=== PATIENT | female | born 1950 | race African-American/Black ===

== ENCOUNTER 2020-06-29 13:56 | Outpatient (CLI) | payer MEDICARE, MEDICAID, SELFPAY ==
--- NOTE | ~2020-06-29 | US_ITS ---
EXAMINATION: US venous doppler LE RT DATE: 06/29/2020 14:33 INDICATION: Right lower limb swelling. TECHNIQUE: Grayscale ultrasound images without and with compression and Doppler ultrasound images of the right lower extremity veins were obtained. COMPARISON: None. FINDINGS: The visualized portions of right common femoral vein, profunda (deep) femoral vein, femoral vein, pop liteal vein, posterior tibial veins, and greater saphenous vein outflow are patent. IMPRESSION: 1. No deep venous thrombosis. Reviewed, dictated and finalized at location A.
== END 2020-06-29 13:57 | disposition home or self-care (01) ==
PROVIDERS: PCP Internal Medicine; Visit Provider Internal Medicine
DX: R22.41 Localized swelling, mass and lump, right lower limb (principal)
CPT/HCPCS: 93971

== ENCOUNTER 2020-10-11 12:30 | Outpatient (RCR) | payer MEDICARE, MEDICAID, SELFPAY ==
--- NOTE | 2020-07-14 14:12 | PTOPEVAL ---
Thank you for referring Lindsay Bonilla to [facility].? The patient is scheduled to be seen for therapy? 2x/week for 10 weeks. Please review, sign, date and return this plan of care MATT. I agree with and certify that the following plan of care is medically necessary. Referring Physician Date Attending Provider: Harry Beth, Referring Provider: Harry Beth, MD Physical Therapy Evaluation Evaluation Information Problem Diagnosis chronic pain Onset 05/2019 Cause OA Subjective Information She reports her right leg is Query Text:As Reported By Patient/ painful. She reports decreased Family activities over the past year. Prior to COVID she was going to the gym. She has not returned to the gym for the past year. She had previous therapy with aquatic therapy 4 yrs ago. Reports limitations with walking, getting in/out of bed. 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 She will use a cane at home except in the kitchen. She does some general stretching at home. She has increased pain with lifting objects Pain Assessment Self Report Pain Assessment Right Hip(s) Reported Pain Level 7 Pain Description Aching Pain Frequency Chronic,Intermittent Lowest Pain Intensity 0 Greatest Pain Intensity 9 Pain Aggravating Factors Exercise/Activity,Lifting, Walking Pain Behaviors None Cervical and Lumbar ROM Lumbar ROM Lumbar Flexion Active Ankle Query Text:Hands to: Lumbar ROM 25% of Normal Lumbar Comments unable to achieve upright trunk position in standing with trunk maintained in flex position. Able to achieve trunk in neutral position in supine or prone position Lower Extremity Range of Motion General Lower Extremity Range of Motion Gross Lower Extremity Range of Motion right knee: 0-90 deg, left Comments knee, left knee: 0-90 dg (hard end feel for knee flex) right hip passive flex: 90 dg with pain, left hip 90 dg no p
--- NOTE | 2020-08-06 10:22 | PCPTNOTE ---
Patient called & cancelled scheduled appointment this date due to having to take care of some business.
--- NOTE | 2020-09-02 13:18 | PCPTNOTE ---
Patient called & cancelled scheduled appointment this date due to going to a .
--- NOTE | 2020-09-16 12:59 | PCPTNOTE ---
Patient called & cancelled scheduled appointment this date due to not feeling well.
--- NOTE | 2020-09-24 10:47 | PCPTNOTE ---
Patient called & cancelled scheduled appointment this date due to unknown reason.
--- NOTE | 2020-10-07 07:57 | PTOPEVAL ---
Thank you for referring Lindsay Bonilla to [facility].? The patient is scheduled to be seen for therapy? 1 x/week for 4 weeks. Please review, sign, date and return this plan of care MATT. I agree with and certify that the following plan of care is medically necessary. Referring Physician Date Attending Provider: Harry Beth, Referring Provider: Harry Beth, MD Physical therapy progress note Diagnosis chronic pain Onset 05/2019 Cause OA Subjective Information She is not planning on Query Text:As Reported By Patient/ returning to the [facility] since Family people are not wearing the mask or while COVID is a problem. She is performing her HEP 3-4x /wk. She had a fall 3 weeks ago when she was cleaning her car at the car wash. Reports she is walking a little better with therapy. She c/o stomach/ intestional problems. She uses a cane for her community mobility. She pushes the cart at [employer] for her endurance exercise. Denies any problems getting in/out of bed. 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 I need pool therapy here to help me Pain Assessment Self Report Pain Assessment Right Hip(s) Reported Pain Level 4 Pain Frequency Chronic Cervical and Lumbar ROM Lumbar ROM Lumbar Flexion Active Floor Query Text:Hands to: Lateral Flexion mid-thigh Query Text:Active Hands to: Lumbar Comments unable to extend trunk past midline in standing position without increased pain. 50% of lateral flex with muscle stretching Lower Extremity Range of Motion General Lower Extremity Range of Motion Limitations Soft Tissue Restriction Gross Lower Extremity Range of Motion passive hip ext: neutral Comments hip passive flex: 90 dg limited by soft tissue mass Cervical and Lumbar Muscle Testing Lumbar Strength Upper Abdominal Strength 3-Fair- Upper Back Extension 3 Fair Lower Back Extension 3 Fair Lower Extremity Muscle Strength Testing Hip Strength Right Hip Fl
--- NOTE | 2020-10-13 07:17 | PCPTNOTE ---
This treatment is being continued on visit number 17 to new [id number] Please see documentation on both accounts to view progress. Completed interventions, outcomes, and problems have been marked as Inactive to facilitate the copying of the Care plan routine for recurring accounts.
== END 2020-10-12 11:31 | disposition home or self-care (01) ==
LOC: ANHPT 12:30
PROVIDERS: PCP Internal Medicine; Referring Provider Internal Medicine; Visit Provider Internal Medicine
DX: G89.29 Other chronic pain (principal)
CPT/HCPCS: 97110; 97113; 97162; 97530

== ENCOUNTER 2020-11-15 13:30 | Outpatient (RCR) | payer MEDICARE, MEDICAID, SELFPAY ==
--- NOTE | 2020-10-13 07:18 | PCPTNOTE ---
The treatment documented on this account is a continuation of the treatment documented on visit number 17 from previous [id number]. Please see documentation on both accounts to view progress. The Plan of Care has been transitioned and updated within the new V#. I have addressed and agree with the discipline specific Problems, Interventions, and Goals for the current certification period. Completed interventions, outcomes, and problems have been marked as Inactive to facilitate the copying of the Care plan routine for recurring accounts.
--- NOTE | 2020-11-02 08:49 | PCPTNOTE ---
Patient called & cancelled scheduled appointment this date due to dentist appointment.
--- NOTE | 2020-11-10 07:13 | PTOPEVAL ---
Physical Therapy Progress Note Thank you for referring Lindsay Bonilla to [facility].? Lindsay has attended 20 therapy visits to address her chronic symptoms. See summary below for her limited progress. The patient is scheduled to be seen for therapy? 1 x/week for 4 weeks. Please review, sign, date and return this plan of care MATT. I agree with and certify that the following plan of care is medically necessary. Referring Physician Date Attending Provider: Harry Beth, Referring Provider: Harry Beth, Diagnosis chronic pain Onset 05/2019 Cause OA Subjective Information She c/o intermittent groin Query Text:As Reported By Patient/ pain. She does feel her legs Family and arms are moving better since starting therapy. 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 She thinks she can stand for an hour before needing to rest, but has tried. She walks around the house without her cane. She will go to the store and walk longer distances leaning on the cart. She is performing her HEP 3-4x /wk. Pain Assessment Self Report Pain Assessment Generalized Reported Pain Level 4 Pain Frequency Chronic Cervical and Lumbar ROM Lumbar ROM Lumbar Flexion Active Floor:Hands to: Lateral Flexion distal thighActive Hands to: Lumbar Comments able to extend trunk past midline in standing position without increased pain. 75% of lateral flex with muscle stretching Lower Extremity Muscle Strength Testing General Lower Extremity Strength Gross Lower Extremity Strength right knee ext: 5/5, flex: 4/5 (standing), hip flex: 4/5, ext:3+/5 (standing) adduction: 2+/5,abduction: 2/5 left knee ext: 5/5, flex: 4/5 (standing) hip flex: 4/5, ext: 3+/5 (standing), adduction: 2+/5, abduction 2/5 Balance Assessment Timed Up and Go Test (TUG) (Seconds) 18 Assistive Devices None 5 Time Sit to Stand Time in Seconds 22 5 Time Sit to Stand Comments slow with movement, = LE WB with task Gait Assessment Gait Pattern Trendelenburg Gait,Antalgic Gait,Circumducted Gait Gait Pattern Observed
--- NOTE | 2020-11-23 10:33 | PCPTNOTE ---
Patient called & cancelled scheduled appointment this date due to not being able to make it today.
--- NOTE | 2020-11-30 12:56 | PCPTNOTE ---
Patient did not show up for scheduled appointment this date. Called & had to leave a message.
--- NOTE | 2020-12-23 08:11 | PCPTNOTE ---
Admitting Provider: Attending Provider: Harry BethMD Patient:Lindsay Bonilla Date of :1950 Physical Therapy Discharge Note Patient has not returned for any further treatments since 11/15/2020, therefore she will be discharged at this time. Patient?s initial visit was on 10/21/2020 10:30 and she had a total of 21 visits. The goals have been partially met. Thank you for referring this patient to [facility]. Please review, sign, date and return this discharge summary MATT. I have been updated about the patient's current status and I agree with discharge from the above service at this time. Referring Physician Date
== END 2021-01-05 08:53 | disposition home or self-care (01) ==
LOC: ANHPT 13:30
PROVIDERS: Referring Provider Internal Medicine; Visit Provider Internal Medicine
DX: G89.29 Other chronic pain (principal)
CPT/HCPCS: 97110; 97113; 97530

== ENCOUNTER 2021-03-29 13:35 | Outpatient (CLI) | payer MEDICARE, MEDICAID, SELFPAY ==
--- NOTE | 2021-03-29 | ECHO_ITS ---
Patient Info Name: Lindsay Bonilla Age: 70 years : 1950 Gender: Female Ht: 65 in Wt: 245 lbs BSA: 2.31 m2 HR: 77 bpm BP: 141 / 82 mmHg Heart Rhythm: Sinus Rhythm Technical Quality: Fair Exam Date: 03/29/2021 1:59 PM Exam Location: [facility] Pulmonary Patient Status: Outpatient Admit Date: 03/29/2021 Staff Ordering Physician: KiritHarry MD Brand Specialist: Lou Milton RDCS Attending Provider: FallonHarry MD Exam Type: CA echo doppler color flow Study Info Indications R06.09 - Other forms of dyspnea Complete two-dimensional, color flow and Doppler transthoracic echocardiogram is performed. Summary 1. Complete two-dimensional, color flow and Doppler transthoracic echocardiogram is performed. 2. Normal left ventricular size with mild concentric hypertrophy and asymmetric septal hypertrophy. Good systolic function of all segments with ejection fraction of 65-70% with no wall motion abnormalities. Grade 1 diastolic dysfunction is present. 3. 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 Mildly increased LVOT velocity of 1.8 m/sec which increases to 2.4 m/sec with Valsalva, suggesting a mild intraventricular gradient of 23 mm Hg. 4. Left atrial chamber dimension is mildly enlarged. 5. There is mild mitral valve regurgitation. 6. Mild pulmonary hypertension, estimated pulmonary arterial systolic pressure is 39 mmHg. 7. Normal sinus rhythm. Left Ventricle Left ventricular chamber dimension is normal. Left ventricular systolic function is normal, estimated at 65-70%. There is mildly increased left ventricular wall thickness. Left ventricular septal wall motion is normal. The left ventricular diastolic function is grade I diastolic dysfunction. Right Ventricle Right ventricular chamber dimension is normal. Right ventricular systolic function is normal. Left Atria Left atrial chamber dimension is mildly enlarged. Right Atria Right atrial chamber dimension is normal. Aortic Valve The aortic valve is trileaflet. There is no aortic valve sclerosis. There is no aortic valve stenosis. There is trace aortic valve regurgitation. Pulmonic Valve The pulmonic valve is normal. There is no pulmonic valve stenosis. There is trace pulmonic regurgitation. Mitral Valve The mitral valve has normal leaflets. There is no mitral valve stenosis. There is mild mitral valve regurgitation. Tricuspid Valve The tricuspid valve leaflets are normal. There is no significant tricuspid valve stenosis. There is mild tricuspid valve regurgitation. Mild pulmonary hypertension, estimated pulmonary arterial systolic pressure is 39 mmHg. Pericardium/Pleural The pericardium appears normal. There is no pericardial effusion. Inferior Vena Cava Normal inferior vena cava with >50% collapse upon inspiration consistent with Empty right atrial pressure, 10 mmHg. Aorta The aortic root size at the sinus of Valsalva is normal. The prox ascending aorta size is normal. Left Ventricular Outflow Tract Name Value Normal LVOT 2D LVOT Diameter 2.0 cm LVOT Doppler
== END 2021-03-29 13:36 | disposition home or self-care (01) ==
PROVIDERS: PCP Internal Medicine; Visit Provider Internal Medicine
DX: R06.02 Shortness of breath (principal); R06.09 Other forms of dyspnea; I34.0 Nonrheumatic mitral (valve) insufficiency; I27.20 Pulmonary hypertension, unspecified; I51.7 Cardiomegaly
CPT/HCPCS: 93306

== ENCOUNTER 2021-04-04 13:04 | Outpatient (CLI) | payer MEDICARE, MEDICAID, SELFPAY ==
--- NOTE | 2021-04-04 | ECG_ITS ---
Measurements Intervals [place] Rate: 60 P: 51 CO: 220 QRS: 47 QRSD: 88 T: 90 QT: 423 QTc: 424 Interpretive Statements SINUS RHYTHM WITH FIRST DEGREE AV BLOCK BORDERLINE T WAVE ABNORMALITY- HIGH LATERAL LEADS ABNORMAL ECG Electronically Signed On 04-04-2021 13:44:47 IRRIGATION SPECIALIST by Miguel Thomas D.O.
== END 2021-04-04 13:05 | disposition home or self-care (01) ==
PROVIDERS: PCP Internal Medicine; Visit Provider Orthopaedic Surgery
DX: M16.11 Unilateral primary osteoarthritis, right hip (principal); Z01.818 Encounter for other preprocedural examination; I44.0 Atrioventricular block, first degree
CPT/HCPCS: 93005

== ENCOUNTER 2021-04-21 11:18 | Outpatient (CLI) | payer OTHER, MEDICAID, SELFPAY ==
[2021-04-21 15:08] LABS: Basophils Percent Auto 0.7 % (0.2-1.2); Eosinophils Absolute Auto 0.1 K/mm3 (0-0.3); Eosinophils Percent Auto 1.9 % (0-4.4); Hematocrit 35.7 % (37.0-47.0); Hemoglobin 11.9 g/dL (12.0-15.0); Immature Granulocyte Absolute 0.02 K/mm3 (0.00-0.031); Immature Granulocyte Percent A 0.3 % (0-0.5); Lymphocytes Absolute Auto 1.26 K/mm3 (0.9-3.2); Lymphocytes Percent Auto 21.2 % (18.3-44.2); Mean Corpuscular HGB Conc 33.3 g/dl (32-36); Mean Corpuscular Hemoglobin 26.7 pg (26-34); Mean Platelet Volume 9.6 fl (7.4-10.4); Monocytes Absolute Auto 0.3 K/mm3 (0.1-0.6); Monocytes Percent Auto 5.6 % (2.6-8.5); Neutrophils Absolute Auto 4.2 K/mm3 (1.3-6.7); Neutrophils Percent Auto 70.3 % (45.5-73.1); Platelet Count Result 335 k/mm3 (150-375); Red Blood Count 4.46 M/mm3 (4.2-5.4); Red Cell Distribution Width 14.6 % (11.5-14.5); White Blood Count 5.9 K/mm3 (4.5-10.0)
[2021-04-21 15:19] LABS: Albumin Level 4.5 g/dL (3.5-5.1); Estimated Glomerular Filt Rate > 60
[2021-04-21 15:21] LABS: Urine Cotinine NEGATIVE
[2021-04-21 15:39] LABS: Anion Gap 7 mmol/L (8-16); Blood Urea Nitrogen 11 mg/dL (7-17); Carbon Dioxide 26 mmol/L (22-30); Chloride 106 mmol/L (98-107); Estimated Glomerular Filt Rate > 60; Glucose 193 mg/dL (65-110); Potassium 3.5 mmol/L (3.4-5.0); Sodium 139 mmol/L (137-145)
== END 2021-04-21 11:19 | disposition home or self-care (01) ==
PROVIDERS: Anesthesiology; PCP Internal Medicine; Visit Provider Orthopaedic Surgery
DX: Z01.818 Encounter for other preprocedural examination (principal); M16.11 Unilateral primary osteoarthritis, right hip; I10 Essential (primary) hypertension
CPT/HCPCS: 36415; 80048; 80307; 82040; 82565; 85025; 87081

== ENCOUNTER 2021-05-11 10:52 | Observation (INO) | payer MEDICARE, MEDICAID, SELFPAY ==
[2021-04-21 13:35] VITALS: BMI 39.6
--- NOTE | 2021-04-21 14:06 | PC.NURSE ---
Report to the Outpatient Waiting Room, entrance under the green pavilion located off [facility], at time _0830 on date _05/10/21 . OR Time: __1030 . - You will be asked a series of questions to screen for COVID 19 for your protection. - A mask is required within the hospital. - No visitors are allowed at this time. Preoperative COVID Testing Requirements: No COVID Test needed if: (proof is required; if not received patient will have Rapid Test prior to entry) - Patient has received COVID Vaccine at least 14 days prior to procedure date or - Patient has positive COVID test result within last 90 days of surgery date. COVID Test needed if above criteria is not met If not COVID vaccinated a COVID test must be conducted within 72 hours of surgery and patient is asked to isolate self from time of testing until procedure. You will go to the [facility] for your COVID testing. The [facility] is located at the corner of [address] from [facility]. You will only be called if COVID results are positive and your surgeon may reschedule your elective surgery date. Patients may have clear liquids (water, carbonated beverages, clear teas, apple juice) until 3 hours prior to surgery with a maximum of 20 ounces. - No food from midnight until time of surgery - Infants may have breast milk until 4 hours before surgery, infant formula 6 hours prior to surgery. - Children will be allowed to drink immediately following surgery. If applicable, please bring a bottle or sippy cup to assist with drinking. Juice, water, soda, and popsicles are readily available. For infants on formula, please bring formula the day of surgery. Pacifiers are allowed. Take the following medications with a SIP of water the morning of surgery: ___AMLODIPINE,CLONIDINE, Medications to discontinue per physician ASPIRIN 7 DAYS PRE OP ,ALL VITAMINS AND SUPPLEMENTS 3 DAYS PRE OP Date to take last dose__ASPIRIN 2/14/22 VITAMINS AND SUPPLEMENTS 05/06/21 Please no make-up, nail kazakh, hairspray, perfume, deodorant, or body powder the day of surgery. No jewelry (including any body piercings) or valuables the day of surgery, leave them at home. Please take a shower or bath the night before, or the morning of, surgery with an antibacterial soap. Wear comfortable, loose fitting clothing. Children are encouraged to wear pajamas. - Jewelry must be removed prior to entering the operating room. Rings and piercings that are not removed may be cut off. - The hospital will not accept responsibility for valuables. - Please leave all valuables, including medications, at home the day of surgery. If you are going home after surgery, a licensed emt driver must drive you home. - NO public transportation without another adult. - We recommend that an adult stay with you for 24 hours following discharge. - We also recommend that you do not drive, make important decision, drink alcoholic beverages, or take any drugs that were not prescribed by your health care provider for at least 24 hours after your discharge time. For Pediatric surgeries, we recommend two adults accompany the child home (only one inside the building at this time). Follow any additional instructions given to you from your surgeon. VERBAL instructions given to _PATIENT and asked if any additional questions and then verbalized understanding. Patient advised to call surgeon office or pre surgery nurse liaison [phone] if any additional questions.
[2021-04-21 14:35] VITALS: BP 140/54; PULSE 79; RESP 18; TEMP 36.8; O2SAT 99
[2021-05-10] VITALS (14 sets, daily range): BP systolic 123–152; BP diastolic 53–74; PULSE 56–99; RESP 12–20; TEMP 35.9–36.8; O2SAT 90–100; BMI 37.3; BMI 44.3
--- NOTE | 2021-05-10 07:17 | WPDHPUPDATE1 ---
History and Physical Update Update Date/Time: 05/10/21 07:17 History and Physical has been reviewed, including an updated exam of the patient. There are NO changes in the patient's condition. Risks, benefits, and alternatives have been discussed and questions answered. Patient agrees to proceed with procedure.
[2021-05-10] MEDS: LACTATED RINGERS 1,000 ML 30 ML IV CONT ×2 (09:24→13:08)
[2021-05-10] MEDS: TRANEXAMIC ACID 1,000MG/ISO100 1,000 MG/100 ML BAG 200 MG IVPB (09:25)
[2021-05-10] MEDS: ACETAMINOPHEN 500 MG TABLET 1000 MG PO (09:28)
[2021-05-10 09:34] LABS: Glucose Point of Care 191 mg/dl (65-105)
--- NOTE | 2021-05-10 09:48 | WPDANESEPPF ---
Anes - Initial Pre Proc Eval Procedure: Operation Date: 05/10/21 10:30 Proposed Procedures p Right Total Hip Arthroplasty - Doug Meehan MD Date/Time: 05/10/21 09:48 Surgeon: Doug Meehan MD Pre Op Diagnosis: primary oa right hip Patient Data Age: 70 Gender: F Height: 1.68 m Weight: 105 kg Last Vital Signs Temp 36.4 C L 05/10/21 09:39 Pulse 76 05/10/21 09:39 Resp 20 05/10/21 09:39 BP 123/74 05/10/21 09:39 Pulse Ox 97 05/10/21 09:39 Allergies Allergy/AdvReac Type Severity Reaction Status Date / Time No Known Allergies Allergy Verified 05/10/21 08:42 Home Medications Medication Instructions Recorded Confirmed Type amlodipine 5 mg tablet 5 mg PO DAILY 01/07/21 05/10/21 History glimepiride 4 mg tablet 8 mg PO QAM 01/07/21 05/10/21 History metformin 500 mg tablet 500 mg PO BID 01/07/21 05/10/21 History rosuvastatin 10 mg tablet 10 mg PO DAILY 01/07/21 05/10/21 History acetaminophen [Tylenol Extra 1,000 mg PO Q6H PRN 04/21/21 05/10/21 History Strength] aspirin [Adult Low Dose Aspirin] 81 mg PO DAILY 04/21/21 05/10/21 History clonidine HCl 0.1 mg PO BID 04/21/21 05/10/21 History rmnajnmhpyva-kkx-jyqg-FA-vit K 1 tablet PO DAILY 04/21/21 05/10/21 History [Adults Multivitamin] potassium 99 mg PO DAILY 04/21/21 05/10/21 History triamterene-hydrochlorothiazid 1 cap PO QPM 04/21/21 05/10/21 History Laboratory Tests 05/10/21 09:30 POC Capillary Glucose 191 mg/dl H mg/dl (65-105) Patient hx anesthesia problems: none Family hx anesthesia problems: none Results Review: All pre-operative results and documents have been reviewed as part of the pre-operative evaluation. [facility] Past Medical History Medical History (Updated 05/10/21 @ 09:48 by Geovany Acosta MD) HTN (hypertension) Hyperlipidemia Obesity Surgical History Surgical History History of left knee replacement History of right knee joint replacement Status post total knee replacement, right Family History Family History Mother Patient's mother is , Onset Age: 87 Father Patient's father is , Onset Age: 93 Family history of arthritis Sibling Patient's brother is Social History Social History Additional smoking assessment comments: DENIES ANY FORM OF TOBACCO USE Alcohol intake: never Living arrangements: alone Spiritual care concerns: No Anes - Eval Final PreProcedure Day of Procedure 05/10/21 09:48 Patient weight: obese Heart: regular rate and rhythm Lungs: clear to auscultation Airway: Mallampati scale class II Neurological: alert and oriented Last oral intake: >/= 8 hours ASA classification: III Emergent: no Anesthetic plan: proceed Anesthesia type and monitoring: general ETT and standard monitoring Results Review: All pre-operative results and documents have been reviewed as part of the pre-operative evaluation. Informed Consent: The patient's anesthetic plan and its attendant risks and benefits were discussed with the patient/family/POA. Questions were solicited and answers provided to the satisfaction of the patient/family/POA.
--- NOTE | 2021-05-10 10:11 | SUR.PREOP ---
0961; NOTIFIED DR MCCLELLAN OF BLOOD SUGAR 191
[2021-05-10] MEDS: ceFAZolin 2 GM/D5W 50 ML 2 GM/50 ML BAG IVPB ×2 (11:04→18:28)
[2021-05-10] MEDS: fentaNYL CITRATE INJ (*CRX) 100 MCG/2 ML VIAL 25 MCG IV PUSH ×5 (13:22→13:48)
--- NOTE | 2021-05-10 14:25 | PC.NURSE ---
This patient, Lindsay Bonilla, was admitted to [facility]1. Patient/family oriented to hospital policies and general routines including ID bracelet, bed and alarms, visiting hours, pain management, procedures, bathroom and other care routines, personal items, smoking policy, room service/diet, and visiting hours. Information on how to activate the Rapid Response Team has been discussed. Patient/Family are encouraged to report perceived risks to care and to ask questions if they do not understand what they are told or what they should do.
[2021-05-10 14:53] LABS: Glucose Point of Care 187 mg/dl (65-105)
[2021-05-10] MEDS: SODIUM CHLORIDE 0.9% IV 1,000 ML 125 ML IV CONT (14:54)
[2021-05-10 18:00] LABS: Glucose Point of Care 121 mg/dl (65-105)
[2021-05-10] MEDS: SENNA/DOCUSATE SODIUM TABLET 2 TAB PO (18:11)
[2021-05-10] MEDS: MELOXICAM 7.5 MG TABLET PO (18:11)
[2021-05-10] MEDS: ASPIRIN 81 MG ENTERIC TABLET PO (18:11)
[2021-05-10] MEDS: metFORMIN HCL 500 MG TABLET PO (18:11)
[2021-05-10] MEDS: ONDANSETRON INJ 4 MG/2 ML VIAL IV PUSH (18:12)
[2021-05-10] MEDS: TRIAMTERENE 37.5 MG/HCTZ 25 MG (MAXZIDE) TABLET 1 TAB PO (18:12)
[2021-05-10] MEDS: cloNIDine HCL 0.1 MG TABLET PO (21:04)
[2021-05-10] MEDS: FAMOTIDINE 20 MG TABLET PO (21:04)
--- NOTE | 2021-05-10 22:52 | PM.IMCN ---
Assessment and Plan Assessment and plan (1) Type 2 diabetes mellitus with complication, without long-term current use of insulin: Code(s): E11.8 - Type 2 diabetes mellitus with unspecified complications Status: Acute Assessment and Plan: Patient's blood glucose on laboratories from 04/21/2021 was elevated at 193. Will resume patient's home medications and have blood glucose monitoring before meals and at bedtime with sliding scale insulin available. (2) Essential (primary) hypertension: Code(s): I10 - Essential (primary) hypertension Status: Acute Assessment and Plan: Will resume patient's home medications and monitor blood pressure. Will adjust medications accordingly for optimal blood pressure control. (3) Right hip pain: Code(s): M25.551 - Pain in right hip Status: Acute Assessment and Plan: Patient is status post right hip arthroplasty. Patient doing extremely well postoperatively states she has very little pain. Will continue per Orthopedic surgery. Will defer pain management and DVT prophylaxis to Orthopedic surgery. HPI Data of Consult Consult date: 05/10/21 Requesting Physician: Doug Meehan MD Primary Care Provider: Harry Beth, Consult Narrative Narrative: Lindsay Bonilla is a 70 year old female who presented to the hospital with severe right hip pain. Patient underwent hip replacement today and hospitalist was consulted for medical management. Patient states that her osteoarthritis had gotten so bad that it was inhibiting her ability to get in and out of a car, difficulty with going shopping and taking care of herself at home. She lives alone. Patient states she does have a history of diabetes mellitus and hypertension, but she has been carefully watching what she eats, and is attempting to lose weight to control her diabetes and hypertension. Patient states that she feels that she has had some improvement with her weight and that her blood pressure and diabetes have been well controlled. Patient states she did have a fall last year and has been having left elbow and left shoulder pain since that time. Patient states she has received cortisone injections which have helped. From medical standpoint patient states she has been feeling very well she denies any chest pain, shortness breast, orthopnea, PND, lightheadedness, dizziness, syncopal, or near syncopal episodes. Patient states she has been taking all medications at home without any difficulty and watches her diet very closely. Review of Systems Review of Systems: A 12 point review of systems was completed patient all pertinent positive and negative per HPI the remainder are unremarkable. [facility] Past Medical History Medical History (Updated 05/10/21 @ 22:59 by Juana Garsia APRN) Diabetes HTN (hypertension) Hyperlipidemia Obesity Surgical History Surgical History (Updated 05/10/21 @ 23:03 by Juaan Garsia APRN) History of left knee replacement History of right knee joint replacement Family History Family History Mother Patient's mother is , Onset Age: 87 Father Patient's father is , Onset Age: 93 Family history of arthritis Sibling Patient's brother is Social History Social History Smoking status: Never smoker Alcohol intake: never Substance use: never Living arrangements: alone Spiritual care concerns: No Meds Home Medications and Allergies Home Medications Medication Instructions Recorded Confirmed Type amlodipine 5 mg tablet 5 mg PO DAILY 01/07/21 05/10/21 History glimepiride 4 mg tablet 8 mg PO QAM 01/07/21 05/10/21 History metformin 500 mg tablet 500 mg PO BID 01/07/21 05/10/21 History rosuvastatin 10 mg tablet 10 mg PO DAILY 01/07/21 05/10/21 History acetaminophen [Tylenol Extra
[2021-05-11] VITALS (10 sets, daily range): BP systolic 97–139; BP diastolic 50–78; PULSE 62–98; RESP 16–18; TEMP 36.4–38.5; O2SAT 93–100
--- NOTE | ~2021-05-11 | XR_ITS ---
EXAMINATION: XR chest 2V 05/12/2021 11:15 INDICATION: Fever and cough PROCEDURE: 2 view chest COMPARISON: Comparison to multiple prior studies sequentially, with oldest reviewed study dated 10/28. FINDINGS: The lungs are clear. The cardiomediastinal silhouette is within normal limits. There are no pleural effusions. There is no pneumothorax suspected. There are advanced degenerative changes o f the shoulders. IMPRESSION: 1: NO ACUTE CARDIOPULMONARY DISEASE. Reviewed, dictated and finalized at location B. OY TENDER
--- NOTE | ~2021-05-11 | XR_ITS ---
EXAMINATION: XR hip RT min 2V DATE: 05/10/2021 13:41 INDICATION: Postoperative evaluation following right total hip arthroplasty TECHNIQUE: Anteroposterior and lateral views of the right hip were obtained. COMPARISON: 05/10/2021 at 7:36 AM FINDINGS: Interval placement of a right total hip arthroplasty which appears well seated in near anatomic align ment. Expected small amount of subcutaneous gas in the postoperative bed. No fractures identified. IMPRESSION: 1. Right total hip arthroplasty, negative for postoperative purposes. Reviewed, dictated and finalized at location A. [employer] SUPERVISOR
[2021-05-11] MEDS: ceFAZolin 2 GM/D5W 50 ML 2 GM/50 ML BAG IVPB (03:29)
--- NOTE | 2021-05-11 07:05 | WPDANESPN ---
Anes - Prog Note Post-Op Date/Time: 05/11/21 07:05 Cardiovascular status: normal Respiratory status: normal Airway patency: baseline Mental status: baseline Post-Op hydration status: normal Vital Signs: Last Vital Signs Temp 97.6 F 05/11/21 00:00 Pulse 81 05/11/21 04:00 Resp 18 05/11/21 06:00 BP 130/50 L 05/11/21 04:00 Pulse Ox 94 05/11/21 04:00 Pain Score (VAS): 7 pain med helps I/O: Intake & Output 05/10/21 05/10/21 05/11/21 15:59 23:59 07:59 Intake Total 380 922 9725 Output Total 300 Balance 868 673 7160 05/10/21 05/10/21 05/10/21 09:21 09:30 14:51 POC Capillary Glucose 191 H 187 H Blood Type B Positive Antibody Screen Negative 05/10/21 17:55 POC Capillary Glucose 121 H Blood Type Antibody Screen Post-procedural complaints: none Patient Feedback: Patient satisfied with anesthetic care.
[2021-05-11] MEDS: MELOXICAM 7.5 MG TABLET PO ×2 (09:15→17:10)
[2021-05-11] MEDS: SENNA/DOCUSATE SODIUM TABLET 2 TAB PO ×2 (09:15→17:10)
[2021-05-11] MEDS: GLIMEPIRIDE 2 MG TABLET 8 MG PO (09:15)
[2021-05-11] MEDS: metFORMIN HCL 500 MG TABLET PO ×2 (09:16→17:10)
[2021-05-11] MEDS: ROSUVASTATIN 10 MG TABLET PO (09:16)
[2021-05-11] MEDS: amLODIPine BESYLATE 5 MG TABLET PO (09:16)
[2021-05-11] MEDS: FAMOTIDINE 20 MG TABLET PO ×2 (09:16→21:01)
[2021-05-11] MEDS: ASPIRIN 81 MG ENTERIC TABLET PO ×2 (09:16→17:10)
[2021-05-11] MEDS: cloNIDine HCL 0.1 MG TABLET PO ×2 (09:20→21:01)
[2021-05-11] MEDS: polyethylene glycoL 3350 17 GM POWD.PACK PO (09:21)
[2021-05-11] MEDS: oxyCODONE HCL (*CRX) 5 MG TAB IR PO (09:27)
--- NOTE | 2021-05-11 09:34 | PM.IMPN ---
Progress Note: A&P Assessment and Plan (1) Primary osteoarthritis of right hip: Code(s): M16.11 - Unilateral primary osteoarthritis, right hip Status: Acute Assessment and Plan: Patient with DJD of the right hip who has failed conservative management and is now POD #1 from a right hip GABY. Patient is feeing weak but able to tolerate therapy. Pain management and DVT prophylaxis per primary team. Discharge planning underway. (2) Type 2 diabetes mellitus with complication, without long-term current use of insulin: Code(s): E11.8 - Type 2 diabetes mellitus with unspecified complications Status: Acute Assessment and Plan: The patient's blood glucose was reviewed on 05/11. No A1c listed in the chart. Minimal values in the chart. Glucose 193 prior to admission but random. Glucose 191, 187 and 121yesterday. Unfortunately, no fasting glucose listed before her breakfast this morning. Continue AccuCheks covering with sliding scale. Hypoglycemia protocol available as needed. Continue current medications. Check A1c in AM if she is held overnight (3) Essential (primary) hypertension: Code(s): I10 - Essential (primary) hypertension Status: Acute Assessment and Plan: Patient's blood pressure was reviewed on 05/11 Blood pressure remains well controlled. Norvasc, Clonidine and Maxide already resumed. She is not on CECILE or ARB but probably related to the HOCM. Will continue current medications and monitor BP closely. (4) Hypertrophic obstructive cardiomyopathy (HOCM): Code(s): I42.1 - Obstructive hypertrophic cardiomyopathy Status: Acute Assessment and Plan: Patient with murmur. Echo 03/29/21 showing EF 65-70% and grade I diastolic dysfunction. She had mild concentric hypertrophy and asymmetric septal hypertrophy consistent with hypertrophic obstructive cardiomyopathy including systolic anterior motion of the mitral valve. Returned and spoke with patient. Recommend she speak with her doctor about the Echo findings. She voices understandng. Subjective Date/time seen: 05/11/21 09:34 Interval history: 70yo female with DM and HTN here for elective right GABY. Patient feels sleepy/tired and weak. She was able to get up to the bedside commode. Eating okay. No CP or SOB. No n/v but does feel nauseous if she moves too fast. Pain well controlled. Exam Narrative: AF 97.6 130/50 81 18 94% ra Constitutional: NARD sitting at the side of the bed Lungs: CTA bilaterally, nml RR CV: RRR S1/S2; murmur appreciated sternal boarder loudest in the RUSB but without obvious radiation Abdomen: Soft, obese, NT Extremities: Right hip dressing is clean/dry/intact. Rod hose in place Skin: Warm and dry. Neurological: Non focal Psychiatric: Normal mood and affect Objective Data Vital Signs Vital Signs: Vital Signs - 24 hr 05/10/21 09:39 05/10/21 13:08 05/10/21 13:15 Temperature 97.5 F L 98.2 F Pulse Rate 76 80 70 Respiratory Rate 20 12 12 Blood Pressure 123/74 152/62 H 143/74 H Pulse Oximetry 97 99 100 05/10/21 13:30 05/10/21 13:45 05/10/21 14:00 Temperature Pulse Rate 61 63 56 L Respiratory Rate 16 16 14 Blood Pressure 140/68 133/68 142/61 H Pulse Oximetry 100 100 99 05/10/21 14:11 05/10/21 14:25 05/10/21 14:40 Temperature 96.8 F L 96.7 F L Pulse Rate 58 L 59 L 60 Respiratory Rate 14 16 15 Blood Pressure 125/58 L 125/56 L 124/53 L Pulse Oximetry 99 90 93 05/10/21 16:40 05/10/21 17:00 05/10/21 17:40 Temperature 97.1 F L 97.6 F Pulse Rate 98 90 99 Respiratory Rate 20 18 18 Blood Pressure 136/58 L 134/53 L Pulse Oximetry 96 95 100 05/10/21 20:00 05/10/21 22:00 05/11/21 00:00 Temperature 97.9 F 97.6 F Pulse Rate 73 98 Respiratory Rate 18 18 18 Blood Pressure 136/60 122/70 Pulse Oximetry 91 93 05/11/21 04:00 05/11/21 06:00 Temperature Pulse Rate 81 Respiratory Rate 18 18 Blood Pressure 130/50 L Pulse Oximetry 94
[2021-05-11] MEDS: CEPHALEXIN 500 MG CAPSULE PO (10:23)
--- NOTE | 2021-05-11 12:06 | PM.PNORT ---
Progress Note: A&P Assessment and Plan (1) Status post total hip replacement, right: Code(s): Z96.641 - Presence of right artificial hip joint <AMARI Marina - Last Filed: 05/12/21 13:12> Status: Acute <AMARI Marina - Last Filed: 05/12/21 13:12> Assessment and Plan: Postop day 1: Right Total hip arthroplasty. Patient tolerated procedure well. No numbness or tingling. Difficulty ambulating. Concerns from occupational therapy. Considering rehab. Will stay over night and re-evaluate tomorrow. <AMARI Marina - Last Filed: 05/12/21 13:12> Additional Plan Patient also see and examined on POD 1. Mobilizing poorly. Discussed with therapy and nursing. Rehab suggested. However, likely patient will be safe for home discharge within a few days. <Doug Meehan MD - Last Filed: 05/12/21 15:22> Subjective Subjective Date/Time Seen: 05/11/21 08:06 Patient on the commode at the time of my visit. Patient complains of trouble ambulating and pain. Notes some nausea. No other complaints. <AMARI Marina - Last Filed: 05/12/21 13:12> Exam Narrative: Obese 70 y/o female. Resting comfortably in bed. Wearing compression socks bilaterally. Dressing dry and intact with no drainage. Moderate swelling. No ecchymosis. No erythema. No hematoma. Range of motion limited due to pain. Calf nontender. Thigh nontender. Neurologic status intact. No varicosities. Distal pulses palpable. <AMARI Marina - Last Filed: 05/12/21 13:12> Objective Data Vital Signs Vital Signs: Vital Signs - 24 hr 05/11/21 13:57 05/11/21 14:00 05/11/21 15:31 Temperature 101 F H 101.3 F H 98.3 F Pulse Rate 62 Respiratory Rate 16 Blood Pressure 97/60 L Pulse Oximetry 98 05/11/21 20:00 05/11/21 22:00 05/12/21 00:00 Temperature 98.3 F 98.9 F Pulse Rate 79 81 Respiratory Rate 18 18 18 Blood Pressure 135/53 L 125/56 L Pulse Oximetry 96 90 05/12/21 03:54 05/12/21 04:00 05/12/21 06:00 Temperature 100.4 F H 100.4 F H 97.4 F L Pulse Rate 85 Respiratory Rate 18 18 Blood Pressure 119/42 L Pulse Oximetry 91 05/12/21 08:06 Temperature 97.7 F Pulse Rate 77 Respiratory Rate 16 Blood Pressure 132/54 L Pulse Oximetry 96 <AMARI Marina - Last Filed: 05/12/21 13:12> Intake/Output Intake/Output: Intake & Output 05/09/21 05/10/21 05/11/21 05/12/21 23:59 23:59 23:59 23:59 Intake Total 1010 1340 840 Output Total 300 300 Balance 710 1340 540 <AMARI Marina - Last Filed: 05/12/21 13:12> Meds/Results Medications: Active Medications Generic Name Dose Route Start Last Admin Trade Name Freq PRN Reason Stop Dose Admin Acetaminophen 1,000 mg 05/11/21 07:00 05/12/21 03:54 Acetaminophen 500 Mg Tablet PO 1,000 mg Q6H PRN Administration Pain 1-3 Amlodipine Besylate 5 mg 05/11/21 09:00 05/12/21 08:17 Amlodipine Besylate 5 Mg Tablet PO 5 mg DAILY SUMANTH Administration Aspirin 81 mg 05/10/21 17:00 05/12/21 08:18 Aspirin 81 Mg Enteric Tablet PO 81 mg BID SUMANTH Administration Clonidine HCl 0.1 mg 05/10/21 21:00 05/12/21 08:18 Clonidine Hcl 0.1 Mg Tablet PO 0.1 mg Q12HR SUMANTH Administration Cyclobenzaprine HCl 10 mg 05/10/21 14:13 Cyclobenzaprine Hcl 10 Mg Tablet PO Q8H PRN Muscle Spasm Dextrose 12.5 gm 05/10/21 23:08 Dextrose 50% 25 Gm/50 Ml Syringe IV PUSH PRN PRN Hypoglycemia Protocol Famotidine 20 mg 05/10/21 21:00 05/12/21 08:18 Famotidine 20 Mg Tablet PO 20 mg Q12HR SUMANTH Administration Glimepiride 8 mg 05/11/21 08:00 05/12/21 08:02 Glimepiride 2 Mg Tablet PO 8 mg DAILY@0800 SUMANTH Administration Glucagon 1 mg 05/10/21 23:08 Glucagon For Inj 1 Mg Vial IM PRN PRN Hypoglycemia Protocol Glucose 15 gm 05/10/21 23:08 Glucose Oral Gel 15 Gm Of Glucse In 37.5 Gm Tube
[2021-05-11 12:37] LABS: Glucose Point of Care 154 mg/dl (65-105)
[2021-05-11] MEDS: ACETAMINOPHEN 500 MG TABLET 1000 MG PO (13:57)
[2021-05-11] MEDS: TRIAMTERENE 37.5 MG/HCTZ 25 MG (MAXZIDE) TABLET 1 TAB PO (17:10)
[2021-05-11 17:26] LABS: Glucose Point of Care 143 mg/dl (65-105)
[2021-05-12] VITALS (8 sets, daily range): BP systolic 119–154; BP diastolic 42–65; PULSE 75–85; RESP 16–18; TEMP 36.3–38; O2SAT 90–96
[2021-05-12] MEDS: ACETAMINOPHEN 500 MG TABLET 1000 MG PO (03:54)
[2021-05-12 05:46] LABS: Hemoglobin A1C 6.6 % (<5.7)
[2021-05-12 07:55] LABS: Glucose Point of Care 124 mg/dl (65-105)
[2021-05-12] MEDS: metFORMIN HCL 500 MG TABLET PO ×2 (08:01→18:00)
[2021-05-12] MEDS: GLIMEPIRIDE 2 MG TABLET 8 MG PO (08:02)
[2021-05-12] MEDS: amLODIPine BESYLATE 5 MG TABLET PO (08:17)
[2021-05-12] MEDS: SENNA/DOCUSATE SODIUM TABLET 2 TAB PO ×2 (08:18→18:01)
[2021-05-12] MEDS: ASPIRIN 81 MG ENTERIC TABLET PO ×2 (08:18→18:00)
[2021-05-12] MEDS: FAMOTIDINE 20 MG TABLET PO ×2 (08:18→21:00)
[2021-05-12] MEDS: MELOXICAM 7.5 MG TABLET PO ×2 (08:18→18:00)
[2021-05-12] MEDS: polyethylene glycoL 3350 17 GM POWD.PACK PO (08:18)
[2021-05-12] MEDS: ROSUVASTATIN 10 MG TABLET PO (08:18)
[2021-05-12] MEDS: cloNIDine HCL 0.1 MG TABLET PO ×2 (08:18→21:00)
--- NOTE | 2021-05-12 10:30 | PM.IMPN ---
Progress Note: A&P Assessment and Plan (1) Fever: Code(s): R50.9 - Fever, unspecified Status: Acute Assessment and Plan: Patiet with fever yesterday. No urinary symptoms. SLight cough. She is compliant with incentie spirometry. No evidence of DVT. Atelectasis? Will check CXR. Consider influenza or COVD if persistent symptoms or CXR abnml. (she states she had COVID test negative pre-operatively) (2) Primary osteoarthritis of right hip: Code(s): M16.11 - Unilateral primary osteoarthritis, right hip Status: Acute Assessment and Plan: Patient with DJD of the right hip who has failed conservative management and is now POD #2 from a right hip GABY. Patient is feeing weak but able to tolerate therapy. Pain management and DVT prophylaxis per primary team. Discharge planning underway. (3) Type 2 diabetes mellitus with complication, without long-term current use of insulin: Code(s): E11.8 - Type 2 diabetes mellitus with unspecified complications Status: Acute Assessment and Plan: A1c 6.6. The patient's blood glucose was reviewed on 05/12 Glucose better controlled. Continue AccuCheks covering with sliding scale. Hypoglycemia protocol available as needed. Continue current medications. Diab diet (4) Essential (primary) hypertension: Code(s): I10 - Essential (primary) hypertension Status: Acute Assessment and Plan: Patient's blood pressure was reviewed on 05/12 Blood pressure remains well controlled. Continue Norvasc, Clonidine and Maxide. She is not on CECILE or ARB but probably related to the HOCM. Monitor BP closely. (5) Hypertrophic obstructive cardiomyopathy (HOCM): Code(s): I42.1 - Obstructive hypertrophic cardiomyopathy Status: Acute Assessment and Plan: Patient with murmur. Echo 03/29/21 showing EF 65-70% and grade I diastolic dysfunction. She had mild concentric hypertrophy and asymmetric septal hypertrophy consistent with hypertrophic obstructive cardiomyopathy including systolic anterior motion of the mitral valve. Spoke with patient and recommended that she speak with her PCP about these findings. Subjective Date/time seen: 05/12/21 10:30 Interval history: 70yo female with DM and HTN here for elective right GABY. Lightheadedness with standing. No CP or SOB. No n/v. Took long walk with PT. Pain 8/10 curently. No dysuria or hematuria. No diarrhea. COVID vaccine with booster was September (?). Up to date n influenza accCough productive of whitish phlegm. Exam Narrative: Tm 101.3 97.7 132/54 77 16 96% ra Constitutional: NARD sitting at the side of the bed Lungs: decrased BS in the right base o/w clear CV: RRR S1/S2; murmur appreciated t/o the precordium Abdomen: Soft, obese, NT Extremities: Right hip dressing is clean/dry/intact. negaive Homans Skin: Warm and dry. Large lipoma midback Psychiatric: Normal mood and affect Objective Data Vital Signs Vital Signs: Vital Signs - 24 hr 05/11/21 11:58 05/11/21 13:57 05/11/21 14:00 Temperature 101 F H 101.3 F H Pulse Rate 84 62 Respiratory Rate 16 16 Blood Pressure 97/78 L 97/60 L Pulse Oximetry 94 98 05/11/21 15:31 05/11/21 20:00 05/11/21 22:00 Temperature 98.3 F 98.3 F Pulse Rate 79 Respiratory Rate 18 18 Blood Pressure 135/53 L Pulse Oximetry 96 05/12/21 00:00 05/12/21 03:54 05/12/21 04:00 Temperature 98.9 F 100.4 F H 100.4 F H Pulse Rate 81 85 Respiratory Rate 18 18 Blood Pressure 125/56 L 119/42 L Pulse Oximetry 90 91 05/12/21 06:00 05/12/21 08:06 Temperature 97.4 F L 97.7 F Pulse Rate 77 Respiratory Rate 18 16 Blood Pressure 132/54 L Pulse Oximetry 96 Intake/Output Intake/Output: Intake & Output 05/09/21 05/10/21 05/11/21 05/12/21 23:59 23:59 23:59 23:59 Intake Total 1010 1340 840 Output Total 300 Balance 710 1340 840 Meds/Results Medications: Active Medications Generic Name Dose Route Start Las
[2021-05-12] MEDS: oxyCODONE HCL (*CRX) 5 MG TAB IR 10 MG PO (10:47)
--- NOTE | 2021-05-12 11:12 | PC.NURSE ---
Pt off floor to XRAY
--- NOTE | 2021-05-12 11:31 | W.PM.PROC2 ---
Procedure Note - Detailed Date of Procedure 05/10/21 Pre-op Diagnosis Primary djd right hip Post-op Diagnosis same Procedure Performed Right Total Hip Arthroplasty Surgeon Doug Meehan MD Room Attendant Hafsa Rojas PA-C Anesthesia general Findings Advanced arthritis right hip. Excellent bone quality. Description of Procedure The patient was given preoperative antibiotics. A general anesthetic was administered. The patient was carefully placed in the lateral decubitus position on the PEG board. The shoulders and hips were carefully positioned for component and leg length positioning reference. The hip was prepped and draped in the usual sterile fashion. A longitudinal incision was created over the posterior aspect of the greater trochanter. Careful dissection was brought down through the deep fascia with electrocautery. A minimally invasive optimized posterior approach to the hip was performed. The short external rotators and capsule were taken down in an L-shaped capsulotomy. The tissue was tagged for later repair using number 2 high strength suture. The femoral neck was measured and taken in situ. The femoral head was removed. The acetabulum was carefully exposed. The inferior capsule was released. The labrum was resected. The acetabulum was sequentially reamed to one over the intended cup size. The cup was impacted into position with excellent press-fit. Typical anatomic landmarks, including the bony contact points as well as the inferior transverse acetabular ligament were used to confirm cup positioning with preoperative templating. Attention was turned to the femur, which was carefully exposed. The hip was reamed and then broached sequentially. Excellent press-fit was obtained with the broach. The hip was trialed. Measurements were utilized, including the lesser trochanter as well as the center of the femoral head and the tip of the trochanter, and excellent assessment of the offset and leg lengths were confirmed. The real component was impacted into position. Trialing confirmed appropriate leg length and offset with soft tissue balancing as well apparent feel of the leg, both at the knee and the heel. Soft tissues were assessed using the the iliotibial band. Reduction of the posterior capsule and external rotators were also used as a secondary assessment. The hip was copiously irrigated with pulsatile lavage antibiotic solution periodically throughout the procedure. The real components were then assembled and reduced. The hip was stable throughout typical maneuvers, including extension, external rotation to 70 degrees, the position of sleep as well as flexion to 90 degrees with internal rotation past 45 degrees. The shake test confirmed stability without impingement. Osteophytes were removed as necessary. The short external rotators and capsule were repaired back to the posterior trochanter through drill holes. The deep fascia was repaired with running number 2 Quill suture, followed by 0 Stratafix suture and 2-0 Stratafix suture in the dermis. Steri-Strips were placed on the skin, followed by a sterile silver occlusive dressing. There were no complications. Meticulous hemostasis was maintained with the AquaMantys device. The patient was brought to the recovery room in stable condition. There were no complications. Physician assistant center director, Hafsa Rojas PA-C, required for surgery; including patient positioning, draping, tissue retraction, maintaining instrument position, hip dislocation/ relocation, wound closure, and dressing placement. Implants The Accolade II hip stem, 127 degree size 3 , was utilized with excellent press-fit. The Trident II acetabular component was impacted with excellent press-fit stability. The +0 , 36 mm Biolox ceramic femoral head was utilized. Estimated Blood Loss -300.0 Urine Output 300 Drains No Packing No Pathology none sent Complications No immediate complications Condition stable
[2021-05-12 11:44] LABS: Glucose Point of Care 166 mg/dl (65-105)
--- NOTE | 2021-05-12 13:12 | PM.PNORT ---
Progress Note: A&P Assessment and Plan (1) Status post total hip replacement, right: Code(s): Z96.641 - Presence of right artificial hip joint Status: Acute Assessment and Plan: Postop day 2: Right Total hip arthroplasty. Patient tolerated procedure well. No numbness or tingling. Tolerating therapy better today. Increased pain today. Plan is for patient to be discharged home tomorrow. Plan discussed with Care coordination, nurse, and Dr. Meehan. Subjective Subjective Date/Time Seen: 05/12/21 08:00 Patient resting comfortably in chair. She has been ambulating better but is not yet comfortable going home. No other complaints. Review of Systems Review of Systems: All systems reviewed & are unremarkable except as noted in HPI and below Exam Narrative: Obese 70 y/o female. Resting comfortably in bed. Wearing compression socks bilaterally. Dressing dry and intact with no drainage. Moderate swelling. No ecchymosis. No erythema. No hematoma. Range of motion limited due to pain. Calf nontender. Thigh nontender. Neurologic status intact. No varicosities. Distal pulses palpable. Objective Data Vital Signs Vital Signs: Vital Signs - 24 hr 05/11/21 13:57 05/11/21 14:00 05/11/21 15:31 Temperature 101 F H 101.3 F H 98.3 F Pulse Rate 62 Respiratory Rate 16 Blood Pressure 97/60 L Pulse Oximetry 98 05/11/21 20:00 05/11/21 22:00 05/12/21 00:00 Temperature 98.3 F 98.9 F Pulse Rate 79 81 Respiratory Rate 18 18 18 Blood Pressure 135/53 L 125/56 L Pulse Oximetry 96 90 05/12/21 03:54 05/12/21 04:00 05/12/21 06:00 Temperature 100.4 F H 100.4 F H 97.4 F L Pulse Rate 85 Respiratory Rate 18 18 Blood Pressure 119/42 L Pulse Oximetry 91 05/12/21 08:06 Temperature 97.7 F Pulse Rate 77 Respiratory Rate 16 Blood Pressure 132/54 L Pulse Oximetry 96 Intake/Output Intake/Output: Intake & Output 05/09/21 05/10/21 05/11/21 05/12/21 23:59 23:59 23:59 23:59 Intake Total 1010 1340 840 Output Total 300 300 Balance 710 1340 540 Meds/Results Medications: Active Medications Generic Name Dose Route Start Last Admin Trade Name Emelyn PRN Reason Stop Dose Admin Acetaminophen 1,000 mg 05/11/21 07:00 05/12/21 03:54 Acetaminophen 500 Mg Tablet PO 1,000 mg Q6H PRN Administration Pain 1-3 Amlodipine Besylate 5 mg 05/11/21 09:00 05/12/21 08:17 Amlodipine Besylate 5 Mg Tablet PO 5 mg DAILY SUMANTH Administration Aspirin 81 mg 05/10/21 17:00 05/12/21 08:18 Aspirin 81 Mg Enteric Tablet PO 81 mg BID SUMANTH Administration Clonidine HCl 0.1 mg 05/10/21 21:00 05/12/21 08:18 Clonidine Hcl 0.1 Mg Tablet PO 0.1 mg Q12HR SUMANTH Administration Cyclobenzaprine HCl 10 mg 05/10/21 14:13 Cyclobenzaprine Hcl 10 Mg Tablet PO Q8H PRN Muscle Spasm Dextrose 12.5 gm 05/10/21 23:08 Dextrose 50% 25 Gm/50 Ml Syringe IV PUSH PRN PRN Hypoglycemia Protocol Famotidine 20 mg 05/10/21 21:00 05/12/21 08:18 Famotidine 20 Mg Tablet PO 20 mg Q12HR SUMANTH Administration Glimepiride 8 mg 05/11/21 08:00 05/12/21 08:02 Glimepiride 2 Mg Tablet PO 8 mg DAILY@0800 SUMANTH Administration Glucagon 1 mg 05/10/21 23:08 Glucagon For Inj 1 Mg Vial IM PRN PRN Hypoglycemia Protocol Glucose 15 gm 05/10/21 23:08 Glucose Oral Gel 15 Gm Of Glucse In 37.5 Gm Tube PO PRN PRN Hypoglycemia Protocol Dextrose 1,000 mls @ 100 mls/hr 05/10/21 23:08 Dextrose 5% 1,000 Ml IVPB PRN PRN Hypoglycemia Protocol Insulin Aspart 2 - 5 units 05/11/21 08:00 05/12/21 11:46 Insulin Aspart (*Bkc) 100 Units/Ml SUB-Q Not Given TIDWM [facility] Protocol Meloxicam 7.5 mg 05/10/21 17:00 05/12/21 08:18 Meloxicam 7.5 Mg Tablet PO 7.5 mg BID SUMANTH Administration Metformin HCl 500 mg 05/10/21 17:00 05/12/21 08:01 Metformin Hcl 500 Mg Tablet PO 500 mg BIDWM SUMANTH
--- NOTE | 2021-05-12 13:23 | PC.NURSE ---
1200 pt had emesis x1 after lunch
--- NOTE | 2021-05-12 14:39 | PM.PNORT ---
Progress Note: A&P Assessment and Plan (1) Status post total hip replacement, right: Code(s): Z96.641 - Presence of right artificial hip joint Status: Acute Additional Plan Postoperative day 2. Mobilizing slowly. Primarily related to pre-existing knee arthroplasties. Discussed care with nurse and therapist. Also instability of both replacements and severe degenerative scoliosis compromising gait pattern. She is unsteady on stairs and requires assistance. Her son will be home tomorrow and can help her get into the house. Plan on discharge tomorrow morning. Subjective Subjective Date/Time Seen: 05/12/21 14:39 Post Op day: 2 Interval history: Patient seen and examined. Finished working with therapy this afternoon. Difficulty with stairs. Assistance of 1 required. Nausea earlier today likely related to pain medication. Exam Narrative: Pain well controlled. Wound healing nicely. No hematoma. Wiggles toes. Calf nontender. Neurologic status intact. Objective Data Vital Signs Vital Signs: Vital Signs - 24 hr 05/11/21 15:31 05/11/21 20:00 05/11/21 22:00 Temperature 36.8 C 36.8 C Pulse Rate 79 Respiratory Rate 18 18 Blood Pressure 135/53 L Pulse Oximetry 96 05/12/21 00:00 05/12/21 03:54 05/12/21 04:00 Temperature 37.2 C 38.0 C H 38.0 C H Pulse Rate 81 85 Respiratory Rate 18 18 Blood Pressure 125/56 L 119/42 L Pulse Oximetry 90 91 05/12/21 06:00 05/12/21 08:06 Temperature 36.3 C L 36.5 C Pulse Rate 77 Respiratory Rate 18 16 Blood Pressure 132/54 L Pulse Oximetry 96 Intake/Output Intake/Output: Intake & Output 05/09/21 05/10/21 05/11/21 05/12/21 23:59 23:59 23:59 23:59 Intake Total 1010 1340 960 Output Total 300 300 Balance 710 1340 660 Meds/Results Medications: Active Medications Generic Name Dose Route Start Last Admin Trade Name Freq PRN Reason Stop Dose Admin Acetaminophen 1,000 mg 05/11/21 07:00 05/12/21 03:54 Acetaminophen 500 Mg Tablet PO 1,000 mg Q6H PRN Administration Pain 1-3 Amlodipine Besylate 5 mg 05/11/21 09:00 05/12/21 08:17 Amlodipine Besylate 5 Mg Tablet PO 5 mg DAILY SUMANTH Administration Aspirin 81 mg 05/10/21 17:00 05/12/21 08:18 Aspirin 81 Mg Enteric Tablet PO 81 mg BID SUMANTH Administration Clonidine HCl 0.1 mg 05/10/21 21:00 05/12/21 08:18 Clonidine Hcl 0.1 Mg Tablet PO 0.1 mg Q12HR SUMANTH Administration Cyclobenzaprine HCl 10 mg 05/10/21 14:13 Cyclobenzaprine Hcl 10 Mg Tablet PO Q8H PRN Muscle Spasm Dextrose 12.5 gm 05/10/21 23:08 Dextrose 50% 25 Gm/50 Ml Syringe IV PUSH PRN PRN Hypoglycemia Protocol Famotidine 20 mg 05/10/21 21:00 05/12/21 08:18 Famotidine 20 Mg Tablet PO 20 mg Q12HR SUMANTH Administration Glimepiride 8 mg 05/11/21 08:00 05/12/21 08:02 Glimepiride 2 Mg Tablet PO 8 mg DAILY@0800 [facility] Administration Glucagon 1 mg 05/10/21 23:08 Glucagon For Inj 1 Mg Vial IM PRN PRN Hypoglycemia Protocol Glucose 15 gm 05/10/21 23:08 Glucose Oral Gel 15 Gm Of Glucse In 37.5 Gm Tube PO PRN PRN Hypoglycemia Protocol Dextrose 1,000 mls @ 100 mls/hr 05/10/21 23:08 Dextrose 5% 1,000 Ml IVPB PRN PRN Hypoglycemia Protocol Insulin Aspart 2 - 5 units 05/11/21 08:00 05/12/21 11:46 Insulin Aspart (*Bkc) 100 Units/Ml SUB-Q Not Given TIDWM [facility] Protocol Meloxicam 7.5 mg 05/10/21 17:00 05/12/21 08:18 Meloxicam 7.5 Mg Tablet PO 7.5 mg BID SUMANTH Administration Metformin HCl 500 mg 05/10/21 17:00 05/12/21 08:01 Metformin Hcl 500 Mg Tablet PO 500 mg BIDWM [facility] Administration Naloxone HCl 0.1 mg 05/10/21 14:13 Naloxone Hcl 0.4 Mg/Ml Vial IV PUSH Q2M PRN Opiate Reversal Non-Formulary Medication 99 mg 05/11/21 09:00 Potassium PO 06/10/21 08:59 DAILY [facility] Ondansetron HCl 4 mg 05/10/21 14:13 05/10/21 18:12 Ondans
--- NOTE | 2021-05-12 16:14 | PC.NURSE ---
RN took over care 1515.
[2021-05-12 17:17] LABS: Glucose Point of Care 118 mg/dl (65-105)
[2021-05-12] MEDS: TRIAMTERENE 37.5 MG/HCTZ 25 MG (MAXZIDE) TABLET 1 TAB PO (18:01)
[2021-05-12 22:09] LABS: Glucose Point of Care 128 mg/dl (65-105)
[2021-05-13] VITALS: BP 114/45; PULSE 75; RESP 18; TEMP 36.4; O2SAT 96
[2021-05-13 04:00] VITALS: BP 141/60; PULSE 85; RESP 18; TEMP 37.7; O2SAT 97
[2021-05-13 06:00] VITALS: RESP 18
[2021-05-13 07:41] LABS: Glucose Point of Care 98 mg/dl (65-105)
[2021-05-13 08:00] VITALS: PULSE 84; RESP 18; O2SAT 96
[2021-05-13] MEDS: GLIMEPIRIDE 2 MG TABLET 8 MG PO (08:08)
[2021-05-13] MEDS: metFORMIN HCL 500 MG TABLET PO (08:08)
[2021-05-13] MEDS: polyethylene glycoL 3350 17 GM POWD.PACK PO (08:13)
[2021-05-13] MEDS: SENNA/DOCUSATE SODIUM TABLET 2 TAB PO (08:14)
[2021-05-13] MEDS: FAMOTIDINE 20 MG TABLET PO (08:14)
[2021-05-13] MEDS: MELOXICAM 7.5 MG TABLET PO (08:15)
[2021-05-13] MEDS: ROSUVASTATIN 10 MG TABLET PO (08:15)
[2021-05-13] MEDS: amLODIPine BESYLATE 5 MG TABLET PO (08:15)
[2021-05-13] MEDS: cloNIDine HCL 0.1 MG TABLET PO (08:15)
[2021-05-13] MEDS: ASPIRIN 81 MG ENTERIC TABLET PO (08:16)
[2021-05-13] MEDS: oxyCODONE HCL (*CRX) 5 MG TAB IR PO (08:17)
--- NOTE | 2021-05-13 08:18 | PM.DS ---
DS: Admitting Diagnosis Discharge Date 05/13/21 Admitting Diagnosis OA Right hip DS: Discharge Diagnosis Discharge Diagnosis (1) Status post total hip replacement, right: Code(s): Z96.641 - Presence of right artificial hip joint Status: Acute Assessment and Plan: Postop day 3: Total hip arthroplasty, Right Did have trouble ambulating postop which required a longer stay. Rehab was being discussed, but ultimately she is able to return home today. Pain manageable. No numbness or tingling. We had a lengthy discussion regarding postoperative wound care, limitations, expectations, and exercises. Patient shows good understanding. Patient has had initial physical therapy and is tolerating it well. DVT prophylaxis: 81 mg baby aspirin b.i.d. for 14 days. Short frequent walks. Pain medication: Percocet. Meloxicam. Patient has followup appointment with Dr. Meehan in 3 weeks DS: Summary Hospital Course Reason for hospitalization: Total hip arthroplasty Hospital Course: Patient tolerated procedure well. Has had initial PT/OT and made good progress. Status at Discharge Functional status at discharge: uses cane/walker Overall status at discharge: patient is progressing back to baseline Time Spent with Patient Time attestation: Total time spent providing and/or coordinating discharge services: Exam Narrative: Obese 70 y/o female. Resting comfortably in bed. Wearing compression socks bilaterally. Dressing dry and intact with no drainage. Moderate swelling. No ecchymosis. No erythema. No hematoma. Range of motion limited due to pain. Calf nontender. Thigh nontender. Neurologic status intact. No varicosities. Distal pulses palpable. DS: Data Data Completed and Pending Labs on day of discharge: Labs from last 24 hours 05/13/21 05/12/21 05/12/21 07:33 22:07 17:13 POC Capillary Glucose 98 128 H 118 H 05/12/21 11:40 POC Capillary Glucose 166 H Discharge Plan Discharge Attending physician on discharge: Doug Meehan Consulting providers: Mars Giles Discharging Clinician: Hafsa Rojas Anticipated Discharge Date/Time: 05/13/21 08:15 Patient Disposition: Home, Self-Care Activity: may shower Diet: regular Wound Care Instructions: follow printed instructions Discharge Instructions: See instruction sheet Patient Instructions: Antibiotic Form Stand Alone Forms: General Discharge Information Follow-up/Referrals: Hafsa Rojas PA [[employer]] - Discharge Medications: New oxycodone-acetaminophen 5-325 mg tablet 1 - 2 tablet PO Q4-6H MDD 6 PRN (Reason: pain) Qty: 30 RF: 0 aspirin 81 mg tablet,delayed release (DR/EC) 81 mg PO BID 14 Days Qty: 28 RF: 0 meloxicam 15 mg tablet 15 mg PO DAILY Qty: 30 RF: 0 Continued metformin 500 mg tablet 500 mg PO BID RF: 0 rosuvastatin 10 mg tablet 10 mg PO DAILY RF: 0 glimepiride 4 mg tablet 8 mg PO QAM RF: 0 amlodipine 5 mg tablet 5 mg PO DAILY RF: 0 triamterene-hydrochlorothiazid 37.5-25 mg capsule 1 cap PO QPM RF: 0 clonidine HCl 0.1 mg tablet 0.1 mg PO BID RF: 0 Adults Multivitamin 18 mg iron-400 mcg-25 mcg Tablet 1 tablet PO DAILY RF: 0 potassium 99 mg Tablet 99 mg PO DAILY RF: 0 rosuvastatin 10 mg tablet 10 mg PO DAILY RF: 0 Held Adult Low Dose Aspirin 81 mg Tablet 81 mg PO DAILY RF: 0 Hold Instructions: Resume on 05/26/21. Take twice a day for 2 weeks then return to normal one a day dose acetaminophen [Tylenol Extra Strength] 500 mg Capsule 1,000 mg PO Q6H PRN (Reason: Pain) RF: 0 Hold Instructions: Resume on 05/26/21. Hold while taking Percocet. No more than 3,000mg Tylenol in a 24 hour period. Date of admission: 05/11/21 10:52 Primary Care Provider: FallonHarry Admitting Provider: Doug Meehan At
--- NOTE | 2021-05-13 08:39 | PM.IMPN ---
Progress Note: A&P Assessment and Plan (1) Primary osteoarthritis of right hip: Code(s): M16.11 - Unilateral primary osteoarthritis, right hip Status: Acute Assessment and Plan: Patient with DJD of the right hip who has failed conservative management and is now POD #3 from a right hip GABY. Patient with 8/10 hip pain but appears to be well therapy feels comfortable with discharge plan. Pain management and DVT prophylaxis per primary team. Discharge planning underway with plan for patient to return. Okay to discharge from medical standpoint. (2) Type 2 diabetes mellitus with complication, without long-term current use of insulin: Code(s): E11.8 - Type 2 diabetes mellitus with unspecified complications Status: Acute Assessment and Plan: A1c 6.6. The patient's blood glucose was reviewed on 05/13 Glucose remains well controlled Continue AccuCheks covering with sliding scale. Hypoglycemia protocol available as needed. Continue current medications. Continue diabetic diet. (3) Essential (primary) hypertension: Code(s): I10 - Essential (primary) hypertension Status: Acute Assessment and Plan: Patient's blood pressure was reviewed on 05/13 Blood pressure remains well controlled. Continue Norvasc, Clonidine and Maxide. She is not on CECILE or ARB but probably related to the HOCM. Continue to monitor closely (4) Hypertrophic obstructive cardiomyopathy (HOCM): Code(s): I42.1 - Obstructive hypertrophic cardiomyopathy Status: Acute Assessment and Plan: Patient with murmur. Echo 03/29/21 showing EF 65-70% and grade I diastolic dysfunction. She had mild concentric hypertrophy and asymmetric septal hypertrophy consistent with hypertrophic obstructive cardiomyopathy including systolic anterior motion of the mitral valve. Spoke with patient and recommended that she speak with her PCP about these findings. She voices understanding Subjective Date/time seen: 05/13/21 08:39 Interval history: 70yo female with DM and HTN here for elective right GABY. Pain 8/10 with pain radiating in to the thigh. Eating well. Feels well today. Feels comfortable with discharge home. No chest pain or shortness of breath. No further fevers. Exam Narrative: AF 99.9 141/60 85 18 97% ra Constitutional: NARD sitting at the side of the bed eating breakfast Lungs: Clear to auscultation bilaterally. Normal respiratory CV: RRR S1/S2. Abdomen: Soft, obese, NT Extremities: Right hip dressing is clean/dry/intact Skin: Warm and dry Psychiatric: Normal mood and affect Objective Data Vital Signs Vital Signs: Vital Signs - 24 hr 05/12/21 15:06 05/12/21 20:00 05/12/21 22:00 Temperature 98.1 F 99.2 F Pulse Rate 75 85 Respiratory Rate 16 18 18 Blood Pressure 154/65 H 137/50 L Pulse Oximetry 94 05/13/21 00:00 05/13/21 04:00 05/13/21 06:00 Temperature 97.6 F 99.9 F H Pulse Rate 75 85 Respiratory Rate 18 18 18 Blood Pressure 114/45 L 141/60 H Pulse Oximetry 96 97 Intake/Output Intake/Output: Intake & Output 05/10/21 05/11/21 05/12/21 05/13/21 23:59 23:59 23:59 23:59 Intake Total 1010 1340 1580 300 Output Total 300 300 Balance 710 1340 1280 300 Meds/Results Medications: Active Medications Generic Name Dose Route Start Last Admin Trade Name Emelyn PRN Reason Stop Dose Admin Acetaminophen 1,000 mg 05/11/21 07:00 05/12/21 03:54 Acetaminophen 500 Mg Tablet PO 1,000 mg Q6H PRN Administration Pain 1-3 Amlodipine Besylate 5 mg 05/11/21 09:00 05/13/21 08:15 Amlodipine Besylate 5 Mg Tablet PO 5 mg DAILY [facility]ANTH Administration Aspirin 81 mg 05/10/21 17:00 05/13/21 08:16 Aspirin 81 Mg Enteric Tablet PO 81 mg BID SUMANTH Administration Clonidine HCl 0.1 mg 05/10/21 21:00 05/13/21 08:15 Clonidine Hcl 0.1 Mg Tablet PO 0.1 mg Q12HR SUMANTH Administration Cyclobenzaprine HCl 10 mg 05/10/21 14:13 Cyclobenzaprine
[2021-05-13 09:24] VITALS: BP 144/56; PULSE 84; RESP 18; TEMP 36.4; O2SAT 96
== END 2021-05-13 10:28 | disposition home or self-care (01) ==
LOC: ANHSURGERY 11:02 → ANHSUROVER 11:02
PROVIDERS: Internal Medicine; Admitting Provider Orthopaedic Surgery; PCP Internal Medicine; Visit Provider Orthopaedic Surgery
PROC: (CPT 27130; principal; 2021-05-10 10:30)
DX: M16.11 Unilateral primary osteoarthritis, right hip (principal); E11.8 Type 2 diabetes mellitus with unspecified complications; I10 Essential (primary) hypertension; I42.1 Obstructive hypertrophic cardiomyopathy; E78.5 Hyperlipidemia, unspecified; Z79.82 Long term (current) use of aspirin; Z79.84 Long term (current) use of oral hypoglycemic drugs; E66.01 Morbid (severe) obesity due to excess calories; Z68.41 Body mass index [BMI] 40.0-44.9, adult
CPT/HCPCS: 27130; 36415; 71046; 73502; 82948; 83036; 86850; 86900; 86901; 97110; 97116; 97161; 97165; 97530; 97535; A9270; C1776; G0378; G0379; J0131; J0171; J0690; J1170; J1885; J2250; J2270; J2370; J2405; J2704; J2710; J2795; J3010; J7030; J7120

== ENCOUNTER 2022-02-01 13:30 | Outpatient (RCR) | payer MEDICARE, MEDICAID, SELFPAY ==
--- NOTE | 2021-11-17 14:33 | PTOPEVAL1 ---
Evaluation Information Assessment Status Evaluation Diagnosis R total hip Onset May 10, 2021 Subjective Information Reports decreased swelling in legs since has been sitting and resting. States doing HEP from the hospital was daily and went to 2x weekly last week . Reported Pain Level Pain Score 0: Self Report Additional Pain Score Comments Reports standing to long or doing to much Assessment PT Clinical Summary Pt presents 7 months s/p R THR. Quinten has no pain, and reports has not had pain more than discomfort recently accept when she does to much . Notes she has been resting as needed, her pain has reduced and swelling reduced. Demo's decreased AROM, PROM R hip capsular end-feels as appropriate s/p THR. Decreased glute max, and glute med strength noted, abnormal posture and gait as well. Severely reduced speed with standard walker. Tested and educated pt on Rolling Walker which doubled her speed and improved her alignment . Pt will greatly benefit from physical therapy to increase strength, reeducate gait and alignment, and return to PLOF without pain. Plan of Care Interventions Aquatic Therapy,Gait Training,Hot Pack/Cold Pack, Manual Therapy,Neuro Re-education,Patient/ Caregiver Educati,Therapeutic Activities, Therapeutic Exercise,Self-Care/Home Management, Other Other Interventions Home Exercises PT Services Indicated Yes Treatment Frequency and 2x weekly aquatic for 4 weeks transitioning to Duration land based These treatments will address the objective and functional deficits as defined above. The patient will be advanced safely and appropriately in order for the patient to progress towards his/her prior level of function. Additional exercises will be introduced and as well as a comprehensive home exercise program upon discharge, if needed, ?to ensure carryover of functional gains achieved in the clinic. This treatment plan has been reviewed and agreement upon by the patient.
--- NOTE | 2021-12-15 14:14 | PTOPPROG ---
Assessment and note entered by Liberty Peterson, PT Evaluation Information Assessment Status Re-evaluation Diagnosis R total hip, left hip weakness Onset May 10, 2021 Subjective Information Reports decreased swelling in legs recently. Is being more active and walking more Cont to have minimal to no discomfort Assessment PT Clinical Summary Pt presents after 6 session of therapy, 5 aquatic treatments and one eval. Pt kelvin's improved posture and ambulation speed compared to evaluation, reports no pain currently. Unfortunately her manual muscle testing scores remain unchanged compared to evaluation, she shows severe Trendelenburg effecting her LEFT hip greater than her right hip, and has continued difficulty with stairs. Discussed with patient advancing to one session on land and one in water each weak to increase strength against gravity for increasing strength and thus improving functional mobility. Pt would also benefit from addition of LEFT hip strengthening to her plan in order to increase stability and improve mobility overall. Plan of Care Interventions Aquatic Therapy,Electrical Stimulation,Gait Training,Hot Pack/Cold Pack,Manual Therapy,Neuro Re-education,Patient/Caregiver Educati,Therapeutic Activities,Therapeutic Exercise,Self-Care/Home Management PT Services Indicated Yes Treatment Frequency and 2x weekly x 4 weeks Duration These treatments will address the objective and functional deficits as defined above. The patient will be advanced safely and appropriately in order for the patient to progress towards his/her prior level of function. Additional exercises will be introduced and as well as a comprehensive home exercise program upon discharge, if needed, ?to ensure carryover of functional gains achieved in the clinic. This treatment plan has been reviewed and agreement upon by the patient.
--- NOTE | 2022-01-11 17:07 | PTOPPROG ---
Assessment and note entered by Liberty Peterson, PT Progress Information Assessment Status Progress Reports Diagnosis R total hip Onset May 10, 2021 Subjective Information Reports decreased swelling in legs since has been sitting and resting. States doing HEP from the hospital was daily and went to 2x weekly last week . Reports has been practicing stairs in aquatic sessions and high stepping. Assessment PT Clinical Summary Pt has been attending therapy consistently with decreasing aquatic frequency for strengthening, balance, gait, and pain in hip. Pt reports pain is completely resolved, reports she feels better overall, is improved with her ambulation w/ AD in speed and pattern, strength is slowly improving as demo's also by decreased Trendelenburg. However pt cont to demo significant weakness overall, leading to abnormal postures with RW ambulation and difficulty with mobility. Thus pt would benefit from continued therapy with transition to land physical therapy to continue improving strength, posture, alignment with gait, and functional mobility Plan of Care Interventions Gait Training,Hot Pack/Cold Pack,Manual Therapy, Neuro Re-education,Patient/Caregiver Ed., Therapeutic Activities,Therapeutic Exercise,Self- Care/Home Management PT Services Indicated Yes Treatment Frequency and 2x weekly x 4 weeks Duration These treatments will address the objective and functional deficits as defined above. The patient will be advanced safely and appropriately in order for the patient to progress towards his/her prior level of function. Additional exercises will be introduced and as well as a comprehensive home exercise program upon discharge, if needed, ?to ensure carryover of functional gains achieved in the clinic. This treatment plan has been reviewed and agreement upon by the patient.
--- NOTE | 2022-02-06 07:49 | PCPTNOTE ---
Patient called & cancelled scheduled appointment this date due to going out of town for the holiday.
== END 2022-02-13 11:59 | disposition home or self-care (01) ==
LOC: ANHPT 13:30
PROVIDERS: PCP Internal Medicine; Visit Provider Orthopaedic Surgery
DX: Z47.1 Aftercare following joint replacement surgery (principal); Z96.641 Presence of right artificial hip joint
CPT/HCPCS: 97110; 97113; 97116; 97161; 97162; 97530

== ENCOUNTER 2022-03-16 12:30 | Outpatient (RCR) | payer MEDICARE, MEDICAID, SELFPAY ==
--- NOTE | 2022-02-22 08:37 | PTOPREEVAL ---
Assessment and note entered by Rojas Peterson, PT Evaluation Information Assessment Status Re-evaluation Diagnosis Aftercare R total hip Onset 05/10/21 Subjective Information Patient reports she is stronger since she started to do physical and aquatic therapy and now just needs to work on her balance and getting rid of using the wheeled walker. She reports sometimes at home and here she will walk short distances without any assistive device. Lindsay is a 71 year old female coming into the clinic for aftercare follwoing a R hip replacement. Her initial evaluation was 11/17/21 and she has attended 13 visits since then. She has progressed from aquatic therapy to land based physical therapy and reports improved functional mobility since starting therapy, but is still demonstrating fair weakness in her GRIFFIN LE and then need of a RW for safety. Will continue to work with the patient as she shows deficits in endurance, Balance, and strength, but if patient is serious about getting off the walker to a less restrictive assistive device may need a short stay at an intensive inpatient rehab setting to get more therapy in a condensed time. These treatments will address the objective and functional deficits as defined above. The patient will be advanced safely and appropriately in order for the patient to progress towards his/her prior level of function. Additional exercises will be introduced and as well as a comprehensive home exercise program upon discharge, if needed, ?to ensure carryover of functional gains achieved in the clinic. This treatment plan has been reviewed and agreement upon by the patient.
--- NOTE | 2022-02-24 12:02 | PCPTNOTE ---
Patient called & cancelled scheduled appointment this date due to being sick.
--- NOTE | 2022-03-16 16:32 | PTOPDC ---
Assessment and note entered by Rojas Peterson, PT Evaluation Information Assessment Status Discharge Diagnosis Aftercare of R total hip Onset 05/10/21 Subjective Information Patient reports she has been doing her exercises at home and feeling stronger she just does not have balance and is still using her walker. Reported Pain Level Pain Score 0: Self Report Assessment PT Clinical Summary Lindsay is a 71 year old female coming into the clinic for aftercare of a total R hip. She was evaluated on Nov 17 and has attended 14 visits, but none since her last re-eval on Feb 21. Patient reports she is doing her HEP and has met 2 /5 goals written for her at her last re-eval. At this time physical therapy recommends and patient would prefer to be released to do her exercises at the [facility]. Plan of Care PT Services Indicated No Treatment Frequency and discharged from skilled physical therapy. Duration
== END 2022-03-17 08:09 | disposition home or self-care (01) ==
LOC: ANHPT 12:30
PROVIDERS: PCP Internal Medicine; Visit Provider Orthopaedic Surgery
DX: Z47.1 Aftercare following joint replacement surgery (principal); Z96.641 Presence of right artificial hip joint
CPT/HCPCS: 97110; 97162; 97530

== ENCOUNTER 2022-06-18 13:53 | Emergency (ER) | payer MEDICARE, MEDICAID, SELFPAY ==
--- NOTE | ~2022-06-18 | XR_ITS ---
EXAM: XR knee RT 3V DATE: 06/18/2022 17:59 HISTORY: knee pain after fall . COMPARISON: 06/02/2020. FINDINGS: Decreased mineralization. No fracture or dislocation. No lytic or blastic lesion. Right kn ee arthroplasty, in good position. No erosion or periosteal change. Quadriceps and patellar enthesopa thy. Anterior soft tissue swelling. Small knee joint effusion. Vascular calcifications. IMPRESSION: No acute osseous finding in the right knee. No radiographic evidence of hardware-related complication. Reviewed, dictated and finalized at location K. IMPRESSION: No acute osseous finding in the right knee. No radiographic evidenc e of hardware-related complication.
--- NOTE | ~2022-06-18 | XR_ITS ---
EXAM: XR hand LT min 3V DATE: 06/18/2022 17:58 HISTORY: pain after fall . COMPARISON: None available. FINDINGS: Decreased mineralization. No fracture or dislocation. No lytic or blastic lesion. Scattere d osteoarthritic changes, severe at the trapeziometacarpal joint. No erosion or periosteal change. So ft tissues within normal limits. IMPRESSION: No acute osseous finding in the left hand. Reviewed, dictated and finalized at location K.
--- NOTE | ~2022-06-18 | XR_ITS ---
EXAM: XR lumbar spine 2-3V DATE: 06/18/2022 17:58 HISTORY: back pain s/p fall . COMPARISON: 04/19/2018. FINDINGS: Lumbar scoliosis. 5 nonrib-bearing lumbar-type vertebral bodies. Pedicles intact. Stable gr amy 1 anterolisthesis at L5-S1. Vertebral body heights preserved. Multilevel severe degenerative disc disease with large bridging osteophytes and vacuum phenomenon. Multilevel lower lumbar severe facet arthropathy. No fracture or dislocation. Aortic calcification without evident aneurysm IMPRESSION: No acute fracture or traumatic malalignment detected in the lumbar spine. Reviewed, dictated and finalized at location K.
--- NOTE | ~2022-06-18 | XR_ITS ---
EXAM: XR elbow LT min 3V DATE: 06/18/2022 17:58 HISTORY: pain after fall . COMPARISON: 05/31/2018, images only. FINDINGS: Normal mineralization. No fracture or dislocation. No lytic or blastic lesion. Severe arth ritic changes in the elbow joint. No erosion or periosteal change. Small joint effusion. Posterior so ft tissue swelling. IMPRESSION: No acute osseous finding in the left elbow. Reviewed, dictated and finalized at location K.
[2022-06-18 13:58] VITALS: BP 148/53; PULSE 77; RESP 18; TEMP 36.5; O2SAT 98
--- NOTE | 2022-06-18 17:31 | ED.FALL ---
HPI - Fall General Chief Complaint: Fall Stated Complaint: fall yesterday - knee, back, elbow pain Time Seen by Provider: 06/18/22 17:10 History of Present Illness HPI Narrative: 71 year old female here after a fall yesterday. She was walking out of the grocery store when the wind blew her over and she landed on her right side. No head injury or LOC. Had lots of difficulty getting back up and required assistance from staff and bystanders. States her groceries were lying on top of her. Since the fall she has had numerous arthralgias including right knee, left shoulder, elbow and hand pain. Complaining of a band of tightness in her low back as well. Attempted Tylenol with moderate relief. Has been able to walk. Related Data Home Medications Medication Instructions Recorded Confirmed amlodipine 5 mg tablet 5 mg PO DAILY 01/07/21 05/10/22 glimepiride 4 mg tablet 8 mg PO QAM 01/07/21 05/10/22 metformin 500 mg tablet 500 mg PO BID 01/07/21 05/10/22 aspirin 81 mg tablet 81 mg PO DAILY 04/21/21 05/10/22 clonidine HCl 0.1 mg tablet 0.1 mg PO BID 04/21/21 05/10/22 multivit with minerals-iron 18 1 tablet PO DAILY 04/21/21 05/10/22 mg-folic ac 400 mcg-vit K 25 mcg tablet (Adults Multivitamin) potassium 99 mg tablet 99 mg PO DAILY 04/21/21 05/10/22 triamterene 37.5 1 cap PO QPM 04/21/21 05/10/22 mg-hydrochlorothiazide 25 mg capsule rosuvastatin 10 mg tablet 10 mg PO DAILY 05/10/21 05/10/22 Allergies Allergy/AdvReac Type Severity Reaction Status Date / Time No Known Allergies Allergy Verified 05/10/22 13:33 Review of Systems Review of Systems: Gen.: Denies fevers or chills Eyes: Denies eye pain or visual change ENT: Denies congestion Respiratory: Denies shortness of breath or cough CV: Denies chest pain or palpitations GI: Denies abdominal pain nausea, emesis or diarrhea denies burning, urgency, frequency or hematuria Musculoskeletal: Arthralgias as per HPI Neuro: Denies numbness, tingling, weakness or focal weakness Skin: Denies rash Except as documented, all other systems reviewed and negative [facility] Past Medical History Medical History Diabetes HTN (hypertension) Hyperlipidemia Hypertrophic obstructive cardiomyopathy (HOCM) Obesity Surgical History Surgical History History of left knee replacement History of right knee joint replacement History of total right hip arthroplasty (~05/10/21) Family History Family History Mother Patient's mother is , Onset Age: 87 Father Patient's father is , Onset Age: 93 Family history of arthritis Sibling Patient's brother is Social History Social History (Updated 05/10/22 @ 13:44 by Nancy Valdez MA) Smoking status: Never smoker Alcohol intake: never Substance use: never Lack of Transportation: No Current Housing: I Have Housing Concerned About Future Housing: No Difficulty Paying Gas/Electric Bills: No Difficulty Paying for Meds: No Currently Unemployed: No Education: Associate Degree Difficulty w/ Childcare or Family Care: No Living arrangements: alone Spiritual care concerns: No Exam Narrative: APPEARANCE: Pleasant, alert, oriented, in no acute distress Head: Normocephalic and atraumatic. EYES: PERRLA/EOMI, conjunctivae clear NOSE: No nasal drainage EARS: External ear normal in appearance THROAT: Oropharynx is clear. Mucous membranes are moist. NECK: Supple. No adenopathy, no masses. RESPIRATORY: Airway patent, respirations nonlabored. Clear to auscultation bilaterally, no rales, rhonchi, wheezing. CARDIOVASCULAR: Regular rate and rhythm without murmurs, rubs, or gallops. ABDOMINAL: Normoactive bowel sounds. Soft, nontender, nondistended. No rebound tenderness or guarding. MUSCULOSKELETAL: Tenderne
[2022-06-18] MEDS: KETOROLAC 30 MG/ML VIAL (*BKC) IM (18:10)
[2022-06-18 18:54] LABS: Glucose Point of Care 102 mg/dl (65-105)
== END 2022-06-18 19:37 | disposition home or self-care (01) ==
PROVIDERS: Emergency Provider Physician Assistant; PCP Internal Medicine
DX: M25.561 Pain in right knee (principal); M25.512 Pain in left shoulder; M79.642 Pain in left hand; M25.522 Pain in left elbow; E11.9 Type 2 diabetes mellitus without complications; I10 Essential (primary) hypertension; E78.5 Hyperlipidemia, unspecified; W18.30XA Fall on same level, unspecified, initial encounter; Y92.512 Supermarket, store or market as the place of occurrence of the external cause
CPT/HCPCS: 72100; 73080; 73130; 73562; 82948; 96372; 99284; J1885

== ENCOUNTER → 2022-07-31 11:18 | Outpatient (CLI) | payer MEDICARE, MEDICAID, SELFPAY ==
--- NOTE | ~2022-07-31 | CT_ITS ---
EXAMINATION: CT sinus wo con DATE: 07/31/2022 11:35 INDICATION: Chronic sinusitis TECHNIQUE: Computed tomography (CT) of the paranasal sinuses was performed without intravenous contra st. The dose-length product was 249.04 mGy-cm. Automated exposure control and iterative reconstructio n technique were employed. COMPARISON: CT dated 06/18/2015 FINDINGS: There is mild mucosal thickening of the left anterior ethmoid air cells and left maxillary sinus. No significant nasal septal deviation. Left ostiomeatal unit is occluded by soft tissue. Right ostiomeatal unit is patent. Mastoids are pneumatized. IMPRESSION: 1. Mild sinus disease. Reviewed, dictated and finalized at location B. IMPRESSION: 1. Mild sinus disease.
== END ==
PROVIDERS: PCP Internal Medicine; Visit Provider Otolaryngology
DX: J32.9 Chronic sinusitis, unspecified (principal)
CPT/HCPCS: 70486

== ENCOUNTER 2022-11-24 01:41 | Day surgery (SDC) | payer MEDICARE, MEDICAID, SELFPAY ==
[2022-11-17 11:59] VITALS: BMI 38.7
[2022-11-24 11:19] VITALS: BP 133/75; PULSE 79; RESP 22; TEMP 36.4; O2SAT 100; BMI 36.5
[2022-11-24] MEDS: LACTATED RINGERS 1,000 ML 150 ML IV CONT (11:23)
--- NOTE | 2022-11-24 11:23 | WPDANESEPPF ---
Anes - Initial Pre Proc Eval Procedure: Operation Date: 11/24/22 12:30 Proposed Procedures p Colonoscopy - Neeraj Schuster MD Date/Time: 11/24/22 11:23 Surgeon: Neeraj Schuster MD Pre Op Diagnosis: Melena Patient Data Age: 72 Gender: F Height: 1.68 m Weight: 102.6 kg Last Vital Signs Temp 97.6 F 11/24/22 11:19 Pulse 79 11/24/22 11:19 Resp 22 H 11/24/22 11:19 BP 133/75 11/24/22 11:19 Pulse Ox 100 11/24/22 11:19 O2 Del Method Room Air 11/24/22 11:19 Allergies Allergy/AdvReac Type Severity Reaction Status Date / Time No Known Allergies Allergy Verified 11/24/22 11:16 Home Medications Medication Instructions Recorded Confirmed Type amlodipine 5 mg tablet 5 mg PO DAILY 01/07/21 11/17/22 History glimepiride 4 mg tablet 8 mg PO QAM 01/07/21 11/24/22 History metformin 500 mg tablet 500 mg PO BID 01/07/21 11/24/22 History clonidine HCl 0.1 mg tablet 0.1 mg PO BID 04/21/21 11/17/22 History multivit with minerals-iron 18 1 tablet PO DAILY 04/21/21 11/24/22 History mg-folic ac 400 mcg-vit K 25 mcg tablet (Adults Multivitamin) potassium 99 mg tablet 99 mg PO DAILY 04/21/21 11/24/22 History triamterene 37.5 1 cap PO QPM 04/21/21 11/24/22 History mg-hydrochlorothiazide 25 mg capsule rosuvastatin 10 mg tablet 10 mg PO DAILY 05/10/21 11/24/22 History Fish Oil 1 cap PO DAILY 11/17/22 11/24/22 History Vitamin D3 1 tab-cap PO DAILY 11/17/22 11/24/22 History acetaminophen 650 mg 650 mg PO Q8H PRN Pain 11/17/22 11/24/22 History tablet,extended release aspirin 81 mg tablet 81 mg PO DAILY 11/17/22 11/24/22 History cetirizine 10 mg capsule (Zyrtec) 10 mg PO DAILY 11/17/22 11/24/22 History Patient hx anesthesia problems: none Family hx anesthesia problems: none Results Review: All pre-operative results and documents have been reviewed as part of the pre-operative evaluation. [facility] Past Medical History Medical History Diabetes HTN (hypertension) Hyperlipidemia Hypertrophic obstructive cardiomyopathy (HOCM) Obesity Surgical History Surgical History History of left knee replacement History of right knee joint replacement History of total right hip arthroplasty (~05/10/21) Family History Family History Mother Patient's mother is , Onset Age: 87 Father Patient's father is , Onset Age: 93 Family history of arthritis Sibling Patient's brother is Social History Social History Smoking status: Never smoker Alcohol intake: never Substance use: current Substance use type: does not use Lack of Transportation: No Current Housing: I Have Housing Concerned About Future Housing: No Difficulty Paying Gas/Electric Bills: No Difficulty Paying for Meds: No Currently Unemployed: No Education: Associate Degree Difficulty w/ Childcare or Family Care: No Living arrangements: alone Spiritual care concerns: No Anes - Eval Final PreProcedure Day of Procedure 11/24/22 11:23 Patient weight: obese Heart: regular rate and rhythm Lungs: clear to auscultation Airway: Mallampati scale class II Neurological: alert and oriented Last oral intake: >/= 8 hours ASA classification: III Emergent: no Anesthetic plan: proceed Anesthesia type and monitoring: general GIVS and standard monitoring Results Review: All pre-operative results and documents have been reviewed as part of the pre-operative evaluation. Informed Consent: The patient's anesthetic plan and its attendant risks and benefits were discussed with the patient/family/POA. Questions were solicited and answers provided to the satisfaction of the patient/family/POA.
[2022-11-24 11:38] LABS: Glucose Point of Care 137 mg/dl (65-105)
--- NOTE | 2022-11-24 11:47 | PM.HPGS ---
History of Present Illness History of Present Illness Consent: Risks, benefits, and alternatives have been discussed and questions answered. Patient agrees to proceed with procedure. Chief complaint: blood in stool Narrative: Lindsay Bonilla is a 72 year old female Presents for colonoscopy. Patient reports 2 episode of small amount of bright red blood spots with a bowel movement over the last several weeks. She denies any specific abdominal pain. She reports her bowel habits are normal. She reports having had a colonoscopy 10 years ago that was unremarkable. Family history is noncontributory. Patient presents today for colonoscopy. Review of Systems Review of Systems: Review of systems noncontributory. [facility] Past Medical History Medical History Diabetes HTN (hypertension) Hyperlipidemia Hypertrophic obstructive cardiomyopathy (HOCM) Obesity Surgical History Surgical History History of left knee replacement History of right knee joint replacement History of total right hip arthroplasty (~05/10/21) Family History Family History Mother Patient's mother is , Onset Age: 87 Father Patient's father is , Onset Age: 93 Family history of arthritis Sibling Patient's brother is Social History Social History Smoking status: Never smoker Alcohol intake: never Substance use: current Substance use type: does not use Lack of Transportation: No Current Housing: I Have Housing Concerned About Future Housing: No Difficulty Paying Gas/Electric Bills: No Difficulty Paying for Meds: No Currently Unemployed: No Education: Associate Degree Difficulty w/ Childcare or Family Care: No Living arrangements: alone Spiritual care concerns: No Meds Home Medications and Allergies Home Medications Medication Instructions Recorded Confirmed Type amlodipine 5 mg tablet 5 mg PO DAILY 01/07/21 11/17/22 History glimepiride 4 mg tablet 8 mg PO QAM 01/07/21 11/24/22 History metformin 500 mg tablet 500 mg PO BID 01/07/21 11/24/22 History clonidine HCl 0.1 mg tablet 0.1 mg PO BID 04/21/21 11/17/22 History multivit with minerals-iron 18 1 tablet PO DAILY 04/21/21 11/24/22 History mg-folic ac 400 mcg-vit K 25 mcg tablet (Adults Multivitamin) potassium 99 mg tablet 99 mg PO DAILY 04/21/21 11/24/22 History triamterene 37.5 1 cap PO QPM 04/21/21 11/24/22 History mg-hydrochlorothiazide 25 mg capsule rosuvastatin 10 mg tablet 10 mg PO DAILY 05/10/21 11/24/22 History Fish Oil 1 cap PO DAILY 11/17/22 11/24/22 History Vitamin D3 1 tab-cap PO DAILY 11/17/22 11/24/22 History acetaminophen 650 mg 650 mg PO Q8H PRN Pain 11/17/22 11/24/22 History tablet,extended release aspirin 81 mg tablet 81 mg PO DAILY 11/17/22 11/24/22 History cetirizine 10 mg capsule (Zyrtec) 10 mg PO DAILY 11/17/22 11/24/22 History Allergies Allergy/AdvReac Type Severity Reaction Status Date / Time No Known Allergies Allergy Verified 11/24/22 11:16 Vital Signs Vital Signs - 24 hr 11/24/22 11:19 Temperature 97.6 F Pulse Rate 79 Respiratory Rate 22 H Blood Pressure 133/75 Pulse Oximetry 100 Oxygen Delivery Room Air Exam Narrative: Physical exam reveals patient to be alert. Vital signs stable. HEENT exam is unremarkable. Patient is anicteric. Lungs are clear to auscultation and percussion. Heart is without murmur or extra sounds. Abdomen bowel sounds are present soft nontender with no organomegaly. Digital external rectal exam normal. Assessment and Plan Assessment and plan (1) Blood in stool: Code(s): K92.1 - Melena Status: Acute Assessment and Plan: Patient presents for colonoscopy because of 2 episo
[2022-11-24 12:49] VITALS: BP 99/46; PULSE 68; RESP 18; O2SAT 100
[2022-11-24 12:59] VITALS: BP 118/56; PULSE 68; RESP 18; O2SAT 100
[2022-11-24 13:09] VITALS: BP 120/55; PULSE 69; RESP 18; O2SAT 100
== END 2022-11-24 13:30 | disposition home or self-care (01) ==
PROVIDERS: PCP Internal Medicine; Visit Provider Internal Medicine Gastroenterology
PROC: 0DJD8ZZ Inspection of Lower Intestinal Tract, Via Natural or Artificial Opening Endoscopic (ICD-10-PCS; CPT 45378; principal; 2022-11-24 12:30)
DX: Z12.11 Encounter for screening for malignant neoplasm of colon (principal); K64.8 Other hemorrhoids; K57.30 Diverticulosis of large intestine without perforation or abscess without bleeding; I10 Essential (primary) hypertension; E11.9 Type 2 diabetes mellitus without complications; E78.5 Hyperlipidemia, unspecified; I42.1 Obstructive hypertrophic cardiomyopathy; E66.9 Obesity, unspecified; Z68.36 Body mass index [BMI] 36.0-36.9, adult; Z79.84 Long term (current) use of oral hypoglycemic drugs; Z79.82 Long term (current) use of aspirin
CPT/HCPCS: G0121; 82948; J2704; J7120

== ENCOUNTER 2023-07-06 13:18 | Outpatient (CLI) | payer MEDICARE, MEDICAID, SELFPAY ==
--- NOTE | 2023-07-06 | ECHO_ITS ---
Patient Info Name: Lindsay Bonilla Age: 72 years : 1950 Gender: Female Ht: 75 in Wt: 251 lbs BSA: 2.48 m2 BP: 163 / 83 mmHg Heart Rhythm: Sinus Rhythm Technical Quality: Fair Exam Date: 07/06/2023 1:40 PM Exam Location: Echo Lab Patient Status: Outpatient Admit Date: 07/06/2023 Staff Ordering Physician: KiritHarry MD Case Manager: Price Cloud RDCS Attending Provider: FallonHarry MD Exam Type: CA echo doppler color flow Study Info Indications I10 - Essential (primary) hypertension Complete two-dimensional, color flow and Doppler transthoracic echocardiogram is performed. Summary 1. Complete two-dimensional, color flow and Doppler transthoracic echocardiogram is performed. 2. Left ventricular chamber dimension is normal. 3. Left ventricular systolic function is normal, estimated at >70%. 4. There is mildly increased left ventricular wall thickness. 5. The left ventricular diastolic function is grade I diastolic dysfunction. 6. Left atrial chamber dimension is mildly enlarged. 7. There is mild to moderate aortic valve regurgitation. 8. There is mild mitral valve regurgitation. 9. There is mild tricuspid valve regurgitation. 10. Mild pulmonary hypertension, estimated pulmonary arterial systolic pressure is 39 mmHg. 11. There is mild pulmonic regurgitation. Left Ventricle Left ventricular chamber dimension is normal. Left ventricular systolic function is normal, estimated at >70%. There is mildly increased left ventricular wall thickness. The left ventricular diastolic function is grade I diastolic dysfunction. Right Ventricle Right ventricular chamber dimension is normal. Right ventricular systolic function is normal. Left Atria Left atrial chamber dimension is mildly enlarged. Right Atria Right atrial chamber dimension is normal. Atrial Septum Intact interatrial septum visualized by color flow imaging. Aortic Valve The aortic valve is trileaflet. There is mild aortic valve sclerosis. There is no aortic valve stenosis. There is mild to moderate aortic valve regurgitation. Pulmonic Valve The pulmonic valve is normal. There is no pulmonic valve stenosis. There is mild pulmonic regurgitation. Mitral Valve The mitral valve has normal leaflets. There is no mitral valve stenosis. There is mild mitral valve regurgitation. Tricuspid Valve The tricuspid valve leaflets are normal. There is no significant tricuspid valve stenosis. There is mild tricuspid valve regurgitation. Mild pulmonary hypertension, estimated pulmonary arterial systolic pressure is 39 mmHg. Pericardium/Pleural The pericardium appears normal. There is no pericardial effusion. Inferior Vena Cava Normal inferior vena cava with >50% collapse upon inspiration consistent with normal right atrial pressure, 10 mmHg. Aorta The aortic root size at the sinus of Valsalva is normal. The prox ascending aorta size is normal. There is mild aortic atherosclerosis. Left Ventricular Outflow Tract Name Value Normal LVOT 2D LVOT Diameter 2.1 cm LVOT Doppler LVOT Peak Gradient 9 mmHg LVOT Mean Gradient 4 mmHg LVOT VTI 31 cm LVOT VTI/AV VTI Ratio 0.9 LVOT Stroke Volume 110 ml LVOT CO 6.4 l/min LVOT CI 2.6 l/min/m2 Pulmonic Valve Name Value Normal RVOT Doppler RVOT Peak Gradient 3 mmHg PV Doppler PV Peak Gradient 4 mmHg PV Regurgitation Doppler RI Peak End Diastolic Velocity 91 cm/s Mitral Valve Name Value Normal MV Doppler MV Decel [place] 167 cm/s2 MV PHT 100 ms MV Area (PHT) 2.2 cm2 4.0-5.0 MV Diastolic Function MV E Peak Velocity 58 cm/s MV A Peak Velocity 86 cm/s MV E/A 0.7 MV Decel Time 346 ms Tricuspid Valve Name Value Normal TV Regurgitation Doppler TR Peak Velocity 271 cm/s TR Peak Gradient 29 mmHg Estimated PAP/RSVP RA Pressure 10 mmHg <=5 PA Systolic Pressure 39 mmHg <36 RV Systolic Pressure 39 mmHg <36 Aorta Name Value Normal Ascending Aorta Ao Root Diameter (MM) 2.7 cm Ao Root Diam Index (MM) 1.1 cm/m2 Aortic Valve Name Value Normal AV Doppler AV Peak Velocity 162 cm/s AV Peak Gradient 10 mmHg AV Mean Gradient 6 mmHg AV VTI 35 cm AV Area (Cont Eq VTI) 3.2 cm2 >=3.0 AV Area (Cont Eq Efrain) 3.2 cm2 AV Regurgitation 2D LVOT Area 3.5 cm2 AV Regurgitation Doppler AR Decel Time 3,001 ms AR Decel [place] 119 cm/s2 AR PHT 870 ms Ventricles Name Value Normal LV Dimensions 2D/MM IVS Diastolic Thickness (2D) 1.0 cm 0.6-1.0 IVS Diastole Thickness (MM) 0.8 cm 0.6-0.9 LVID Diastole (2D) 3.9 cm 3.8-5.2 LVID Diastole (MM) 6.1 cm 3.8-5.2 LVIW Diastolic Thickness (2D) 1.0 cm 0.6-0.9 LVIW Diastolic Thickness (MM) 0.9 cm 0.6-0.9 LVID Systole (2D) 2.1 cm 2.2-3.5 LVID Systole (MM) 3.8 cm 2.2-3.5 LVOT Diameter 2.1 cm LV Mass (2D Cubed) 122.71 g 67.00-162.00 LV Mass Index (2D Cubed) 49 g/m2 43-95 Relative Wall Thickness (2D) 0.53 LV Mass (MM Cubed) 213.23 g 67.00-162.00 LV Mass Index (MM Cubed) 86 g/m2 43-95 Relative Wall Thickness (MM) 0.29 LV Fractional Shortening/Ejection Fraction 2D/MM LV Fractional Shortening (2D) 46 % 27-45 LV Fractional Shortening (MM) 37 % 27-45 LV EF (MM Teicholz) 67 % 54-74 LV EF (2D Teicholz) 77 % 54-74 LV Diastolic Volume (4C MOD) 61 ml LV EF (4C MOD) 67 % LV Diastolic Volume (2C MOD) 66 ml LV EF (2C MOD) 69 % LV Diastolic Volume (BP MOD) 67 ml 46-106 LV Diastolic Volume Index (BP MOD) 27 ml/m2 29-61 LV Systolic Volume (BP MOD) 20 ml 14-42 LV Systolic Volume Index (BP MOD) 8 ml/m2 8-24 LV EF (BP MOD) 70 % 54-74 LV Diastolic Length (4C) 7.6 cm LV Systolic Length (4C) 6.9 cm LV Stroke Volume (4C MOD) 41 ml Atria Name Value Normal LA Dimensions LA Dimension (MM) 3.5 cm 2.7-3.8 LA Volume (4C A-L) 81 ml LA Volume (BP A-L) 81 ml RA Dimensions RA Area (4C) 15.5 cm2 <=18.0 Report Signatures
[2023-07-06 13:51] LABS: Basophils Percent Auto 0.5 % (0.2-1.2); Eosinophils Absolute Auto 0.2 K/mm3 (0-0.3); Hematocrit 37.3 % (37.0-47.0); Hemoglobin 12.1 g/dL (12.0-15.0); Immature Granulocyte Absolute 0.03 K/mm3 (0.00-0.031); Immature Granulocyte Percent A 0.5 % (0-0.5); Lymphocytes Absolute Auto 1.37 K/mm3 (0.9-3.2); Lymphocytes Percent Auto 22.5 % (18.3-44.2); Mean Corpuscular HGB Conc 32.4 g/dl (32-36); Mean Corpuscular Hemoglobin 26.7 pg (26-34); Mean Corpuscular Volume 82.3 fl (80-100); Mean Platelet Volume 9.6 fl (7.4-10.4); Monocytes Absolute Auto 0.4 K/mm3 (0.1-0.6); Monocytes Percent Auto 6.4 % (2.6-8.5); Neutrophils Absolute Auto 4.1 K/mm3 (1.3-6.7); Neutrophils Percent Auto 67.1 % (45.5-73.1); Platelet Count Result 337 k/mm3 (150-375); Red Blood Count 4.53 M/mm3 (4.2-5.4); Red Cell Distribution Width 14.5 % (11.5-14.5); White Blood Count 6.1 K/mm3 (4.5-10.0)
[2023-07-06 14:01] LABS: Alanine Aminotransferase 22 U/L (6-35); Albumin Level 4.7 g/dL (3.5-5.1); Alkaline Phosphatase 104 U/L (38-126); Anion Gap 8 mmol/L (4-12); Aspartate Amino Transferase 28 U/L (14-36); Bilirubin,Total 0.4 mg/dL (0.2-1.3); Blood Urea Nitrogen 11 mg/dL (7-17); Calcium 9.9 mg/dL (8.4-10.2); Carbon Dioxide 27 mmol/L (22-30); Chloride 105 mmol/L (98-107); Cholesterol 149 mg/dL (0-200); Estimated Glomerular Filt Rate > 60; Glucose 148 mg/dL (65-110); HDL Direct 75 mg/dL; Potassium 3.6 mmol/L (3.4-5.0); Sodium 140 mmol/L (137-145); Triglycerides 114 mg/dL (<150)
[2023-07-06 14:02] LABS: Hemoglobin A1C 6.5 % (<5.7)
[2023-07-06 14:12] LABS: LDL Cholesterol Direct 62 mg/dL
== END 2023-07-06 13:19 | disposition home or self-care (01) ==
LOC: ANHCARD 13:20
PROVIDERS: PCP Internal Medicine; Visit Provider Internal Medicine
DX: R93.1 Abnormal findings on diagnostic imaging of heart and coronary circulation (principal); I35.1 Nonrheumatic aortic (valve) insufficiency; I34.0 Nonrheumatic mitral (valve) insufficiency; I07.1 Rheumatic tricuspid insufficiency; I27.20 Pulmonary hypertension, unspecified; I37.1 Nonrheumatic pulmonary valve insufficiency; I10 Essential (primary) hypertension; E11.9 Type 2 diabetes mellitus without complications
CPT/HCPCS: 36415; 80053; 80061; 83036; 85025; 93306

== ENCOUNTER 2023-07-16 13:18 | Outpatient (CLI) | payer MEDICARE, MEDICAID, SELFPAY ==
--- NOTE | ~2023-07-16 | XR_ITS ---
AP view of the pelvis and AP and lateral views of the left hip Clinical history: Pain Findings: No acute fracture or dislocation is seen. Osseous alignment is anatomic. There is mild dege nerative change of the left hip joint. Right hip arthroplasty in place. Soft tissues are unremarkable . Impression: Mild degenerative change of the left hip joint. Right hip arthroplasty in place. There is advanced degenerative spondylosis of the visualized lower lumbar spine. Reviewed, dictated and finalized at location M. Impression: Mild degenerative change of the left hip joint. Right hip arthroplasty in place . There is advanced degenerative spondylosis of the visualized lower lumbar spine .
--- NOTE | ~2023-07-16 | XR_ITS ---
Right Knee Technique: AP, lateral, and sunrise views were obtained. Clinical History: Arthroplasty COMPARISON: 06/18/2022 Findings: No fracture or dislocation is seen. Right knee arthroplasty is unchanged. Soft tissues are unremarkable. No joint effusion is seen. Impression: No acute abnormality. Stable right knee arthroplasty. Reviewed, dictated and finalized at location . Impression: No acute abnormality. Stable right knee arthroplasty.
--- NOTE | ~2023-07-16 | XR_ITS ---
Left Knee Technique: AP, lateral, and sunrise views were obtained. Clinical History: Arthroplasty COMPARISON: 01/25/2015 Findings: No fracture or dislocation is seen. Left knee arthroplasty is unchanged. Soft tissues are u nremarkable. No joint effusion is seen. Impression: No acute abnormality. Stable left knee arthroplasty. Reviewed, dictated and finalized at location . Impression: No acute abnormality. Stable left knee arthroplasty.
== END 2023-07-16 13:19 | disposition home or self-care (01) ==
PROVIDERS: PCP Internal Medicine; Visit Provider Orthopaedic Surgery
DX: M16.0 Bilateral primary osteoarthritis of hip (principal); Z96.651 Presence of right artificial knee joint; Z96.652 Presence of left artificial knee joint; M47.896 Other spondylosis, lumbar region
CPT/HCPCS: 73502; 73562

== ENCOUNTER 2023-08-17 11:04 | Outpatient (CLI) | payer MEDICARE, MEDICAID, SELFPAY ==
--- NOTE | ~2023-08-17 | MR_ITS ---
MRI of the lumbar spine Clinical History: Radiculopathy Technique: Axial T2-weighted images, and sagittal T1-weighted, T2-weighted, and T2 fat-sat images wer e acquired. COMPARISON: 06/22/2015 Findings: There is no fracture or subluxation of the lumbar spine. There are type III Modic changes a bout the L2-L3 at L3-L4 disc spaces. At L1-L2, there is no significant disc bulge or herniation. There is moderate facet arthropathy. No c entral canal stenosis or definite neural foraminal narrowing. At L2-L3, there is severe degenerative disc narrowing. There is mild diffuse disc bulge and moderate facet arthropathy. There is minimal central canal stenosis. There is severe left neural foraminal kiran rowing, and moderate right neural foraminal narrowing. At L3-L4, there is severe degenerative disc narrowing. Diffuse disc bulge and advanced facet arthropa thy result in severe spinal canal stenosis/thecal sac compression. There is severe left neural forami nal narrowing, and moderate right neural foraminal narrowing. At L4-L5, there is advanced degenerative disc narrowing. Disc bulge and severe facet arthropathy resu lt in severe spinal canal stenosis/thecal sac compression. There is severe right neural foraminal kiran rowing and moderate to severe left neural foraminal narrowing. At L5-S1, there is moderate degenerative disc narrowing. There is diffuse disc bulge and severe facet arthropathy. No aggie central canal stenosis. There is severe right neural foraminal narrowing, and moderate to severe left neural foraminal narrowing. Paravertebral soft tissues are unremarkable. Impression: Severe degenerative spondylosis, as detailed above, with multilevel severe spinal canal stenosis and multilevel severe neural foraminal narrowing. Reviewed, dictated and finalized at [facility] M. Impression: Severe degenerative spondylosis, as detailed above, with multilevel severe spin al canal stenosis and multilevel severe neural foraminal narrowing.
== END 2023-08-17 11:05 ==
LOC: MICIMG 11:04
PROVIDERS: PCP Internal Medicine; Visit Provider Orthopaedic Surgery
DX: M47.896 Other spondylosis, lumbar region (principal); M48.061 Spinal stenosis, lumbar region without neurogenic claudication; M51.37 Other intervertebral disc degeneration, lumbosacral region
CPT/HCPCS: 72148

== ENCOUNTER 2024-07-09 12:00 | Outpatient (CLI) | payer MEDICARE, MEDICAID, SELFPAY ==
--- NOTE | ~2024-07-09 | XR_ITS ---
XR knee RT 3V Ordering provider: Doug Meehan MD History: . S76.311A - Strain of muscle, fascia and tendon of the pos... . Comparison: None. FINDINGS: BONES: No acute fracture or dislocation. JOINT SPACES: Total knee arthroplasty. SOFT TISSUES: Normal. IMPRESSION: No acute osseous abnormality right knee. Total knee arthroplasty. Reviewed, dictated and finalized at location A.
--- NOTE | ~2024-07-09 | XR_ITS ---
AP view of the pelvis and AP and lateral views of the right hip Clinical history: Pain Findings: No acute fracture or dislocation is seen. Osseous alignment is anatomic.] Hip arthroplasty in place. There is minimal degenerative change of the left hip joint. There is degenerative spondylos is of the lumbar spine. Soft tissues are unremarkable. Impression: Right hip arthroplasty. Mild degenerative change left hip joint. 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 Reviewed, dictated and finalized at location M. Impression: Right hip arthroplasty. Mild degenerative change left hip joint. 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
--- OUTSIDE RECORDS SUMMARY | 2024-07-09 13:47 | XMS_ITS | Data Portability ---
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 Name Role Phone CARLA BETH Primary Care Provider [employer] [facility] Referring Provider DONNA MANLEY Director Of Accreditation Assessment Encounter Date Assessment Date Assessment LastModified by Organization Details LastModified Time 06/26/2024 06/26/2024 Continue current therapy blood work has been ordered we will see me back in 3-4 months continue current therapy she had her foot exam 2 months ago we are trying to get the records [email or web address] Not available 06/28/2024 15:51:03 Plan of Treatment Reminders Order Date Submit Date Provider Last Modified By Organization Details Last Modified Time Details Appointments ANY 15 2024 02:30P Bob Beth MD Not available Not available Not available Lab HbA1c (hemoglob in A1c), blood 2024 025 [employer] [facility], [address], [place], [address], 07/02/2024 11:13:15 lipid panel, serum 2024 025 [employer] [facility], [address], [place], [address], 07/02/2024 11:13:15 CMP, serum or plasma 2024 025 [employer] [facility], [address], [place], [address], 07/02/2024 11:13:15 CBC w/ auto diff 2024 025 [facility], [address], [place], [address], 07/02/2024 11:13:15 Referral None recorded. Procedures None recorded. Surgeries None recorded. Imaging None recorded. Medication Orders Mounjaro 10 mg/0.5 mL subcutane ous pen injector 2024 025 [address] [id number], [address] [facility], [place], [id number], 07/03/2024 17:42:03 Mounjaro 7.5 mg/0.5 mL subcutane ous pen injector 2024 025 [facility] #[id number], [address] [place] [address], [id number], 07/03/2024 16:26:09 Mounjaro 10 mg/0.5 mL subcutane ous pen injector 2024 025 [address], [facility], [address] [place] [address], [id number], 06/26/2024 18:05:49 Mounjaro 7.5 mg/0.5 mL subcutane ous pen injector 2024 025 [facility], [address] [place] [address], [id number], 07/03/2024 16:26:09 Mounjaro 7.5 mg/0.5 mL subcutane ous pen injector [address] [facility] [employer] [facility], [address] [place] [address], [id number], 07/03/2024 16:26:09 Mounjaro 7.5 mg/0.5 mL subcutane ous pen injector 2024 [facility]48523, [address], [place], [place], [id number], 07/03/2024 16:26:09 Patient TargetsNo targets recorded. Patient Instructions Encounter Date Encounter Id Patient Instructions Last Modified By Organization Details Last Modified Time 06/26/2024 [id number] A healthy lifestyle: care instructions [email or web address] Not available 06/26/2024 18:05:49 Reason for Referral None Reported. Results Created Date Observation Date Name Description Value Unit Range Abnormal Flag Note LastModifiedBy Organization Detail LastModifiedTime 07/10/1907/09/2024 damarisi ng/ajit snell tic resul t No observ ation record ed. [facility] [address], [place], [address], 07/09/2024 14:12:38 Result Notes None recorded. Problems Name Problem SNOMED Code Status Onset Date Resolution Date Notes Provider Name and Address Organization Details Recorded Time Essential hypertension 05871124 Active 2023 Arben Forde [place] null, [place] [facility] 4 14:36:12 Type 2 diabetes mellitus 89746015 Active 2023 Arben Forde [place], [place] [facility] 14:36:13 Hyperlipidemia 72551846 Active 2023 Carla Beth MD Attn: Terri shields,[address] [facility], [place], [address], [place] [facility] 4 16:56:14 Chronic rhinitis 65205148 Active 2023 Carla Beth MD Attn: Terri shields,[address] [facility], [place], [address], [place] [facility] 4 16:56:15 Vertigo 868554641 Active 2023 Carla Beth MD Attn: Terri shields,[address] [facility], [place], [address], [place] [facility] 4 16:56:16 Osteoarthritis 195254048 Active 2023 Carla Beth MD Attn: Terri shields,[address] [facility], [place], [address], [facility] - SI 16:56:19 Aortic valve regurgitation 09492681 Active 2023 Carla Beth MD Attn: Terri shields,[address] [facility], [place], [address], [facility] - [facility] 23:00:29 Problem Notes None recorded. Procedures Surgical History Date Name Laterality Status Provider Name and Address Organization Details Recorded Time Cholecystectomy completed Yamilet Fine MA [facility] 06/25/2023 14:04:09 Hernia Repair completed Yamilet Fine MA [facility] 06/25/2023 14:05:50 Knee Surgery completed Yamilet Fine MA [facility] 06/25/2023 14:06:23 Total hysterectomy completed Daryl Fine MA [facility] 06/25/2023 14:06:07 Imaging Results Imaging Date Name Status [facility]Modified by [facility] Details LastModified Time 07/09/2024 imaging/diagn ostic result active [facility] [address], [place], [address], 07/09/2024 14:12:38 Procedure Notes None recorded. Medical Equipment None Reported. Allergies No known drug allergies Medications Name Sig Start Date Stop Date Status Note LastModified by Organization Details LastModified Time amoxicill in 500 mg capsule TAKE 1 CAPSULE BY MOUTH THREE TIMES DAILY 06/24 completed Not Available Not Available Not Available nystatin 100,000 unit/mL oral suspensio n SHAKE LIQUID AND TAKE 5 ML BY MOUTH FOUR TIMES DAILY FOR 7 DAYS active Not Available Not Available No t Available clonidine HCl 0.1 mg tablet TAKE 1 TABLET BY MOUTH TWICE DAILY active Not Available Not Available No t Available ammonium lactate 12 % lotion APPLY TOPICALL Y TO FEET DAILY NEEDED 06/24 completed Not Available Not Available Not Available azithromy allen 250 mg tablet TAKE 2 TABLETS (500 MG) BY ORAL ROUTE ONCE DAILY FOR 1 DAY THEN 1 TABLET (250 MG) BY ORAL ROUTE ONCE DAILY FOR 4 DAYS active Not Available Not Available No t Available meloxicam 15 mg tablet TAKE 1 TABLET BY MOUTH DAILY active Not Available Not Available No t Available clobetaso l 0.05 % topical cream active Not Available Not Available Not Available amlodipin e 5 mg tablet TAKE 1 TABLET BY MOUTH EVERY DAY active Not Available Not Available No t Available sulfameth oxazole 800 mg-trimet hoprim 160 mg tablet TAKE 1 TABLET BY MOUTH EVERY 12 HOURS 06/24 completed Not Available Not Available Not Available peg-elect rolyte solution 420 gram oral solution MIX AND DRINK DIRECTED PER INSTRUCT ION PROVIDED BY DOCTOR. 06/24 completed Not Available Not Available Not Available tramadol 50 mg tablet TAKE 1 TO 2 TABLETS BY MOUTH TWICE DAILY NEEDED FOR PAIN active Not Available Not Available No t Available triamtere ne 37.5 mg-hydroc hlorothia zide 25 mg capsule TAKE 1 CAPSULE BY MOUTH EVERY DAY active Not Available Not Available No t Available meloxicam 7.5 mg tablet TAKE 1 TABLET BY MOUTH DAILY 06/24 completed Not Available Not Available Not Available meclizine 25 mg tablet TAKE 1 TABLET BY MOUTH THREE TIMES DAILY NEEDED active Not Available Not Available No t Available glimepiri de 4 mg tablet TAKE 2 TABLETS BY MOUTH EVERY DAY 04/14 completed Not Available Not Available Not Available methylpre dnisolone 4 mg tablets in a dose pack FOLLOW PACKAGE DIRECTIO NS 04/13 completed Not Available Not Available Not Available cefdinir 300 mg capsule TAKE 1 CAPSULE BY MOUTH EVERY 12 HOURS FOR 10 DAYS 04/13 completed Not Available Not Available Not Available metformin ER 500 mg tablet,ex tended release 24 hr TAKE 1 TABLET BY MOUTH TWICE DAILY 2024 active Not Available Not Available Not Avai lable doxycycli ne hyclate 100 mg tablet TAKE 1 TABLET BY MOUTH TWICE DAILY FOR 10 DAYS 04/13 completed Not Available Not Available Not Available neomycin 3.5 mg/g-poly myxin B 10,000 unit/g-de xameth 0.1 % eye oint APPLY A SMALL AMOUNT TO EYE LID AREA TWICE DAILY X 7 DAYS 04/13 completed Not Available Not Available Not Available rosuvasta tin 10 mg tablet TAKE 1 TABLET BY MOUTH EVERY DAY active Not Available Not Available No t Available TRUEplus Lancets 33 gauge active Not Available Not Available Not Available True Metrix Glucose Test Strip active Not Available Not Available Not Available True Metrix Level 1 solution active Not Available Not Available Not Available True Metrix Air Glucose Meter active Not Available Not Available Not Available DropSafe Alcohol Prep Pads active Not Available Not Available No t Available Mounjaro 7.5 mg/0.5 mL subcutane ous pen injector Inject 7.5 mg every week by subcutan eous route. 07/03 completed Pt tolerate d well Not Available Not Available Not Available Mounjaro 5 mg/0.5 mL subcutane ous pen injector inject 5mg weekly for 4wks 07/03 completed Not Available Not Available Not Available Mounjaro 10 mg/0.5 mL subcutane ous pen injector Inject 10 mg every week by subcutan eous route. 2024 active Not Available Not Available Not Avai lable Mounjaro 2.5 mg/0.5 mL subcutane ous pen injector Inject 2.5 mg every week by subcutan eous route. 07/03 completed Not Available Not Available Not Available Vitals Date Recorded Body height Body mass index (BMI) Body weight Heart rate Oxygen saturation Oxygen saturation in Arterial blood by Pulse oximetry Systolic blood pressure Diastolic blood pressure Provider Name and Address Organization Details Last Updated DateTime 165.1 cm 40.1 kg/m2 901573. 68 g 70 /min 98 % 98 % 138 mm[Hg] 70 mm[Hg] Zuleyma Maradiaga MA [facility] 16:06:28 Social History Question Answer Notes LastModified by Organizat ion Details LastModified Time Tobacco Smoking Status Never Smoker Yamilet Fine MA null, [place] - [facility] 06/25/2023 13:57:36 Do You Have An Advance Directive? No Information n ot available 06/26/2024 What Is Your Level Of Alcohol Consumption? None Information not available 06/25/2023 Are You Blind Or Do You Have Difficulty Seeing? No Information n ot available 06/25/2023 What Is Your Level Of Caffeine Consumption? None Information not available 06/26/2024 In The 14 Days Before Symptom Onset, Have You Had Close Contact With A Laboratory-confirm ed COVID-19 While That Case Was Ill? No Information n ot available 10/25/2023 In The 14 Days Before Symptom Onset, Have You Had Close Contact With A Person Who Is Under Investigation For COVID-19 While That Person Was Ill? No Information not available 10/25/2023 Have You Been To An Area Known To Be High Risk For COVID-19? No Information not available 10/25/2023 Are You Currently Employed? No Information not available 10/25/2023 Are You Deaf Or Do You Have Serious Difficulty Hearing? No Information not available 06/25/2023 What Type Of Diet Are You Following? REGULAR Information n ot available 10/25/2023 Are There Any Guns Present In Your Home? No Information not available 10/25/2023 What Was The Date Of Your Most Recent Tobacco Screening? 06/26/2024 Information not available 06/26/2024 What Is Your Relationship Status? Information not available 06/25/2023 Do You Use Your Seat Belt Or Car Seat Routinely? Yes Information not available 06/25/2023 Do You Have Smoke And Carbon Monoxide Detectors In Your Home? Yes Information not available 10/25/2023 Do You Feel Stressed (tense, Restless, Nervous, Or Anxious, Or Unable To Sleep At Night)? [id number] Information not available 06/25/2023 Do You Use Any Illicit Or Recreational Drugs? No Information not available 10/25/2023 Do You Use Sunscreen Routinely? No Information not available 10/25/2023 Has Tobacco Cessation Counseling Been Provided? No Information not available 10/25/2023 Do You Or Have You Ever Used Any Other Forms Of Tobacco Or Nicotine? No Information not available 10/25/2023 Sex: Female Functional Status Question Answer Note LastModified by Organization D etails LastModified Time Are you able to care for yourself? Yes Information n ot available 06/25/2023 What is your exercise level? None Information not available 10/25/2023 Mental Status None recorded. Family History Relationship Description Onset Age of this Age Resolved Age Notes LastModified by Organization Details LastModified Time Father Malignant tumor of prostate [email or web address] Not available 2023 14:09:55 Medical History Condition Response Skin Problems Y Muscle, Joint, or Bone Problems Y Other Gynecological HistoryNo gynecological history recorded. Obstetrics History GPAL:G 0 P 0 0 0 0 Immunizations Vaccine Type Date Status Note Provider Nam e and Address Organization Details Recorded Time SARS-COV-2 (COVID-19) vaccine, UNSPECIFIED 4 completed Ronda Mario LPN [place], [place] [facility] 02/25/2024 14:18:53 influenza, unspecified formulation 4 completed Ronda Mario LPN [place] [facility] 02/25/2024 14:19:18 Influenza, high-dose, quadrivalent, PF 3 completed Zuleyma Maradi[place] [facility] 06/26/2024 16:09:21 Influenza, high-dose, quadrivalent, PF 1 completed Zuleyma Maradi[place] [facility] 06/26/2024 16:09:21 Influenza, high-dose, quadrivalent, PF 2 completed Zuleyma Maradi[place] [facility] 06/26/2024 16:09:21 Influenza, high-dose, quadrivalent, PF 3 completed Zuleyma Maradi[place] [facility] 06/26/2024 16:09:21 COVID-19, mRNA, LNP-S, PF, 30 mcg/0.3 mL dose 1 completed Zuleyma Mar[place] [facility] 06/26/2024 16:09:21 COVID-19, mRNA, LNP-S, PF, 30 mcg/0.3 mL dose 1 completed Zuleyma Maradi[place] [facility] 06/26/2024 16:09:21 COVID-19, mRNA, LNP-S, PF, 30 mcg/0.3 mL dose 1 completed Zuleyma Maradi[place] [facility] 06/26/2024 16:09:21 COVID-19, mRNA, LNP-S, PF, 30 mcg/0.3 mL dose, anisa-sucrose 2 completed Zuleyma Maradi[place] [facility] 06/26/2024 16:09:21 COVID-19, mRNA, LNP-S, bivalent, PF, 30 mcg/0.3 mL dose 3 completed Zuleyma Maradi[place] [facility] 06/26/2024 16:09:21 COVID-19, mRNA, LNP-S, bivalent, PF, 30 mcg/0.3 mL dose 2 completed Zuleyma Mar[place] [facility] 06/26/2024 16:09:21 COVID-19, mRNA, LNP-S, PF, anisa-sucrose, 30 mcg/0.3 mL 3 completed Zuleyma Maradi[place] [facility] 06/26/2024 16:09:21 Influenza, high-dose, trivalent, PF 8 completed Zuleyma Maradi[place] [facility] 06/26/2024 16:09:21 Influenza, high-dose, trivalent, PF 7 completed Zuleyma Maradi[place] [facility] 06/26/2024 16:09:21 Influenza, high-dose, trivalent, PF 9 completed Zuleyma Mar[place] [facility] 06/26/2024 16:09:21 Influenza, high-dose, trivalent, PF 6 completed Zuleyma Mar[place] [facility] 06/26/2024 16:09:21 Influenza, split virus, trivalent, preservative 4 completed Zuleyma Mar[place] [facility] 06/26/2024 16:09:21 Influenza, split virus, trivalent, PF 0 completed Zuleyma Mar[place] [facility] 06/26/2024 16:09:21 Influenza, split virus, trivalent, PF 3 completed Zuleyma Maradi[place] [facility] 06/26/2024 16:09:21 Influenza, split virus, quadrivalent, PF 5 completed Zuleyma Maradi[place] [facility] 06/26/2024 16:09:21 Past Encounters Encounter ID Performer Location Encounter Start Date Encounter Closed Date Diagnosis/Indication Diagnosis SNOMED-CT Code Diagnosis ICD10 Code Diagnosis Note [id number] Carla Beth MD [facility] [employer] [facility] - [place] [address] [place] [address] 06/25/2023 13:45:05 06/25/2023 14:40:44 Essential hypertension 89586496 I10 Type 2 shola betes mellitus 09947364 E11.9 Hyperlipidemia 52343481 E78.5 Chronic rhinitis 6853306 6 J31.0 Vertigo 973860058 R42 Osteoarthritis 992193319 M19.90 [id number] Carla Beth MD [facility] [employer] [facility] - [place] [address] [place] [address] 10/25/2023 15:07:13 10/25/2023 16:28:52 Type 2 diabetes mellitus 74583532 E11.9 Morbid obesity 171843173 E66.01 Aortic [place] ve regurgitation 45956230 I35.1 Hyperlipidemia 16952829 E78.5 Osteoarthritis 211490965 M19.90 Essential hypertension 47090261 I10 Chronic rhinitis 4899371 6 J31.0 [id number] Carla Beth MD [facility] [employer] [facility] - [place] [address] [place] [address] 02/21/2024 15:12:53 02/21/2024 16:34:17 Essential hypertension 59236206 I10 Hyperlipidemia 65577288 E78.5 Osteoarthritis 743656230 M19.90 Type 2 shola betes mellitus 20256149 E11.9 Chronic rhinitis 8448921 6 J31.0 Obesity 715814612 E66.9 [id number] Arben Forde MA [facility] [employer] [facility] - [place] [address] [place] [address] 03/10/2024 15:16:28 03/10/2024 16:24:55 Type 2 diabetes mellitus 95254056 E11.9 [id number] Arben Forde MA [facility] [facility] [place] [address] [place] [address] 03/20/2024 15:32:03 03/26/2024 08:40:05 Type 2 diabetes mellitus 98359169 E11.9 [id number] Liv Michael MA [facility] [place] [address] [place] [address] 03/27/2024 15:02:37 03/27/2024 15:35:11 [id number] Lizette Deleon MA [facility] [place] [address] [place] [address] 04/03/2024 15:02:57 04/03/2024 15:50:59 Type 2 diabetes mellitus 37215060 E11.9 [id number] Liv Michael MA [facility] [place] [address] [place] [address] 04/10/2024 15:13:20 04/10/2024 15:25:52 Type 2 diabetes mellitus 41756161 E11.9 [id number] Lizette Deleon MA [facility] [place] [address] [place] [address] 04/17/2024 15:46:06 04/17/2024 16:28:54 Type 2 diabetes mellitus 55297377 E11.9 [id number] Mckayla Judge [facility] [place] [address] [place] [address] 04/24/2024 16:53:38 04/24/2024 17:39:38 Type 2 diabetes mellitus 31379494 E11.9 [id number] Ronda Mario LPN [facility] [place] [address] [place] [address] 05/05/2024 15:40:31 05/05/2024 16:17:25 Type 2 diabetes mellitus 82435951 E11.9 [id number] Arben Forde MA [facility] [place] [address] [place] [address] 05/15/2024 16:43:01 05/15/2024 17:22:07 Injection given 928905036 Z98.495 [id number] Arben Forde MA [facility] [place] [address] [place] [address] 05/22/2024 16:50:28 05/22/2024 17:37:03 Type 2 diabetes mellitus 51992307 E11.9 [id number] Lizette Deleon MA [facility] [place] [address] [place] [address] 05/29/2024 16:55:58 05/30/2024 15:42:47 Type 2 diabetes mellitus 50046751 E11.9 [id number] Carla Beth MD [facility] [place] [address] [place] [address] 06/05/2024 17:17:40 06/17/2024 10:12:24 Type 2 diabetes mellitus 95479080 E11.9 [id number] Lizette Deleon MA [facility] [place] [address] [place] [address] 06/12/2024 16:55:57 06/13/2024 14:47:07 Type 2 diabetes mellitus 31345118 E11.9 [id number] Lizette Deleon MA [facility] [place] [address] [place] [address] 06/20/2024 15:57:01 06/23/2024 15:34:33 Type 2 diabetes mellitus 94447811 E11.9 [id number] Carla Beth MD [facility] [place] [address] [place] [address] 06/26/2024 15:38:35 06/26/2024 17:05:06 Body mass index 40+ - severely obese 528163775 Z68.41 Morbid obesity 480099832 E66.01 Type 2 shola betes mellitus 27473069 E11.9 Essential hypertension 03509771 I10 Hyperlipidemia 98716570 E78.5 Osteoarthritis 273048112 M19.90 [id number] Lizette Deleon [facility] [place] [address] [place] [address] 07/03/2024 16:05:41 07/09/2024 12:56:42 Type 2 diabetes mellitus 75351005 E11.9 Health Concerns Section Related Observation LastModified by Organization Detai ls LastModified Time None Recorded Concern Status LastModified by Organization Details LastModified Time None Recorded Advance Directives Directive N: Payers Encounter Date Sequence Insurance Name Policy Number Policy Yee Covered Member ID Yee Member ID Guarantor Name 06/05/2024 1 [employer] (MEDICARE REPLACEMENT/AD VANTAGE - PPO) Lindsay Bonilla [id number] Lindsay Bonilla 06/05/2024 2 [place]ARE OR MEDICARE REPLACEMENT PRIMARY) Linsday Bonilla [id number] Lindsay Bonilla 06/12/2024 1 [employer] (MEDICARE REPLACEMENT/AD VANTAGE - PPO) Lindsay Bonilla [id number] Lindsay Bonilla 06/12/2024 2 [place] MEDICARE REPLACEMENT PRIMARY) Lindsay Bonilla [id number] Lindsay Bonilla 06/20/2024 1 [employer] (MEDICARE REPLACEMENT/AD VANTAGE - PPO) Lindsay Bonilla [id number] Lindsay Bonilla 06/20/2024 2 [place] OR MEDICARE REPLACEMENT PRIMARY) Lindsay Bonilla [id number] Lindsay Bonilla 06/26/2024 1 [employer] (MEDICARE REPLACEMENT/AD VANTAGE - PPO) Lindsay Bonilla [id number] Lindsay Bonilla 06/26/2024 2 [place] OR MEDICARE REPLACEMENT PRIMARY) Lindsay Bonilla [id number] Lindsay Bonilla 07/03/2024 1 [employer] (MEDICARE REPLACEMENT/AD VANTAGE - PPO) Lindsay Bonilla [id number] Lindsay Bonilla 07/03/2024 2 [place] OR MEDICARE REPLACEMENT PRIMARY) Lindsay Bonilla [id number] Lindsay Bonilla Notes Date Note Type Note Provider Name and Address Organization Details Recorded Time 06/26/2024 text/html 72-year-old type 2 diabetes hypertension hyperlipidemia vertigo chronic rhinitis and osteoarthritis overall seems to be doing all right no decompensated cardiopulmonary GI or problems that she admits to today most of her problems are orthopedic tight hamstrings she is following up with ortho I believe they have her set up for some physical therapy sugars she is tolerating them on 0 Carla Beth MD Attn: [address]ing[address] [facility], [place], [address], [facility] 06/28/2024 15:51:26 OBGyn Episode No OBEpisode recorded.
--- OUTSIDE RECORDS SUMMARY | 2024-07-09 13:47 | XMS_ITS | Data Portability ---
Author Organization [place] - 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 Role Phone CARLA BETH Primary Care Provider CARLA BETH Referring Provider Assessment Encounter Date Assessment Date Assessment LastModified by Organization Details LastModified Time 08/29/2022 08/29/2022 Will continue current therapy follow-up blood work diagnosis discussed in follow-up in 4 months [email or web address] Not available 08/29/2022 22:52:46 01/02/2023 01/02/2023 Blood work targets for blood pressure weight hemoglobin A1c and LDL discussed all questions have been answered continue current therapy follow-up in 4 months [email or web address] Not available 01/02/2023 22:36:14 04/10/2024 04/10/2024 This note is dictated and transcribed by [employer]. Messenger Copy variances may occur. Despite proofreading, typographical errors may occur. Occasional wrong-word or '[id number]' substitutions may have occurred due to the inherent limitations of voice recording. Read the chart carefully and recognize, using context, where substitutions have occurred. [email or web address] Not available 05/15/2024 09:09:09 Plan of Treatment Reminders Order Date Submit Date Provider Last Modified By Organization Details Last Modified Time Details Appointments Establish ed Patient 15 2024 02:30P Bob Rodriguez DPM Not available Not available Not available Lab HbA1c (hemoglob in A1c), blood 2022 023 [email or web address] Not available 01/12/2023 14:50:35 CMP, serum or plasma 2022 023 GLEN Not available 01/02/2023 18:30:53 lipid panel, serum 2022 023 GLEN Not available 01/02/2023 18:30:55 CBC w/ auto diff 2022 023 GLEN Not available 01/02/2023 18:18:16 Referral None recorded. 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 Imaging None recorded. Medication Orders doxycycli ne hyclate 100 mg tablet 2023 [place] [facility] #[id number], [address], [place], [place], [id number], 11/22/2023 13:07:42 cefdinir 300 mg capsule 2022 023 [facility] #[id number], [address], [place], [place], [id number], 11/22/2023 12:34:45 Patient TargetsNo targets recorded. Patient InstructionsNo instructions recorded. Reason for Referral None Reported. Results Created Date Observation Date Name Description Value Unit Range Abnormal Flag Note LastModifiedBy Organization Detail LastModifiedTime 09/01/1908/31/2022 HEMOG LOBIN A1C HA1C 7.3 % 4.0-6. 0 high Diabe esperanza Scree kamala Crite yasmin: <5.7% Consi stent with absen ce of diabe esperanza 5.7-6 .4% Consi stent with incre ased risk for diabe esperanza (pred iabet es) >OR=6 .5% Consi stent with diabe esperanza REFER ENCE: Diabe esperanza Care 2016, 39(Ryan ppl.1 ):s13 -s22 Not Available [facility] ([facility]) [address] [place], [address], 08/31/2022 19:52:08 09/01/19 23 08/31/2022 COMPR EHENS VANESSA METAB OLIC PANEL sodium 138 mmol/ L 137-14 5 Not Available [facility] (Lab) [address] [place], [address], 08/31/2022 21:03:29 09/01/19 23 08/31/2022 COMPR EHENS VANESSA METAB OLIC PANEL potassium 3.5 mmol/ L 3.5-5. 1 Not Available [facility] (Lab) [address] [place], [address], 08/31/2022 21:03:29 09/01/19 23 08/31/2022 COMPR EHENS VANESSA METAB OLIC PANEL chloride 102 mmol/ L 98-107 Not Available [facility] (Lab) [address] [place], [address], 08/31/2022 21:03:29 09/01/19 23 08/31/2022 COMPR EHENS VANESSA METAB OLIC PANEL carbon dioxide 26 mmol/ L 22-30 Not Available [facility] (Lab) [address] [place], [address], 08/31/2022 21:03:29 09/01/19 23 08/31/2022 COMPR EHENS VANESSA METAB OLIC PANEL anion gap 13.5 mmol/ L 14-22 low Not Available [facility] (Lab) [address] [place], [address], 08/31/2022 21:03:29 09/01/19 23 08/31/2022 COMPR EHENS VANESSA METAB OLIC PANEL glucose 145 mg/dL 70-99 high Not Available [facility] (Lab) [address] [place], [address], 08/31/2022 21:03:29 09/01/19 23 08/31/2022 COMPR EHENS VANESSA METAB OLIC PANEL BUN 11 mg/dL 8-19 Not Available [facility] (Lab) [address] [place], [address], 08/31/2022 21:03:29 09/01/19 23 08/31/2022 COMPR EHENS VANESSA METAB OLIC PANEL creatinine 0.44 mg/dL 0.66-1 .25 low Not Available [facility] (Lab) [address] [place], [address], 08/31/2022 21:03:29 09/01/19 23 08/31/2022 COMPR EHENS VANESSA METAB OLIC PANEL GFR >60 Refer ence Range : [place] GFR Healt hy Adult : >60 mL/mi n/1.7 3 m2 Chron ic Kidne y Disea se: 15-60 mL/mi n/1.7 3 m2 Kidne y Failu re: <15/m L/min /1.73 m2 www.n iddk. nih.g ov The MDRD study equat ion has not been valid ated in child marya <18 years of age; pregn ant women ; the elder ly >85 years of age; or in some racia l or ethni c subgr oups, such as Hisoh nics. Outsi de the valid ated jay eters , estim ated GFR is less accur ate, requi ring clini sheeba judgm ent on a case- by-ca se basis . Clini sheeba inter preta tion for other races and ages must be made by the clini kp. The MDRD study equat ion has not been valid ated for the evalu ation of serum creat inine relat ed to nutri nikhil l statu s or medic ation usage . For perso ns <18 years of age, a pedia tric GFR calcu lator is avail able on the [facility] websi te: https ://lupillo w.kid margarita.o rg/pr ofess ional s/kdo qi/gf r_cal culat or Not Available [facility] (Lab) [address] [place], [address], 08/31/2022 21:03:29 09/01/19 23 08/31/2022 COMPR EHENS VANESSA METAB OLIC PANEL alkaline phosphatase 97 U/L 38-126 Not Available [facility] (Lab) [address] [place], [address], 08/31/2022 21:03:29 09/01/19 23 08/31/2022 COMPR EHENS VANESSA METAB OLIC PANEL alanine aminotransfe rase 23 U/L 0-35 Not Available [facility] (Lab) [address] [place], [address], 08/31/2022 21:03:29 09/01/19 23 08/31/2022 COMPR EHENS VANESSA METAB OLIC PANEL aspartate aminotransfe rase 64 U/L 15-37 high Not Available [facility] (Lab) [address] [place], [address], 08/31/2022 21:03:29 09/01/19 23 08/31/2022 COMPR EHENS VANESSA METAB OLIC PANEL bilirubin, total 0.30 mg/dL 0.20-1 .30 Not Available [facility] (Lab) [address] [place], [address], 08/31/2022 21:03:29 09/01/19 23 08/31/2022 COMPR EHENS VANESSA METAB OLIC PANEL calcium 9.4 mg/dL 8.4-10 .2 Not Available [facility] (Lab) [address] [place], [address], 08/31/2022 21:03:29 09/01/19 23 08/31/2022 COMPR EHENS VANESSA METAB OLIC PANEL total protein 7.9 g/dL 6.3-8. 2 Not Available [facility] (Lab) [address] [place], [address], 08/31/2022 21:03:29 09/01/19 23 08/31/2022 COMPR EHENS VANESSA METAB OLIC PANEL albumin 4.4 g/dL 3.0-4. 4 Not Available [facility] (Lab) [address] [place], [address], 08/31/2022 21:03:29 09/01/19 23 08/31/2022 COMPR EHENS VANESSA METAB OLIC PANEL globulin 3.5 g/dL 2.6-4. 2 Not Available [facility] (Lab) [address] [place], [address], 08/31/2022 21:03:29 09/01/19 23 08/31/2022 COMPR EHENS VANESSA METAB OLIC PANEL A/G ratio 1.3 ratio 1.0-2. 0 Not Available [facility] (Lab) [address] [place], [address], 08/31/2022 21:03:29 09/01/19 23 08/31/2022 LIPID PANEL cholesterol 142 mg/dL 140-19 9 [facility] SI[facility] NSUS RECOM MENDA TION FOR KRISTOPHER STERO L: ADULT CHILD LOW RISK: <200 <170 BORDE RLINE : <200- 239 ----- HIGH RISK: >240 >200 Not Available [facility] (Lab) [address] [place], [address], 08/31/2022 21:03:34 09/01/19 23 08/31/2022 LIPID PANEL triglyceride s 84 mg/dL 0-150 [facility] NSUS REPOR T RECOM MENDA TION FOR TRIGL YCERI TASHI: ADULT CHILD LOW RISK: <150 ----- BODER LINE: 150-1 99 ----- HIGH RISK: >200 ----- Not Available [facility] (Lab) [address] [place], [address], 08/31/2022 21:03:34 09/01/19 23 08/31/2022 LIPID PANEL HDL cholesterol 67 mg/dL 40- Not Available [facility] (Lab) [address] [place], [address], 08/31/2022 21:03:34 09/01/19 23 08/31/2022 LIPID PANEL LDL cholesterol, calculated 58 mg/dL 0-130 [facility] SI[facility] NSUS REPOR T RECOM MENDA TIONS FOR LDL: ADULT CHILD LOW RISK <130 <110 (OPTI MAL LDL) <100 ----- LANCEDE RLINE : 130-1 59 ----- HIGH RISK: >160 >130 A TRIGL YCERI DE RESUL T >400 INVAL IDATE S THE CALCU LATIO N FOR LDL FRACT IONAT ION - THE LDL RESUL T WILL NOT BE REPOR JESSE. Not Available [facility] (Lab) [address] [place], [address], 08/31/2022 21:03:34 11/16/19 23 11/15/2022 CBC/C OMPLE TE BLD COUNT W/DIF F white blood cells 6.0 x10'3 /uL 4.2-10 .8 Not Available [facility] (Lab) [address] [place], [address], 11/15/2022 18:22:45 11/16/19 23 11/15/2022 CBC/C OMPLE TE BLD COUNT W/DIF F red blood cells 4.38 x10'6 /uL 3.80-5 .20 Not Available [facility] (Lab) [address] [place], [address], 11/15/2022 18:22:45 11/16/19 23 11/15/2022 CBC/C OMPLE TE BLD COUNT W/DIF F hemoglobin 11.3 g/dL 12.0-1 5.6 low Not Available [facility] (Lab) [address] [place], [address], 11/15/2022 18:22:45 11/16/19 23 11/15/2022 CBC/C OMPLE TE BLD COUNT W/DIF F hematocrit 36.0 % 35.7-4 5.7 Not Available [facility] (Lab) [address] [place], [address], 11/15/2022 18:22:45 11/16/19 23 11/15/2022 CBC/C OMPLE TE BLD COUNT W/DIF F mean red cell volume 82.2 fL 82.0-9 9.0 Not Available [facility] (Lab) [address] [place], [address], 11/15/2022 18:22:45 11/16/19 23 11/15/2022 CBC/C OMPLE TE BLD COUNT W/DIF F mean red cell hemoglobin 25.8 pg 27.0-3 3.0 low Not Available [facility] (Lab) [address] [place], [address], 11/15/2022 18:22:45 11/16/19 23 11/15/2022 CBC/C OMPLE TE BLD COUNT W/DIF F mean RBC HGB concentratio n 31.4 g/dL 31.0-3 6.0 Not Available [facility] (Lab) [address] [place], [address], 11/15/2022 18:22:45 11/16/19 23 11/15/2022 CBC/C OMPLE TE BLD COUNT W/DIF F red cell distribution width 14.4 % 11.8-1 5.5 Not Available [facility] (Lab) [address] [place], [address], 11/15/2022 18:22:45 11/16/19 23 11/15/2022 CBC/C OMPLE TE BLD COUNT W/DIF F platelets 334 x10'3 /uL 150-40 0 Not Available [facility] (Lab) [address] [place], [address], 11/15/2022 18:22:45 11/16/19 23 11/15/2022 CBC/C OMPLE TE BLD COUNT W/DIF F mean platelet volume 10.0 fL 9.0-12 .4 Not Available [facility] (Lab) [address] [place], [address], 11/15/2022 18:22:45 11/16/19 23 11/15/2022 CBC/C OMPLE TE BLD COUNT W/DIF F neutrophils 62.8 % 39.0-7 2.0 Not Available [facility] (Lab) [address] [place], [address], 11/15/2022 18:22:45 11/16/19 23 11/15/2022 CBC/C OMPLE TE BLD COUNT W/DIF F lymphocytes 26.7 % 16.0-4 7.0 Not Available [facility] (Lab) [address] [place], [address], 11/15/2022 18:22:45 11/16/19 23 11/15/2022 CBC/C OMPLE TE BLD COUNT W/DIF F monocytes 7.8 % 5.0-12 .0 Not Available [facility] (Lab) [address] [place], [address], 11/15/2022 18:22:45 11/16/19 23 11/15/2022 CBC/C OMPLE TE BLD COUNT W/DIF F eosinophils 1.8 % 1.0-7. 0 Not Available [facility] (Lab) [address] [place], [address], 11/15/2022 18:22:45 11/16/19 23 11/15/2022 CBC/C OMPLE TE BLD COUNT W/DIF F basophils 0.7 % 0.0-2. 0 Not Available [facility] (Lab) [address] [place], [address], 11/15/2022 18:22:45 11/16/19 23 11/15/2022 CBC/C OMPLE TE BLD COUNT W/DIF F immature granulocytes 0.2 % 0.00-0 .50 Not Available [facility] (Lab) [address] [place], [address], 11/15/2022 18:22:45 11/16/19 23 11/15/2022 CBC/C OMPLE TE BLD COUNT W/DIF F neutrophils, absolute count 3.77 x10'3 /uL 1.5-8. 0 Not Available [facility] (Lab) [address] [place], [address], 11/15/2022 18:22:45 11/16/19 23 11/15/2022 CBC/C OMPLE TE BLD COUNT W/DIF F lymphocytes, absolute count 1.60 x10'3 /uL 1.07-3 .43 Not Available [facility] (Lab) [address] [place], [address], 11/15/2022 18:22:45 11/16/19 23 11/15/2022 CBC/C OMPLE TE BLD COUNT W/DIF F monocytes, absolute count 0.47 x10'3 /uL 0.29-0 .99 Not Available [facility] (Lab) [address] [place], [address], 11/15/2022 18:22:45 11/16/19 23 11/15/2022 CBC/C OMPLE TE BLD COUNT W/DIF F eosinophils, absolute count 0.11 x10'3 /uL 0.02-0 .53 Not Available [facility] (Lab) [address] [place], [address], 11/15/2022 18:22:45 11/16/19 23 11/15/2022 CBC/C OMPLE TE BLD COUNT W/DIF F basophils, absolute count 0.04 x10'3 /uL 0.01-0 .08 Not Available [facility] (Lab) [address] [place], [address], 11/15/2022 18:22:45 11/16/19 23 11/15/2022 CBC/C OMPLE TE BLD COUNT W/DIF F immature granulocytes ,absolute 0.01 x10'3 /uL 0.00-0 .05 Not Available [facility] (Lab) [address] [place], [address], 11/15/2022 18:22:45 11/16/19 23 11/15/2022 CBC/C OMPLE TE BLD COUNT W/DIF F nucleated red blood cells 0.0 % -0 Not Available [facility] (Lab) [address] [place], [address], 11/15/2022 18:22:45 11/16/19 23 11/15/2022 CBC/C OMPLE TE BLD COUNT W/DIF F NRBC# 0.00 x10'3 /uL Not Available [facility] (Lab) [address] [place], [address], 11/15/2022 18:22:45 01/03/20 23 01/02/2023 CBC/C OMPLE TE BLD COUNT W/DIF F white blood cells 4.7 x10'3 /uL 4.2-10 .8 Not Available [facility] (Lab) [address] [place], [address], 01/02/2023 18:18:16 01/03/20 23 01/02/2023 CBC/C OMPLE TE BLD COUNT W/DIF F red blood cells 4.54 x10'6 /uL 3.80-5 .20 Not Available [facility] (Lab) [address] [place], [address], 01/02/2023 18:18:16 01/03/20 23 01/02/2023 CBC/C OMPLE TE BLD COUNT W/DIF F hemoglobin 11.9 g/dL 12.0-1 5.6 low Not Available [facility] (Lab) [address] [place], [address], 01/02/2023 18:18:16 01/03/20 23 01/02/2023 CBC/C OMPLE TE BLD COUNT W/DIF F hematocrit 37.2 % 35.7-4 5.7 Not Available [facility] (Lab) [address] [place], [address], 01/02/2023 18:18:16 01/03/2001/02/2023 CBC/C OMPLE TE BLD COUNT W/DIF F mean red cell volume 81.9 fL 82.0-9 9.0 low Not Available [facility] (Lab) [address] [place], [address], 01/02/2023 18:18:16 01/03/2001/02/2023 CBC/C OMPLE TE BLD COUNT W/DIF F mean red cell hemoglobin 26.2 pg 27.0-3 3.0 low Not Available [facility] (Lab) [address] [place], [address], 01/02/2023 18:18:16 01/03/2001/02/2023 CBC/C OMPLE TE BLD COUNT W/DIF F mean RBC HGB concentratio n 32.0 g/dL 31.0-3 6.0 Not Available [facility] (Lab) [address] [place], [address], 01/02/2023 18:18:16 01/03/2001/02/2023 CBC/C OMPLE TE BLD COUNT W/DIF F red cell distribution width 14.5 % 11.8-1 5.5 Not Available [facility] (Lab) [address] [place], [address], 01/02/2023 18:18:16 01/03/2001/02/2023 CBC/C OMPLE TE BLD COUNT W/DIF F platelets 366 x10'3 /uL 150-40 0 Not Available [facility] (Lab) [address] [place], [address], 01/02/2023 18:18:16 01/03/2001/02/2023 CBC/C OMPLE TE BLD COUNT W/DIF F mean platelet volume 10.1 fL 9.0-12 .4 Not Available [facility] (Lab) [address] [place], [address], 01/02/2023 18:18:16 01/03/2001/02/2023 CBC/C OMPLE TE BLD COUNT W/DIF F neutrophils 57.1 % 39.0-7 2.0 Not Available [facility] (Lab) [address] [place], [address], 01/02/2023 18:18:16 01/03/2001/02/2023 CBC/C OMPLE TE BLD COUNT W/DIF F lymphocytes 30.6 % 16.0-4 7.0 Not Available [facility] (Lab) [address] [place], [address], 01/02/2023 18:18:16 01/03/2001/02/2023 CBC/C OMPLE TE BLD COUNT W/DIF F monocytes 7.4 % 5.0-12 .0 Not Available [facility] (Lab) [address] [place], [address], 01/02/2023 18:18:16 01/03/2001/02/2023 CBC/C OMPLE TE BLD COUNT W/DIF F eosinophils 4.0 % 1.0-7. 0 Not Available [facility] (Lab) [address] [place], [address], 01/02/2023 18:18:16 01/03/2001/02/2023 CBC/C OMPLE TE BLD COUNT W/DIF F basophils 0.9 % 0.0-2. 0 Not Available [facility] (Lab) [address] [place], [address], 01/02/2023 18:18:16 01/03/2001/02/2023 CBC/C OMPLE TE BLD COUNT W/DIF F immature granulocytes 0.0 % 0.00-0 .50 Not Available [facility] (Lab) [address] [place], [address], 01/02/2023 18:18:16 01/03/2001/02/2023 CBC/C OMPLE TE BLD COUNT W/DIF F neutrophils, absolute count 2.68 x10'3 /uL 1.5-8. 0 Not Available [facility] (Lab) [address] [place], [address], 01/02/2023 18:18:16 01/03/2001/02/2023 CBC/C OMPLE TE BLD COUNT W/DIF F lymphocytes, absolute count 1.44 x10'3 /uL 1.07-3 .43 Not Available [facility] (Lab) [address] [place], [address], 01/02/2023 18:18:16 01/03/2001/02/2023 CBC/C OMPLE TE BLD COUNT W/DIF F monocytes, absolute count 0.35 x10'3 /uL 0.29-0 .99 Not Available [facility] (Lab) [address] [place], [address], 01/02/2023 18:18:16 01/03/2001/02/2023 CBC/C OMPLE TE BLD COUNT W/DIF F eosinophils, absolute count 0.19 x10'3 /uL 0.02-0 .53 Not Available [facility] (Lab) [address] [place], [address], 01/02/2023 18:18:16 01/03/2001/02/2023 CBC/C OMPLE TE BLD COUNT W/DIF F basophils, absolute count 0.04 x10'3 /uL 0.01-0 .08 Not Available [facility] (Lab) [address] [place], [address], 01/02/2023 18:18:16 01/03/2001/02/2023 CBC/C OMPLE TE BLD COUNT W/DIF F immature granulocytes ,absolute 0.00 x10'3 /uL 0.00-0 .05 Not Available [facility] (Lab) [address] [place], [address], 01/02/2023 18:18:16 01/03/2001/02/2023 CBC/C OMPLE TE BLD COUNT W/DIF F nucleated red blood cells 0.0 % -0 Not Available [facility] (Lab) [address] [place], [address], 01/02/2023 18:18:16 01/03/2001/02/2023 CBC/C OMPLE TE BLD COUNT W/DIF F NRBC# 0.00 x10'3 /uL Not Available [facility] (Lab) [address] [place], [address], 01/02/2023 18:18:16 01/03/2001/02/2023 COMPR EHENS VANESSA METAB OLIC PANEL sodium 140 mmol/ L 137-14 5 Not Available [facility] (Lab) [address] [place], [address], 01/02/2023 18:30:52 01/03/2001/02/2023 COMPR EHENS VANESSA METAB OLIC PANEL potassium 3.5 mmol/ L 3.5-5. 1 Not Available [facility] (Lab) [address] [place], [address], 01/02/2023 18:30:52 01/03/2001/02/2023 COMPR EHENS VANESSA METAB OLIC PANEL chloride 104 mmol/ L 98-107 Not Available [facility] (Lab) [address] [place], [address], 01/02/2023 18:30:52 01/03/2001/02/2023 COMPR EHENS VANESSA METAB OLIC PANEL carbon dioxide 29 mmol/ L 22-30 Not Available [facility] (Lab) [address] [place], [address], 01/02/2023 18:30:52 01/03/2001/02/2023 COMPR EHENS VANESSA METAB OLIC PANEL anion gap 10.5 mmol/ L 14-22 low Not Available [facility] (Lab) [address] [place], [address], 01/02/2023 18:30:52 01/03/2001/02/2023 COMPR EHENS VANESSA METAB OLIC PANEL glucose 104 mg/dL 70-99 high Not Available [facility] (Lab) [address] [place], [address], 01/02/2023 18:30:52 01/03/2001/02/2023 COMPR EHENS VANESSA METAB OLIC PANEL BUN 8 mg/dL 8-19 Not Available [facility] (Lab) [address] [place], [address], 01/02/2023 18:30:52 01/03/2001/02/2023 COMPR EHENS VANESSA METAB OLIC PANEL creatinine 0.46 mg/dL 0.66-1 .25 low Not Available [facility] (Lab) [address] [place], [address], 01/02/2023 18:30:52 01/03/2001/02/2023 COMPR EHENS VANESSA METAB OLIC PANEL GFR >60 Refer ence Range : [place] GFR Healt hy Adult : >60 mL/mi n/1.7 3 m2 Chron ic Kidne y Disea se: 15-60 mL/mi n/1.7 3 m2 Kidne y Failu re: <15/m L/min /1.73 m2 www.n iddk. nih.g ov The MDRD study equat ion has not been valid ated in child marya <18 years of age; pregn ant women ; the elder ly >85 years of age; or in some racia l or ethni c subgr oups, such as Histerri nics. Outsi de the valid ated jay eters , estim ated GFR is less accur ate, requi ring clini sheeba judgm ent on a case- by-ca se basis . Clini sheeba inter preta tion for other races and ages must be made by the clini kp. The MDRD study equat ion has not been valid ated for the evalu ation of serum creat inine relat ed to nutri nikhil l statu s or medic ation usage . For perso ns <18 years of age, a pedia tric GFR calcu lator is avail able on the [facility] websi te: https ://lupillo wiseman.sb avila.o rg/pr ofess ional s/kdo qi/gf r_cal culat or Not Available [facility] (Lab) [address] [place], [address], 01/02/2023 18:30:52 01/03/2001/02/2023 COMPR EHENS VANESSA METAB OLIC PANEL alkaline phosphatase 117 U/L 38-126 Not Available [facility] (Lab) [address] [place], [address], 01/02/2023 18:30:52 01/03/2001/02/2023 COMPR EHENS VANESSA METAB OLIC PANEL alanine aminotransfe rase 23 U/L 0-35 Not Available [facility] (Lab) [address] [place], [address], 01/02/2023 18:30:52 01/03/2001/02/2023 COMPR EHENS VANESSA METAB OLIC PANEL aspartate aminotransfe rase 74 U/L 15-37 high Not Available [facility] (Lab) [address] [place], [address], 01/02/2023 18:30:52 01/03/2001/02/2023 COMPR EHENS VANESSA METAB OLIC PANEL bilirubin, total 0.40 mg/dL 0.20-1 .30 Not Available [facility] (Lab) [address] [place], [address], 01/02/2023 18:30:52 01/03/2001/02/2023 COMPR EHENS VANESSA METAB OLIC PANEL calcium 9.8 mg/dL 8.4-10 .2 Not Available [facility] (Lab) [address] [place], [address], 01/02/2023 18:30:52 01/03/2001/02/2023 COMPR EHENS VANESSA METAB OLIC PANEL total protein 8.1 g/dL 6.3-8. 2 Not Available [facility] (Lab) [address] [place], [address], 01/02/2023 18:30:52 01/03/2001/02/2023 COMPR EHENS VANESSA METAB OLIC PANEL albumin 4.7 g/dL 3.0-4. 4 high Not Available [facility] (Lab) [address] [place], [address], 01/02/2023 18:30:52 01/03/2001/02/2023 COMPR EHENS VANESSA METAB OLIC PANEL globulin 3.4 g/dL 2.6-4. 2 Not Available [facility] (Lab) [address] [place], [address], 01/02/2023 18:30:52 01/03/2001/02/2023 COMPR EHENS VANESSA METAB OLIC PANEL A/G ratio 1.4 ratio 1.0-2. 0 Not Available [facility] (Lab) [address] [place], [address], 01/02/2023 18:30:52 01/03/2001/02/2023 LIPID PANEL cholesterol 147 mg/dL 140-19 9 [facility] NSUS RECOM MENDA TION FOR KRISTOPHER STERO L: ADULT CHILD LOW RISK: <200 <170 BORDE RLINE : <200- 239 ----- HIGH RISK: >240 >200 Not Available [facility] (Lab) [address] [place], [address], 01/02/2023 18:30:55 01/03/2001/02/2023 LIPID PANEL triglyceride s 64 mg/dL 0-150 [facility] NSUS REPOR T RECOM MENDA TION FOR TRIGL YCERI TASHI: ADULT CHILD LOW RISK: <150 ----- BODER LINE: 150-1 99 ----- HIGH RISK: >200 ----- Not Available [facility] (Lab) [address] [place], [address], 01/02/2023 18:30:55 01/03/2001/02/2023 LIPID PANEL HDL cholesterol 67 mg/dL 40- Not Available [facility] (Lab) [address] [place], [address], 01/02/2023 18:30:55 01/03/2001/02/2023 LIPID PANEL LDL cholesterol, calculated 67 mg/dL 0-130 [facility] NSUS REPOR T RECOM MENDA TIONS FOR LDL: ADULT CHILD LOW RISK <130 <110 (OPTI MAL LDL) <100 ----- BORDE RLINE : 130-1 59 ----- HIGH RISK: >160 >130 A TRIGL YCERI DE RESUL T >400 INVAL IDATE S THE CALCU LATIO N FOR LDL FRACT IONAT ION - THE LDL RESUL T WILL NOT BE REPOR JESSE. Not Available [facility] (Lab) [address] [place], [address], 01/02/2023 18:30:55 01/03/2001/02/2023 HEMOG LOBIN A1C HA1C 6.4 % 4.0-6. 0 high Diabe esperanza Scree kamala Crite yasmin: <5.7% Consi stent with absen ce of diabe esperanza 5.7-6 .4% Consi stent with incre ased risk for diabe esperanza (pred iabet es) >OR=6 .5% Consi stent with diabe esperanza REFER ENCE: Diabe esperanza Care 2016, 39(Ryan ppl.1 ):s13 -s22 Not Available [facility] ([facility]) [address], [place], [address], 01/02/2023 20:55:05 08/01/19 23 07/31/2022 CT, sinus es, w/o contr ast No observ ation record ed. [facility] [address], [place], [address], 08/30/2022 16:10:14 08/01/19 23 07/31/2022 CT, sinus es, w/o contr ast No observ ation record ed. [facility] [address], [place], [address], 08/30/2022 16:01:35 08/01/[address], sinus es, w/o contr ast No observ ation record ed. ol[facility] [address], [place], [address], 07/31/2022 14:12:27 08/08/[address], sinus es, w/o contr ast No observ ation record ed. gilma [facility] [address], [place], [address], 08/07/2022 15:29:25 09/02/19 23 MAMMO , scree kamala, digit al, bilat eral [facility] [address] [facility] [place] [address] Patien t Name: DIRK BRADFORD Access ion #: [id number] Sex: F : 1950 3 Locati on: MO2 Attend ing Physic charlotte: CORNEL BETH Orderi ng Physic charlotte: CORNEL BETH Exam Date: 023 1:17 PM Exam Name: MG DEIRDRE PENA BILAT SCREEN Admitt ing Diagno sis(es ): RADIOL OGY REPORT - FINAL EXAM: MG DIGITA L BECKY BILAT SCREEN HISTOR Y: screen ing mammog beata COMPAR DANIKA: 2021, 2020 TECHNI QUE: Bilate ral CC and MLO views of the breast s were perfor med. Digita l Mammog axel images were obtain ed. CAD (compu ter assist ed detect ion) was utiliz ed. FINDIN GS: The breast s are almost entire ly fatty. No masses , asymme tries, suspic ious calcif icatio ns, or chaitanya ectura l distor tion are seen. Page 1 of 2 [facility] Name: SUZETTEDIRK Bob Access ion #: [id number] Sex: F : 1950 3 Exam Date: 023 1:17 PM Exam Name: MG DEIRDRE PENA BILAT SCREEN Admitt ing Diagno sis(es ): IMPRES IVET: BIRADS 1: Assess ment comple te. Negati ve. Recomm end annual screen ing mammog axel. Accord ing to the [employer], yearly mammog kirstie are recomm ended starti ng at age 40 and contin uing as long as the woman is in good health . Clinic al Breast Exam should be part of the period health exam-a bout every 3 years for women in their 20s and 30s and every year for women 40 and over. Breast self-e xam is an option for women in their 20s. Any breast change noted on the breast self-e xam she would be report ed prompt ly to the [facility] er. A negati ve mammog axel report should not discou rage follow -up or biopsy of a clinic ally signif icant findin g and/or abnorm ality. Dense breast tissue may obscur e small neopla sms. This patien t has been entere d into a mammog axel remind er system with a target date for her next mammog beata. Create d and electr onical ly signed by: Nasir chu MD Signed Date: 11:01 AM (CT) Dictat ed by: Nasir chu MD DD: 11:01 AM (CT) DT: 11:01 AM (CT) Page 2 of 2 [email or web address] [facility] (Imaging) [address] [place], [address], 09/08/2022 16:00:51 11/14/19 23 11/09/2022 XR, hip + pelvi s, bilat eral No observ ation record ed. [address] [place] [address], [id number], 01/04/2023 12:00:37 01/05/20 23 XR, shoul rhys, 2 or more view No observ ation record ed. [address] [facility], [place], [address], 01/04/2023 12:00:38 04/19/19 24 04/18/2023 XR, hip, unila teral No observ ation record ed. [address] [place] [address], [id number], 04/19/2023 23:56:28 09/26/19 24 MAMMO , scree kamala, digit al, bilat eral [facility] [address] [place] [address] Desiree gómez Name: DIRK BRADFORD Access ion #: [id number] Sex: F : 1950 1 Locati on: RA2 Attend ing Physic charlotte: CORNEL BETH Orderi Physic charlotte: CORNEL BETH Exam Date: 09/25/19 12:38 PM Exam Name: MG DEIRDRE Mccauley BECKY BILAT SCREEN Admitt ing Diagno sis(es ): RADIOL OGY REPORT - FINAL EXAM: DIGITA L BECKY BILAT SCREEN HISTOR Y: screen ing mammog beata 72-yea r-old female with no curren t breast compla ints. COMPAR DANIKA: 2022, 2021 TECHNI QUE: Bilate ral CC and MLO views of the breast s were perfor med. Digita l Mammog axel images were obtain ed. CAD (compu ter assist ed detect ion) was utiliz ed. FINDIN GS: The breast s are almost entire ly fatty. No masses , asymme tries, suspic ious calcif icatio ns, or chaitanya ectura l distor tion are seen. Page 1 of 2 [facility] Desiree gómez Name: DIRK BRADFORD Access ion #: [id number] Sex: F : 1950 1 Exam Date: 09/25/19 12:38 PM Exam Name: MG DEIRDRE Mccauley BECKY BILAT SCREEN Admitt ing Diagno sis(es ): IMPRES IVET: BIRADS 1: Assess ment comple te. Negati ve. Recomm end annual screen ing mammog axel. Accord ing to the [employer], yearly mammog kirstie are recomm ended starti ng at age 40 and contin uing as long as the woman is in good health . Clinic al Breast Exam should be part of the period ic health exam-a bout every 3 years for women in their 20s and 30s and every year for women 40 and over. Breast self-e xam is an option for women in their 20s. Any breast change noted on the breast self-e xam she would be report ed prompt ly to the [facility] er. A negati ve mammog axel report should not discou rage follow -up or biopsy of a clinic ally signif icant findin g and/or abnorm ality. Dense breast tissue may obscur e small neopla sms. This desiree gómez has been entere d into a mammog axel remind er system with a target date for her next mammog beata. Create d and electr onical ly signed by: Kurt mojica MD Signed Date: 8:56 AM (CT) Dictat ed by: Kurt mojica MD DD: 8:56 AM (CT) DT: 8:56 AM (CT) Page 2 of 2 [email or web address] [facility] ([facility]) [address] [place], [address], 09/30/2023 10:57:10 Result Notes None recorded. Problems Name Problem SNOMED Code Status Onset Date Resolution Date Notes Provider Name and Address Organization Details Recorded Time Pain in lower limb 69400314 Completed Not Available [facility] 3 00:58:58 Dry skin 91455324 Active 2020 Not Available [facility] 3 00:13:24 Nausea and vomiting 63531199 Active 2016 Not Available [facility] 3 00:13:24 Labyrinth itis 80279347 Active Not Available [facility] 3 00:13:24 Anemia 266995752 Active Not Available [facility] 3 00:13:24 Low back strain 641434494 Completed Not Available [facility] 3 00:58:58 Type 2 diabetes mellitus without complicat ion 290418574 Active Not Available [facility] 3 00:13:24 Bronchiti s 85150254 Completed Not Available [facility] 3 00:58:58 Sinusitis 16696717 Active 2021 Not Available [facility] 3 00:13:24 Dyslipide mj 956604671 Active 2017 Not Available [facility] 3 00:13:24 Vertigo 629258039 Active Not Available [facility] 3 00:13:24 Chronic sinusitis 00094564 Active Not Available [facility] 3 00:13:24 Type 2 diabetes mellitus 74213472 Active 2016 Not Available [facility] 3 00:13:24 Viral syndrome 000296860 Completed Not Available [facility] 3 00:58:58 Gastritis 2311988 Completed 201307/29/2017 Not Available [facility] 3 00:58:59 Dysuria 36323161 Active 2021 Not Available [facility] 3 00:13:24 Upper respirato ry infection 96220477 Active 2021 Not Available [facility] 3 00:13:24 Acute upper respirato ry infection 36141594 Active 2021 Not Available [facility] 3 00:13:24 Essential hypertens ion 17819866 Active Not Available [facility] 3 00:13:24 Lip swelling 280624721 Completed Not Available [facility] 3 00:58:59 Acute sinusitis 43753873 Active 2022 Not Available [facility] 3 00:13:24 Diabetic periphera l neuropath y 310460751 Active 2022 Not Available [facility] 3 00:13:24 Foot callus 008210315 Active 2022 Not Available [facility] 3 00:13:24 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 Active 2022 Not Available [facility] 3 00:13:24 Nasal congestio n 91720370 Active 2022 Not Available [facility] 3 00:13:24 Blood-tin ged feces 09952648347 4102 Active 2022 Not Available [facility] 3 00:13:24 Impacted cerumen in left ear 84334118640 45964 Active 2023 BONIFACIO Marina [address] [facility], [facility] [address], [place], [address] , [facility] [employer] 4 13:05:59 Candidias is of mouth 67889054 Active 2023 Christine Molina RN null, [facility] [employer] 4 09:42:13 Callosity on toe 479737056 Active 2024 Kalen Rodriguez DPM [address], [address], [place], [address] , [employer] 09:09:25 Pain in toe 705230653 Active 2024 Kalen Rodriguez DPM [address], [address], [place], [address] , [employer] 09:09:41 Problem Notes None recorded. Procedures Surgical History Date Name Laterality Status Provider Name and Address Organization Details Recorded Time 04/10/19 25 Nail Debridement completed Kalen Rodriguez DPM [address], [address], [place], [address], [employer] 05/15/2024 09:08:58 04/10/19 25 Callus Debridement 2-4 completed Kalen Rodriguez DPM [address], [address], [place], [address], [employer] 05/15/2024 09:08:46 05/30/19 23 Nail Debridement completed Kalen Rodriguez DPM [address], [address], [place], [address], [employer] 05/29/2022 17:41:13 05/30/19 23 Callus Debridement 2-4 completed Kalen Rodriguez DPM [address], [address], [place], [address], [employer] 05/29/2022 17:42:43 05/10/19 22 total replacement of hip completed Not Available [facility] 05/17/2022 00:53:19 05/13/19 20 Most Recent Bone Density completed Not Available [facility] 05/17/2022 00:53:15 09/17/19 14 Endoscopy completed Not Available [facility] 05/17/2022 00:53:19 Appendectomy completed Not Available [facility] 05/17/2022 00:53:19 Cholecystectomy completed Not Available [facility] 05/17/2022 00:53:19 Hernia repair w/mesh completed Not Available [facility] 05/17/2022 00:53:19 Hysterectomy completed Not Available [facility] 05/17/2022 00:53:19 total knee replacement completed Not Available [facility] 05/17/2022 00:53:19 Imaging Results Imaging Date Name Status LastModified by Organiz ation Details LastModified Time 07/31/2022 CT, sinuses, w[facility]o [email or web address] [address], [place], [address], 08/30/2022 16:10:14 07/31/2022 CT, sinuses, w/o contrast completed cyl [facility] [address], [place], [address], 08/30/2022 16:01:35 07/31/2022 CT, sinuses, w/o contrast completed [email or web address] [facility] [address], [place], [address], 07/31/2022 14:12:27 08/07/2022 CT, sinuses, w/o contrast completed [email or web address] [facility] [address], [place], [address], 08/07/2022 15:29:25 09/01/2022 MAMMO, screening, digital, bilateral completed [email or web address] (Imaging) [address] [place], [address], 09/08/2022 16:00:51 11/09/2022 XR, hip + pelvis, bilateral completed [address], [address], 01/04/2023 12:00:37 01/04/2023 XR, shoulder, 2 or more view completed [address], [address], 01/04/2023 12:00:38 04/18/2023 XR, hip, unilateral completed [address], [address], 04/19/2023 23:56:28 09/26/2023 MAMMO, screening, digital, bilateral completed [email or web address] [facility] ([facility]) [address], [place], [address], 09/30/2023 10:57:10 Procedure Notes None recorded. Medical Equipment None Reported. Allergies No known drug allergies Medications Name Sig Start Date Stop Date Status Note LastModified by Organization Details LastModified Time cyclobenzap rine 10 mg tablet TAKE 1 TABLET BY MOUTH THREE TIMES DAILY 09/01 completed Not Available Not Available Not Available amoxicillin 500 mg capsule TAKE 1 CAPSULE BY MOUTH THREE TIMES DAILY 07/20 completed Not Available Not Available Not Available BD Alcohol Swabs USE DIRECTED TO CHECK BLOOD SUGAR ONCE A DAY active Not Available Not Available No t Available nystatin 100,000 unit/mL oral suspension SHAKE LIQUID AND TAKE 5 ML BY MOUTH FOUR TIMES DAILY FOR 7 DAYS active Not Available Not Available No t Available clonidine HCl 0.1 mg tablet TAKE 1 TABLET BY MOUTH TWICE DAILY active Not Available Not Available No t Available prednisone 10 mg tablet Take by oral route. take [id number], [id number], [id number] active Not Available Not Available No t Available cefuroxime axetil 250 mg tablet TK 1 T PO BID 04/18 completed Not Available Not Available Not Available Driminate 50 mg tablet 09/14 completed Not Available Not Available Not Available Anusol-HC 2.5 % rectal cream with applicator apply tid 09/14 completed Not Available Not Available Not Available ammonium lactate 12 % lotion APPLY TOPICALLY TO FEET DAILY NEEDED active Not Available Not Available No t Available azithromyci n 250 mg tablet TAKE 2 TABLETS BY MOUTH FOR 1 DAY THEN TAKE 1 TABLET BY MOUTH DAILY FOR 4 DAYS 11/21 completed Not Available Not Available Not Available tizanidine 4 mg tablet Take 1 tablet twice a day by oral route. active Not Available Not Available No t Available hydrocodone 5 mg-acetamin ophen 325 mg tablet TAKE 1 TABLET BY MOUTH EVERY 6 TO 8 HOURS NEEDED FOR PAIN 09/01 completed Not Available Not Available Not Available meloxicam 15 mg tablet TAKE 1 TABLET BY MOUTH DAILY active Not Available Not Available No t Available ondansetron HCl 4 mg tablet TK 1 T PO TID 09/14 completed Not Available Not Available Not Available prednisone 20 mg tablet TK 2 TS PO QD FOR 5 DAYS active Not Available Not Available No t Available clobetasol 0.05 % topical cream active Not Available Not Available Not Available Accu-Chek Softclix Lancets USE TO TEST BLOOD GLUCOSE ONCE DAILY 11/25 completed Not Available Not Available Not Available meclizine 12.5 mg tablet 11/12 completed Not Available Not Available Not Available amlodipine 5 mg tablet TAKE 1 TABLET BY MOUTH EVERY DAY active Not Available Not Available No t Available ciprofloxac in 500 mg tablet TK 1 T PO BID active Not Available Not Available No t Available sulfamethox azole 800 mg-trimetho prim 160 mg tablet TAKE 1 TABLET BY MOUTH EVERY 12 HOURS 08/29 completed Not Available Not Available Not Available peg-electro lyte solution 420 gram oral solution MIX AND DRINK DIRECTED PER INSTRUCTI ON PROVIDED BY DOCTOR. 01/02 completed Not Available Not Available Not Available omeprazole 40 mg capsule,del ayed release TAKE 1 CAPSULE BY MOUTH EVERY DAY 06/29 completed Not Available Not Available Not Available tramadol 50 mg tablet TAKE 1 TO 2 TABLETS BY MOUTH TWICE DAILY NEEDED FOR PAIN active Not Available Not Available No t Available triamterene 37.5 mg-hydrochl orothiazide 25 mg capsule TAKE 1 CAPSULE BY MOUTH EVERY DAY active Not Available Not Available No t Available amoxicillin 500 mg tablet Take 1 tablet 3 times a day by oral route for 10 days. active Not Available Not Available No t Available nortriptyli ne 25 mg capsule 09/14 completed Not Available Not Available Not Available meloxicam 7.5 mg tablet TAKE 1 TABLET BY MOUTH DAILY 08/29 completed Not Available Not Available Not Available oxycodone-a cetaminophe n 5 mg-325 mg tablet 09/01 completed Not Available Not Available Not Available Proctozone- HC 2.5 % topical cream perineal applicator 09/14 completed Not Available Not Available Not Available meclizine 25 mg tablet TAKE 1 TABLET BY MOUTH THREE TIMES DAILY NEEDED active Not Available Not Available No t Available diazepam 2 mg tablet TAKE 1 TABLET BY MOUTH TWICE DAILY*mus t last 30 days active Not Available Not Available No t Available benzonatate 100 mg capsule active Not Available Not Available Not Available triamcinolo ne acetonide 0.1 % topical ointment PRN 06/29 completed Not Available Not Available Not Available glimepiride 4 mg tablet TAKE 2 TABLETS BY MOUTH EVERY DAY active Not Available Not Available No t Available misoprostol 200 mcg tablet Take 1 tablet twice a day by oral route. 09/14 completed Not Available Not Available Not Available betamethaso ne, augmented 0.05 % topical ointment APPLY EXTERNALL Y TO THE AFFECTED AREA TWICE DAILY 07/03 completed Not Available Not Available Not Available triamterene 37.5 mg-hydrochl orothiazide 25 mg tablet active Not Available Not Available Not Available montelukast 10 mg tablet TK 1 T PO QD 06/29 completed Not Available Not Available Not Available lisinopril 5 mg tablet TK 1 T PO QD active Not Available Not Available No t Available diclofenac sodium 50 mg tablet,silvia yed release TAKE 1 TABLET BY MOUTH TWICE DAILY 06/13 completed Not Available Not Available Not Available azelastine 137 mcg (0.1 %) nasal spray U 1 SPR IEN BID 01/17 completed Not Available Not Available Not Available levofloxaci n 500 mg tablet Take 1 tablet every day by oral route for 10 days. 11/10 completed Not Available Not Available Not Available methylpredn isolone 4 mg tablets in a dose pack FOLLOW PACKAGE DIRECTION S 11/21 completed Not Available Not Available Not Available cefdinir 300 mg capsule TAKE 1 CAPSULE BY MOUTH EVERY 12 HOURS FOR 10 DAYS active Not Available Not Available No t Available fluticasone propionate 50 mcg/actuati on nasal spray,suspe nsion SHAKE LIQUID AND SPRAY ONCE INTO EACH NOSTRIL EVERY DAY active Not Available Not Available No t Available metformin ER 500 mg tablet,exte nded release 24 hr TAKE 1 TABLET BY MOUTH TWICE DAILY active Not Available Not Available No t Available doxycycline hyclate 100 mg tablet TAKE 1 TABLET BY MOUTH TWICE DAILY FOR 10 DAYS active Not Available Not Available No t Available amoxicillin 875 mg-potassiu m clavulanate 125 mg tablet TK 1 T PO BID 12/13 completed Not Available Not Available Not Available neomycin 3.5 mg/g-polymy chantale B 10,000 unit/g-dexa meth 0.1 % eye oint APPLY A SMALL AMOUNT TO EYE LID AREA TWICE DAILY X 7 DAYS active Not Available Not Available No t Available cyclobenzap rine 5 mg tablet TK 1 T PO TID PRF MUSCLE SPASM 08/11 completed Not Available Not Available Not Available rosuvastati n 10 mg tablet TAKE 1 TABLET BY MOUTH EVERY DAY active Not Available Not Available No t Available Aspercreme 08/29 completed Not Available Not Available Not Available Saline Nasal [place] two sprays each nostril tid 08/29 completed Not Available Not Available Not Available Alavert OTC 01/17 completed Not Available Not Available Not Available omeprazole 20 mg tablet,silvia yed release Take 1 tablet twice a day by oral route for 30 days. 08/13 completed Not Available Not Available Not Available Voltaren 1 % topical gel APPLY 2GM TO THE AFFECTED AREA(S) TOPICALLY FOUR TIMES DAILY active Not Available Not Available No t Available Travel Sickness (meclizine) 25 mg chewable tablet TK 1 T PO TID active Not Available Not Available No t Available OneTouch Delica Lancets 30 gauge TEST BID UTD active Not Available Not Available No t Available TRUEplus Lancets 33 gauge active Not Available Not Available Not Available True Metrix Glucose Test Strip active Not Available Not Available N ot Available True Metrix Level 1 solution active Not Available Not Available Not Available True Metrix Air Glucose Meter USE DIRECTED active Not Available Not Available No t Available Eucrisa 2 % topical ointment APPLY A THIN LAYER TO THE AFFECTED AREA(S) BY TOPICAL ROUTE 1 TIMES PER DAY active Not Available Not Available No t Available Flonase Sensimist 27.5 mcg/actuati on nasal spray,suspe nsion Take 2 sprays every day by nasal route. 09/14 completed Not Available Not Available Not Available Fluzone High-Dose 2018- (PF) 180 mcg/0.5 mL intramuscul ar syringe ADM 0.5ML IM UTD active Not Available Not Available No t Available Fluad Quad (6 5yr up)(PF) 60 mcg (15 mcg x 4)/0.5mL IM syringe ADM 0.5ML IM UTD active Not Available Not Available No t Available True Metrix Glucose Meter kit active Not Available Not Available No t Available Mounjaro 5 mg/0.5 mL subcutaneou s pen injector active Not Available Not Available Not Available Mounjaro 2.5 mg/0.5 mL subcutaneou s pen injector active Not Available Not Available Not Available Vitals Date Recorded Body height Body mass index (BMI) Body weight Body temperature Provider Name and Address Organization Details Last Updated DateTime 07/20/2022 167.64 cm 39.1 kg/m2 591749.35 g 97.6 [degF] Delaney Abraham [facility] [employer] [facility] 07/20/2022 15:03:48 Date Recorded Body height Body mass index (BMI) Body weight Body temperature Heart rate Systolic blood pressure Diastolic blood pressure Provider Name and Address Organization Details Last Updated DateTime 3 167.64 cm 40.4 kg/m2 629592. 09 g 98 [degF] 68 /min 130 mm[Hg] 82 mm[Hg] Samira Harrison [facility] 3 16:35:01 Date Recorded Body height Body mass index (BMI) Body weight Body temperature Heart rate Systolic blood pressure Diastolic blood pressure Provider Name and Address Organization Details Last Updated DateTime 3 167.64 cm 39.4 kg/m2 940921. 54 g 97.8 [degF] 74 /min 142 mm[Hg] 80 mm[Hg] Samira Harrison [facility] 3 15:18:01 Date Recorded Body height Body mass index (BMI) Body weight Body temperature Provider Name and Address Organization Details Last Updated DateTime 11/22/2023 167.64 cm 37.7 kg/m2 611339.9 g 97.5 [degF] Valarie Murray [facility] 11/22/2023 12:32:30 Date Recorded Body height Body mass index (BMI) Body weight Heart rate Respiratory rate Oxygen saturation Oxygen saturation in Arterial blood by Pulse oximetry Systolic blood pressure Diastolic blood pressure Provider Name and Address Organization Details Last Updated DateTime 5 167.64 cm 37.6 kg/m2 057004. 02 g 82 /min 14 /min 98 % 98 % 179 mm[Hg] 85 mm[Hg] Kendy Dago [facility] 5 16:05:33 Social History Question Answer Notes LastModified by Organizat ion Details LastModified Time Tobacco Smoking Status Never Smoker Not Available [employer] 05/17/2022 00:46:27 Do You Have An Advance Directive? No [id number] Information not available 05/17/2022 What Is Your Level Of Alcohol Consumption? None [id number] Information not available 05/17/2022 Are You Blind Or Do You Have Difficulty Seeing? No [id number] Information not available 05/17/2022 What Is Your Level Of Caffeine Consumption? Moderate [id number] Information not available 05/17/2022 How Much Tobacco Do You Chew? None [id number] Information not available 05/17/2022 In The 14 Days Before Symptom Onset, Have You Had Close Contact With A Laboratory-confir med COVID-19 While That Case Was Ill? No [id number] Information not available 05/17/2022 In The 14 Days Before Symptom Onset, Have You Had Close Contact With A Person Who Is Under Investigation For COVID-19 While That Person Was Ill? No [id number] Information not available 05/17/2022 Are You Deaf Or Do You Have Serious Difficulty Hearing? No [id number] Information not available 05/17/2022 What Type Of Diet Are You Following? REGULAR [id number] Information not available 05/17/2022 Which Illicit Or Recreational Drugs Have You Used? None [id number] Information not available 05/17/2022 Do You Or Have You Ever Used E-cigarettes Or Vape? Never Used Electronic Cigarettes [id number] Information not available 05/17/2022 What Is The Highest Grade Or Level Of School You Have Completed Or The Highest Degree You Have Received? 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 No [id number] Information not available 05/17/2022 What Is The Fluoride Status Of Your Home? Unknown [id number] Information not available 05/17/2022 Are There Any Guns Present In Your Home? No MIGRATION.[id number] Information not available 05/17/2022 Do You Use Insect Repellent Routinely? No MIGRATION.03845 27083 Information not available 05/17/2022 Where Do You Live? Condo MIGRATION.63430 17381 Information not available 05/17/2022 Do You Have A Medical Power Of Scarfer Operator? No MIGRATION.98122 49296 Information not available 05/17/2022 What Was The Date Of Your Most Recent Tobacco Screening? 01/02/2023 [email or web address] Information not available 01/02/2023 Do You Have Any Pets? No MIGRATION.54347 81649 Information not available 05/17/2022 What Is Your Relationship Status? MIGRATION.54457 71359 Information not available 05/17/2022 Do You Use Your Seat Belt Or Car Seat Routinely? Yes MIGRATION.06290 21687 Information not available 05/17/2022 Do You Have Smoke And Carbon Monoxide Detectors In Your Home? Yes MIGRATION.09596 57715 Information not available 05/17/2022 Are You Passively Exposed To Smoke? No MIGRATION.92804 37226 Information not available 05/17/2022 Do You Or Have You Ever Used Smokeless Tobacco? Never Used Smokeless Tobacco MIGRATION.89120 27095 Information not available 05/17/2022 Are There Any Smokers In Your House? No MIGRATION.50740 65664 Information not available 05/17/2022 How Much Tobacco Do You Smoke? No MIGRATION.12447 86827 Information not available 05/17/2022 What Types Of Sporting Activities Do You Participate In? None MIGRATION.45520 60669 Information not available 05/17/2022 Do You Feel Stressed (tense, Restless, Nervous, Or Anxious, Or Unable To Sleep At Night)? [id number] MIGRATION.95252 14414 Information not available 05/17/2022 Do You Use Any Illicit Or Recreational Drugs? No MIGRATION.92766 91198 Information not available 05/17/2022 Do You Use Sunscreen Routinely? No MIGRATION.20993 14497 Information not available 05/17/2022 Has Tobacco Cessation Counseling Been Provided? No Not Needed-ne dyana Smoked MIGRATION.80205 16130 Information not available 05/17/2022 How Many Years Have You Smoked Tobacco? 0 MIGRATION.53050 00598 Information not available 05/17/2022 Have You Recently Traveled Abroad? No MIGRATION.84018 10190 Information not available 05/17/2022 Do You Have Any Dietary Restrictions? No MIGRATION.12622 66395 Information not available 05/17/2022 Do You Or Have You Ever Used Any Other Forms Of Tobacco Or Nicotine? No MIGRATION.23489 68165 Information not available 05/17/2022 Sex: Female Functional Status Question Answer Note LastModified by Organizat ion Details LastModified Time Do you have difficulty walking or climbing stairs? Yes MIGRATION.78881 54678 Information not available 05/17/2022 Do you have transportation difficulties? No MIGRATION.51806 98873 Information not available 05/17/2022 Are you able to walk? YESASSIST uses walker d/t hip surgery MIGRATION.89185 42814 Information not available 05/17/2022 Do you have difficulty doing errands alone? No MIGRATION.18279 59545 Information not available 05/17/2022 Are you able to care for yourself? Yes MIGRATION.07332 43134 Information not available 05/17/2022 Do you have difficulty dressing or bathing? No MIGRATION.70106 41975 Information not available 05/17/2022 What is your exercise level? Occasional MIGRATION.59692 28356 Information not available 05/17/2022 Mental Status Question Answer Note LastModified by Organizat ion Details LastModified Time Do you have difficulty concentrating, remembering or making decisions? No MIGRATION.[id number] Information not available 05/17/2022 Family History Relationship Description Onset Age of this Age Resolved Age Notes LastModified by Organization Details LastModified Time Mother Congestive heart failure 88 MIGRATION.[id number] Not available 05/17/2022 00:53:21 Father Carcinoma of prostate 90 MIGRATION.644 [id number] Not available 05/17/2022 00:53:21 Notes:NO ENT Medical History Condition Response BLINDNESS N NERVE DISEASE N RHEUMATIC FEVER N BLADDER PROBLEMS N KIDNEY STONES N OTHER # 1 N POLIO N LUNG DISEASE/DISORDER N RADIATION / CHEMOTHERAPY N COPD N Other # 2 N BLOOD DISEASES N SURGERY N EAR OR HEARING PROBLEMS N MUMPS N BOWEL PROBLEMS N DEPRESSION (INCLUDING POST ) N STROKE/TIA N ULCERS N BENIGN PROSTATIC HYPERPLASIA N MEASLES N MYOCARDIAL INFARCTION N OBESITY N GERD/NAUSEA N ANEURYSM N URINARY/BLADDER/KIDNEY PROBLEMS N INPATIENT PSYCH CARE N CORONARY ARTERY DISEASE (CAD) N ADDICTION CONCERNS N ENDOMETRIOSIS N Impotence N USE OF BLOOD THINNERS N SKIN PROBLEMS N GASTROINTESTINAL DISORDER N PERIPHERAL VASCULAR DISEASE N MUSCLE,JOINT OR BONE PROBLEMS N GASTROINTESTINAL BLEEDING N BLOOD CLOTS N ASTHMA N CATARACTS N ERECTILE DYSFUNCTION N VARICOSITIES N GI PROBLEMS N Low Testosterone N INFERTILITY N AIDS/HIV N CHEMOTHERAPY / RADIATION N LIVER DISEASE N MALE HYPOGONADISM N HYPERTENSION Y Deficiency N ANXIETY DISORDER N BLOOD TRANSFUSION N ANEMIA/BLOOD DISORDER Y CHRONIC EAR INFECTIONS N BRONCHITIS N TUBERCULOSIS N GLAUCOMA N DIVERTICULITIS N SLEEP APNEA N CHICKENPOX N INFECTIOUS DISEASE N HEART ARRHYTHMIA N PROSTATE N INSOMNIA N HIGH CHOLESTEROL / HYPERLIPIDEMIA Y HYPERTHYROIDISM N EYE PROBLEMS N NEUROLOGICAL PROBLEMS N EDEMA N CHRONIC PAIN SYNDROME N HYPOTHYROIDISM N CAROTID BLOCKAGE N CONSTIPATION N BACK / NECK PROBLEMS N HAVE YOU BEEN HOSPITALIZED OR SEEN IN [facility] IN THE PAST YEAR ? N ATHEROSCLEROSIS N BREAST PROBLEMS N DIALYSIS N ECZEMA N OSTEOPOROSIS N ARTHRITIS N APPENDICITIS N DIABETES, TYPE Y BAD TEETH N ENT N HEARTBURN / REFLUX N AUTISM SPECTRUM DISORDER (ASD) N HEPATITIS / LIVER DISEASE N PULMONARY DISEASE N GOUT N SLEEP DISORDER N ALZHEIMER'S DISEASE N Brain Problems N HERPES N DEMENTIA N HEADACHES/MIGRAINES N SEIZURES/EPILEPSY N VASCULAR DISEASE N PACEMAKER N Blood Disorder N DIZZINESS Y HEART DISEASE/HEART PROBLEMS N KIDNEY DISEASE N MULTIPLE SCLEROSIS N CARDIAC ARRHYTHMIA N CANCER: SPECIFY N ANESTHESIA COMPLICATIONS N ATRIAL FIBRILLATION N Gall Stones N PULMONARY EMBOLISM N AUTOIMMUNE DISEASE N Gynecological History Statement/Question Response Date of Last Mammogram 05/13/2019 Most Recent Bone Density 05/13/2019 Obstetrics History GPAL:G 0 P 0 0 0 0 Immunizations Vaccine Type Date Status Note Provider Nam e and Address Organization Details Recorded Time SARS-COV-2 (COVID-19) vaccine, UNSPECIFIED 3 completed Not Available [facility] 01/04/2023 00:13:24 Influenza, high-dose, quadrivalent, PF 3 completed Not Available [facility] 01/04/2023 00:13:24 COVID-19, mRNA, LNP-S, PF, 30 mcg/0.3 mL dose 1 completed Not Available [facility] 01/04/2023 00:13:24 Influenza, split virus, quadrivalent, preservative 0 completed Not Available [facility] 01/04/2023 00:13:24 Influenza, high-dose, quadrivalent, PF 9 completed Not Available [facility] 01/04/2023 00:13:24 COVID-19, mRNA, LNP-S, PF, 30 mcg/0.3 mL dose 2 completed Not Available [facility] 01/04/2023 00:13:24 Influenza, high-dose, quadrivalent, PF 2 completed Not Available [facility] 01/04/2023 00:13:24 COVID-19, mRNA, LNP-S, PF, 30 mcg/0.3 mL dose 2 completed Not Available [facility] 01/04/2023 00:13:24 COVID-19, mRNA, LNP-S, PF, 30 mcg/0.3 mL dose 1 completed Not Available [facility] 01/04/2023 00:13:24 influenza, unspecified formulation 7 completed Not Available [facility] 01/04/2023 00:13:24 Influenza, split virus, trivalent, preservative 3 completed Not Available [facility] 01/04/2023 00:13:24 Influenza, high-dose, trivalent, PF 8 completed Not Available [facility] 01/04/2023 00:13:24 Influenza, high-dose, trivalent, PF 7 completed Not Available [facility] 01/04/2023 00:13:24 Influenza, high-dose, trivalent, PF 6 completed Not Available [facility] 01/04/2023 00:13:24 Influenza, split virus, quadrivalent, PF 5 completed Not Available [facility] 01/04/2023 00:13:24 Influenza, split virus, trivalent, preservative 4 completed Not Available [facility] 01/04/2023 00:13:24 Influenza, split virus, trivalent, PF 3 completed Not Available [facility] 01/04/2023 00:13:24 Past Encounters Encounter ID Performer Location Encounter Start Date Encounter Closed Date Diagnosis/Indication Diagnosis SNOMED-CT Code Diagnosis ICD10 Code Diagnosis Note [id number] [facility] Internal Med [facility] [address] [place] [address] 06/29/2020 00:00:00 06/29/2020 22:52:20 [id number] [facility] Internal Med [place] [address] [place] [address] y , [place] [address] 08/24/2020 00:00:00 08/25/2020 07:57:24 [id number] [facility] [place] [address] [place] [address] y , [place] [address] 09/14/2020 00:00:00 09/20/2020 22:05:11 [id number] S_[facility] Internal [facility] [place] [address] [place] [address] y , [place] [address] 12/14/2020 00:00:00 12/14/2020 23:11:[id number] [facility] Podiatry Madelyn Watkins [address] [place] [address] 01/27/2021 00:00:00 01/28/2021 08:46:08 [id number] [facility] Internal [facility] [place] [address] [place] [address] y , [place] [address] 03/08/2021 00:00:00 03/08/2021 21:27:10 [id number] [facility] [place] [address] [place] [address] [place] [address] 05/05/2021 00:00:00 05/14/2021 14:59:48 [id number] [facility] Internal [facility] [place] [address] [place] [address] [place] [address] 09/01/2021 00:00:00 09/04/2021 13:13:03 [id number] [facility] [place] [address] , [place] [address] 01/03/2022 00:00:00 01/03/2022 21:30:18 [id number] Kalen Rodriguez DPM [facility] [place] [address] [place] [address] 05/29/2022 16:09:54 06/16/2022 14:29:03 Diabetic peripheral neuropathy [id number] E11.40 Patient educated on neuropathy , diabetes, diabetic diet, and daily foot exams. Patient is to check feet daily for new wounds, blisters, redness to prevent infection and ulceration s to the feet. Patient will return to clinic in 3 months for diabetic foot workup. Foot callus [id number] L8 4 Debrided Offloading to prevent wounds infection Continue supportive shoe gear Follow-up in 3 months Dystrophia unguium 04371 009 L60.3 Nails 1 through 10 were debrided with sharp mechanical debridemen t without incident. Nails were debrided and greater than 50% length and thickness where needed. [id number] Blake Servin MD [facility] [place] [address] [place] [address] 07/20/2022 14:55:17 07/20/2022 15:28:26 Chronic sinusitis 81167704 J32.9 [id number] Carla Beth MD [facility] Internal Med [place] jacqu[place] [address] [place] [address] [place] [address] 08/29/2022 15:48:08 08/29/2022 17:43:37 Dyslipidemia 645448712 E78.5 Essential hypertension 97247959 I10 Type 2 shola betes mellitus 27304887 E11.9 [id number] Carla Beth MD [facility] Internal Med [address] [place] [address] 01/02/2023 15:07:23 01/02/2023 15:50:59 Essential hypertension 92854798 I10 Type 2 shola betes mellitus without complication 137256083 E11.9 Dyslipidemia 360372082 E 78.5 [id number] BONIFACIO Marina [facility] [place] [address] [place] [address] 11/22/2023 12:03:45 11/22/2023 13:08:21 Chronic sinusitis 83381208 J32.9 Impacted c erumen in left ear [id number] 727187 H61.[id number] [facility] Podiatry [place] [address] [place] [address] 04/10/2024 15:55:17 05/16/2024 13:21:03 Pain in toe 226255502 M79.676 secondary to calluses Diabetic p eripheral neuropathy 858134631 E11.40 Patient educated on neuropathy , diabetes, diabetic diet, and daily foot exams. Patient is to check feet daily for new wounds, blisters, redness to prevent infection and ulceration s to the feet. Patient will return to clinic in 3 months for diabetic foot workup. Dystrophia unguium 75866 009 L60.3 Nails 1 through 10 were debrided with sharp mechanical debridemen t without incident. Nails were debrided and greater than 50% length and thickness where needed. Callosity on toe 20090626 L84 debrided without incidentOf floadingRe commend wide shoe gearMonito r for signs of infection at present seek medical attention immediatel y Health Concerns Section Related Observation LastModified by Organization Detai ls LastModified Time None Recorded Concern Status LastModified by Organization Details LastModified Time None Recorded Advance Directives Directive N: Payers Encounter Date Sequence Insurance Name Policy Number Policy Yee Covered Member ID Yee Member ID Guarantor Name 07/20/2022 1 [employer] (MEDICARE REPLACEMENT/A DVANTAGE - PPO) [id number] Lindsay Bradford [id number] [id number] Lindsay Bradford 07/20/2022 2 [place] OR MEDICARE REPLACEMENT PRIMARY) Lindsay Bradford [id number] Lindsay Bradford 08/29/2022 1 [employer] (MEDICARE REPLACEMENT/A DVANTAGE - PPO) [id number] Lindsay Bradford [id number] Lindsay Bradford 08/29/2022 2 [place] OR MEDICARE REPLACEMENT PRIMARY) Lindsay Bradford [id number] Lindsay Bradford 01/02/2023 1 [employer] (MEDICARE REPLACEMENT/A DVANTAGE - PPO) [id number] Lindsay Bradford [id number] Lindsay Bradford 01/02/2023 2 [place] OR MEDICARE REPLACEMENT PRIMARY) Lindsay Bradford [id number] Lindsay Bradford 11/22/2023 1 [employer] (MEDICARE REPLACEMENT/A DVANTAGE - PPO) [id number] Lindsay Bradford [id number] [id number] Lindsay Bradford 11/22/2023 2 [place] OR MEDICARE REPLACEMENT PRIMARY) Lindsay Bradford [id number] Lindsay Bradford 04/10/2024 1 [employer] (MEDICARE REPLACEMENT/A DVANTAGE - PPO) [id number] Lindsay Bradford [id number] [id number] Lindsay Bradford 04/10/2024 2 [place] WHEN [place]ARE OR MEDICARE REPLACEMENT PRIMARY) Lindsay Bradford [id number] Lindsay Bradford Notes Date Note Type Note Provider Name and Address Organization Details Recorded Time 07/20/2022 text/html this patient has a 3 week history of coughing bloody nasal drainage and purulent exudate. She was placed on sulfamethoxazole and a Medrol Dosepak. Her symptoms continued she has also is on fcyt-fdr-ukdjtuh medications include Afrin and Claritin. She reports severe nasal congestion Blake Servin MD [address], [place], [address], [employer] 07/20/2022 15:20:20 08/29/2022 text/html Diabetes no poly phagia polydipsia. Dyslipidemia tries to watch diet. Rhinitis CAD ENT doing better. Had a fall so Ortho back still hurts a little bit but they are also treating her for some bursitis in her left elbow. Carla Beth MD [address], [place], [address], [employer] 08/29/2022 22:53:03 01/02/2023 text/html 1. Diabetes no polyphagia no polydipsia2. Hypertension no headache no dizziness3. Dyslipidemia tries to follow vent4. Coming off sinus infection doing better5. Osteoarthritis seems to be doing okay Carla Beth MD [address], [facility] [address], [place], [address], [employer] 01/02/2023 22:37:12 11/22/2023 text/html This patient has a significant past medical history for anemia, diabetes, HLD, HTN, and vertigo who presents for cerumen impaction removal. She also endorses PND and nasal congestion for the last several days. She does have a history with previous sinus infections. She states that she does use loratadine daily without symptom relief. BONIFACIO Marina [address], [facility] [address], [place], [address], [employer] [facility] [employer] 11/22/2023 13:07:47 04/10/2024 text/html . Patient is a 73-year-old female who returns for diabetic foot care she denies any new complaints she continues have numbness and tingling in the feet she states that she has not had any foot injury or wounds to her foot. Patient states she has swelling of both legs she does not use chronic compression I did recommend that she start to prevent open wounds and cellulitis of the lower leg. Patient denies any other complaints. Patient requests her nails be cut as she is unable to bend over to cut them. Kalen Rodriguez DPM [address], [facility] [address], [place], [address], [employer] 05/15/2024 09:10:03 OBGyn Episode No OBEpisode recorded.
== END 2024-07-09 12:01 | disposition home or self-care (01) ==
PROVIDERS: PCP Internal Medicine; Visit Provider Orthopaedic Surgery
DX: S76.311A Strain of muscle, fascia and tendon of the posterior muscle group at thigh level, right thigh, initial encounter (principal); X58.XXXA Exposure to other specified factors, initial encounter; M16.12 Unilateral primary osteoarthritis, left hip; M47.816 Spondylosis without myelopathy or radiculopathy, lumbar region; Z96.641 Presence of right artificial hip joint
CPT/HCPCS: 73502; 73562

== ENCOUNTER 2024-07-24 13:23 | Outpatient (CLI) | payer MEDICARE, MEDICAID, SELFPAY ==
--- NOTE | 2024-07-24 | ECHO_ITS ---
Patient Info Name: Lindsay Bonilla Age: 73 years : 1950 Gender: Female Ht: 66 in Wt: 240 lbs BSA: 2.30 m2 HR: 68 bpm BP: 168 / 84 mmHg Technical Quality: Good Exam Date: 07/24/2024 2:02 PM Exam Location: Echo Lab Patient Status: Outpatient Admit Date: 07/24/2024 Staff Ordering Physician: KiritHarry MD Database Marketing Manager: Ericka Mejia RDCS Attending Provider: FallonHarry MD Exam Type: CA echo doppler color flow Study Info Indications I10 - Essential (primary) hypertension Complete two-dimensional, color flow and Doppler transthoracic echocardiogram is performed. Summary 1. Left ventricular chamber dimension is normal. 2. Left ventricular systolic function is normal, estimated at 65-70%. 3. There is moderately increased left ventricular wall thickness. 4. The left ventricular diastolic function is grade I diastolic dysfunction. 5. Right ventricular systolic function is normal. 6. Left atrial chamber dimension is mildly enlarged. 7. There is mild aortic valve regurgitation. 8. There is mild mitral valve regurgitation. 9. There is mild to moderate tricuspid valve regurgitation. 10. There is mild pulmonic regurgitation. Left Ventricle Left ventricular chamber dimension is normal. Left ventricular systolic function is normal, estimated at 65-70%. There is moderately increased left ventricular wall thickness. The left ventricular diastolic function is grade I diastolic dysfunction. Right Ventricle Right ventricular chamber dimension is normal. Right ventricular systolic function is normal. Left Atria Left atrial chamber dimension is mildly enlarged. Right Atria Right atrial chamber dimension is normal. Atrial Septum Intact interatrial septum visualized by color flow imaging. Aortic Valve The aortic valve is trileaflet. There is no aortic valve stenosis. There is mild aortic valve regurgitation. Pulmonic Valve The pulmonic valve is not well visualized. There is mild pulmonic regurgitation. Mitral Valve There is mild mitral valve regurgitation. Tricuspid Valve There is mild to moderate tricuspid valve regurgitation. Pericardium/Pleural There is no pericardial effusion. Inferior Vena Cava Normal inferior vena cava with >50% collapse upon inspiration consistent with normal right atrial pressure, 3 mmHg. Aorta The aortic root size at the sinus of Valsalva is normal. Left Ventricular Outflow Tract Name Value Normal LVOT 2D LVOT Diameter 2.2 cm LVOT Doppler LVOT Peak Gradient 9 mmHg LVOT Mean Gradient 6 mmHg LVOT VTI 39 cm LVOT VTI/AV VTI Ratio 0.9 LVOT Stroke Volume 153 ml LVOT CO 29.0 l/min LVOT CI 12.6 l/min/m2 Pulmonic Valve Name Value Normal PV Doppler PV Peak Gradient 5 mmHg Mitral Valve Name Value Normal MV Doppler MV Decel [place] 289 cm/s2 MV PHT 82 ms MV Area (PHT) 2.7 cm2 4.0-5.0 MV Diastolic Function MV E Peak Velocity 82 cm/s MV A Peak Velocity 91 cm/s MV E/A 0.9 MV Decel Time 282 ms MV Annular TDI MV E/e' (Septal) 10.9 <=8.0 MV E/e' (Lateral) 11.2 <=8.0 MV E/e' (Average) 11.0 Tricuspid Valve Name Value Normal TV Regurgitation Doppler TR Peak Velocity 300 cm/s TR Peak Gradient 36 mmHg Estimated PAP/RSVP RA Pressure 3 mmHg <=5 PA Systolic Pressure 39 mmHg <36 RV Systolic Pressure 39 mmHg <36 Aorta Name Value Normal Ascending Aorta Ao Root Diameter (MM) 3.3 cm Ao Root Diam Index (MM) 1.4 cm/m2 Aortic Valve Name Value Normal AV Doppler AV Peak Velocity 157 cm/s AV Peak Gradient 10 mmHg AV Mean Gradient 8 mmHg AV VTI 44 cm AV Area (Cont Eq VTI) 3.5 cm2 >=3.0 AV Area (Cont Eq Efrain) 3.7 cm2 AV Regurgitation 2D LVOT Area 3.9 cm2 AV Regurgitation Doppler AR Decel Time 2,905 ms AR Decel [place] 126 cm/s2 AR PHT 843 ms Ventricles Name Value Normal LV Dimensions 2D/MM IVS Diastolic Thickness (2D) 1.6 cm 0.6-1.0 LVID Diastole (2D) 3.8 cm 3.8-5.2 LVIW Diastolic Thickness (2D) 1.2 cm 0.6-0.9 LVID Systole (2D) 2.8 cm 2.2-3.5 LVOT Diameter 2.2 cm LV Mass (2D Cubed) 202.16 g 67.00-162.00 LV Mass Index (2D Cubed) 88 g/m2 43-95 Relative Wall Thickness (2D) 0.65 LV Fractional Shortening/Ejection Fraction 2D/MM LV Fractional Shortening (2D) 27 % 27-45 LV EF (2D Teicholz) 54 % 54-74 LV Diastolic Volume (4C MOD) 101 ml LV EF (4C MOD) 68 % LV Diastolic Volume (2C MOD) 117 ml LV EF (2C MOD) 70 % LV Diastolic Volume (BP MOD) 111 ml 46-106 LV Diastolic Volume Index (BP MOD) 48 ml/m2 29-61 LV Systolic Volume (BP MOD) 35 ml 14-42 LV Systolic Volume Index (BP MOD) 15 ml/m2 8-24 LV EF (BP MOD) 69 % 54-74 LV Diastolic Length (4C) 8.2 cm LV Systolic Length (4C) 6.3 cm LV Stroke Volume (4C MOD) 69 ml RV Dimensions 2D/MM RVID Diastole (2D) 4.7 cm 2.5-3.5 Atria Name Value Normal LA Dimensions LA Dimension (MM) 4.0 cm 2.7-3.8 LA Volume (4C A-L) 92 ml LA Volume (BP A-L) 82 ml RA Dimensions RA Area (4C) 18.7 cm2 <=18.0 Report Signatures
--- OUTSIDE RECORDS SUMMARY | 2024-07-24 13:27 | XMS_ITS | Data Portability ---
Author Organization [facility] Address [address] [place] [address] Care Team Providers Care Museum Registrar Name Role Phone CARLA BETH Primary Care Provider [phone] [facility] Referring Provider DONNA MANLEY Smearer Assessment Encounter Date Assessment Date Assessment LastModified by Organization Details LastModified Time 06/26/2024 06/26/2024 Continue current therapy blood work has been ordered we will see me back in 3-4 months continue current therapy she had her foot exam 2 months ago we are trying to get the records [email or web address] Not available 06/28/2024 15:51:03 Plan of Treatment Reminders Order Date Submit Date Provider Last Modified By Organization Details Last Modified Time Details Appointments NURSE ONLY 2024 12:15P M Nurse Not available Not available Not available ANY 15 2024 02:30P M Carla Beth MD Not available Not available Not available Lab HbA1c (hemoglob in A1c), blood 2024 025 [facility] [employer] [facility], [address], [place], [address], 07/02/2024 11:13:15 lipid panel, serum 2024 025 [employer] [facility], [address], [place], [address], 07/02/2024 11:13:15 CMP, serum or plasma 2024 025 [employer] [facility], [address], [place], [address], 07/02/2024 11:13:15 CBC w/ auto diff 2024 025 [facility], [address], [place], [address], 07/02/2024 11:13:15 Referral None recorded. Procedures None recorded. Surgeries None recorded. Imaging None recorded. Medication Orders Mounjaro 10 mg/0.5 mL subcutane ous pen injector 2024 025 [email or web address] [id number], [address] [place] [address], [id number], 07/17/2024 17:37:53 Mounjaro 10 mg/0.5 mL subcutane ous pen injector 2024 025 [email or web address] Not available 07/11/2024 14:27:45 Mounjaro 10 mg/0.5 mL subcutane ous pen injector 2024 025 [id number] [facility] #[id number], [address] [place] [address], [id number], 07/03/2024 17:42:03 Mounjaro 7.5 mg/0.5 mL subcutane ous pen injector 2024 025 [facility] #[id number], [address] [place] [address], [id number], 07/03/2024 16:26:09 Mounjaro 10 mg/0.5 mL subcutane ous pen injector 2024 025 [email or web address] [facility] #[id number], [address] [place] [address], [id number], 06/26/2024 18:05:49 Patient TargetsNo targets recorded. Patient Instructions Encounter Date Encounter Id Patient Instructions Last Modified By Organization Details Last Modified Time 06/26/2024 [id number] A healthy lifestyle: care instructions [email or web address] Not available 06/26/2024 18:05:49 Reason for Referral None Reported. Results Created Date Observation Date Name Description Value Unit Range Abnormal Flag Note LastModifiedBy Organization Detail LastModifiedTime 07/10/1907/09/2024 XR, hip + pelvi s, unila teral No observ ation record ed. [place] [id number] [facility] [address], [place], [address], 07/11/2024 10:25:41 07/10/1907/09/2024 XR, knee No observ ation record ed. [facility] [address] [facility] [address], [place], [address], 07/11/2024 10:26:02 Result Notes None recorded. Problems Name Problem SNOMED Code Status Onset Date Resolution Date Notes Provider Name and Address Organization Details Recorded Time Essential hypertension 89717447 Active 2023 RAHEL Escoto, [place] - [facility] 14:36:12 Type 2 diabetes mellitus 74411980 Active 2023 Arben Forde [place] null, [place] [facility] 14:36:13 Hyperlipidemia 82331428 Active 2023 Carla Beth MD Attn: Terri shields,[address] [facility], [place], [address], [place] [facility] 4 16:56:14 Chronic rhinitis 80371929 Active 2023 Carla Beth MD Attn: Terri shields,[address] [facility], [place], [address], [place] [facility] 4 16:56:15 Vertigo 842768649 Active 2023 Carla Beth MD Attn: Terri shields,[address] [facility], [place], [address], [place] [facility] 4 16:56:16 Osteoarthritis 659429714 Active 2023 Carla Beth MD Attn: Terri shields,[address] [facility], [place], [address], [place] [facility] 16:56:19 Aortic valve regurgitation 67263566 Active 2023 Carla Beth MD Attn: Terri shields,[address] [facility], [place], [address], [place] [facility] 23:00:29 Problem Notes None recorded. Procedures Surgical History Date Name Laterality Status Provider Name and Address Organization Details Recorded Time Cholecystectomy completed Yamilet Fine [place] [facility] 06/25/2023 14:04:09 Hernia Repair completed Yamilet Fine MA [facility] 06/25/2023 14:05:50 Knee Surgery completed Yamilet Fine MA [facility] 06/25/2023 14:06:23 Total hysterectomy completed Daryl Fine MA [facility] 06/25/2023 14:06:07 Imaging Results Imaging Date Name Status LastModified by Organiz ation Details LastModified Time 07/09/2024 XR, hip + pelvis, unilateral completed [address] [place] [address], [address], 07/11/2024 10:25:41 07/09/2024 XR, knee completed [address], [address], 07/11/2024 10:26:02 Procedure Notes None recorded. Medical Equipment None [...] Not Available Not Available No t Available doxycycli ne hyclate 100 mg tablet TAKE [...] Last Updated DateTime 165.1 cm 40.1 kg/m2 881566. 68 g 70 /min 98 % 98 % 138 mm[Hg] 70 mm[Hg] Zuleyma Maradiaga MA [facility] 16:06:28 Social History Question Answer Notes LastModified by Organizat ion Details LastModified Time Tobacco Smoking Status Never Smoker Yamilet Fine MA null, [facility] 06/25/2023 13:57:36 Do You Have An Advance [...] Anxious, Or Unable To Sleep At Night)? [id number] Information not available 06/25/2023 Do You Use [...] by Organization Details LastModified Time Father Malignant neoplasm of prostate [email or web address] Not available 2023 14:09:55 [...] PF, 30 mcg/0.3 mL dose 1 completed RAHEL Mckeon, [place] - [facility] 06/26/2024 16:09:21 COVID-19, mRNA, [...] mRNA, LNP-S, PF, anisa-sucrose, 30 mcg/0.3 mL 4 completed Not Available [facility] 07/24/2024 13:09:49 Influenza, adjuvanted, trivalent, PF 4 completed Not Available [facility] 07/24/2024 13:09:49 Past Encounters Encounter ID Performer Location Encounter Start Date Encounter Closed Date Diagnosis/Indication Diagnosis SNOMED-CT Code Diagnosis ICD10 Code Diagnosis Note [id number] Carla Beth MD [email or web address] [place] [address] [place] [address] 06/25/2023 13:45:05 06/25/2023 14:40:44 Essential hypertension 77684999 I10 Type 2 shola betes mellitus 77898363 E11.9 Hyperlipidemia 03718352 E78.5 Chronic rhinitis 2107635 6 J31.0 Vertigo 061130263 R42 Osteoarthritis 184829956 M19.90 [id number] Carla Beth MD [email or web address] [place] [address] [place] [address] 10/25/2023 15:07:13 10/25/2023 16:28:52 Type 2 diabetes mellitus 39355898 E11.9 Morbid obesity 200718560 E66.01 Aortic [place] ve regurgitation 24090192 I35.1 Hyperlipidemia 78564740 E78.5 Osteoarthritis 926466689 M19.90 Essential hypertension 21075208 I10 Chronic rhinitis 6211067 6 J31.0 [id number] Carla Beth MD [facility] [place] [address] [place] [address] 02/21/2024 15:12:53 02/21/2024 16:34:17 Essential hypertension 25931290 I10 Hyperlipidemia 29702254 E78.5 Osteoarthritis 644498791 M19.90 Type 2 shola betes mellitus 07647803 E11.9 Chronic rhinitis 6022873 6 J31.0 Obesity 332531765 E66.9 [id number] Carla Beth MD [facility] [place] [address] [place] [address] 03/10/2024 15:16:28 03/10/2024 16:24:55 Type 2 diabetes mellitus 34373978 E11.9 [id number] Carla Beth MD [facility] [place] [address] [place] [address] 03/20/2024 15:32:03 03/26/2024 08:40:05 Type 2 diabetes mellitus 99457608 E11.9 [id number] Carla Beth MD [facility] [place] [address] [place] [address] 03/27/2024 15:02:37 03/27/2024 15:35:11 [id number] Carla Beth MD [facility] [place] [address] [place] [address] 04/03/2024 15:02:57 04/03/2024 15:50:59 Type 2 diabetes mellitus 11111598 E11.9 [id number] Carla Beth MD [facility] [place] [address] [place] [address] 04/10/2024 15:13:20 04/10/2024 15:25:52 Type 2 diabetes mellitus 46991138 E11.9 [id number] Carla Beth MD [facility] [place] [address] [place] [address] 04/17/2024 15:46:06 04/17/2024 16:28:54 Type 2 diabetes mellitus 52456117 E11.9 [id number] Carla Beth MD [facility] [place] [address] [place] [address] 04/24/2024 16:53:38 04/24/2024 17:39:38 Type 2 diabetes mellitus 35672762 E11.9 [id number] Carla Beth MD [facility] [place] [address] [place] [address] 05/05/2024 15:40:31 05/05/2024 16:17:25 Type 2 diabetes mellitus 36241450 E11.9 [id number] Carla Beth MD [facility] [place] [address] [place] [address] 05/15/2024 16:43:01 05/15/2024 17:22:07 [facility] given 746762216 Z98.849 [id number] Carla Beth MD [facility] [place] [address] [place] [address] 05/22/2024 16:50:28 05/22/2024 17:37:03 Type 2 diabetes mellitus 97850014 E11.9 [id number] Carla Beth MD [facility] [place] [address] [place] [address] 05/29/2024 16:55:58 05/30/2024 15:42:47 Type 2 diabetes mellitus 85170932 E11.9 [id number] Carla Beth MD [facility] [place] [address] [place] [address] 06/05/2024 17:17:40 06/17/2024 10:12:24 Type 2 diabetes mellitus 80577382 E11.9 [id number] Carla Beth MD [facility] [place] [address] [place] [address] 06/12/2024 16:55:57 06/13/2024 14:47:07 Type 2 diabetes mellitus 59333638 E11.9 [id number] Carla Beth MD [facility] [place] [address] [place] [address] 06/20/2024 15:57:01 06/23/2024 15:34:33 Type 2 diabetes mellitus 01666326 E11.9 [id number] Carla Beth MD [facility] [place] [address] [place] [address] 06/26/2024 15:38:35 06/26/2024 17:05:06 Body mass index 40+ - severely obese 520352697 Z68.41 Morbid obesity 170426207 E66.01 Type 2 shola betes mellitus 97475819 E11.9 Essential hypertension 05949780 I10 Hyperlipidemia 95542241 E78.5 Osteoarthritis 635346222 M19.90 [id number] Carla Beth MD [facility] [place] [address] [place] [address] 07/03/2024 16:05:41 07/09/2024 12:56:42 Type 2 diabetes mellitus 41907821 E11.9 [id number] Carla Beth MD [facility] [place] [address] [place] [address] 07/10/2024 16:10:20 07/10/2024 17:57:51 Type 2 diabetes mellitus 10744224 E11.9 [id number] Carla Beth MD [facility] [place] [address] [place] [address] 07/17/2024 16:23:39 07/17/2024 17:05:20 Type 2 diabetes mellitus 09259303 E11.9 Health Concerns Section Related Observation LastModified by Organization Detai ls LastModified Time None Recorded Concern Status LastModified by Organization Details LastModified Time None Recorded Advance Directives Directive N: Payers Encounter Date Sequence Insurance Name Policy Number Policy Yee Covered Member ID Yee Member ID Guarantor Name 06/26/2024 1 [employer] (MEDICARE REPLACEMENT/AD VANTAGE - PPO) Lindsay Bonilla [id number] Lindsay Bonilla 06/26/2024 2 [place] MED[place]ARE OR MEDICARE REPLACEMENT PRIMARY) Lindsay Bonilla [id number] Lindsay Bonilla 07/03/2024 1 [employer] (MEDICARE REPLACEMENT/AD VANTAGE - PPO) Lindsay Bonilla [id number] Lindsay Bonilla 07/03/2024 2 [place]ICARE REPLACEMENT [place]IMARY) Lindsay Chad [id number] Lindsay Chad 07/10/2024 1 [employer] (MEDICARE REPLACEMENT/AD VANTAGE - PPO) Lindsay M Chad [id number] Lindsay Chad 07/10/2024 2 [place]ICARE REPLACEMENT [place]IMARY) Lindsay Chad [id number] Lindsay Chad 07/17/2024 1 [employer] (MEDICARE REPLACEMENT/AD VANTAGE - PPO) Lindsay M Chad [id number] Lindsay Chda 07/17/2024 2 [place]ARE OR [place]ICARE REPLACEMENT [place]IMARY) Lindsay Bonilla [id number] Lindsay Bonilla Notes Date Note Type Note [...] 0 Carla Beth MD Attn: Accounting,[address] [facility], [place], [address], [facility] 06/28/2024 15:51:26 OBGyn Episode No OBEpisode recorded.
--- OUTSIDE RECORDS SUMMARY | 2024-07-24 13:27 | XMS_ITS | Data Portability ---
Author Organization [place] - [facility] [employer], Main Office Address [address] [place] [address] Care Team Providers Care Building Appraiser Name Role Phone CARLA BETH Primary Care Provider CARLA BETH Referring Provider Assessment Encounter Date Assessment Date Assessment LastModified by Organization Details LastModified Time 08/29/2022 08/29/2022 Will continue current therapy follow-up blood work diagnosis discussed in follow-up in 4 months Not available 08/29/2022 22:52:46 01/02/2023 01/02/2023 Blood work targets for blood pressure weight hemoglobin A1c and LDL discussed all questions have been answered continue current therapy follow-up in 4 months [email or web address] Not available 01/02/2023 22:36:14 04/10/2024 04/10/2024 This note is dictated and transcribed by [employer]. [employer] variances may occur. Despite proofreading, typographical errors may occur. Occasional wrong-word or '[id number]' substitutions may have occurred due to the [...] recorded. Procedures cerumen removal (PROC) 2023 024 [facility] Christine Cespedes PATIENT SERVICE REP, [address], [place], [address], 11/26/2023 14:25:18 Surgeries None recorded. Imaging None recorded. Medication Orders doxycycli ne hyclate 100 mg tablet 2023 [id number], [address], [place], [place], [id number], 11/22/2023 13:07:42 cefdinir 300 mg capsule 2022 023 [facility] #[id number], [address] [facility], [place], [place], [id number], 11/22/2023 12:34:45 Patient TargetsNo targets recorded. Patient [...] 2016, 39(Ryan ppl.1 ):s13 -s22 Not Available [facility] ([facility]) [address] [place], [address], 08/31/2022 19:52:08 09/01/19 23 08/31/2022 COMPR EHENS VANESSA METAB OLIC PANEL sodium 138 mmol/ L 137-14 5 Not Available [facility] (Lab) [address] [place], [address], 08/31/2022 21:03:29 09/01/19 23 08/31/2022 COMPR EHENS VANESSA METAB OLIC PANEL potassium 3.5 mmol/ L 3.5-5. 1 Not Available [facility] (Lab) [address] [place], [address], 08/31/2022 21:03:29 09/01/19 23 08/31/2022 COMPR EHENS VANESSA METAB OLIC PANEL chloride 102 mmol/ L 98-107 Not Available [facility] (Lab) [address] [place], [address], 08/31/2022 21:03:29 09/01/19 23 08/31/2022 COMPR EHENS VANESSA METAB OLIC PANEL carbon dioxide 26 mmol/ L 22-30 Not Available [facility] (Lab) [address] [place], [address], 08/31/2022 21:03:29 09/01/19 23 08/31/2022 COMPR EHENS VANESSA METAB OLIC PANEL anion gap 13.5 mmol/ L 14-22 low Not Available [facility] (Lab) [address] [place], [address], 08/31/2022 21:03:29 09/01/19 23 08/31/2022 COMPR EHENS VANESSA METAB OLIC PANEL glucose 145 mg/dL 70-99 high Not Available [facility] (Lab) [address] [place], [address], 08/31/2022 21:03:29 09/01/19 23 08/31/2022 COMPR EHENS VANESSA METAB OLIC PANEL BUN 11 mg/dL 8-19 Not Available [facility] (Lab) [address] [place], [address], 08/31/2022 21:03:29 09/01/19 23 08/31/2022 COMPR EHENS VANESSA METAB OLIC PANEL creatinine 0.44 mg/dL 0.66-1 .25 low Not Available [facility] (Lab) [address] [place], [address], 08/31/2022 21:03:29 09/01/19 23 08/31/2022 COMPR EHENS VANESSA METAB OLIC PANEL GFR >60 Refer ence Range : Loop ge GFR Healt hy Adult : >60 [...] s/kdo qi/gf r_cal culat or Not Available [facility] (Lab) [address] [place], [address], 08/31/2022 21:03:29 09/01/19 23 08/31/2022 COMPR EHENS VANESSA METAB OLIC PANEL alkaline phosphatase 97 U/L 38-126 Not Available [facility] (Lab) [address] [place], [address], 08/31/2022 21:03:29 09/01/19 23 08/31/2022 COMPR EHENS VANESSA METAB OLIC PANEL alanine aminotransfe rase 23 U/L 0-35 Not Available [facility] (Lab) [address] [place], [address], 08/31/2022 21:03:29 09/01/19 23 08/31/2022 COMPR EHENS VANESSA METAB OLIC PANEL aspartate aminotransfe rase 64 U/L 15-37 high Not Available [facility] (Lab) [address] [place], [address], 08/31/2022 21:03:29 09/01/19 23 08/31/2022 COMPR EHENS VANESSA METAB OLIC PANEL bilirubin, total 0.30 mg/dL 0.20-1 .30 Not Available [facility] (Lab) [address] [place], [address], 08/31/2022 21:03:29 09/01/19 23 08/31/2022 COMPR EHENS VANESSA METAB OLIC PANEL calcium 9.4 mg/dL 8.4-10 .2 Not Available [facility] (Lab) [address] [place], [address], 08/31/2022 21:03:29 09/01/19 23 08/31/2022 COMPR EHENS VANESSA METAB OLIC PANEL total protein 7.9 g/dL 6.3-8. 2 Not Available [facility] (Lab) [address] [place], [address], 08/31/2022 21:03:29 09/01/19 23 08/31/2022 COMPR EHENS VANESSA METAB OLIC PANEL albumin 4.4 g/dL 3.0-4. 4 Not Available [facility] (Lab) [address] [place], [address], 08/31/2022 21:03:29 09/01/19 23 08/31/2022 COMPR EHENS VANESSA METAB OLIC PANEL globulin 3.5 g/dL 2.6-4. 2 Not Available [facility] (Lab) [address] [place], [address], 08/31/2022 21:03:29 09/01/19 23 08/31/2022 COMPR EHENS VANESSA METAB OLIC PANEL A/G ratio 1.3 ratio 1.0-2. 0 Not Available [facility] (Lab) [address] [place], [address], 08/31/2022 21:03:29 09/01/19 23 08/31/2022 LIPID PANEL cholesterol 142 mg/dL 140-19 9 [facility] SI[facility] NSUS RECOM MENDA TION FOR KRISTOPHER STERO L: ADULT CHILD LOW RISK: <200 <170 BORDE RLINE : <200- 239 ----- HIGH RISK: >240 >200 Not Available [facility] (Lab) [address] [place], [address], 08/31/2022 21:03:34 09/01/19 23 08/31/2022 LIPID PANEL triglyceride s 84 mg/dL 0-150 [facility] SI[facility] NSUS REPOR T RECOM MENDA TION FOR TRIGL YCERI TASHI: ADULT CHILD LOW RISK: <150 ----- BODER LINE: 150-1 99 ----- HIGH RISK: >200 ----- Not Available [facility] (Lab) [address] [place], [address], 08/31/2022 21:03:34 09/01/19 23 08/31/2022 LIPID PANEL HDL cholesterol 67 mg/dL 40- Not Available [facility] (Lab) [address] [place], [address], 08/31/2022 21:03:34 09/01/19 23 08/31/2022 LIPID PANEL [...] WILL NOT BE REPOR JESSE. Not Available [facility] (Lab) [address] [place], [address], 08/31/2022 21:03:34 11/16/19 23 11/15/2022 CBC/C OMPLE TE BLD COUNT W/DIF F white blood cells 6.0 x10'3 /uL 4.2-10 .8 Not Available [facility] (Lab) [address] [place], [address], 11/15/2022 18:22:45 11/16/19 23 11/15/2022 CBC/C OMPLE TE BLD COUNT W/DIF F red blood cells 4.38 x10'6 /uL 3.80-5 .20 Not Available [facility] (Lab) [address] [place], [address], 11/15/2022 18:22:45 11/16/19 23 11/15/2022 CBC/C OMPLE TE BLD COUNT W/DIF F hemoglobin 11.3 g/dL 12.0-1 5.6 low Not Available [facility] (Lab) [address] [place], [address], 11/15/2022 18:22:45 11/16/19 23 11/15/2022 CBC/C OMPLE TE BLD COUNT W/DIF F hematocrit 36.0 % 35.7-4 5.7 Not Available [facility] (Lab) [address] [place], [address], 11/15/2022 18:22:45 11/16/19 23 11/15/2022 CBC/C OMPLE TE BLD COUNT W/DIF F mean red cell volume 82.2 fL 82.0-9 9.0 Not Available [facility] (Lab) [address] [place], [address], 11/15/2022 18:22:45 11/16/19 23 11/15/2022 CBC/C OMPLE TE BLD COUNT W/DIF F mean red cell hemoglobin 25.8 pg 27.0-3 3.0 low Not Available [facility] (Lab) [address] [place], [address], 11/15/2022 18:22:45 11/16/19 23 11/15/2022 CBC/C OMPLE TE BLD COUNT W/DIF F mean RBC HGB concentratio n 31.4 g/dL 31.0-3 6.0 Not Available [facility] (Lab) [address] [place], [address], 11/15/2022 18:22:45 11/16/19 23 11/15/2022 CBC/C OMPLE TE BLD COUNT W/DIF F red cell distribution width 14.4 % 11.8-1 5.5 Not Available [facility] (Lab) [address] [place], [address], 11/15/2022 18:22:45 11/16/19 23 11/15/2022 CBC/C OMPLE TE BLD COUNT W/DIF F platelets 334 x10'3 /uL 150-40 0 Not Available [facility] (Lab) [address] [place], [address], 11/15/2022 18:22:45 11/16/19 23 11/15/2022 CBC/C OMPLE TE BLD COUNT W/DIF F mean platelet volume 10.0 fL 9.0-12 .4 Not Available [facility] (Lab) [address] [place], [address], 11/15/2022 18:22:45 11/16/19 23 11/15/2022 CBC/C OMPLE TE BLD COUNT W/DIF F neutrophils 62.8 % 39.0-7 2.0 Not Available [facility] (Lab) [address] [place], [address], 11/15/2022 18:22:45 11/16/19 23 11/15/2022 CBC/C OMPLE TE BLD COUNT W/DIF F lymphocytes 26.7 % 16.0-4 7.0 Not Available [facility] (Lab) [address] [place], [address], 11/15/2022 18:22:45 11/16/19 23 11/15/2022 CBC/C OMPLE TE BLD COUNT W/DIF F monocytes 7.8 % 5.0-12 .0 Not Available [facility] (Lab) [address] [place], [address], 11/15/2022 18:22:45 11/16/19 23 11/15/2022 CBC/C OMPLE TE BLD COUNT W/DIF F eosinophils 1.8 % 1.0-7. 0 Not Available [facility] (Lab) [address] [place], [address], 11/15/2022 18:22:45 11/16/19 23 11/15/2022 CBC/C OMPLE TE BLD COUNT W/DIF F basophils 0.7 % 0.0-2. 0 Not Available [facility] (Lab) [address] [place], [address], 11/15/2022 18:22:45 11/16/19 23 11/15/2022 CBC/C OMPLE TE BLD COUNT W/DIF F immature granulocytes 0.2 % 0.00-0 .50 Not Available [facility] (Lab) [address] [place], [address], 11/15/2022 18:22:45 11/16/19 23 11/15/2022 CBC/C OMPLE TE BLD COUNT W/DIF F neutrophils, absolute count 3.77 x10'3 /uL 1.5-8. 0 Not Available [facility] (Lab) [address] [place], [address], 11/15/2022 18:22:45 11/16/19 23 11/15/2022 CBC/C OMPLE TE BLD COUNT W/DIF F lymphocytes, absolute count 1.60 x10'3 /uL 1.07-3 .43 Not Available [facility] (Lab) [address] [place], [address], 11/15/2022 18:22:45 11/16/19 23 11/15/2022 CBC/C OMPLE TE BLD COUNT W/DIF F monocytes, absolute count 0.47 x10'3 /uL 0.29-0 .99 Not Available [facility] (Lab) [address] [place], [address], 11/15/2022 18:22:45 11/16/19 23 11/15/2022 CBC/C OMPLE TE BLD COUNT W/DIF F eosinophils, absolute count 0.11 x10'3 /uL 0.02-0 .53 Not Available [facility] (Lab) [address] [place], [address], 11/15/2022 18:22:45 11/16/19 23 11/15/2022 CBC/C OMPLE TE BLD COUNT W/DIF F basophils, absolute count 0.04 x10'3 /uL 0.01-0 .08 Not Available [facility] (Lab) [address] [place], [address], 11/15/2022 18:22:45 11/16/19 23 11/15/2022 CBC/C OMPLE TE BLD COUNT W/DIF F immature granulocytes ,absolute 0.01 x10'3 /uL 0.00-0 .05 Not Available [facility] (Lab) [address] [place], [address], 11/15/2022 18:22:45 11/16/19 23 11/15/2022 CBC/C OMPLE TE BLD COUNT W/DIF F nucleated red blood cells 0.0 % -0 Not Available [facility] (Lab) [address] [place], [address], 11/15/2022 18:22:45 11/16/19 23 11/15/2022 CBC/C OMPLE TE BLD COUNT W/DIF F NRBC# 0.00 x10'3 /uL Not Available [facility] (Lab) [address] [place], [address], 11/15/2022 18:22:45 01/03/20 23 01/02/2023 CBC/C OMPLE TE BLD COUNT W/DIF F white blood cells 4.7 x10'3 /uL 4.2-10 .8 Not Available [facility] (Lab) [address] [place], [address], 01/02/2023 18:18:16 01/03/20 23 01/02/2023 CBC/C OMPLE TE BLD COUNT W/DIF F red blood cells 4.54 x10'6 /uL 3.80-5 .20 Not Available [facility] (Lab) [address] [place], [address], 01/02/2023 18:18:16 01/03/20 23 01/02/2023 CBC/C OMPLE TE BLD COUNT W/DIF F hemoglobin 11.9 g/dL 12.0-1 5.6 low Not Available [facility] (Lab) [address] [place], [address], 01/02/2023 18:18:16 01/03/20 23 01/02/2023 CBC/C OMPLE TE BLD COUNT W/DIF F hematocrit 37.2 % 35.7-4 5.7 Not Available [facility] (Lab) [address] [place], [address], 01/02/2023 18:18:16 01/03/2001/02/2023 CBC/C OMPLE TE BLD COUNT W/DIF F mean red cell volume 81.9 fL 82.0-9 9.0 low Not Available [facility] (Lab) [address] [place], [address], 01/02/2023 18:18:16 01/03/2001/02/2023 CBC/C OMPLE TE BLD COUNT W/DIF F mean red cell hemoglobin 26.2 pg 27.0-3 3.0 low Not Available [facility] (Lab) [address] [place], [address], 01/02/2023 18:18:16 01/03/2001/02/2023 CBC/C OMPLE TE BLD COUNT W/DIF F mean RBC HGB concentratio n 32.0 g/dL 31.0-3 6.0 Not Available [facility] (Lab) [address] [place], [address], 01/02/2023 18:18:16 01/03/2001/02/2023 CBC/C OMPLE TE BLD COUNT W/DIF F red cell distribution width 14.5 % 11.8-1 5.5 Not Available [facility] (Lab) [address] [place], [address], 01/02/2023 18:18:16 01/03/2001/02/2023 CBC/C OMPLE TE BLD COUNT W/DIF F platelets 366 x10'3 /uL 150-40 0 Not Available [facility] (Lab) [address] [place], [address], 01/02/2023 18:18:16 01/03/2001/02/2023 CBC/C OMPLE TE BLD COUNT W/DIF F mean platelet volume 10.1 fL 9.0-12 .4 Not Available [facility] (Lab) [address] [place], [address], 01/02/2023 18:18:16 01/03/2001/02/2023 CBC/C OMPLE TE BLD COUNT W/DIF F neutrophils 57.1 % 39.0-7 2.0 Not Available [facility] (Lab) [address] [place], [address], 01/02/2023 18:18:16 01/03/2001/02/2023 CBC/C OMPLE TE BLD COUNT W/DIF F lymphocytes 30.6 % 16.0-4 7.0 Not Available [facility] (Lab) [address] [place], [address], 01/02/2023 18:18:16 01/03/2001/02/2023 CBC/C OMPLE TE BLD COUNT W/DIF F monocytes 7.4 % 5.0-12 .0 Not Available [facility] (Lab) [address] [place], [address], 01/02/2023 18:18:16 01/03/2001/02/2023 CBC/C OMPLE TE BLD COUNT W/DIF F eosinophils 4.0 % 1.0-7. 0 Not Available [facility] (Lab) [address] [place], [address], 01/02/2023 18:18:16 01/03/2001/02/2023 CBC/C OMPLE TE BLD COUNT W/DIF F basophils 0.9 % 0.0-2. 0 Not Available [facility] (Lab) [address] [place], [address], 01/02/2023 18:18:16 01/03/2001/02/2023 CBC/C OMPLE TE BLD COUNT W/DIF F immature granulocytes 0.0 % 0.00-0 .50 Not Available [facility] (Lab) [address] [place], [address], 01/02/2023 18:18:16 01/03/2001/02/2023 CBC/C OMPLE TE BLD COUNT W/DIF F neutrophils, absolute count 2.68 x10'3 /uL 1.5-8. 0 Not Available [facility] (Lab) [address] [place], [address], 01/02/2023 18:18:16 01/03/2001/02/2023 CBC/C OMPLE TE BLD COUNT W/DIF F lymphocytes, absolute count 1.44 x10'3 /uL 1.07-3 .43 Not Available [facility] (Lab) [address] [place], [address], 01/02/2023 18:18:16 01/03/2001/02/2023 CBC/C OMPLE TE BLD COUNT W/DIF F monocytes, absolute count 0.35 x10'3 /uL 0.29-0 .99 Not Available [facility] (Lab) [address] [place], [address], 01/02/2023 18:18:16 01/03/2001/02/2023 CBC/C OMPLE TE BLD COUNT W/DIF F eosinophils, absolute count 0.19 x10'3 /uL 0.02-0 .53 Not Available [facility] (Lab) [address] [place], [address], 01/02/2023 18:18:16 01/03/2001/02/2023 CBC/C OMPLE TE BLD COUNT W/DIF F basophils, absolute count 0.04 x10'3 /uL 0.01-0 .08 Not Available [facility] (Lab) [address] [place], [address], 01/02/2023 18:18:16 01/03/2001/02/2023 CBC/C OMPLE TE BLD COUNT W/DIF F immature granulocytes ,absolute 0.00 x10'3 /uL 0.00-0 .05 Not Available [facility] (Lab) [address] [place], [address], 01/02/2023 18:18:16 01/03/2001/02/2023 CBC/C OMPLE TE BLD COUNT W/DIF F nucleated red blood cells 0.0 % -0 Not Available [facility] (Lab) [address] [place], [address], 01/02/2023 18:18:16 01/03/2001/02/2023 CBC/C OMPLE TE BLD COUNT W/DIF F NRBC# 0.00 x10'3 /uL Not Available [facility] (Lab) [address] [place], [address], 01/02/2023 18:18:16 01/03/2001/02/2023 COMPR EHENS VANESSA METAB OLIC PANEL sodium 140 mmol/ L 137-14 5 Not Available [facility] (Lab) [address] [place], [address], 01/02/2023 18:30:52 01/03/2001/02/2023 COMPR EHENS VANESSA METAB OLIC PANEL potassium 3.5 mmol/ L 3.5-5. 1 Not Available [facility] (Lab) [address] [place], [address], 01/02/2023 18:30:52 01/03/2001/02/2023 COMPR EHENS VANESSA METAB OLIC PANEL chloride 104 mmol/ L 98-107 Not Available [facility] (Lab) [address] [place], [address], 01/02/2023 18:30:52 01/03/2001/02/2023 COMPR EHENS VANESSA METAB OLIC PANEL carbon dioxide 29 mmol/ L 22-30 Not Available [facility] (Lab) [address] [place], [address], 01/02/2023 18:30:52 01/03/2001/02/2023 COMPR EHENS VANESSA METAB OLIC PANEL anion gap 10.5 mmol/ L 14-22 low Not Available [facility] (Lab) [address] [place], [address], 01/02/2023 18:30:52 01/03/2001/02/2023 COMPR EHENS VANESSA METAB OLIC PANEL glucose 104 mg/dL 70-99 high Not Available [facility] (Lab) [address] [place], [address], 01/02/2023 18:30:52 01/03/2001/02/2023 COMPR EHENS VANESSA METAB OLIC PANEL BUN 8 mg/dL 8-19 Not Available [facility] (Lab) [address] [place], [address], 01/02/2023 18:30:52 01/03/2001/02/2023 COMPR EHENS VANESSA METAB OLIC PANEL creatinine 0.46 mg/dL 0.66-1 .25 low Not Available [facility] (Lab) [address] [place], [address], 01/02/2023 18:30:52 01/03/2001/02/2023 COMPR EHENS VANESSA METAB OLIC PANEL GFR >60 Refer ence Range : Loop ge GFR Healt hy Adult : >60 [...] calcu lator is avail able on the [facility] websi te: https :[email or web address] [facility]eman.sb avila.o rg/pr ofess ional s/kdo qi/gf r_cal culat or Not Available [facility] (Lab) [address] [place], [address], 01/02/2023 18:30:52 01/03/2001/02/2023 COMPR EHENS VANESSA METAB OLIC PANEL alkaline phosphatase 117 U/L 38-126 Not Available [facility] (Lab) [address] [place], [address], 01/02/2023 18:30:52 01/03/2001/02/2023 COMPR EHENS VANESSA METAB OLIC PANEL alanine aminotransfe rase 23 U/L 0-35 Not Available [facility] (Lab) [address] [place], [address], 01/02/2023 18:30:52 01/03/2001/02/2023 COMPR EHENS VANESSA METAB OLIC PANEL aspartate aminotransfe rase 74 U/L 15-37 high Not Available [facility] (Lab) [address] [place], [address], 01/02/2023 18:30:52 01/03/2001/02/2023 COMPR EHENS VANESSA METAB OLIC PANEL bilirubin, total 0.40 mg/dL 0.20-1 .30 Not Available [facility] (Lab) [address] [place], [address], 01/02/2023 18:30:52 01/03/2001/02/2023 COMPR EHENS VANESSA METAB OLIC PANEL calcium 9.8 mg/dL 8.4-10 .2 Not Available [facility] (Lab) [address] [place], [address], 01/02/2023 18:30:52 01/03/2001/02/2023 COMPR EHENS VANESSA METAB OLIC PANEL total protein 8.1 g/dL 6.3-8. 2 Not Available [facility] (Lab) [address] [place], [address], 01/02/2023 18:30:52 01/03/2001/02/2023 COMPR EHENS VANESSA METAB OLIC PANEL albumin 4.7 g/dL 3.0-4. 4 high Not Available [facility] (Lab) [address] [place], [address], 01/02/2023 18:30:52 01/03/2001/02/2023 COMPR EHENS VANESSA METAB OLIC PANEL globulin 3.4 g/dL 2.6-4. 2 Not Available [facility] (Lab) [address] [place], [address], 01/02/2023 18:30:52 01/03/2001/02/2023 COMPR EHENS VANESSA METAB OLIC PANEL A/G ratio 1.4 ratio 1.0-2. 0 Not Available [facility] (Lab) [address] [place], [address], 01/02/2023 18:30:52 01/03/2001/02/2023 LIPID PANEL cholesterol 147 mg/dL 140-19 9 [facility] SIENNA NSUS RECOM MENDA TION FOR KRISTOPHER STERO L: ADULT CHILD LOW RISK: <200 <170 BORDE RLINE : <200- 239 ----- HIGH RISK: >240 >200 Not Available [facility] (Lab) [address] [place], [address], 01/02/2023 18:30:55 01/03/2001/02/2023 LIPID PANEL triglyceride s 64 mg/dL 0-150 [facility] SI[facility]NA NSUS REPOR T RECOM MENDA TION FOR TRIGL YCERI TASHI: ADULT CHILD LOW RISK: <150 ----- BODER LINE: 150-1 99 ----- HIGH RISK: >200 ----- Not Available [facility] (Lab) [address] [place], [address], 01/02/2023 18:30:55 01/03/2001/02/2023 LIPID PANEL HDL cholesterol 67 mg/dL 40- Not Available [facility] (Lab) [address] [place], [address], 01/02/2023 18:30:55 01/03/2001/02/2023 LIPID PANEL LDL cholesterol, [...] WILL NOT BE REPOR JESSE. Not Available [facility] (Lab) [address] [place], [address], 01/02/2023 18:30:55 01/03/2001/02/2023 HEMOG LOBIN A1C HA1C 6.4 % 4.0-6. 0 high Diabe esperanza Scree kamala Crite yasmin: <5.7% Consi stent with absen ce of diabe esperanza 5.7-6 .4% Consi stent with incre ased risk for diabe esperanza (pred iabet es) >OR=6 .5% Consi stent with diabe esperanza REFER ENCE: Diabe esperanza Care 2016, 39(Ryan ppl.1 ):s13 -s22 Not Available [facility] ([facility]) [address], [place], [address], 01/02/2023 20:55:05 08/01/19 23 07/31/2022 CT, sinus es, w/o contr ast No observ ation record ed. [facility] [address], [place], [address], 08/30/2022 16:10:14 08/01/19 23 07/31/2022 CT, sinus es, w/o contr ast No observ ation record ed. [facility] [address], [place], [address], 08/30/2022 16:01:35 08/01/[address], sinus es, w/o contr ast No observ ation record ed. [facility] [address], [place], [address], 07/31/2022 14:12:27 08/08/[address], sinus es, w/o contr ast No observ ation record ed. gilma [facility] [address], [place], [address], 08/07/2022 15:29:25 09/02/19 23 MAMMO , scree kamala, digit al, bilat eral [facility] [address] [facility], [facility] [address] Patien t Name: DIRK BRADFORD Access ion #: [id number] Sex: F : 1950 3 Locati [...] tion are seen. Page 1 of 2 [facility] Name: SUZETTEDIRK Bob Access ion #: [id number] Sex: F : 1950 3 Exam [...] [facility] A negati ve mammog axel [...] AM (CT) Page 2 of 2 [email or web address] [facility] (Im[facility]) [address] [place], [address], 09/08/2022 16:00:51 11/14/19 23 11/09/2022 XR, hip + pelvi s, bilat eral No observ ation record ed. [address] [place] [address], [address], 01/04/2023 12:00:37 01/05/20 23 XR, shoul rhys, 2 or more view No observ ation record ed. [address] [facility], [place], [address], 01/04/2023 12:00:38 04/19/19 24 04/18/2023 XR, hip, unila teral No observ ation record ed. [address] [place] [address], [address], 04/19/2023 23:56:28 09/26/19 24 MAMMO , scree kamala, digit al, bilat eral [facility] [address] [place] [address] [phone] Desiree gómez Name: DIRK BRADFORD Access ion #: [id number] Sex: F : 1950 1 Locati [...] tion are seen. Page 1 of 2 [facility] Desiree gómez Name: DIRK BRADFORD Access ion #: [id number] Sex: F : 1950 1 Exam [...] ed [facility]. A negati ve mammog axel [...] AM (CT) Page 2 of 2 [email or web address] [facility] ([facility] [address] [place], [address], 09/30/2023 10:57:10 Result Notes None recorded. Problems Name Problem SNOMED Code Status Onset Date Resolution Date Notes Provider Name and Address Organization Details Recorded Time Pain in lower limb 90419928 Completed Not Available [facility] 3 00:58:58 Dry skin 29404749 Active 2020 Not Available [facility] 3 00:13:24 Nausea and vomiting 56827634 Active 2016 [facility] Available [facility] 3 00:13:24 Labyrinth itis 77053561 Active [facility] 3 00:13:24 Anemia 870039358 Active Not Available [facility] 3 00:13:24 Low back strain 928717899 Completed Not Available [facility] 3 00:58:58 Type 2 diabetes mellitus without complicat ion 798035490 Active Not Available [facility] 3 00:13:24 Bronchiti s 21284151 Completed Not Available [facility] 3 00:58:58 Sinusitis 11888808 Active 2021 [facility] 3 00:13:24 Dyslipide mj 079905897 Active 2017 Not Available [facility] 3 00:13:24 Vertigo 626922990 Active Not Available [facility] 3 00:13:24 Chronic sinusitis 26665323 Active Not Available [facility] 3 00:13:24 Type 2 diabetes mellitus 96393112 Active 2016 Not Available [facility] 3 00:13:24 Viral syndrome 398372188 Completed Not Available [facility] 3 00:58:58 Gastritis 7491069 Completed 201307/29/2017 Not Available [facility] 3 00:58:59 Dysuria 89766878 Active 2021 Not Available [facility] 3 00:13:24 Upper respirato ry infection 76627550 Active 2021 Not Available [facility] 3 00:13:24 Acute upper respirato ry infection 25292037 Active 2021 Not Available [facility] 3 00:13:24 Essential hypertens ion 54287738 Active Not Available [facility] 3 00:13:24 Lip swelling 171537107 Completed Not Available [facility] 3 00:58:59 Acute sinusitis 81955280 Active 2022 Not Available [facility] 3 00:13:24 Diabetic periphera l neuropath y 938478748 Active 2022 Not Available [facility] 3 00:13:24 Foot callus 582405471 Active 2022 Not Available [facility] 3 00:13:24 Dystrophi a unguium 82738791 Active 2022 Not Available [facility] 3 00:13:24 Nasal congestio n 84860550 Active 2022 Not Available [facility] 3 00:13:24 Blood-tin ged feces 53498234669 4102 Active 2022 Not Available [facility] 3 00:13:24 Impacted cerumen in left ear 85328283724 99640 Active 2023 BONIFACIO Marina [address] [facility], [facility] [address], [place], [address] , [facility] [employer] [facility] 4 13:05:59 Candidias is of mouth 41831000 Active 2023 Christine Molina RN null, [facility] [employer] [facility] 4 09:42:13 Callosity on toe 741474962 Active 2024 Kalen Rodriguez DPM [address], [address], [place], [address] , [employer] 09:09:25 Pain in toe 993959421 Active 2024 Kalen Rodriguez DPM [address], [address], [place], [address] , [employer] 09:09:41 Problem Notes None recorded. Procedures Surgical History Date Name Laterality Status Provider Name and Address Organization Details Recorded Time 04/10/19 25 Nail Debridement completed Kalen Rodriguez DPM [address], [address], [place], [address], [employer] 05/15/2024 09:08:58 04/10/19 25 Callus Debridement 2-4 completed Kalen Rodriguez DPM [address], [address], [place], [address], [employer] 05/15/2024 09:08:46 05/30/19 23 Nail Debridement completed Kalen Rodriguez DPM [address], [address], [place], [address], [employer] 05/29/2022 17:41:13 05/30/19 23 Callus Debridement 2-4 completed Kalen Rodriguez DPM [address], [address], [place], [address], [employer] 05/29/2022 17:42:43 05/10/19 22 total replacement of hip completed Not Available [facility] 05/17/2022 00:53:19 05/13/19 20 Most Recent Bone Density completed Not Available [facility] 05/17/2022 00:53:15 09/17/19 14 Endoscopy completed Not Available [facility] 05/17/2022 00:53:19 Appendectomy completed Not Available [facility] 05/17/2022 00:53:19 Cholecystectomy completed Not Available [facility] 05/17/2022 00:53:19 Hernia repair w/mesh completed Not Available [facility] 05/17/2022 00:53:19 Hysterectomy completed Not Available [facility] 05/17/2022 00:53:19 total knee replacement completed Not Available [facility] 05/17/2022 00:53:19 Imaging Results Imaging Date Name Status LastModified by Organiz ation Details LastModified Time 07/31/2022 CT, sinuses, w[email or web address] [address], [place], [address], 08/30/2022 16:10:14 07/31/2022 CT, sinuses, w/o contrast completed cyl [facility] [address], [place], [address], 08/30/2022 16:01:35 07/31/2022 CT, sinuses, w/o contrast completed [email or web address] [facility] [address], [place], [address], 07/31/2022 14:12:27 08/07/2022 CT, sinuses, w/o contrast completed [email or web address] [facility] [address], [place], [address], 08/07/2022 15:29:25 09/01/2022 MAMMO, screening, digital, bilateral completed [email or web address] (Imaging) [address] [place], [address], 09/08/2022 16:00:51 11/09/2022 XR, hip + pelvis, bilateral completed [address], [address], 01/04/2023 12:00:37 01/04/2023 XR, shoulder, 2 or more view completed [address], [address], 01/04/2023 12:00:38 04/18/2023 XR, hip, unilateral completed [address], [address], 04/19/2023 23:56:28 09/26/2023 MAMMO, screening, digital, bilateral completed [email or web address] [facility] (Imaging) [address], [place], [address], 09/30/2023 10:57:10 Procedure Notes None recorded. Medical [...] mg tablet Take by oral route. take 5v2lphj, 9y5jbjn, 2i8erhn active Not Available Not Available No t [...] Available Not Available Not Available [facility] [place] two sprays each nostril tid 08/29 completed [...] Updated DateTime 07/20/2022 167.64 cm 39.1 kg/m2 175277.35 g 97.6 [degF] Delaney Abraham [facility] [employer] [facility] 07/20/2022 15:03:48 Date Recorded Body height Body mass index (BMI) Body weight Body temperature Heart rate Systolic blood pressure Diastolic blood pressure Provider Name and Address Organization Details Last Updated DateTime 3 167.64 cm 40.4 kg/m2 433014. 09 g 98 [degF] 68 /min 130 mm[Hg] 82 mm[Hg] Samira Harrison [facility] 3 16:35:01 Date Recorded Body height Body mass index (BMI) Body weight Body temperature Heart rate Systolic blood pressure Diastolic blood pressure Provider Name and Address Organization Details Last Updated DateTime 3 167.64 cm 39.4 kg/m2 127750. 54 g 97.8 [degF] 74 /min 142 mm[Hg] 80 mm[Hg] Samira Harrison [facility] 3 15:18:01 Date Recorded Body height Body mass index (BMI) Body weight Body temperature Provider Name and Address Organization Details Last Updated DateTime 11/22/2023 167.64 cm 37.7 kg/m2 910560.9 g 97.5 [degF] Valarie Murray [facility] 11/22/2023 12:32:30 Date Recorded Body height Body mass index (BMI) Body weight Heart rate Respiratory rate Oxygen saturation Oxygen saturation in Arterial blood by Pulse oximetry Systolic blood pressure Diastolic blood pressure Provider Name and Address Organization Details Last Updated DateTime 5 167.64 cm 37.6 kg/m2 978259. 02 g 82 /min 14 /min 98 % 98 % 179 mm[Hg] 85 mm[Hg] Kendy Dago [facility] 5 16:05:33 Social History Question Answer Notes LastModified by Organizat ion Details LastModified Time Tobacco Smoking Status Never Smoker Not Available [facility] 05/17/2022 00:46:27 Do You Have An Advance Directive? No MIGRATION.63800 88209 Information not available 05/17/2022 What Is Your Level Of Alcohol Consumption? None MIGRATION.80094 90258 Information not available 05/17/2022 Are You Blind Or Do You Have Difficulty Seeing? No MIGRATION.55563 39410 Information not available 05/17/2022 What Is Your Level Of Caffeine Consumption? Moderate MIGRATION.55617 95048 Information not available 05/17/2022 How Much Tobacco Do You Chew? None MIGRATION.60639 74705 Information not available 05/17/2022 In The 14 Days Before Symptom Onset, Have You Had Close Contact With A Laboratory-confir med COVID-19 While That Case Was Ill? No MIGRATION.76057 58712 Information not available 05/17/2022 In The 14 Days Before Symptom Onset, Have You Had Close Contact With A Person Who Is Under Investigation For COVID-19 While That Person Was Ill? No MIGRATION.85848 75500 Information not available 05/17/2022 Are You Deaf Or Do You Have Serious Difficulty Hearing? No MIGRATION.91647 61727 Information not available 05/17/2022 What Type Of Diet Are You Following? REGULAR MIGRATION.16333 83559 Information not available 05/17/2022 Which Illicit Or Recreational Drugs Have You Used? None MIGRATION.52558 41774 Information not available 05/17/2022 Do You Or Have You Ever Used E-cigarettes Or Vape? Never Used Electronic Cigarettes MIGRATION.76249 94310 Information not available 05/17/2022 What Is The Highest Grade Or Level Of School You Have Completed Or The Highest Degree You Have Received? 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 No MIGRATION.32494 35180 Information not available 05/17/2022 What Is The Fluoride Status Of Your Home? Unknown MIGRATION.49949 76512 Information not available 05/17/2022 Are There Any Guns Present In Your Home? No MIGRATION.70438 90241 Information not available 05/17/2022 Do You Use Insect Repellent Routinely? No MIGRATION.89387 53467 Information not available 05/17/2022 Where Do You Live? Condo MIGRATION.30920 69740 Information not available 05/17/2022 Do You Have A Medical Power Of [facility]? No MIGRATION.21306 62003 Information not available 05/17/2022 What Was The Date Of Your Most Recent Tobacco Screening? 01/02/2023 [email or web address] Information not available 01/02/2023 Do You Have Any Pets? No MIGRATION.75515 53618 Information not available 05/17/2022 What Is Your Relationship Status? MIGRATION.75480 85573 Information not available 05/17/2022 Do You Use Your Seat Belt Or Car Seat Routinely? Yes MIGRATION.90160 32777 Information not available 05/17/2022 Do You Have Smoke And Carbon Monoxide Detectors In Your Home? Yes MIGRATION.36635 18633 Information not available 05/17/2022 Are You Passively Exposed To Smoke? No MIGRATION.73304 04597 Information not available 05/17/2022 Do You Or Have You Ever Used Smokeless Tobacco? Never Used Smokeless Tobacco MIGRATION.12564 40149 Information not available 05/17/2022 Are There Any Smokers In Your House? No MIGRATION.56386 42055 Information not available 05/17/2022 How Much Tobacco Do You Smoke? No MIGRATION.19108 90282 Information not available 05/17/2022 What Types Of Sporting Activities Do You Participate In? None MIGRATION.37820 92665 Information not available 05/17/2022 Do You Feel Stressed (tense, Restless, Nervous, Or Anxious, Or Unable To Sleep At Night)? [id number] MIGRATION.59511 20581 Information not available 05/17/2022 Do You Use Any Illicit Or Recreational Drugs? No MIGRATION.53332 56499 Information not available 05/17/2022 Do You Use Sunscreen Routinely? No MIGRATION.48555 06135 Information not available 05/17/2022 Has Tobacco Cessation Counseling Been Provided? No Not Needed-ne dyana Smoked MIGRATION.45529 07683 Information not available 05/17/2022 How Many Years Have You Smoked Tobacco? 0 MIGRATION.46991 95193 Information not available 05/17/2022 Have You Recently Traveled Abroad? No MIGRATION.97454 15332 Information not available 05/17/2022 Do You Have Any Dietary Restrictions? No MIGRATION.20068 27536 Information not available 05/17/2022 Do You Or Have You Ever Used Any Other Forms Of Tobacco Or Nicotine? No MIGRATION.42193 70718 Information not available 05/17/2022 Sex: Female Functional Status Question Answer Note LastModified by Organizat ion Details LastModified Time Do you have difficulty walking or climbing stairs? Yes MIGRATION.19252 21856 Information not available 05/17/2022 Do you have transportation difficulties? No MIGRATION.06859 49896 Information not available 05/17/2022 Are you able to walk? YESASSIST uses walker d/t hip surgery MIGRATION.72435 16742 Information not available 05/17/2022 Do you have difficulty doing errands alone? No MIGRATION.43907 24854 Information not available 05/17/2022 Are you able to care for yourself? Yes MIGRATION.59457 00014 Information not available 05/17/2022 Do you have difficulty dressing or bathing? No MIGRATION.29906 55347 Information not available 05/17/2022 What is your exercise level? Occasional MIGRATION.00706 21203 Information not available 05/17/2022 Mental Status Question Answer Note LastModified by Organizat ion Details LastModified Time Do you have difficulty concentrating, remembering or making decisions? No MIGRATION.048822118 6 Information not available 05/17/2022 Family History Relationship Description Onset Age of this Age Resolved Age Notes LastModified by Organization Details LastModified Time Mother Congestive heart failure 88 MIGRATION.193 [id number] Not available 05/17/2022 00:53:21 Father Carcinoma of prostate 90 MIGRATION.607 0594260 Not available 05/17/2022 00:53:21 Notes:NO ENT Medical History Condition Response NERVE DISEASE N BLINDNESS N RHEUMATIC FEVER N KIDNEY STONES N BLADDER PROBLEMS N OTHER # 1 N POLIO N LUNG DISEASE/DISORDER N RADIATION / CHEMOTHERAPY N COPD N Other # 2 N BLOOD DISEASES N SURGERY N EAR OR HEARING PROBLEMS N MUMPS N DEPRESSION (INCLUDING POST ) N BOWEL PROBLEMS N STROKE/TIA N ULCERS N BENIGN PROSTATIC HYPERPLASIA N MEASLES N MYOCARDIAL INFARCTION N OBESITY N GERD/NAUSEA N ANEURYSM N URINARY/BLADDER/KIDNEY PROBLEMS N INPATIENT PSYCH CARE N CORONARY ARTERY DISEASE (CAD) N ADDICTION CONCERNS N Impotence N ENDOMETRIOSIS N USE OF BLOOD THINNERS N SKIN [...] APNEA N CHICKENPOX N INFECTIOUS DISEASE N PROSTATE N HEART ARRHYTHMIA N INSOMNIA N HIGH CHOLESTEROL / HYPERLIPIDEMIA Y EYE PROBLEMS N HYPERTHYROIDISM N NEUROLOGICAL PROBLEMS N EDEMA N CHRONIC PAIN SYNDROME N HYPOTHYROIDISM N CAROTID BLOCKAGE N CONSTIPATION N BACK / NECK PROBLEMS N HAVE YOU BEEN HOSPITALIZED OR SEEN IN [facility] IN THE PAST YEAR ? N ATHEROSCLEROSIS N BREAST PROBLEMS N DIALYSIS N ECZEMA N OSTEOPOROSIS N ARTHRITIS N APPENDICITIS N DIABETES, TYPE Y BAD TEETH N ENT N HEARTBURN / REFLUX N AUTISM SPECTRUM DISORDER (ASD) N HEPATITIS / LIVER DISEASE N PULMONARY DISEASE N GOUT N SLEEP DISORDER N ALZHEIMER'S DISEASE N Brain Problems N DEMENTIA N HERPES N SEIZURES/EPILEPSY N HEADACHES/MIGRAINES N VASCULAR DISEASE N PACEMAKER N Blood Disorder N DIZZINESS Y HEART DISEASE/HEART PROBLEMS N KIDNEY DISEASE N MULTIPLE SCLEROSIS N CANCER: SPECIFY N CARDIAC ARRHYTHMIA N ANESTHESIA COMPLICATIONS N ATRIAL FIBRILLATION N Gall Stones N PULMONARY EMBOLISM N AUTOIMMUNE DISEASE N Gynecological History Statement/Question Response Date of Last Mammogram 05/13/2019 Most Recent Bone Density 05/13/2019 Obstetrics History GPAL:G 0 P 0 0 0 0 Immunizations Vaccine Type Date Status Note Provider Nam e and Address Organization Details Recorded Time SARS-COV-2 (COVID-19) vaccine, UNSPECIFIED 3 completed Not Available [facility] 01/04/2023 00:13:24 Influenza, high-dose, quadrivalent, PF 3 completed Not Available [facility] 01/04/2023 00:13:24 COVID-19, mRNA, LNP-S, PF, 30 mcg/0.3 mL dose 1 completed Not Available [facility] 01/04/2023 00:13:24 Influenza, split virus, quadrivalent, preservative 0 completed Not Available [facility] 01/04/2023 00:13:24 Influenza, high-dose, quadrivalent, PF 9 completed Not Available [facility] 01/04/2023 00:13:24 COVID-19, mRNA, LNP-S, PF, 30 mcg/0.3 mL dose 2 completed Not Available [facility] 01/04/2023 00:13:24 Influenza, high-dose, quadrivalent, PF 2 completed Not Available [facility] 01/04/2023 00:13:24 COVID-19, mRNA, LNP-S, PF, 30 mcg/0.3 mL dose 2 completed Not Available [facility] 01/04/2023 00:13:24 COVID-19, mRNA, LNP-S, PF, 30 mcg/0.3 mL dose 1 completed Not Available [facility] 01/04/2023 00:13:24 influenza, unspecified formulation 7 completed Not Available [facility] 01/04/2023 00:13:24 Influenza, split virus, trivalent, preservative 3 completed Not Available [facility] 01/04/2023 00:13:24 Influenza, high-dose, trivalent, PF 8 completed Not Available [facility] 01/04/2023 00:13:24 Influenza, high-dose, trivalent, PF 7 completed Not Available [facility] 01/04/2023 00:13:24 Influenza, high-dose, trivalent, PF 6 completed Not Available [facility] 01/04/2023 00:13:24 Influenza, split virus, quadrivalent, PF 5 completed Not Available [facility] 01/04/2023 00:13:24 Influenza, split virus, trivalent, preservative 4 completed Not Available [facility] 01/04/2023 00:13:24 Influenza, split virus, trivalent, PF 3 completed Not Available [facility] 01/04/2023 00:13:24 Past Encounters Encounter ID Performer Location Encounter Start Date Encounter Closed Date Diagnosis/Indication Diagnosis SNOMED-CT Code Diagnosis ICD10 Code Diagnosis Note [id number] Carla Beth MD [facility] Internal [address] [place] [address] 06/29/2020 00:00:00 06/29/2020 22:52:20 [id number] Carla Beth MD [facility] Internal Med [place] [address] [place] [address] [place] [address] 08/24/2020 00:00:00 08/25/2020 07:57:24 [id number] Carla Beth MD [facility] Internal Med [place] [address] [place] [address] [place] [address] 09/14/2020 00:00:00 09/20/2020 22:05:11 [id number] Carla Beth MD [facility] Internal Med [place] [address] [place] [address] y , [place] [address] 12/14/2020 00:00:00 12/14/2020 23:11:32 [id number] [facility] Podiatry [place] [address] [facility] [address] [place] [address] 01/27/2021 00:00:00 01/28/2021 08:46:08 [id number] Carla Beth MD [facility] Internal Med [place] [address] [place] [address] [place] [address] 03/08/2021 00:00:00 03/08/2021 21:27:10 [id number] Carla Beth MD [facility] Internal [place] [address] [place] [address] [place] [address] 05/05/2021 00:00:00 05/14/2021 14:59:48 [id number] Carla Beth MD [facility] Internal Med [place] [address] [place] [address] [place] [address] 09/01/2021 00:00:00 09/04/2021 13:13:03 [id number] Carla Beth MD [facility] Internal Med [place] [address] [place] [address] 01/03/2022 00:00:00 01/03/2022 21:30:18 [id number] Kalen Rodriguez DPM [facility] Podiatry [place] [address] [place] [address] 05/29/2022 16:09:54 06/16/2022 14:29:03 Diabetic peripheral neuropathy 072158026 E11.40 Patient educated on neuropathy , diabetes, diabetic diet, and daily foot exams. Patient is to check feet daily for new wounds, blisters, redness to prevent infection and ulceration s to the feet. Patient will return to clinic in 3 months for diabetic foot workup. Foot callus 933296426 L8 4 Debrided Offloading to prevent wounds infection Continue supportive shoe gear Follow-up in 3 months Dystrophia unguium 91695 009 L60.3 Nails 1 through 10 were debrided with sharp mechanical debridemen t without incident. Nails were debrided and greater than 50% length and thickness where needed. [id number] Blake Servin MD [facility] ENT [place] [address] [place] [address] 07/20/2022 14:55:17 07/20/2022 15:28:26 Chronic sinusitis 23297502 J32.9 [id number] Carla Beth MD [facility] Internal [place] [address] [place] [address] 08/29/2022 15:48:08 08/29/2022 17:43:37 Dyslipidemia 121630414 E78.5 Essential hypertension 26638891 I10 Type 2 shola betes mellitus 79954672 E11.9 [id number] Carla Beth MD [facility] Internal Med [place] [address] [place] [address] 01/02/2023 15:07:23 01/02/2023 15:50:59 Essential hypertension 64844107 I10 Type 2 shola betes mellitus without complication 426896307 E11.9 Dyslipidemia 079680797 E 78.5 [id number] Blake Servin MD [facility] ENT [place] [address] [place] [address] 11/22/2023 12:03:45 11/22/2023 13:08:21 Chronic sinusitis 19725668 J32.9 Impacted c erumen in left ear 8775998652 586277 H61.22 [id number] Kalen Rodriguez DPM [facility] Podiatry [place] [address] [place] [address] 04/10/2024 15:55:17 05/16/2024 13:21:03 Pain in toe 790161164 M79.676 secondary to calluses Diabetic p eripheral neuropathy 780323797 E11.40 Patient educated on neuropathy , diabetes, diabetic diet, and daily foot exams. Patient is to check feet daily for new wounds, blisters, redness to prevent infection and ulceration s to the feet. Patient will return to clinic in 3 months for diabetic foot workup. Dystrophia unguium 60790 009 L60.3 Nails 1 through 10 were debrided with sharp mechanical debridemen t without incident. Nails were debrided and greater than 50% length and thickness where needed. Callosity on toe 6018197 L84 debrided without incidentOf floadingRe commend wide [...] 1 [employer] (MEDICARE REPLACEMENT/A DVANTAGE - PPO) [id number] Lindsay Bradford [id number] C33 Lindsay Bradford 07/20/2022 2 [place] WHEN [place]IC[place] OR MEDICARE REPLACEMENT PRIMARY) Lindsay Bradford [id number] Lindsay Bradford 08/29/2022 1 [employer] (MEDICARE REPLACEMENT/A DVANTAGE - PPO) [id number] Lindsay Bradford [id number] C33 Lindsay Bradford 08/29/2022 2 [place] OR MEDICARE REPLACEMENT PRIMARY) Lindsay Bradford [id number] Lindsay Bradford 01/02/2023 1 [employer] (MEDICARE REPLACEMENT/A DVANTAGE - PPO) [id number] Lindsay Bradford [id number] C33 Lindsay Bradford 01/02/2023 2 [place] WHEN [place]ICARE OR MEDICARE REPLACEMENT PRIMARY) Lindsay Bradford [id number] Lindsay Bradford 11/22/2023 1 [employer] (MEDICARE REPLACEMENT/A DVANTAGE - PPO) [id number] Lindsay Bradford [id number] C33 Lindsay Bradford 11/22/2023 2 [place] WHEN [place]ARE OR MEDICARE REPLACEMENT PRIMARY) Lindsay Bradford [id number] Lindsay Bradford 04/10/2024 1 [employer] (MEDICARE REPLACEMENT/A DVANTAGE - PPO) [id number] Lindsay Bradford [id number] C33 Lindsay Bradford 04/10/2024 2 [place] WHEN [place]ICARE OR MEDICARE REPLACEMENT PRIMARY) Lindsay Bradford [id number] Lindsay Bradford Notes Date Note Type Note Provider Name and Address Organization Details Recorded Time 07/20/2022 text/html this patient has a 3 week history of coughing bloody nasal drainage and purulent exudate. She was placed on sulfamethoxazole and a Medrol Dosepak. Her symptoms continued she has also is on khjq-cgb-omjhdab medications include Afrin and Claritin. She reports severe nasal congestion Blake Servin MD [address], [place], [address], [facility] [employer] 07/20/2022 15:20:20 08/29/2022 text/html Diabetes no poly phagia polydipsia. Dyslipidemia tries to watch diet. Rhinitis CAD ENT doing better. Had a fall so Ortho back still hurts a little bit but they are also treating her for some bursitis in her left elbow. Carla Beth MD [address], [place], [address], [employer] [facility] 08/29/2022 22:53:03 01/02/2023 text/html 1. Diabetes no polyphagia no polydipsia2. Hypertension no headache no dizziness3. Dyslipidemia tries to follow vent4. Coming off sinus infection doing better5. Osteoarthritis seems to be doing okay Carla Beth MD [address], [place], [address], [employer] [facility] 01/02/2023 22:37:12 11/22/2023 text/html This patient has a significant past medical history for anemia, diabetes, HLD, HTN, and vertigo who presents for cerumen impaction removal. She also endorses PND and nasal congestion for the last several days. She does have a history with previous sinus infections. She states that she does use loratadine daily without symptom relief. BONIFACIO Marina [address] [facility] [address], [place], [address], [employer] 11/22/2023 13:07:47 04/10/2024 text/html . Patient is [...] them. Kalen Rodriguez DPM [address], [facility] [address], [place], [address], [employer] 05/15/2024 09:10:03 OBGyn Episode No OBEpisode recorded.
== END 2024-07-24 13:24 | disposition home or self-care (01) ==
LOC: ANHCARD 13:24
PROVIDERS: PCP Internal Medicine; Visit Provider Internal Medicine
DX: R93.1 Abnormal findings on diagnostic imaging of heart and coronary circulation (principal); I10 Essential (primary) hypertension
CPT/HCPCS: 93306

== ENCOUNTER 2024-10-06 10:32 | Outpatient (CLI) | payer MEDICARE, MEDICAID, SELFPAY ==
[2024-10-06 12:52] LABS: Hematocrit 36.2 % (37.0-47.0); Hemoglobin 11.8 g/dL (12.0-15.0); Immature Granulocyte Percent A 0.2 % (0-0.5); Lymphocytes Absolute Auto 1.52 K/mm3 (0.9-3.2); Mean Corpuscular HGB Conc 32.6 g/dl (32-36); Mean Corpuscular Hemoglobin 26.3 pg (26-34); Mean Corpuscular Volume 80.8 fl (80-100); Nucleated Red Blood Cells Absolute Auto 0.000 K/mm3 (0.0-0.012); Nucleated Red Blood Cells Perc 0.0 % (0.0-0.2); Platelet Count Result 338 k/mm3 (150-375); Red Blood Count 4.48 M/mm3 (4.2-5.4); White Blood Count 5.9 K/mm3 (4.5-10.0)
[2024-10-06 13:06] LABS: Hemoglobin A1C 5.8 % (<5.7)
[2024-10-06 14:04] LABS: MRSA (PCR) NOT DETECTED (NOT DETECTE)
[2024-10-06 14:14] LABS: Albumin Level 4.5 g/dL (3.5-5.1)
[2024-10-06 14:46] LABS: Anion Gap 10 mmol/L (4-12); Blood Urea Nitrogen 12 mg/dL (7-17); Calcium 10.1 mg/dL (8.4-10.2); Carbon Dioxide 23 mmol/L (22-30); Chloride 102 mmol/L (98-107); Estimated Glomerular Filt Rate > 60; Glucose 110 mg/dL (65-110); Potassium 3.9 mmol/L (3.4-5.0); Sodium 135 mmol/L (137-145)
== END 2024-10-06 10:33 | disposition home or self-care (01) ==
PROVIDERS: Anesthesiology; PCP Internal Medicine; Visit Provider Orthopaedic Surgery
DX: T84.022A Instability of internal right knee prosthesis, initial encounter (principal); I10 Essential (primary) hypertension; Z01.818 Encounter for other preprocedural examination
CPT/HCPCS: 36415; 80048; 80307; 82040; 83036; 85025; 87641

== ENCOUNTER 2024-11-04 07:00 | Inpatient (IN) | payer MEDICARE, MEDICAID, SELFPAY ==
--- NOTE | 2024-10-06 10:39 | PC.NURSE ---
Report to the Outpatient Waiting Room, entrance under the green pavilion located off [facility], at time _7:30 AM on date __11/04/24 . Planned Procedure Time: _9:30 AM .? Time changes happen often and if your time is changed the preop area will call you the afternoon before. - You and your visitor will be asked to self-screen and do not enter if you have any COVID symptoms. Please call surgeon if you need to reschedule. - A mask is optional within the hospital at this time. Patients may have clear liquids (water, carbonated beverages, clear teas, apple juice) until 3 hours prior to surgery ( 6:30 AM) with a maximum of 20 ounces. - No food from midnight until time of surgery and no smoking, or chewing tobacco (or any form of nicotine). No chewing gum, candy or mints. Take only the following medications with a SIP of water on the morning of surgery: __AMLODIPINE,CLONIDINE DO NOT STOP ANY OF YOUR OTHER PRESCRIPTION MEDICATIONS PRIOR TO SURGERY EXCEPT THE FOLLOWING Hold all vitamins and supplements for 3 days per anesthesiologist.LAST DOSE 10/31/24 Medications to discontinue per physician ___HOLD ASPIRIN AND ALEVE 7 DAYS PRE OP PER DR ARMANDO.LAST DOSE 10/27/24. HOLD _MOUNJARO 2 WKS PRE OP PER DR CARLA RICHMOND LAST DOSE 10/20/24 MAY TAKE TYLENOL IF NEEDED FOR PAIN Please no make-up, nail malaysian, hairspray, perfume, deodorant, or body powder the day of surgery.? No jewelry (including any body piercings) or valuables the day of surgery, leave them at home.? Please take a shower or bath the night before, or the morning of, surgery with an antibacterial soap.? Wear comfortable, loose fitting clothing.? Children are encouraged to wear pajamas. - Jewelry must be removed prior to entering the operating room.? Rings and piercings that are not removed may be cut off. - The hospital will not accept responsibility for valuables.? - Please leave all valuables, including medications, at home the day of surgery. If you are going home after surgery, a licensed drivers' cash clerk must drive you home.? - NO public transportation without another adult if you receive anesthesia. - We recommend that an adult stay with you for 24 hours following discharge. - We also recommend that you do not drive, make important decision, drink alcoholic beverages, or take any drugs that were not prescribed by your health care provider for at least 24 hours after your discharge time. For Pediatric surgeries, we recommend two adults accompany the child home. Follow any additional instructions given to you from your surgeon. VERBAL AND WRITTEN instructions given to ___PATIENT and asked if any additional questions and then verbalized understanding. Patient advised to call surgeon office or pre surgery nurse liaison [phone] if any additional questions.
[2024-10-06 11:53] VITALS: BP 148/62; PULSE 71; RESP 18; TEMP 36.7; O2SAT 97; BMI 38.9
[2024-11-04] VITALS (14 sets, daily range): BP systolic 128–148; BP diastolic 45–73; PULSE 58–94; RESP 14–20; TEMP 36.2–37.4; O2SAT 96–100
--- NOTE | ~2024-11-04 | XR_ITS ---
EXAMINATION: [id number] DATE: 11/04/2024 11:32 INDICATION: Postoperative evaluation following right total knee arthroplasty. TECHNIQUE: Anteroposterior and lateral views of the right knee were obtained. COMPARISON: 10/06/2024 FINDINGS: Revision semiconstrained right total knee arthroplasty with long stem tibial component and with patellar resurfacing appears well seated and in near anatomic alignment. No fractures identified. Expected postoperative subcutaneous and intra-articular gas. IMPRESSION: 1. Revision right total knee arthroplasty, negative for postoperative purposes. See procedure note for further detail. Reviewed, dictated and finalized at location A.
[2024-11-04] MEDS: LACTATED RINGERS 1,000 ML 30 ML IV CONT ×2 (07:00→10:56)
[2024-11-04] MEDS: TRANEXAMIC ACID 1,000MG/ISO100 1,000 MG/100 ML BAG 200 MG IVPB (07:00)
[2024-11-04] MEDS: ACETAMINOPHEN 500 MG TABLET 1000 MG PO (07:00)
--- NOTE | 2024-11-04 07:25 | WPDANESEPPF ---
Anes - Initial Pre Proc Eval Procedure: Operation Date: 11/04/24 07:30 Proposed Procedures p Right Total Knee Revision Arthroplasty - Doug Meehan MD Date/Time: 11/04/24 07:25 Surgeon: Doug Meehan MD Pre Op Diagnosis: Instab of Rt Knee prothesis Patient Data Age: 73 Gender: F Height: 1.57 m Weight: 104.4 kg Last Vital Signs Temp 97.7 F 11/04/24 07:00 Pulse 79 11/04/24 07:00 Resp 16 11/04/24 07:00 BP 132/66 11/04/24 07:00 Pulse Ox 100 11/04/24 07:00 O2 Del Method Room Air 11/04/24 07:00 Allergies Allergy/AdvReac Type Severity Reaction Status Date / Time iohexol (From contrast - CT, AdvReac Intermediate Vomiting Verified 11/04/24 07:11 X-RAY) Home Medications ?Medication ?Instructions ?Recorded ?Confirmed ?Type amlodipine 5 mg tablet 5 mg PO DAILY 01/07/21 11/04/24 History metformin 500 mg tablet 500 mg PO BID 01/07/21 11/04/24 History clonidine HCl 0.1 mg tablet 0.1 mg PO BID 04/21/21 11/04/24 History multivit with minerals-iron 18 1 tablet PO DAILY 04/21/21 11/04/24 History mg-folic ac 400 mcg-vit K 25 mcg tablet (Adults Multivitamin) triamterene 37.5 1 cap PO QPM 04/21/21 10/06/24 History mg-hydrochlorothiazide 25 mg capsule rosuvastatin 10 mg tablet 10 mg PO DAILY 05/10/21 11/04/24 History Vitamin D3 1 tab-cap PO DAILY 11/17/22 10/06/24 History acetaminophen 650 mg 650 mg PO Q8H PRN Pain 11/17/22 10/06/24 History tablet,extended release aspirin 81 mg tablet 81 mg PO DAILY 11/17/22 11/04/24 History calcium carbonate 500 1 tablet PO PRN PRN heartburn 10/06/24 11/04/24 History mg-simethicone 20 mg chewable tablet naproxen sodium 220 mg capsule 220 mg PO Q8H PAIN 10/06/24 11/04/24 History (Aleve) silver sulfadiazine 1 % topical 1 applic topical DAILY 10/06/24 10/06/24 History cream tirzepatide 10 mg/0.5 mL 10 mg subcut WEEKLY 10/06/24 10/06/24 History subcutaneous pen injector (Kelley) Laboratory Tests 11/04/24 11/04/24 06:37 07:00 POC Capillary Glucose 116 H mg/dl (65-105) Blood Type B Positive Antibody Screen Pending Patient hx anesthesia problems: none Family hx anesthesia problems: none Results Review: All pre-operative results and documents have been reviewed as part of the pre-operative evaluation. [facility] Past Medical History Medical History Spinal stenosis, lumbar region, with neurogenic claudication Hypertrophic obstructive cardiomyopathy (HOCM) Diabetes Obesity Hyperlipidemia HTN (hypertension) Surgical History Surgical History History of total right hip arthroplasty (~05/10/21) History of right knee joint replacement History of left knee replacement Family History Family History Mother Patient's mother is , Onset Age: 87 Father Patient's father is , Onset Age: 93 Family history of arthritis Sibling Patient's brother is Social History Social History Smoking status: Never smoker Alcohol intake: never Substance use: current Substance use type: does not use Do You Feel Safe in your Home?: Yes Lack of Transportation: No Lack of Food: Never True Current Housing: I Have Housing Concerned About Future Housing: No Difficulty Paying Gas/Electric Bills: No Difficulty Paying for Meds: No Currently Unemployed: No Education: Bachelor's Degree Difficulty w/ Childcare or Family Care: No Living arrangements: alone Spiritual care concerns: No Anes - Eval Final PreProcedure Day of Procedure 11/04/24 07:25 Patient weight: morbidly obese Heart: regular rate and rhythm Lungs: clear to auscultation Airway: Mallampati scale Neurological: alert and oriented Last oral intake: >/= 8 hours ASA classification: III Emergent: no Anesthetic plan: proceed Anesthesia type and monitoring: general ETT and standard monitoring Results Review: All pre-operative results and documents have been reviewed as part of the pre-operative evaluation. Informed Consent: The patient's anesthetic plan and its attendant risks and benefits were discussed with the patient/family/POA. Questions were solicited and answers provided to the satisfaction of the patient/family/POA.
--- NOTE | 2024-11-04 07:26 | WPDHPUPDATE1 ---
History and Physical Update Update Date/Time: 11/04/24 07:26 History and Physical has been reviewed, including an updated exam of the patient. There are NO changes in the patient's condition. Risks, benefits, and alternatives have been discussed and questions answered. Patient agrees to proceed with procedure.
[2024-11-04] MEDS: ceFAZolin 2 GM in SODIUM CHLORIDE 0.9% IV 50 ML 100 ML IVPB ×3 (07:33→22:46)
[2024-11-04] MEDS: SODIUM CHLORIDE 0.9% IV 37.7 ML, MORPHINE SULFATE INJ (*CRX) 2 MG, ROPivacaine HCL 1% 2... INFILTRATE (08:27)
[2024-11-04] MEDS: GENTAMICIN BONE CEMENT REFOBACIN 1 EACH TOPICAL (09:43)
[2024-11-04] MEDS: VANCOMYCIN HCL 1,000 MG VIAL 1000 MG TOPICAL (10:15)
[2024-11-04] MEDS: TRANEXAMIC ACID 1,000 MG/10 ML AMPUL 1000 MG IV PUSH (10:25)
--- NOTE | 2024-11-04 12:35 | PC.NURSE ---
This patient, Lindsay Bonilla, was admitted to [facility] Surg Room 325-02. Patient/family oriented to hospital policies and general routines including ID bracelet, bed and alarms, visiting hours, pain management, procedures, bathroom and other care routines, personal items, smoking policy, room service/diet, and visiting hours. Information on how to activate the Rapid Response Team has been discussed. Patient/Family are encouraged to report perceived risks to care and to ask questions if they do not understand what they are told or what they should do.
[2024-11-04 12:46] LABS: Hematocrit 34.0 % (37.0-47.0); Hemoglobin 10.8 g/dL (12.0-15.0); Immature Granulocyte Percent A 0.5 % (0-0.5); Lymphocytes Absolute Auto 0.51 K/mm3 (0.9-3.2); Mean Corpuscular HGB Conc 31.8 g/dl (32-36); Mean Corpuscular Hemoglobin 26.2 pg (26-34); Mean Corpuscular Volume 82.3 fl (80-100); Nucleated Red Blood Cells Absolute Auto 0.000 K/mm3 (0.0-0.012); Nucleated Red Blood Cells Perc 0.0 % (0.0-0.2); Platelet Count Result 282 k/mm3 (150-375); Red Blood Count 4.13 M/mm3 (4.2-5.4); White Blood Count 4.4 K/mm3 (4.5-10.0)
[2024-11-04 13:00] LABS: Anion Gap 8 mmol/L (4-12); Blood Urea Nitrogen 12 mg/dL (7-17); Calcium 9.2 mg/dL (8.4-10.2); Carbon Dioxide 25 mmol/L (22-30); Chloride 105 mmol/L (98-107); Estimated CRCL calculation 87 ml/min; Estimated Glomerular Filt Rate > 60; Glucose 158 mg/dL (65-110); Potassium 3.7 mmol/L (3.4-5.0); Sodium 138 mmol/L (137-145)
[2024-11-04] MEDS: ACETAMINOPHEN 325 MG TABLET 650 MG PO ×3 (13:19→23:49)
--- NOTE | 2024-11-04 14:23 | W.PM.PROC2 ---
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 Post-op Diagnosis Same Procedure Performed Revision right total knee arthroplasty, tibial component. Surgeon Doug Meehan MD [employer] Hafsa Rojas PA-C Anesthesia General Indications Loosening of the tibial component with progressive subsidence over years. This led to progressive instability. Findings No signs of infection. Good remaining bone after tibial removal. The tibia was easily removed. Medial bone loss was addressed with 10 mm metal medial augment. 100 mm cemented stem. Offset of 6 mm placed at the direct lateral position. Patellar tracking and tibial alignment was optimal. Description of Procedure Preoperative antibiotics were given. The patient was given a general anesthetic. The leg was prepped in the usual sterile fashion. The limb was exsanguinated and the tourniquet inflated to 300 mmHg. The tourniquet was released after 60 minutes and then replaced for cementing. The previous incision was opened and extended proximally and distally for a medial parapatellar arthrotomy. Medial exposure of the proximal tibia allowed for progressive exposure of the tibia. The medial and lateral gutters were reconstituted. There was significant bony overgrowth along the anterior aspect of the femoral component. The tibia was carefully removed with thin flexible osteotomes. It was not grossly loose but removed easily. The metaphyseal bone was well preserved. The intramedullary guide was inserted. After the 8 mm Reamer sequential reaming was brought to 15 mm. The tibial resection guide was placed. A skim cut was placed laterally and the resection for the 5 mm augment cut was performed medially. The bone quality remained poor medial with some necrotic areas. It was elected to proceed to the 10 mm augment cut. The bone quality at this point was very good. Trial was performed prior to preparing the proximal tibia further to assure appropriate rotation. After confirming the appropriate rotation and resection for the step cut, the trials were assembled. It was clear that an offset was going to be required. After the appropriate 6 mm lateral offset was confirmed, the knee was then trialed. After copious irrigation and preparation of the tibial canal with a cement plug, the real tibial component was cemented with the 100 mm stem. The augment fit optimally. After the cement cured, the knee was trialed again. A 22 mm polyethylene was placed, but was extremely tight. This was removed in favor of the 19 mm polyethylene insert. Flexion improved from 70? preoperatively to about 80?. The femoral flexion gap appeared satisfactory, and much of the contracture appeared to be related to extreme tightness of the extensor mechanism. The wound was copiously irrigated with saline. Meticulous hemostasis was maintained using the Aquamantys device. 1 g of right mycin powder was used in the wound. Perioperative pain relieving injection was performed. The wound was closed in layers with interrupted #1 Vicryl suture followed by #1 Stratafix suture, 2-0 Stratafix suture, 3-0 Stratafix suture. Implants [employer] triathlon Wallace tibial base plate size 4, medial tibial augment half block 10 mm, offset adapter 6 mm, cemented stem 100 mm x 12 mm diameter, total stabilized insert size 4, 19 mm Estimated Blood Loss 100 Drains No Packing No Pathology None sent Complications No immediate complications Condition Stable Disposition PACU [facility] Billing Surgery - Charge Forward: Surgery Billing
[2024-11-04] MEDS: ONDANSETRON INJ 4 MG/2 ML VIAL IV PUSH (14:59)
--- NOTE | 2024-11-04 15:57 | PM.IMCN ---
Assessment and Plan Assessment and plan (1) Essential (primary) hypertension: Code(s): I10 - Essential (primary) hypertension Status: Acute Assessment and Plan: chronic and stable continue bp medications (2) Hypertrophic obstructive cardiomyopathy (HOCM): Code(s): I42.1 - Obstructive hypertrophic cardiomyopathy Status: Acute Assessment and Plan: chronic and stable continue medications (3) Type 2 diabetes mellitus with complication, without long-term current use of insulin: Code(s): E11.8 - Type 2 diabetes mellitus with unspecified complications Status: Acute Assessment and Plan: chronic and stable hold oral hypoglycemics and add accuchecks and ssi (4) Presence of right artificial knee joint: Code(s): Z96.651 - Presence of right artificial knee joint Status: Acute Assessment and Plan: Sp R total knee replacement Continue PT/ OT/ pain control Plan Dvt prop: ASA HPI Date of Consult Consult date: 11/04/24 Requesting Physician: Doug Meehan MD Primary Care Provider: Harry Beth, Consult Narrative Narrative: Lindsay Bonilla is a 73 year old female for medical management pt is sp R total knee replacement under DR Meehan orthopedics pt was struggling with R knee pain despite epidural shots so surgery was planned for the knee. pt had PMH of DM, HTN, HLD. pt takes oral hypoglycemic medications for DM and states she does well with her DM diet. Review of Systems Review of Systems: no specific complaints PMFSH Past Medical History Medical History Spinal stenosis, lumbar region, with neurogenic claudication Hypertrophic obstructive cardiomyopathy (HOCM) Diabetes Obesity Hyperlipidemia HTN (hypertension) Surgical History Surgical History History of total right hip arthroplasty (~05/10/21) History of right knee joint replacement History of left knee replacement Family History Family History Mother Patient's mother is , Onset Age: 87 Father Patient's father is , Onset Age: 93 Family history of arthritis Sibling Patient's brother is Social History Social History Smoking status: Former smoker Alcohol intake: never Substance use: never Substance use type: does not use Do You Feel Safe in your Home?: Yes Lack of Transportation: No Lack of Food: Never True Current Housing: I Have Housing Concerned About Future Housing: Decline to Answer Difficulty Paying Gas/Electric Bills: Decline to Answer Difficulty Paying for Meds: Decline to Answer Currently Unemployed: Decline to Answer Education: Bachelor's Degree Difficulty w/ Childcare or Family Care: Decline to Answer Living arrangements: alone Spiritual care concerns: No Meds Home Medications and Allergies Home Medications ?Medication ?Instructions ?Recorded ?Confirmed ?Type amlodipine 5 mg tablet 5 mg PO DAILY 01/07/21 11/04/24 History metformin 500 mg tablet 500 mg PO BID 01/07/21 11/04/24 History clonidine HCl 0.1 mg tablet 0.1 mg PO BID 04/21/21 11/04/24 History multivit with minerals-iron 18 1 tablet PO DAILY 04/21/21 11/04/24 History mg-folic ac 400 mcg-vit K 25 mcg tablet (Adults Multivitamin) triamterene 37.5 1 cap PO QPM 04/21/21 10/06/24 History mg-hydrochlorothiazide 25 mg capsule rosuvastatin 10 mg tablet 10 mg PO DAILY 05/10/21 11/04/24 History Vitamin D3 1 tab-cap PO DAILY 11/17/22 10/06/24 History acetaminophen 650 mg 650 mg PO Q8H PRN Pain 11/17/22 10/06/24 History tablet,extended release aspirin 81 mg tablet 81 mg PO DAILY 11/17/22 11/04/24 History calcium carbonate 500 1 tablet PO PRN PRN heartburn 10/06/24 11/04/24 History mg-simethicone 20 mg chewable tablet naproxen sodium 220 mg capsule 220 mg PO Q8H PAIN 10/06/24 11/04/24 History (Aleve) silver sulfadiazine 1 % topical 1 applic topical DAILY 10/06/24 10/06/24 History cream tirzepatide 10 mg/0.5 mL 10 mg subcut WEEKLY 10/06/24 10/06/24 History subcutaneous pen injector (Kelley) oxycodone-acetaminophen 5 mg-325 1 - 2 tablet PO Q4-6H PRN pain #30 11/04/24 Rx mg tablet tabs prednisone 5 mg tablet 5 mg PO DAILY 3 weeks #21 tabs 11/04/24 Rx Allergies Allergy/AdvReac Type Severity Reaction Status Date / Time iohexol (From contrast - CT, AdvReac Intermediate Vomiting Verified 11/04/24 07:11 X-RAY) Vital Signs Vital Signs - 24 hr 11/04/24 07:00 11/04/24 10:56 11/04/24 11:10 Temperature 36.5 C 37.4 C Pulse Rate 79 94 74 Respiratory Rate 16 18 15 Blood Pressure 132/66 148/65 H 134/45 L Pulse Oximetry 100 97 100 Oxygen Delivery Room Air Simple Face Mask Simple Face Mask Oxygen Flow Rate 10 10 11/04/24 11:25 11/04/24 11:40 11/04/24 11:55 Temperature Pulse Rate 72 73 70 Respiratory Rate 14 17 15 Blood Pressure 140/51 L 131/65 133/65 Pulse Oximetry 98 99 99 Oxygen Delivery Room Air Room Air Room Air Oxygen Flow Rate 11/04/24 12:10 11/04/24 12:40 11/04/24 12:45 Temperature 36.4 C L Pulse Rate 70 67 Respiratory Rate 16 16 Blood Pressure 128/65 140/67 Pulse Oximetry 98 96 Oxygen Delivery Room Air Room Air Oxygen Flow Rate 11/04/24 13:00 11/04/24 13:30 11/04/24 14:03 Temperature 36.3 C L 36.3 C L 36.2 C L Pulse Rate 64 64 62 Respiratory Rate 16 16 17 Blood Pressure 147/73 H 138/59 L 139/65 Pulse Oximetry 100 96 96 Oxygen Delivery Oxygen Flow Rate 11/04/24 14:25 11/04/24 14:51 Temperature Pulse Rate Respiratory Rate Blood Pressure Pulse Oximetry Oxygen Delivery Room Air Room Air Oxygen Flow Rate Exam Const: General: cooperative, healthy appearing and overweight; No in distress Nutritional Appearance: overweight Orientation/consciousness: oriented to person HENMT: Head: normal to inspection Resp: Effort & Inspection: no respiratory distress Auscultation: no rhonchi and no wheezes Cardio: Rate: regular rate Rhythm: regular rhythm GI: Inspection: normal to inspection GI Palp: No abdominal tenderness, No Guarding due to palpation present (GI) and No Hepatomegaly present Auscultation: normal bowel sounds Neuro: General: oriented to person Extrem: Other: sp R total knee replacement Results Labs 11/04/24 12:39 11/04/24 12:39 Labs: Short CBC 11/04/24 Range/Units 12:39 WBC 4.4 L (4.5-10.0) K/mm3 Hgb 10.8 L (12.0-15.0) g/dL Hct 34.0 L (37.0-47.0) % Plt Count 282 (150-375) k/mm3 BMP 11/04/24 12:39 Sodium 138 Potassium 3.7 Chloride 105 Carbon Dioxide 25 BUN 12 Creatinine 0.54 L Glucose 158 H Calcium 9.2 Hospitalist MIPS Advance Care Plan I have confirmed that the patient's Advanced Care Plan is present, code status is documented, or surrogate decision maker is listed in patient medical record.: Yes Medication Reconciliation I have utilized all available resources to obtain, update and review the patients current medications (includes all prescriptions, OTC, herbals, cannabis, and nutritional supplements).: Yes The patient is not eligible for med reconciliation; the patient is in a emergent medical situation where delaying treatment would jeopardize the patients health.: Yes
[2024-11-04 16:55] LABS: Hemoglobin A1C 5.7 % (<5.7)
[2024-11-04] MEDS: SENNA/DOCUSATE SODIUM TABLET 2 TAB PO (17:00)
[2024-11-04] MEDS: TRIAMTERENE 37.5 MG/HCTZ 25 MG (MAXZIDE) TABLET 1 TAB PO (17:01)
[2024-11-04] MEDS: FAMOTIDINE 20 MG TABLET PO (20:56)
[2024-11-04] MEDS: oxyCODONE/ACETAMINOPHEN (*CRX) 5-325 MG TABLET 1 TABLET PO (22:47)
[2024-11-05 02:03] VITALS: BP 108/53; PULSE 58; RESP 20; TEMP 36.8; O2SAT 98
[2024-11-05 05:42] VITALS: BP 127/53; PULSE 56; RESP 18; TEMP 37; O2SAT 97
[2024-11-05 06:09] LABS: Hematocrit 32.7 % (37.0-47.0); Hemoglobin 10.0 g/dL (12.0-15.0); Immature Granulocyte Percent A 0.5 % (0-0.5); Lymphocytes Absolute Auto 1.39 K/mm3 (0.9-3.2); Mean Corpuscular HGB Conc 30.6 g/dl (32-36); Mean Corpuscular Hemoglobin 25.9 pg (26-34); Mean Corpuscular Volume 84.7 fl (80-100); Nucleated Red Blood Cells Absolute Auto 0.000 K/mm3 (0.0-0.012); Nucleated Red Blood Cells Perc 0.0 % (0.0-0.2); Platelet Count Result 278 k/mm3 (150-375); Red Blood Count 3.86 M/mm3 (4.2-5.4); White Blood Count 10.4 K/mm3 (4.5-10.0)
[2024-11-05 06:18] LABS: Anion Gap 8 mmol/L (4-12); Blood Urea Nitrogen 13 mg/dL (7-17); Calcium 9.1 mg/dL (8.4-10.2); Carbon Dioxide 23 mmol/L (22-30); Chloride 105 mmol/L (98-107); Estimated CRCL calculation 89 ml/min; Estimated Glomerular Filt Rate > 60; Glucose 106 mg/dL (65-110); Potassium 3.8 mmol/L (3.4-5.0); Sodium 136 mmol/L (137-145)
[2024-11-05] MEDS: ceFAZolin 2 GM in SODIUM CHLORIDE 0.9% IV 50 ML 100 ML IVPB (06:21)
[2024-11-05] MEDS: ACETAMINOPHEN 325 MG TABLET 650 MG PO ×4 (06:21→23:39)
[2024-11-05] MEDS: SENNA/DOCUSATE SODIUM TABLET 2 TAB PO ×2 (08:01→17:07)
[2024-11-05] MEDS: FAMOTIDINE 20 MG TABLET PO ×2 (08:01→20:39)
[2024-11-05] MEDS: ASPIRIN 81 MG ENTERIC TABLET PO (08:01)
[2024-11-05] MEDS: ROSUVASTATIN 10 MG TABLET PO (08:01)
[2024-11-05] MEDS: MULTIVITAMINS /C LUTEIN (CENTRUM SILVER) TABLET *BKC 1 TAB PO (08:01)
--- NOTE | 2024-11-05 08:22 | PM.PNORT ---
Progress Note: A&P Assessment and Plan (1) Status post total knee replacement, right: Code(s): Z96.651 - Presence of right artificial knee joint Status: Acute (2) Orthopedic aftercare for joint replacement: Qualifiers: Joint replacement surgery site: hip Laterality: right Qualified Code(s): Z47.1 - Aftercare following joint replacement surgery; Z96.641 - Presence of right artificial hip joint Code(s): Z47.1 - Aftercare following joint replacement surgery Status: Acute Plan Appropriate progress. Note is from November 05 2024. Postoperative day 1 status post revision total knee arthroplasty. Pain well controlled. Mobilizing as expected. Using the walker. Afebrile. Vital signs stable. Dressing intact. Calf nontender. Neurovascular status intact. Good quad activation. Postoperative x-rays show satisfactory cemented tibial revision Given mobility issues and the more extensive revision surgery, recommend continued inpatient care. Subjective Subjective Date/Time Seen: 11/05/24 08:00 Objective Data Vital Signs Vital Signs: Vital Signs - 24 hr 11/05/24 20:00 11/05/24 21:45 11/05/24 22:11 Temperature 37.6 C Pulse Rate 75 73 Respiratory Rate 20 18 Blood Pressure 133/47 L Pulse Oximetry 94 94 Oxygen Delivery Room Air Room Air Fraction of Inspired Oxygen 21 11/06/24 06:57 11/06/24 07:09 11/06/24 08:06 Temperature 37.8 C H 37.2 C Pulse Rate 82 Respiratory Rate 20 Blood Pressure 176/51 H 165/50 H Pulse Oximetry 100 Oxygen Delivery Fraction of Inspired Oxygen 11/06/24 15:45 Temperature 37.6 C H Pulse Rate 81 Respiratory Rate 18 Blood Pressure 150/55 H Pulse Oximetry 94 Oxygen Delivery Fraction of Inspired Oxygen Intake/Output Intake/Output: Intake & Output 11/03/24 11/04/24 11/05/24 11/06/24 23:59 23:59 23:59 23:59 Intake Total 890 1270 730 Balance 890 1270 730 Meds/Results Medications: Active Medications Generic Name Dose Route Start Last Admin Trade Name Freq PRN Reason Stop Dose Admin Acetaminophen 650 mg 11/04/24 12:18 11/06/24 11:51 Acetaminophen 325 Mg Tablet PO 650 mg Q6HR [facility] Administration Amlodipine Besylate 5 mg 11/05/24 09:00 11/06/24 08:04 Amlodipine Besylate 5 Mg Tablet PO 5 mg DAILY [facility] Administration Aspirin 81 mg 11/05/24 09:00 11/06/24 08:04 Aspirin 81 Mg Enteric Tablet PO 81 mg QAM [facility] Administration Calcium Carbonate 200 mg 11/04/24 12:34 Calcium Carbonate (Tums) 500 Mg (200 Mg Elemental) PO PRN PRN heartburn Clonidine HCl 0.1 mg 11/04/24 17:00 11/06/24 08:04 Clonidine Hcl 0.1 Mg Tablet PO 0.1 mg BID [facility] Administration Cyclobenzaprine HCl 10 mg 11/04/24 12:18 Cyclobenzaprine Hcl 10 Mg Tablet PO Q8H PRN Spasms Dextrose 12.5 gm 11/04/24 16:03 Dextrose 50% 25 Gm/50 Ml Syringe IV PUSH PRN PRN Hypoglycemia Protocol Diphenhydramine HCl 25 mg 11/04/24 12:18 Diphenhydramine Hcl Inj 50 Mg/Ml Vial IV PUSH Q6H PRN Itching Famotidine 20 mg 11/04/24 21:00 11/06/24 08:04 Famotidine 20 Mg Tablet PO 20 mg Q12HR [facility] Administration Glucagon 1 mg 11/04/24 12:18 Glucagon For Inj 1 Mg Vial IM PRN PRN Hypoglycemia Protocol Glucose 15 gm 11/04/24 16:03 Glucose Oral Gel 15 Gm Of Glucse In 37.5 Gm Tube PO PRN PRN Hypoglycemia Protocol Hydromorphone HCl 1 mg 11/04/24 12:18 Hydromorphone Hcl Inj (*Crx) 1 Mg/Ml Syr IV PUSH Q2H PRN Breakthrough Pain Rated 7-10 or NPO Hydromorphone HCl 0.5 mg 11/04/24 12:18 Hydromorphone Hcl Inj (*Crx) 1 Mg/Ml Syr IV PUSH Q2H PRN Breakthrough Pain Rated 4-6 or NPO Ibuprofen 800 mg in 200 mls @ 400 mls/hr 11/04/24 12:18 Caldolor 800 Mg/200 Ml IVPB Q6H PRN Breakthrough Pain Rated 1-3 or NPO Dextrose 1,000 mls @ 100 mls/hr 11/04/24 16:03 Dextrose 5% 1,000 Ml IVPB PRN PRN Hypoglycemia Protocol Insulin Aspart 2 - 5 units 11/04/24 17:00 11/06/24 11:44 Insulin Aspart (*Bkc) 100 Units/Ml SUB-Q Not Given TIDWM [facility] Protocol Metformin HCl 500 mg 11/04/24 17:00 11/06/24 08:04 Metformin Hcl 500 Mg Tablet PO 500 mg BIDWM [facility] Administration Miscellaneous Information 1 each 11/04/24 00:01 11/06/24 05:46 Vit D Order Has No Dosage. We Have Cholecalciferol 200iu, 400iu, 1000iu And 5000iu XX 12/04/24 00:00 Not Given CLARIFY [facility] Multivitamins/Minerals 1 tab 11/05/24 09:00 11/06/24 08:03 Multivitamins /C Lutein (Centrum Silver) Tablet *Bkc PO 1 tab DAILY [facility] Administration Naloxone HCl 0.1 mg 11/04/24 12:18 Naloxone Hcl 0.4 Mg/Ml Vial IV PUSH Q2M PRN Opiate Reversal Non-Formulary Medication 1 tab-cap 11/05/24 09:00 Vitamin D3 PO 12/05/24 08:59 DAILY [facility] Ondansetron HCl 4 mg 11/04/24 12:18 11/04/24 14:59 Ondansetron Inj 4 Mg/2 Ml Vial IV PUSH 4 mg Q4H PRN Administration Nausea And Vomiting Oxycodone/Acetaminophen 1 tablet 11/04/24 12:18 11/06/24 15:26 Oxycodone/Acetaminophen (*Crx) 5-325 Mg Tablet PO 1 tablet Q4H PRN Administration Pain Rated 4-6 Oxycodone/Acetaminophen 1 tab 11/04/24 12:18 Oxycodone/Acetaminophen (*Crx) 10-325 Mg Tablet PO Q6H PRN Pain Rated 7-10 Polyethylene Glycol 17 gm 11/05/24 09:00 11/06/24 08:02 Polyethylene Glycol 3350 17 Gm Powd.Pack PO 17 gm QAM [facility] Administration Prednisone 5 mg 11/04/24 17:00 11/05/24 17:07 Prednisone 5 Mg Tablet PO 5 mg DAILY@1700 [facility] Administration Rosuvastatin Calcium 10 mg 11/05/24 09:00 11/06/24 08:04 Rosuvastatin 10 Mg Tablet PO 10 mg DAILY [facility] Administration Senna/Docusate Sodium 2 tab 11/04/24 17:00 11/06/24 08:04 Senna/Docusate Sodium Tablet PO 2 tab BID [facility] Administration Tramadol HCl 50 mg 11/04/24 12:18 Tramadol Hcl (*Crx) 50 Mg Tablet PO Q4H PRN Pain Rated 1-3 Triamterene/Hydrochlorothiazide 1 tab 11/04/24 18:00 11/05/24 17:07 Triamterene 37.5 Mg/Hctz 25 Mg (Maxzide) Tablet PO 1 tab QPM [facility] Administration Radiology Results: ITS Impressions Knee X-Ray 11/04/24 11:43 IMPRESSION: 1. Revision right total knee arthroplasty, negative for postoperative purposes. See procedure note for further detail. Labs Labs: Laboratory Results - last 24 hr 11/05/24 11/05/24 11/06/24 17:04 20:32 07:52 Sodium Potassium Chloride Carbon Dioxide Anion Gap BUN Creatinine Estim Creat Clear Calc Estimated GFR Glucose POC Capillary Glucose 142 H 193 H 120 H Calcium 11/06/24 11/06/24 09:45 11:41 Sodium 133 L Potassium 3.3 L Chloride 101 Carbon Dioxide 26 Anion Gap 6 BUN 10 Creatinine 0.58 L Estim Creat Clear Calc 82 Estimated GFR > 60 Glucose 193 H POC Capillary Glucose 133 H Calcium 8.8
[2024-11-05 09:07] VITALS: O2SAT 96
[2024-11-05 15:00] VITALS: BP 119/41; PULSE 76; RESP 16; TEMP 37.5; O2SAT 99
--- NOTE | 2024-11-05 15:03 | PM.IMPN ---
Progress Note: A&P Assessment and Plan (1) Essential (primary) hypertension: Code(s): I10 - Essential (primary) hypertension Status: Acute Assessment and Plan: chronic and stable continue bp medications (2) Hypertrophic obstructive cardiomyopathy (HOCM): Code(s): I42.1 - Obstructive hypertrophic cardiomyopathy Status: Acute Assessment and Plan: chronic and stable continue medications (3) Type 2 diabetes mellitus with complication, without long-term current use of insulin: Code(s): E11.8 - Type 2 diabetes mellitus with unspecified complications Status: Acute Assessment and Plan: chronic and stable hold oral hypoglycemics and add accuchecks and ssi (4) Presence of right artificial knee joint: Code(s): Z96.651 - Presence of right artificial knee joint Status: Acute Assessment and Plan: Sp R total knee replacement Continue PT/ OT/ pain control Plan Dvt prop: ASA Time Spent With Patient Time: Mild hyponatremia Continue to monitor Mild leukocytosis After procedure Monitor for now Obesity BMI 42.1 Lifestyle modification Subjective Date/time seen: 11/05/24 15:03 Interval history: per previous note Lindsay Bonilla is a 73 year old female for medical management pt is sp R total knee replacement under DR Meehan orthopedics pt was struggling with R knee pain despite epidural shots so surgery was planned for the knee. pt had PMH of DM, HTN, HLD. pt takes oral hypoglycemic medications for DM and states she does well with her DM diet. 11/05/24 Patient was seen and examined at bedside She is feeling fine. Denies any chest pain, shortness of beath, nausea vomiting. reviewed x-ray showed right knee revision arthroplasty Review of Systems Review of Systems: no specific complaints Exam Const: General: cooperative, healthy appearing and overweight; No in distress Nutritional Appearance: overweight Orientation/consciousness: oriented to person HENMT: Head: normal to inspection Resp: Effort & Inspection: no respiratory distress Auscultation: no rhonchi and no wheezes Cardio: Rate: regular rate Rhythm: regular rhythm GI: Inspection: normal to inspection Auscultation: normal bowel sounds Neuro: General: oriented to person Extrem: Other: sp R total knee replacement Objective Data Vital Signs Vital Signs: Vital Signs - 24 hr 11/04/24 18:03 11/04/24 20:00 11/04/24 22:03 Temperature 98.2 F 97.9 F Pulse Rate 58 L 58 L 58 L Respiratory Rate 18 20 20 Blood Pressure 136/52 L 136/60 Pulse Oximetry 100 100 100 Oxygen Delivery Room Air 11/05/24 02:03 11/05/24 05:42 11/05/24 09:07 Temperature 98.2 F 98.6 F Pulse Rate 58 L 56 L Respiratory Rate 20 18 Blood Pressure 108/53 L 127/53 L Pulse Oximetry 98 97 96 Oxygen Delivery Room Air Intake/Output Intake/Output: Intake & Output 11/02/24 11/03/24 11/04/24 11/05/24 23:59 23:59 23:59 23:59 Intake Total 890 790 Balance 890 790 Meds/Results Medications: Active Medications Generic Name Dose Route Start Last Admin Trade Name Freq PRN Reason Stop Dose Admin Acetaminophen 650 mg 11/04/24 12:18 11/05/24 12:29 Acetaminophen 325 Mg Tablet PO 650 mg Q6HR [facility] Administration Amlodipine Besylate 5 mg 11/05/24 09:00 11/05/24 08:01 Amlodipine Besylate 5 Mg Tablet PO 5 mg DAILY [facility] Administration Aspirin 81 mg 11/05/24 09:00 11/05/24 08:01 Aspirin 81 Mg Enteric Tablet PO 81 mg QAM [facility] Administration Calcium Carbonate 200 mg 11/04/24 12:34 Calcium Carbonate (Tums) 500 Mg (200 Mg Elemental) PO PRN PRN heartburn Clonidine HCl 0.1 mg 11/04/24 17:00 11/05/24 08:01 Clonidine Hcl 0.1 Mg Tablet PO 0.1 mg BID [facility] Administration Cyclobenzaprine HCl 10 mg 11/04/24 12:18 Cyclobenzaprine Hcl 10 Mg Tablet PO Q8H PRN Spasms Dextrose 12.5 gm 11/04/24 16:03 Dextrose 50% 25 Gm/50 Ml Syringe IV PUSH PRN PRN Hypoglycemia Protocol Diphenhydramine HCl 25 mg 11/04/24 12:18 Diphenhydramine Hcl Inj 50 Mg/Ml Vial IV PUSH Q6H PRN Itching Famotidine 20 mg 11/04/24 21:00 11/05/24 08:01 Famotidine 20 Mg Tablet PO 20 mg Q12HR [facility] Administration Glucagon 1 mg 11/04/24 12:18 Glucagon For Inj 1 Mg Vial IM PRN PRN Hypoglycemia Protocol Glucose 15 gm 11/04/24 16:03 Glucose Oral Gel 15 Gm Of Glucse In 37.5 Gm Tube PO PRN PRN Hypoglycemia Protocol Hydromorphone HCl 1 mg 11/04/24 12:18 Hydromorphone Hcl Inj (*Crx) 1 Mg/Ml Syr IV PUSH Q2H PRN Breakthrough Pain Rated 7-10 or NPO Hydromorphone HCl 0.5 mg 11/04/24 12:18 Hydromorphone Hcl Inj (*Crx) 1 Mg/Ml Syr IV PUSH Q2H PRN Breakthrough Pain Rated 4-6 or NPO Ibuprofen 800 mg in 200 mls @ 400 mls/hr 11/04/24 12:18 Caldolor 800 Mg/200 Ml IVPB Q6H PRN Breakthrough Pain Rated 1-3 or NPO Dextrose 1,000 mls @ 100 mls/hr 11/04/24 16:03 Dextrose 5% 1,000 Ml IVPB PRN PRN Hypoglycemia Protocol Insulin Aspart 2 - 5 units 11/04/24 17:00 11/05/24 11:59 Insulin Aspart (*Bkc) 100 Units/Ml SUB-Q Not Given TIDWM [facility] Protocol Metformin HCl 500 mg 11/04/24 17:00 11/05/24 08:00 Metformin Hcl 500 Mg Tablet PO 500 mg BIDWM [facility] Administration Miscellaneous Information 1 each 11/04/24 00:01 11/04/24 23:43 Vit D Order Has No Dosage. We Have Cholecalciferol 200iu, 400iu, 1000iu And 5000iu XX 12/04/24 00:00 Not Given CLARIFY [facility] Multivitamins/Minerals 1 tab 11/05/24 09:00 11/05/24 08:01 Multivitamins /C Lutein (Centrum Silver) Tablet *Bkc PO 1 tab DAILY [facility] Administration Naloxone HCl 0.1 mg 11/04/24 12:18 Naloxone Hcl 0.4 Mg/Ml Vial IV PUSH Q2M PRN Opiate Reversal Non-Formulary Medication 1 tab-cap 11/05/24 09:00 Vitamin D3 PO 12/05/24 08:59 DAILY [facility] Ondansetron HCl 4 mg 11/04/24 12:18 11/04/24 14:59 Ondansetron Inj 4 Mg/2 Ml Vial IV PUSH 4 mg Q4H PRN Administration Nausea And Vomiting Oxycodone/Acetaminophen 1 tablet 11/04/24 12:18 11/04/24 22:47 Oxycodone/Acetaminophen (*Crx) 5-325 Mg Tablet PO 1 tablet Q4H PRN Administration Pain Rated 4-6 Oxycodone/Acetaminophen 1 tab 11/04/24 12:18 Oxycodone/Acetaminophen (*Crx) 10-325 Mg Tablet PO Q6H PRN Pain Rated 7-10 Polyethylene Glycol 17 gm 11/05/24 09:00 11/05/24 08:02 Polyethylene Glycol 3350 17 Gm Powd.Pack PO 17 gm QAM [facility] Administration Prednisone 5 mg 11/04/24 17:00 11/04/24 17:00 Prednisone 5 Mg Tablet PO 5 mg DAILY@1700 [facility] Administration Rosuvastatin Calcium 10 mg 11/05/24 09:00 11/05/24 08:01 Rosuvastatin 10 Mg Tablet PO 10 mg DAILY [facility] Administration Senna/Docusate Sodium 2 tab 11/04/24 17:00 11/05/24 08:01 Senna/Docusate Sodium Tablet PO 2 tab BID [facility] Administration Tramadol HCl 50 mg 11/04/24 12:18 Tramadol Hcl (*Crx) 50 Mg Tablet PO Q4H PRN Pain Rated 1-3 Triamterene/Hydrochlorothiazide 1 tab 11/04/24 18:00 11/04/24 17:01 Triamterene 37.5 Mg/Hctz 25 Mg (Maxzide) Tablet PO 1 tab QPM [facility] Administration Radiology Results: ITS Impressions Knee X-Ray 11/04/24 11:43 IMPRESSION: 1. Revision right total knee arthroplasty, negative for postoperative purposes. See procedure note for further detail. Labs Labs: Laboratory Results - last 24 hr 11/04/24 11/04/24 11/04/24 12:38 16:44 20:35 WBC RBC Hgb Hct MCV MCH MCHC RDW Plt Count MPV Immature Gran % (Auto) Neut % (Auto) Lymph % (Auto) [place] % (Auto) Eos % (Auto) Baso % (Auto) Lymph # (Auto) [place] # (Auto) Eos # (Auto) Baso # (Auto) Abs Immat Gran (auto) Absolute Neuts (auto) Absolute Nucleated RBC Nucleated RBC % Sodium Potassium Chloride Carbon Dioxide Anion Gap BUN Creatinine Estim Creat Clear Calc Estimated GFR Glucose POC Capillary Glucose 140 H 150 H Hemoglobin A1c 5.7 Calcium 11/05/24 11/05/24 11/05/24 05:45 07:54 11:57 WBC 10.4 H RBC 3.86 L Hgb 10.0 L Hct 32.7 L MCV 84.7 MCH 25.9 L MCHC 30.6 L RDW 14.6 H Plt Count 278 MPV 9.7 Immature Gran % (Auto) 0.5 Neut % (Auto) 77.2 H Lymph % (Auto) 13.4 L [place] % (Auto) 8.0 Eos % (Auto) 0.5 Baso % (Auto) 0.4 Lymph # (Auto) 1.39 [place] # (Auto) 0.8 H Eos # (Auto) 0.1 Baso # (Auto) 0.0 Abs Immat Gran (auto) 0.05 H Absolute Neuts (auto) 8.0 H Absolute Nucleated RBC 0.000 Nucleated RBC % 0.0 Sodium 136 L Potassium 3.8 Chloride 105 Carbon Dioxide 23 Anion Gap 8 BUN 13 Creatinine 0.53 L Estim Creat Clear Calc 89 Estimated GFR > 60 Glucose 106 POC Capillary Glucose 87 138 H Hemoglobin A1c Calcium 9.1
[2024-11-05] MEDS: TRIAMTERENE 37.5 MG/HCTZ 25 MG (MAXZIDE) TABLET 1 TAB PO (17:07)
[2024-11-05] MEDS: oxyCODONE/ACETAMINOPHEN (*CRX) 5-325 MG TABLET 1 TABLET PO ×2 (17:10→23:38)
[2024-11-05 21:45] VITALS: PULSE 75; RESP 20; O2SAT 94
[2024-11-05 22:11] VITALS: BP 133/47; PULSE 73; RESP 18; TEMP 37.6; O2SAT 94
[2024-11-06] MEDS: ACETAMINOPHEN 325 MG TABLET 650 MG PO ×4 (05:47→23:24)
[2024-11-06] MEDS: oxyCODONE/ACETAMINOPHEN (*CRX) 5-325 MG TABLET 1 TABLET PO ×2 (06:46→15:26)
[2024-11-06 06:57] VITALS: BP 176/51; PULSE 82; RESP 20; TEMP 37.8; O2SAT 100
[2024-11-06 07:09] VITALS: BP 165/50
[2024-11-06] MEDS: MULTIVITAMINS /C LUTEIN (CENTRUM SILVER) TABLET *BKC 1 TAB PO (08:03)
[2024-11-06] MEDS: ROSUVASTATIN 10 MG TABLET PO (08:04)
[2024-11-06] MEDS: ASPIRIN 81 MG ENTERIC TABLET PO (08:04)
[2024-11-06] MEDS: SENNA/DOCUSATE SODIUM TABLET 2 TAB PO ×2 (08:04→17:03)
[2024-11-06] MEDS: FAMOTIDINE 20 MG TABLET PO ×2 (08:04→21:22)
[2024-11-06 08:06] VITALS: TEMP 37.2
[2024-11-06 10:24] LABS: Anion Gap 6 mmol/L (4-12); Blood Urea Nitrogen 10 mg/dL (7-17); Calcium 8.8 mg/dL (8.4-10.2); Carbon Dioxide 26 mmol/L (22-30); Chloride 101 mmol/L (98-107); Estimated CRCL calculation 82 ml/min; Estimated Glomerular Filt Rate > 60; Glucose 193 mg/dL (65-110); Potassium 3.3 mmol/L (3.4-5.0); Sodium 133 mmol/L (137-145)
--- NOTE | 2024-11-06 15:38 | PM.IMPN ---
Progress Note: A&P Assessment and Plan (1) Essential (primary) hypertension: Code(s): I10 - Essential (primary) hypertension Status: Acute Assessment and Plan: chronic and stable continue bp medications (2) Hypertrophic obstructive cardiomyopathy (HOCM): Code(s): I42.1 - Obstructive hypertrophic cardiomyopathy Status: Acute Assessment and Plan: chronic and stable continue medications (3) Type 2 diabetes mellitus with complication, without long-term current use of insulin: Code(s): E11.8 - Type 2 diabetes mellitus with unspecified complications Status: Acute Assessment and Plan: chronic and stable hold oral hypoglycemics and add accuchecks and ssi (4) Presence of right artificial knee joint: Code(s): Z96.651 - Presence of right artificial knee joint Status: Acute Assessment and Plan: Sp R total knee replacement Continue PT/ OT/ pain control Plan Dvt prop: ASA Patient is stable from medical standpoint and can be discharged when ready from primary team. Subjective Date/time seen: 11/06/24 15:38 Interval history: Comfortable at bedside Review of Systems Review of Systems: no specific complaints Exam Const: General: cooperative, healthy appearing and overweight; No in distress Nutritional Appearance: overweight Orientation/consciousness: oriented to person HENMT: Head: normal to inspection Resp: Effort & Inspection: no respiratory distress Auscultation: no rhonchi and no wheezes Cardio: Rate: regular rate Rhythm: regular rhythm GI: Inspection: normal to inspection Auscultation: normal bowel sounds Neuro: General: oriented to person Extrem: Other: sp R total knee replacement Objective Data Vital Signs Vital Signs: Vital Signs - 24 hr 11/05/24 20:00 11/05/24 21:45 11/05/24 22:11 Temperature 99.6 F Pulse Rate 75 73 Respiratory Rate 20 18 Blood Pressure 133/47 L Pulse Oximetry 94 94 Oxygen Delivery Room Air Room Air Fraction of Inspired Oxygen 21 11/06/24 06:57 11/06/24 07:09 11/06/24 08:06 Temperature 100.0 F H 99.0 F Pulse Rate 82 Respiratory Rate 20 Blood Pressure 176/51 H 165/50 H Pulse Oximetry 100 Oxygen Delivery Fraction of Inspired Oxygen Intake/Output Intake/Output: Intake & Output 11/03/24 11/04/24 11/05/24 11/06/24 23:59 23:59 23:59 23:59 Intake Total 890 1270 730 Balance 890 1270 730 Meds/Results Medications: Active Medications Generic Name Dose Route Start Last Admin Trade Name Freq PRN Reason Stop Dose Admin Acetaminophen 650 mg 11/04/24 12:18 11/06/24 11:51 Acetaminophen 325 Mg Tablet PO 650 mg Q6HR [facility] Administration Amlodipine Besylate 5 mg 11/05/24 09:00 11/06/24 08:04 Amlodipine Besylate 5 Mg Tablet PO 5 mg DAILY [facility] Administration Aspirin 81 mg 11/05/24 09:00 11/06/24 08:04 Aspirin 81 Mg Enteric Tablet PO 81 mg QAM [facility] Administration Calcium Carbonate 200 mg 11/04/24 12:34 Calcium Carbonate (Tums) 500 Mg (200 Mg Elemental) PO PRN PRN heartburn Clonidine HCl 0.1 mg 11/04/24 17:00 11/06/24 08:04 Clonidine Hcl 0.1 Mg Tablet PO 0.1 mg BID [facility] Administration Cyclobenzaprine HCl 10 mg 11/04/24 12:18 Cyclobenzaprine Hcl 10 Mg Tablet PO Q8H PRN Spasms Dextrose 12.5 gm 11/04/24 16:03 Dextrose 50% 25 Gm/50 Ml Syringe IV PUSH PRN PRN Hypoglycemia Protocol Diphenhydramine HCl 25 mg 11/04/24 12:18 Diphenhydramine Hcl Inj 50 Mg/Ml Vial IV PUSH Q6H PRN Itching Famotidine 20 mg 11/04/24 21:00 11/06/24 08:04 Famotidine 20 Mg Tablet PO 20 mg Q12HR [facility] Administration Glucagon 1 mg 11/04/24 12:18 Glucagon For Inj 1 Mg Vial IM PRN PRN Hypoglycemia Protocol Glucose 15 gm 11/04/24 16:03 Glucose Oral Gel 15 Gm Of Glucse In 37.5 Gm Tube PO PRN PRN Hypoglycemia Protocol Hydromorphone HCl 1 mg 11/04/24 12:18 Hydromorphone Hcl Inj (*Crx) 1 Mg/Ml Syr IV PUSH Q2H PRN Breakthrough Pain Rated 7-10 or NPO Hydromorphone HCl 0.5 mg 11/04/24 12:18 Hydromorphone Hcl Inj (*Crx) 1 Mg/Ml Syr IV PUSH Q2H PRN Breakthrough Pain Rated 4-6 or NPO Ibuprofen 800 mg in 200 mls @ 400 mls/hr 11/04/24 12:18 Caldolor 800 Mg/200 Ml IVPB Q6H PRN Breakthrough Pain Rated 1-3 or NPO Dextrose 1,000 mls @ 100 mls/hr 11/04/24 16:03 Dextrose 5% 1,000 Ml IVPB PRN PRN Hypoglycemia Protocol Insulin Aspart 2 - 5 units 11/04/24 17:00 11/06/24 11:44 Insulin Aspart (*Bkc) 100 Units/Ml SUB-Q Not Given TIDWM [facility] Protocol Metformin HCl 500 mg 11/04/24 17:00 11/06/24 08:04 Metformin Hcl 500 Mg Tablet PO 500 mg BIDWM [facility] Administration Miscellaneous Information 1 each 11/04/24 00:01 11/06/24 05:46 Vit D Order Has No Dosage. We Have Cholecalciferol 200iu, 400iu, 1000iu And 5000iu XX 12/04/24 00:00 Not Given CLARIFY [facility] Multivitamins/Minerals 1 tab 11/05/24 09:00 11/06/24 08:03 Multivitamins /C Lutein (Centrum Silver) Tablet *Bkc PO 1 tab DAILY [facility] Administration Naloxone HCl 0.1 mg 11/04/24 12:18 Naloxone Hcl 0.4 Mg/Ml Vial IV PUSH Q2M PRN Opiate Reversal Non-Formulary Medication 1 tab-cap 11/05/24 09:00 Vitamin D3 PO 12/05/24 08:59 DAILY [facility] Ondansetron HCl 4 mg 11/04/24 12:18 11/04/24 14:59 Ondansetron Inj 4 Mg/2 Ml Vial IV PUSH 4 mg Q4H PRN Administration Nausea And Vomiting Oxycodone/Acetaminophen 1 tablet 11/04/24 12:18 11/06/24 15:26 Oxycodone/Acetaminophen (*Crx) 5-325 Mg Tablet PO 1 tablet Q4H PRN Administration Pain Rated 4-6 Oxycodone/Acetaminophen 1 tab 11/04/24 12:18 Oxycodone/Acetaminophen (*Crx) 10-325 Mg Tablet PO Q6H PRN Pain Rated 7-10 Polyethylene Glycol 17 gm 11/05/24 09:00 11/06/24 08:02 Polyethylene Glycol 3350 17 Gm Powd.Pack PO 17 gm QAM [facility] Administration Prednisone 5 mg 11/04/24 17:00 11/05/24 17:07 Prednisone 5 Mg Tablet PO 5 mg DAILY@1700 [facility] Administration Rosuvastatin Calcium 10 mg 11/05/24 09:00 11/06/24 08:04 Rosuvastatin 10 Mg Tablet PO 10 mg DAILY [facility] Administration Senna/Docusate Sodium 2 tab 11/04/24 17:00 11/06/24 08:04 Senna/Docusate Sodium Tablet PO 2 tab BID [facility] Administration Tramadol HCl 50 mg 11/04/24 12:18 Tramadol Hcl (*Crx) 50 Mg Tablet PO Q4H PRN Pain Rated 1-3 Triamterene/Hydrochlorothiazide 1 tab 11/04/24 18:00 11/05/24 17:07 Triamterene 37.5 Mg/Hctz 25 Mg (Maxzide) Tablet PO 1 tab QPM [facility] Administration Radiology Results: ITS Impressions Knee X-Ray 11/04/24 11:43 IMPRESSION: 1. Revision right total knee arthroplasty, negative for postoperative purposes. See procedure note for further detail. Labs Labs: Laboratory Results - last 24 hr 11/05/24 11/05/24 11/06/24 17:04 20:32 07:52 Sodium Potassium Chloride Carbon Dioxide Anion Gap BUN Creatinine Estim Creat Clear Calc Estimated GFR Glucose POC Capillary Glucose 142 H 193 H 120 H Calcium 11/06/24 11/06/24 09:45 11:41 Sodium 133 L Potassium 3.3 L Chloride 101 Carbon Dioxide 26 Anion Gap 6 BUN 10 Creatinine 0.58 L Estim Creat Clear Calc 82 Estimated GFR > 60 Glucose 193 H POC Capillary Glucose 133 H Calcium 8.8
[2024-11-06 15:45] VITALS: BP 150/55; PULSE 81; RESP 18; TEMP 37.6; O2SAT 94
--- NOTE | 2024-11-06 16:35 | PM.PNORT ---
Progress Note: A&P Assessment and Plan (1) Status post total knee replacement, right: Code(s): Z96.651 - Presence of right artificial knee joint Status: Acute (2) Orthopedic aftercare for joint replacement: Qualifiers: Joint replacement surgery site: hip Laterality: right Qualified Code(s): Z47.1 - Aftercare following joint replacement surgery; Z96.641 - Presence of right artificial hip joint Code(s): Z47.1 - Aftercare following joint replacement surgery Status: Acute Plan Pain well controlled. Postoperative day 2 status post revision knee arthroplasty. Progressing appropriately with therapy. Dressing dry. No drainage. Swelling minimal. Calves nontender. Neurovascular status intact. Continues to do quite well. Therapy has been helpful with safe transfers and mobilization. Plan for discharge home tomorrow morning. Home health care arranged. Subjective Subjective Date/Time Seen: 11/06/24 16:35 Objective Data Vital Signs Vital Signs: Vital Signs - 24 hr 11/05/24 20:00 11/05/24 21:45 11/05/24 22:11 Temperature 37.6 C Pulse Rate 75 73 Respiratory Rate 20 18 Blood Pressure 133/47 L Pulse Oximetry 94 94 Oxygen Delivery Room Air Room Air Fraction of Inspired Oxygen 11/06/24 06:57 11/06/24 07:09 11/06/24 08:06 Temperature 37.8 C H 37.2 C Pulse Rate 82 Respiratory Rate 20 Blood Pressure 176/51 H 165/50 H Pulse Oximetry 100 Oxygen Delivery Fraction of Inspired Oxygen 11/06/24 15:45 Temperature 37.6 C H Pulse Rate 81 Respiratory Rate 18 Blood Pressure 150/55 H Pulse Oximetry 94 Oxygen Delivery Fraction of Inspired Oxygen Intake/Output Intake/Output: Intake & Output 11/03/24 11/04/24 11/05/24 11/06/24 23:59 23:59 23:59 23:59 Intake Total 890 1270 730 Balance 890 1270 730 Meds/Results Medications: Active Medications Generic Name Dose Route Start Last Admin Trade Name Freq PRN Reason Stop Dose Admin Acetaminophen 650 mg 11/04/24 12:18 11/06/24 11:51 Acetaminophen 325 Mg Tablet PO 650 mg Q6HR SUMANTH Administration Amlodipine Besylate 5 mg 11/05/24 09:00 11/06/24 08:04 Amlodipine Besylate 5 Mg Tablet PO 5 mg DAILY SUMANTH Administration Aspirin 81 mg 11/05/24 09:00 11/06/24 08:04 Aspirin 81 Mg Enteric Tablet PO 81 mg QAM SUMANTH Administration Calcium Carbonate 200 mg 11/04/24 12:34 Calcium Carbonate (Tums) 500 Mg (200 Mg Elemental) PO PRN PRN heartburn Clonidine HCl 0.1 mg 11/04/24 17:00 11/06/24 08:04 Clonidine Hcl 0.1 Mg Tablet PO 0.1 mg BID SUMANTH Administration Cyclobenzaprine HCl 10 mg 11/04/24 12:18 Cyclobenzaprine Hcl 10 Mg Tablet PO Q8H PRN Spasms Dextrose 12.5 gm 11/04/24 16:03 Dextrose 50% 25 Gm/50 Ml Syringe IV PUSH PRN PRN Hypoglycemia Protocol Diphenhydramine HCl 25 mg 11/04/24 12:18 Diphenhydramine Hcl Inj 50 Mg/Ml Vial IV PUSH Q6H PRN Itching Famotidine 20 mg 11/04/24 21:00 11/06/24 08:04 Famotidine 20 Mg Tablet PO 20 mg Q12HR SUMANTH Administration Glucagon 1 mg 11/04/24 12:18 Glucagon For Inj 1 Mg Vial IM PRN PRN Hypoglycemia Protocol Glucose 15 gm 11/04/24 16:03 Glucose Oral Gel 15 Gm Of Glucse In 37.5 Gm Tube PO PRN PRN Hypoglycemia Protocol Hydromorphone HCl 1 mg 11/04/24 12:18 Hydromorphone Hcl Inj (*Crx) 1 Mg/Ml Syr IV PUSH Q2H PRN Breakthrough Pain Rated 7-10 or NPO Hydromorphone HCl 0.5 mg 11/04/24 12:18 Hydromorphone Hcl Inj (*Crx) 1 Mg/Ml Syr IV PUSH Q2H PRN Breakthrough Pain Rated 4-6 or NPO Ibuprofen 800 mg in 200 mls @ 400 mls/hr 11/04/24 12:18 Caldolor 800 Mg/200 Ml IVPB Q6H PRN Breakthrough Pain Rated 1-3 or NPO Dextrose 1,000 mls @ 100 mls/hr 11/04/24 16:03 Dextrose 5% 1,000 Ml IVPB PRN PRN Hypoglycemia Protocol Insulin Aspart 2 - 5 units 11/04/24 17:00 11/06/24 11:44 Insulin Aspart (*Bkc) 100 Units/Ml SUB-Q Not Given TIDWM [facility] Protocol Metformin HCl 500 mg 11/04/24 17:00 11/06/24 08:04 Metformin Hcl 500 Mg Tablet PO 500 mg BIDWM SUMANTH Administration Miscellaneous Information 1 each 11/04/24 00:01 11/06/24 05:46 Vit D Order Has No Dosage. We Have Cholecalciferol 200iu, 400iu, 1000iu And 5000iu XX 12/04/24 00:00 Not Given CLARIFY [facility] Multivitamins/Minerals 1 tab 11/05/24 09:00 11/06/24 08:03 Multivitamins /C Lutein (Centrum Silver) Tablet *Bkc PO 1 tab DAILY SUMANTH Administration Naloxone HCl 0.1 mg 11/04/24 12:18 Naloxone Hcl 0.4 Mg/Ml Vial IV PUSH Q2M PRN Opiate Reversal Non-Formulary Medication 1 tab-cap 11/05/24 09:00 Vitamin D3 PO 12/05/24 08:59 DAILY [facility] Ondansetron HCl 4 mg 11/04/24 12:18 11/04/24 14:59 Ondansetron Inj 4 Mg/2 Ml Vial IV PUSH 4 mg Q4H PRN Administration Nausea And Vomiting Oxycodone/Acetaminophen 1 tablet 11/04/24 12:18 11/06/24 15:26 Oxycodone/Acetaminophen (*Crx) 5-325 Mg Tablet PO 1 tablet Q4H PRN Administration Pain Rated 4-6 Oxycodone/Acetaminophen 1 tab 11/04/24 12:18 Oxycodone/Acetaminophen (*Crx) 10-325 Mg Tablet PO Q6H PRN Pain Rated 7-10 Polyethylene Glycol 17 gm 11/05/24 09:00 11/06/24 08:02 Polyethylene Glycol 3350 17 Gm Powd.Pack PO 17 gm QAM SUMANTH Administration Prednisone 5 mg 11/04/24 17:00 11/05/24 17:07 Prednisone 5 Mg Tablet PO 5 mg DAILY@1700 SUMANTH Administration Rosuvastatin Calcium 10 mg 11/05/24 09:00 11/06/24 08:04 Rosuvastatin 10 Mg Tablet PO 10 mg DAILY SUMANTH Administration Senna/Docusate Sodium 2 tab 11/04/24 17:00 11/06/24 08:04 Senna/Docusate Sodium Tablet PO 2 tab BID SUMANTH Administration Tramadol HCl 50 mg 11/04/24 12:18 Tramadol Hcl (*Crx) 50 Mg Tablet PO Q4H PRN Pain Rated 1-3 Triamterene/Hydrochlorothiazide 1 tab 11/04/24 18:00 11/05/24 17:07 Triamterene 37.5 Mg/Hctz 25 Mg (Maxzide) Tablet PO 1 tab QPM SUMANTH Administration Radiology Results: ITS Impressions Knee X-Ray 11/04/24 11:43 IMPRESSION: 1. Revision right total knee arthroplasty, negative for postoperative purposes. See procedure note for further detail. Labs Labs: Laboratory Results - last 24 hr 11/05/24 11/05/24 11/06/24 17:04 20:32 07:52 Sodium Potassium Chloride Carbon Dioxide Anion Gap BUN Creatinine Estim Creat Clear Calc Estimated GFR Glucose POC Capillary Glucose 142 H 193 H 120 H Calcium 11/06/24 11/06/24 09:45 11:41 Sodium 133 L Potassium 3.3 L Chloride 101 Carbon Dioxide 26 Anion Gap 6 BUN 10 Creatinine 0.58 L Estim Creat Clear Calc 82 Estimated GFR > 60 Glucose 193 H POC Capillary Glucose 133 H Calcium 8.8
[2024-11-06] MEDS: TRIAMTERENE 37.5 MG/HCTZ 25 MG (MAXZIDE) TABLET 1 TAB PO (17:03)
[2024-11-06 21:35] VITALS: BP 152/73; PULSE 80; RESP 18; TEMP 36.4; O2SAT 99
[2024-11-07 04:50] VITALS: BP 154/64; PULSE 82; RESP 16; TEMP 37.7; O2SAT 100
[2024-11-07] MEDS: ACETAMINOPHEN 325 MG TABLET 650 MG PO ×2 (05:48→12:18)
[2024-11-07] MEDS: oxyCODONE/ACETAMINOPHEN (*CRX) 5-325 MG TABLET 1 TABLET PO (08:58)
[2024-11-07] MEDS: FAMOTIDINE 20 MG TABLET PO (09:00)
[2024-11-07] MEDS: SENNA/DOCUSATE SODIUM TABLET 2 TAB PO (09:00)
[2024-11-07] MEDS: ASPIRIN 81 MG ENTERIC TABLET PO (09:00)
[2024-11-07] MEDS: ROSUVASTATIN 10 MG TABLET PO (09:00)
[2024-11-07] MEDS: MULTIVITAMINS /C LUTEIN (CENTRUM SILVER) TABLET *BKC 1 TAB PO (09:00)
--- NOTE | 2024-11-07 10:12 | PCPTNOTE ---
Attempted to see patient for PT, however patient was working with OT.
--- NOTE | 2024-11-07 12:46 | PM.IMPN ---
Progress Note: A&P Assessment and Plan (1) Essential (primary) hypertension: Code(s): I10 - Essential (primary) hypertension Status: Acute Assessment and Plan: BP 154/64 Continue Amlodipine 5mg and Clonidine 0.1mg bid Started on HCTZ 12.5mg daily Patient can discharge on the above medications (2) Hypertrophic obstructive cardiomyopathy (HOCM): Code(s): I42.1 - Obstructive hypertrophic cardiomyopathy Status: Acute Assessment and Plan: chronic and stable continue medications (3) Type 2 diabetes mellitus with complication, without long-term current use of insulin: Code(s): E11.8 - Type 2 diabetes mellitus with unspecified complications Status: Acute Assessment and Plan: chronic and stable hold oral hypoglycemics and add accuchecks and ssi Continue home regimen on discharge (4) Presence of right artificial knee joint: Code(s): Z96.651 - Presence of right artificial knee joint Status: Acute Assessment and Plan: Sp R total knee replacement Continue PT/ OT/ pain control Plan Dvt prop: ASA Patient is stable from medical standpoint and can be discharged when ready from primary team. Subjective Date/time seen: 11/07/24 12:46 Interval history: Comfortable at bedside Review of Systems Review of Systems: no specific complaints Exam Const: General: cooperative, healthy appearing and overweight; No in distress Nutritional Appearance: overweight Orientation/consciousness: oriented to person HENMT: Head: normal to inspection Resp: Effort & Inspection: no respiratory distress Auscultation: no rhonchi and no wheezes Cardio: Rate: regular rate Rhythm: regular rhythm GI: Inspection: normal to inspection Auscultation: normal bowel sounds Neuro: General: oriented to person Extrem: Other: sp R total knee replacement Objective Data Vital Signs Vital Signs: Vital Signs - 24 hr 11/06/24 15:45 11/06/24 21:22 11/06/24 21:35 Temperature 99.7 F H 97.5 F L Pulse Rate 81 80 Respiratory Rate 18 18 Blood Pressure 150/55 H 152/73 H Pulse Oximetry 94 99 Oxygen Delivery Room Air 11/07/24 04:50 Temperature 99.9 F H Pulse Rate 82 Respiratory Rate 16 Blood Pressure 154/64 H Pulse Oximetry 100 Oxygen Delivery Intake/Output Intake/Output: Intake & Output 11/04/24 11/05/24 11/06/24 11/07/24 23:59 23:59 23:59 23:59 Intake Total 890 1270 1210 480 Balance 890 1270 1210 480 Meds/Results Medications: Active Medications Generic Name Dose Route Start Last Admin Trade Name Freq PRN Reason Stop Dose Admin Acetaminophen 650 mg 11/04/24 12:18 11/07/24 12:18 Acetaminophen 325 Mg Tablet PO 650 mg Q6HR SUMANTH Administration Amlodipine Besylate 5 mg 11/05/24 09:00 11/07/24 08:59 Amlodipine Besylate 5 Mg Tablet PO 5 mg DAILY SUMANTH Administration Aspirin 81 mg 11/05/24 09:00 11/07/24 09:00 Aspirin 81 Mg Enteric Tablet PO 81 mg QAM SUMANTH Administration Calcium Carbonate 200 mg 11/04/24 12:34 Calcium Carbonate (Tums) 500 Mg (200 Mg Elemental) PO PRN PRN heartburn Clonidine HCl 0.1 mg 11/04/24 17:00 11/07/24 09:00 Clonidine Hcl 0.1 Mg Tablet PO 0.1 mg BID SUMANTH Administration Cyclobenzaprine HCl 10 mg 11/04/24 12:18 Cyclobenzaprine Hcl 10 Mg Tablet PO Q8H PRN Spasms Dextrose 12.5 gm 11/04/24 16:03 Dextrose 50% 25 Gm/50 Ml Syringe IV PUSH PRN PRN Hypoglycemia Protocol Diphenhydramine HCl 25 mg 11/04/24 12:18 Diphenhydramine Hcl Inj 50 Mg/Ml Vial IV PUSH Q6H PRN Itching Famotidine 20 mg 11/04/24 21:00 11/07/24 09:00 Famotidine 20 Mg Tablet PO 20 mg Q12HR SUMANTH Administration Glucagon 1 mg 11/04/24 12:18 Glucagon For Inj 1 Mg Vial IM PRN PRN Hypoglycemia Protocol Glucose 15 gm 11/04/24 16:03 Glucose Oral Gel 15 Gm Of Glucse In 37.5 Gm Tube PO PRN PRN Hypoglycemia Protocol Hydromorphone HCl 1 mg 11/04/24 12:18 Hydromorphone Hcl Inj (*Crx) 1 Mg/Ml Syr IV PUSH Q2H PRN Breakthrough Pain Rated 7-10 or NPO Hydromorphone HCl 0.5 mg 11/04/24 12:18 Hydromorphone Hcl Inj (*Crx) 1 Mg/Ml Syr IV PUSH Q2H PRN Breakthrough Pain Rated 4-6 or NPO Ibuprofen 800 mg in 200 mls @ 400 mls/hr 11/04/24 12:18 Caldolor 800 Mg/200 Ml IVPB Q6H PRN Breakthrough Pain Rated 1-3 or NPO Dextrose 1,000 mls @ 100 mls/hr 11/04/24 16:03 Dextrose 5% 1,000 Ml IVPB PRN PRN Hypoglycemia Protocol Insulin Aspart 2 - 5 units 11/04/24 17:00 11/07/24 12:21 Insulin Aspart (*Bkc) 100 Units/Ml SUB-Q Not Given TIDWM [facility] Protocol Metformin HCl 500 mg 11/04/24 17:00 11/07/24 09:00 Metformin Hcl 500 Mg Tablet PO 500 mg BIDWM [facility] Administration Miscellaneous Information 1 each 11/04/24 00:01 11/07/24 12:21 Vit D Order Has No Dosage. We Have Cholecalciferol 200iu, 400iu, 1000iu And 5000iu XX 12/04/24 00:00 Not Given CLARIFY [facility] Multivitamins/Minerals 1 tab 11/05/24 09:00 11/07/24 09:00 Multivitamins /C Lutein (Centrum Silver) Tablet *Bkc PO 1 tab DAILY SUMAN[facility] Administration Naloxone HCl 0.1 mg 11/04/24 12:18 Naloxone Hcl 0.4 Mg/Ml Vial IV PUSH Q2M PRN Opiate Reversal Non-Formulary Medication 1 tab-cap 11/05/24 09:00 Vitamin D3 PO 12/05/24 08:59 DAILY [facility] Ondansetron HCl 4 mg 11/04/24 12:18 11/04/24 14:59 Ondansetron Inj 4 Mg/2 Ml Vial IV PUSH 4 mg Q4H PRN Administration Nausea And Vomiting Oxycodone/Acetaminophen 1 tablet 11/04/24 12:18 11/07/24 08:58 Oxycodone/Acetaminophen (*Crx) 5-325 Mg Tablet PO 1 tablet Q4H PRN Administration Pain Rated 4-6 Oxycodone/Acetaminophen 1 tab 11/04/24 12:18 Oxycodone/Acetaminophen (*Crx) 10-325 Mg Tablet PO Q6H PRN Pain Rated 7-10 Polyethylene Glycol 17 gm 11/05/24 09:00 11/07/24 09:01 Polyethylene Glycol 3350 17 Gm Powd.Pack PO Not Given QAM SUMANTH Prednisone 5 mg 11/04/24 17:00 11/06/24 17:03 Prednisone 5 Mg Tablet PO 5 mg DAILY@1700 SUMAN[facility] Administration Rosuvastatin Calcium 10 mg 11/05/24 09:00 11/07/24 09:00 Rosuvastatin 10 Mg Tablet PO 10 mg DAILY [facility]ANTH Administration Senna/Docusate Sodium 2 tab 11/04/24 17:00 11/07/24 09:00 Senna/Docusate Sodium Tablet PO 2 tab BID SUMANTH Administration Tramadol HCl 50 mg 11/04/24 12:18 Tramadol Hcl (*Crx) 50 Mg Tablet PO Q4H PRN Pain Rated 1-3 Triamterene/Hydrochlorothiazide 1 tab 11/04/24 18:00 11/06/24 17:03 Triamterene 37.5 Mg/Hctz 25 Mg (Maxzide) Tablet PO 1 tab QPM SUMANTH Administration Radiology Results: ITS Impressions Knee X-Ray 11/04/24 11:43 IMPRESSION: 1. Revision right total knee arthroplasty, negative for postoperative purposes. See procedure note for further detail. Labs Labs: Laboratory Results - last 24 hr 11/06/24 11/06/24 11/07/24 16:53 20:41 07:40 POC Capillary Glucose 139 H 211 H 120 H
--- NOTE | 2024-11-07 14:14 | PC.NURSE ---
Pt called at home at the direction of Dr. De La Torre regarding her high blood pressures while inpatient. She has been advised to follow up with her PCP. She reports that she follows up frequently with her PCP since she started Mounjaro. She will mention her blood pressures to her PCP at her next appointment coming up.
--- NOTE | 2024-11-13 17:21 | P.DS_ITS ---
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 DS: Discharge Diagnosis Discharge Diagnosis Plan Revision total knee arthroplasty due to loose tibia prosthesis. DS: Summary Hospital Course Reason for hospitalization: Revision total knee arthroplasty. Hospital Course: Tolerated surgery well. Progressed appropriately with therapy. Status at Discharge Functional status at discharge: uses cane/walker Time Spent with Patient Time attestation: Total time spent providing and/or coordinating discharge services: Exam Narrative: Afebrile. Vital signs stable. Wound is healing nicely with an intact dry dressing. Swelling is mild. Calf nontender. Minimal edema. Neurovascular status intact. Const: General: no acute distress Resp: Effort & Inspection: normal respiratory effort Skin: Other: Wound healing well. Mepilex dressing intact. No hematoma or drainage. Neuro: Motor exam (neuro): 5/5 motor strength present throughout Sensory Exam: normal sensation Psych: Mental Status: mental status grossly normal Speech and movement: Normal speech and movement present Discharge Plan Discharge Attending physician on discharge: Doug Meehan Consulting providers: Mckayla Estevez; Tian Zee; Darci Staton; Maurilio De La Torre; De Allan Discharging Clinician: Doug Meehan Patient Disposition: Home with Home Health Service Activity: july shower Diet: as tolerated Wound Care Instructions: follow printed instructions Discharge Instructions: Care Coordination : [facility] to follow patient for PT/OT. [facility] to call patient to set up admission visit [phone]. Nursing to fax discharge instructions to [phone] Patient Instructions: Antibiotic Form Patient Language: Kinyarwanda Stand Alone Forms: General Discharge Information, General Discharge Instructions Follow-up/Referrals: Hafsa Rojas PA [Physician Manager Distribution, Orthopedics] Discharge Medications: New prednisone 5 mg tablet 5 mg PO DAILY 21 Days Qty: 21 0RF oxycodone-acetaminophen 5-325 mg tablet 1 - 2 tablet PO Q4-6H PRN (Reason: pain) Qty: 30 0RF Continued metformin 500 mg tablet 500 mg PO BID amlodipine 5 mg tablet 5 mg PO DAILY Mounjaro 10 mg/0.5 mL pen injector 10 mg subcut WEEKLY Patient Comments: TAKES ON THURSDAYS TAKES FOR WEIGHT LOSS silver sulfadiazine 1 % cream 1 applic topical DAILY Rx Instructions: apply a 1.5 mm thickness triamterene-hydrochlorothiazid 37.5-25 mg capsule 1 cap PO QPM clonidine HCl 0.1 mg tablet 0.1 mg PO BID Adults Multivitamin 18 mg iron-400 mcg-25 mcg Tablet 1 tablet PO DAILY rosuvastatin 10 mg tablet 10 mg PO DAILY naproxen sodium [Aleve] 220 mg capsule 220 mg PO Q8H calcium carbonate-simethicone 500-20 mg tablet,chewable 1 tablet PO PRN PRN (Reason: heartburn) acetaminophen 650 mg Tablet Extended Release 650 mg PO Q8H PRN (Reason: Pain) aspirin 81 mg Tablet 81 mg PO DAILY Vitamin D3 1 tab-cap PO DAILY Date of admission: 11/04/24 07:00 Primary Care Provider: FallonHarry Admitting Provider: Doug Meehan Attending physician on admission: Doug Meehan Condition: Stable Quality VTE Prophylaxis VTE prophylaxis: mechanical ordered (JESSE jones and Napoleon)
== END 2024-11-07 12:50 | disposition home health service (06) | DRG 467 ==
LOC: ANHSURGERY 11:11 → ANH3MEDSUR 11-05 07:24
PROVIDERS: Family Medicine; Internal Medicine; Physician Assistant Surgical; Admitting Provider Orthopaedic Surgery; PCP Internal Medicine; Visit Provider Orthopaedic Surgery
PROC: 0SPC0LZ Removal of Medial Unicondylar Synthetic Substitute from Right Knee Joint, Open Approach (ICD-10-PCS; principal; 2024-11-04 07:30)
DX: T84.022A Instability of internal right knee prosthesis, initial encounter (principal); I42.1 Obstructive hypertrophic cardiomyopathy; I10 Essential (primary) hypertension; E11.9 Type 2 diabetes mellitus without complications; E78.5 Hyperlipidemia, unspecified; M48.062 Spinal stenosis, lumbar region with neurogenic claudication; Z96.641 Presence of right artificial hip joint; Z96.652 Presence of left artificial knee joint
CPT/HCPCS: 36415; 73560; 80048; 82948; 83036; 85025; 86850; 86900; 86901; 87070; 87075; 87205; 97110; 97116; 97161; 97166; 97530; 97535; J0690; A9270; C1713; C1776; J0166; J1100; J1171; J1596; J1885; J2003; J2270; J2405; J2704; J2795; J3010; J3373; J7120; J7512

== ENCOUNTER 2024-11-19 14:40 | Outpatient (CLI) | payer MEDICARE, MEDICAID, SELFPAY ==
--- NOTE | ~2024-11-19 | XR_ITS ---
XR knee RT 3V 11/19/2024 15:22 Indication: Orthopedic aftercare Procedure: 3 views right knee Comparison: Comparison to multiple prior studies sequentially, with oldest reviewed study dated 06/18/2022. 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 There is a large amount of subcutaneous edema and prepatellar soft tissue swelling. Prosthesis appears to be well seated. No evidence for loosening. Impression: 1: No acute bone or joint abnormality identified. Reviewed, dictated and finalized at location O. Impression: 1: No acute bone or joint abnormality identified.
--- NOTE | ~2024-11-19 | US_ITS ---
EXAMINATION:US venous doppler LE RT INDICATION:Right lower extremity swelling TECHNIQUE: Multiple grayscale, color flow and Doppler images of the right lower extremity deep venous systems were obtained and reviewed. COMPARISON:No prior studies for comparison. FINDINGS: The common femoral, superficial femoral and popliteal veins demonstrate normal respiratory variation, augmentation and compressibility. Color flow is also seen within the greater saphenous and profunda veins. IMPRESSION: 1: No lower extremity deep venous thrombosis. Reviewed, dictated and finalized at location O.
== END 2024-11-19 14:41 | disposition home or self-care (01) ==
PROVIDERS: PCP Internal Medicine; Visit Provider Orthopaedic Surgery
DX: R60.0 Localized edema (principal); Z96.651 Presence of right artificial knee joint; Z47.89 Encounter for other orthopedic aftercare
CPT/HCPCS: 73562; 93971

== ENCOUNTER 2025-03-17 16:08 | Emergency (ER) | payer MEDICARE, MEDICAID, SELFPAY ==
--- NOTE | ~2025-03-17 | XR_ITS ---
EXAMINATION: XR chest 1V portable 03/18/2025 01:59 INDICATION: Weakness. Hypertension. PROCEDURE: AP portable chest COMPARISON: Comparison to multiple prior studies sequentially, with oldest reviewed study dated 05/13/2007. FINDINGS: The lungs are clear. The cardiomediastinal silhouette is within normal limits. There are no pleural effusions. There is no pneumothorax suspected. There are advanced degenerative changes of the glenohumeral joints. IMPRESSION: 1: NO ACUTE CARDIOPULMONARY DISEASE. Reviewed, dictated and finalized at location O. ONENT OVERHAUL OPERATOR
--- NOTE | ~2025-03-17 | XR_ITS ---
XR ankle RT min 3V 03/18/2025 02:41 Indication: Right ankle pain Procedure: 4 views right ankle Comparison: No prior studies for comparison. Findings: Moderate polyarticular osteoarthritis. There is diffuse soft tissue swelling. Pes planus. Osteopenia. No acute fracture or traumatic malalignment. No foreign bodies. Impression: 1: No acute fracture. Moderate diffuse soft tissue swelling. Reviewed, dictated and finalized at location O. NSION STONE QUARRY SUPERVISOR Impression: 1: No acute fracture. Moderate diffuse soft tissue swelling.
--- NOTE | ~2025-03-17 | XR_ITS ---
XR knee RT min 4V 03/18/2025 02:42 Indication: Presence of artificial knee joint Procedure: 4 views right knee Comparison: 12/15/2024 Findings: There is a right total knee arthroplasty. Prosthesis well seated with longstem tibial component. No fracture or traumatic malalignment. Mild subcutaneous edema. No significant joint effusion. Osteopenia. Impression: 1: No acute bone or joint abnormality. Reviewed, dictated and finalized at location O. NE ADVERTISING ANALYST Impression: 1: No acute bone or joint abnormality.
--- NOTE | ~2025-03-17 | XR_ITS ---
XR ankle LT min 3V 03/18/2025 02:41 Indication: Left ankle pain Procedure: 3 views left ankle Comparison: No prior studies for comparison. Findings: Moderate diffuse soft tissue abnormality. Ankle mortise intact. There are degenerative calcaneal enthesophytes. Pes planus. Moderate polyarticular osteoarthritis. No acute fracture. Osteopenia. Impression: 1: No acute fracture. Moderate diffuse soft tissue swelling particularly laterally. Reviewed, dictated and finalized at location O. ER TENDERS SUPERVISOR Impression: 1: No acute fracture. Moderate diffuse soft tissue swelling particularly latera lly.
--- NOTE | ~2025-03-17 | CT_ITS ---
EXAMINATION: CT BRAIN W/O DATE: 03/18/2025 02:12 INDICATION: Increasing weakness and dizziness TECHNIQUE: Computed tomography (CT) of the head was performed without intravenous contrast. The dose-length product was 605.33 mGy-cm. Automated exposure control and iterative reconstruction technique were employed. COMPARISON: No prior studies for comparison. FINDINGS: Normal brain parenchymal volume for age. Normal morrow-white differentiation. No acute intracranial hemorrhage, infarction, mass or mass effect. There are scattered mild periventricular and subcortical white matter changes, most likely related to small vessel ischemic disease (microangiopathy). No ventriculomegaly or midline shift. Midline sagittal images demonstrate a normal corpus callosum, craniovertebral junction and sella turcica. Basilar cisterns are patent. Paranasal sinuses and mastoids are pneumatized. No depressed skull fractures. IMPRESSION: 1. No acute intracranial abnormality. Reviewed, dictated and finalized at location O. SETTER LOCKSTITCH
--- OUTSIDE RECORDS SUMMARY | 2025-03-17 16:10 | XMS_ITS | Data Portability ---
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 Mower Operator variances may occur. Despite proofreading, typographical errors may occur. Occasional wrong-word or 'eechx-w-dmyc' substitutions may have occurred due to the inherent limitations of voice recording. Read the chart carefully and recognize, using context, where substitutions have occurred. Not available 05/15/2024 09:09:09 08/25/2024 08/25/2024 This note is dictated and transcribed by [employer]. Mower Operator variances may occur. Despite proofreading, typographical errors may occur. Occasional wrong-word or 'qjkid-x-clqn' substitutions may have occurred due to the inherent limitations of voice recording. Read the chart carefully and recognize, using context, where substitutions have occurred. Not available 08/25/2024 16:07:42 09/15/2024 09/15/2024 This note is dictated and transcribed by [employer]. Mower Operator variances may occur. Despite proofreading, typographical errors may occur. Occasional wrong-word or 'ydwaa-q-kypf' substitutions may have occurred due to the inherent limitations of voice recording. Read the chart carefully and recognize, using context, where substitutions have occurred. Not available 09/17/2024 13:43:21 10/30/2024 10/30/2024 This note is dictated and transcribed by [employer]. Mower Operator variances may occur. Despite proofreading, typographical errors may occur. Occasional wrong-word or 'smzbq-g-naht' substitutions may have occurred due to the inherent limitations of voice recording. Read the chart carefully and recognize, using context, where substitutions have occurred. [email or web address] Not available 11/13/2024 12:31:51 Plan of Treatment Reminders Order Date Submit Date Provider Last Modified By Organization Details Last Modified Time Details Appointments Establish ed Patient 10 2025 01:40P Bob Rodriguez DPM Not available Not available Not available Lab None recorded. Referral None recorded. Procedures cerumen removal (PROC) 2023 024 ftrotVanessa SHIFT MGR, [address] [facility] [address], [place], [address], 11/26/2023 14:25:18 Surgeries None recorded. Imaging None recorded. Medication Orders Silvadene 1 % topical cream 2024 025 [id number], [address] [place], [place], [id number], 09/17/2024 13:43:55 Silvadene 1 % topical cream 2024 025 [facility] #[id number], [address] [facility], [place], [place], [id number], 08/25/2024 16:09:15 doxycycli ne hyclate 100 mg tablet 2023 024 [facility] #[id number], [address], [place], [id number], 11/22/2023 13:07:42 Patient TargetsNo targets recorded. Patient InstructionsNo instructions recorded. Reason for Referral None Reported. Problems Name Problem SNOMED Code Status Onset Date Resolution Date Notes Provider Name and Address Organization Details Recorded Time Pain in lower limb 78465456 Completed Not Available [facility] 3 00:58:58 Labyrinth itis 97501699 Active Not Available [facility] 3 00:13:24 Anemia 747407447 Active Not Available [facility] 3 00:13:24 Low back strain 760782036 Completed Not Available [facility] 3 00:58:58 Type 2 diabetes mellitus without complicat ion 634404191 Active Not Available [facility] 3 00:13:24 Bronchiti s 15555251 Completed Not Available [facility] 3 00:58:58 Vertigo 256585684 Active Not Available [facility] 3 00:13:24 Chronic sinusitis 24164066 Active Not Available [facility] 3 00:13:24 Viral syndrome 938933467 Completed Not Available [facility] 3 00:58:58 Essential hypertens ion 37981324 Active Not Available [facility] 3 00:13:24 Lip swelling 361541447 Completed Not Available [facility] 3 00:58:59 Gastritis 3551426 Completed 201307/29/2017 Not Available [facility] 3 00:58:59 Nausea and vomiting 83162065 Active 2016 Not Available [facility] 3 00:13:24 Type 2 diabetes mellitus 64983415 Active 2016 Not Available [facility] 3 00:13:24 Dyslipide mj 986264735 Active 2017 Not Available [facility] 3 00:13:24 Dry skin 83491998 Active 2020 Not Available [facility] 3 00:13:24 Sinusitis 48183324 Active 2021 Not Available [facility] 3 00:13:24 Dysuria 96051606 Active 2021 Not Available [facility] 3 00:13:24 Upper respirato ry infection 62859752 Active 2021 Not Available [facility] 3 00:13:24 Acute upper respirato ry infection 40792873 Active 2021 Not Available [facility] 3 00:13:24 Acute sinusitis 41430854 Active 2022 Not Available [facility] 3 00:13:24 Diabetic periphera l neuropath y 405499817 Active 2022 Not Available [facility] 3 00:13:24 Foot callus 285149488 Active 2022 Not Available [facility] 3 00:13:24 Dystrophi a unguium 41663172 Active 2022 Not Available [facility] 3 00:13:24 Nasal congestio n 75590107 Active 2022 Not Available [facility] 3 00:13:24 Blood-tin ged feces 02558634522 4102 Active 2022 Not Available [facility] 3 00:13:24 Impacted cerumen in left ear 91333969095 09851 Active 2023 BONIFACIO Marina [address], [place], [address] , [facility] 4 13:05:59 Candidias is of mouth 47488106 Active 2023 Christine Molina RN null, [employer] 4 09:42:13 Callosity on toe 620880089 Active 2024 Kalen Rodriguez DPM [address], [address], [place], [address] , [facility] 5 09:09:25 Pain in toe 006084116 Active 2024 Kalen Rodriguez DPM [address], [address], [place], [address] , [employer] 5 09:09:41 Ulcer of toe due to type 2 diabetes mellitus 97479064310 9101 Active 2024 Kalen Rodriguez DPM [address], [place], [address] , [facility] 5 16:08:15 Problem Notes None recorded. Procedures Surgical History Date Name Laterality Status Provider Name and Address Organization Details Recorded Time 10/31/19 25 Nail Debridement completed Kalen Rodriguez DPM [address], [place], [address], [employer] 11/13/2024 12:31:27 10/31/19 25 Callus Debridement 2-4 completed Kalen Rodriguez DPM [address], [place], [address], [employer] [facility] 11/13/2024 12:31:31 08/26/19 25 Nail Debridement completed Kalen Rodriugez DPM [address], [place], [address], [employer] 08/25/2024 16:07:39 04/10/19 25 Nail Debridement completed Kalen Rodriguez DPM [address], [place], [address], [employer] [facility] 05/15/2024 09:08:58 04/10/19 25 Callus Debridement 2-4 completed Kalen Rodriguez DPM [address], [address], [place], [address], [employer] 05/15/2024 09:08:46 05/30/19 23 Nail Debridement completed Kalen Rodriguez DPM [address], [place], [address], [employer] [facility] 05/29/2022 17:41:13 05/30/19 23 Callus Debridement 2-4 completed Kalen Rodriguez DPM [address], [place], [address], [employer] [facility] 05/29/2022 17:42:43 05/10/19 22 total replacement of hip completed Not Available [facility] 05/17/2022 00:53:19 05/13/19 20 Most Recent Bone Density completed Not Available [facility] 05/17/2022 00:53:15 09/17/19 14 Endoscopy completed Not Available [facility] 05/17/2022 00:53:19 Appendectomy completed Not Available [facility] 05/17/2022 00:53:19 Cholecystectomy completed Not Available [facility] 05/17/2022 00:53:19 Hernia repair w/mesh completed Not Available [facility] 05/17/2022 00:53:19 Hysterectomy completed Not Available [facility] 05/17/2022 00:53:19 total knee replacement completed Not Available [facility] 05/17/2022 00:53:19 Imaging Results None recorded. Procedure Notes None recorded. Medical Equipment None [...] completed Not Available Not Available Not Available silver sulfadiazin e 1 % topical cream APPLY TO THE AREA OF THE BURN TWICE DAILY active Not Available Not Available No t Available BD Alcohol Swabs USE DIRECTED TO [...] mg tablet Take by oral route. take 6m0mdpf, 2p4mqpj, 5u6yffb active Not Available Not Available No t [...] TABLET BY MOUTH DAILY FOR 4 DAYS active Not Available Not Available No t Available tizanidine 4 mg tablet Take 1 [...] Available Not Available No t Available prednisone 5 mg tablet TAKE 1 TABLET BY MOUTH DAILY FOR 3 WEEKS active Not Available Not Available No t [...] Available tramadol 50 mg tablet TAKE 1 TABLET BY MOUTH EVERY 6 HOURS FOR 7 DAYS NEEDED FOR PAIN active Not Available Not [...] oxycodone-a cetaminophe n 5 mg-325 mg tablet TAKE 1 TO 2 TABLETS BY MOUTH EVERY 4 TO 6 HOURS NEEDED FOR PAIN active Not Available Not Available No t Available Proctozone- HC 2.5 % topical cream [...] Available Not Available Not Available Saline Nasal [place] two sprays each nostril tid 08/29 completed [...] active Not Available Not Available Not Available Super Thin Lancets 28 gauge USE TO MONITOR BLOOD SUGAR LEVELS DAILY PER OFFICE DIRECTION S active Not Available Not Available No t Available True Metrix Glucose Test Strip USE TO MONITOR BLOOD SUGAR LEVELS DAILY active Not Available Not Available No t Available True Metrix Level 1 solution active [...] Available Not Available Not Available Fluzone High-Dose 2019-20 (PF) 180 mcg/0.5 mL intramuscul ar syringe ADM 0.5ML IM UTD active Not Available Not Available No t Available Fluad Quad 3933-8446(6 5yr up)(PF) 60 mcg (15 mcg x 4)/0.5mL IM syringe ADM 0.5ML IM UTD active Not Available Not Available No t Available True Metrix Glucose Meter kit active Not Available Not Available No t Available Mounjaro 7.5 mg/0.5 mL subcutaneou s pen injector ADMINISTE R 7.5 MG UNDER THE SKIN EVERY WEEK active Not Available Not Available No t Available Mounjaro 5 mg/0.5 mL subcutaneou s pen injector ADMINISTE R 5 MG UNDER THE SKIN WEEKLY FOR 4 WEEKS active Not Available Not Available No t Available Mounjaro 15 mg/0.5 mL subcutaneou s pen injector ADMINISTE R 15 MG UNDER THE SKIN EVERY WEEK active Not Available Not Available No t Available Mounjaro 10 mg/0.5 mL subcutaneou s pen injector ADMINISTE R 10 MG UNDER THE SKIN EVERY WEEK active Not Available Not Available No t Available Mounjaro 12.5 mg/0.5 mL subcutaneou s pen injector ADMINISTE R 12.5 MG UNDER THE SKIN EVERY WEEK DIRECTED active Not Available Not Available No t Available Mounjaro 2.5 mg/0.5 mL subcutaneou s pen injector ADMINISTE R 2.5 MG UNDER THE SKIN EVERY WEEK active Not Available Not Available No t Available Vitals Date Recorded Body height Body mass index (BMI) Body weight Heart rate Respiratory rate Oxygen saturation Systolic And Diastolic Provider Name and Address Organization Details Last Updated DateTime 5 167.64 cm 37.6 kg/m2 731558. 02 g 82 /min 14 /min 98 % 179/85 mm[Hg] Kendy Loza [facility] 5 16:05:33 Date Recorded Body height Body mass index (BMI) Body weight Heart rate Oxygen saturation Body temperature Respiratory rate Systolic And Diastolic Provider Name and Address Organization Details Last Updated DateTime 5 167.64 cm 37.6 kg/m2 944991. 02 g 90 /min 98 % 97.6 [degF] 16 /min 130/88 mm[Hg] Haylee Richards [facility] [employer] [facility] 15:57:48 Date Recorded Body height Body mass index (BMI) Body weight Heart rate Respiratory rate Body temperature Oxygen saturation Systolic And Diastolic Provider Name and Address Organization Details Last Updated DateTime 5 167.64 cm 37.6 kg/m2 830030. 02 g 86 /min 16 /min 97.8 [degF] 98 % 130/76 mm[Hg] Haylee Richards [facility] [employer] [facility] 5 16:02:43 Date Recorded Body height Body mass index (BMI) Body weight Oxygen saturation Body temperature Heart rate Systolic And Diastolic Provider Name and Address Organization Details Last Updated DateTime 167.64 cm 37.6 kg/m2 106063. 02 g 98 % 96.6 [degF] 72 /min 130/73 mm[Hg] [facility] [employer] [facility] 5 15:10:48 Date Recorded Body height Body mass index (BMI) Body weight Body temperature Provider Name and Address Organization Details Last Updated DateTime 11/22/2023 167.64 cm 37.7 kg/m2 205034.9 g 97.5 [degF] Valarie Murray [facility] [employer] [facility] 11/22/2023 12:32:30 Social History Question Answer Notes LastModified by Organizat ion Details LastModified Time Tobacco Smoking Status Never Smoker Not Available [facility] 05/17/2022 00:46:27 Do You Have An Advance Directive? No MIGRATION.[id number] Information not available 05/17/2022 Are You Blind Or Do You Have Difficulty Seeing? No MIGRATION.781375 8465 Information not available 05/17/2022 What Is Your Level Of Caffeine Consumption? Moderate MIGRATION.219026 1601 Information not available 05/17/2022 How Much Tobacco Do You Chew? None MIGRATION.772705 9963 Information not available 05/17/2022 In The 14 Days Before Symptom Onset, Have You Had Close Contact With A Laboratory-confir med COVID-19 While That Case Was Ill? No MIGRATION.080177 2527 Information not available 05/17/2022 In The 14 Days Before Symptom Onset, Have You Had Close Contact With A Person Who Is Under Investigation For COVID-19 While That Person Was Ill? No MIGRATION.238831 7735 Information not available 05/17/2022 Are You Deaf Or Do You Have Serious Difficulty Hearing? No MIGRATION.710801 0030 Information not available 05/17/2022 What Type Of Diet Are You Following? REGULAR MIGRATION.386372 3949 Information not available 05/17/2022 Which Illicit Or Recreational Drugs Have You Used? None MIGRATION.616542 2014 Information not available 05/17/2022 What Is The Highest Grade Or Level Of School You Have Completed Or The Highest Degree You Have Received? [id number] MIGRATION.983876 2223 Information not available 05/17/2022 Have There Been Any Changes To Your Family Or Social Situation? No MIGRATION.992757 2735 Information not available 05/17/2022 What Is The Fluoride Status Of Your Home? Unknown MIGRATION.576294 7685 Information not available 05/17/2022 Are There Any Guns Present In Your Home? No MIGRATION.691285 3097 Information not available 05/17/2022 Do You Use Insect Repellent Routinely? No MIGRATION.398641 1044 Information not available 05/17/2022 Where Do You Live? Condo MIGRATION.031282 7238 Information not available 05/17/2022 Do You Have A Medical Power Of Corn Lab Technician? No MIGRATION.414963 7421 Information not available 05/17/2022 What Was The Date Of Your Most Recent Tobacco Screening? 01/02/2023 [email or web address] Information not available 01/02/2023 Do You Have Any Pets? No MIGRATION.336866 3196 Information not available 05/17/2022 What Is Your Relationship Status? MIGRATION.299744 4868 Information not available 05/17/2022 Do You Use Your Seat Belt Or Car Seat Routinely? Yes MIGRATION.831158 2081 Information not available 05/17/2022 Do You Have Smoke And Carbon Monoxide Detectors In Your Home? Yes MIGRATION.613133 1275 Information not available 05/17/2022 Are You Passively Exposed To Smoke? No MIGRATION.033819 8763 Information not available 05/17/2022 Are There Any Smokers In Your House? No MIGRATION.458847 9894 Information not available 05/17/2022 How Much Tobacco Do You Smoke? No MIGRATION.363069 5707 Information not available 05/17/2022 What Types Of Sporting Activities Do You Participate In? None MIGRATION.229141 3438 Information not available 05/17/2022 Do You Use Sunscreen Routinely? No MIGRATION.158224 9092 Information not available 05/17/2022 Has Tobacco Cessation Counseling Been Provided? No Not Needed-nev er Smoked MIGRATION.243052 6088 Information not available 05/17/2022 How Many Years Have You Smoked Tobacco? 0 MIGRATION.216189 1333 Information not available 05/17/2022 Have You Recently Traveled Abroad? No MIGRATION.557960 7576 Information not available 05/17/2022 Do You Have Difficulty Walking Or Climbing Stairs? Yes MIGRATION.478907 4324 Information not available 05/17/2022 Do You Have Any Dietary Restrictions? No MIGRATION.187569 1318 Information not available 05/17/2022 Sex: Female Functional Status Question Answer Note LastModified by Organizat ion Details LastModified Time Do you use any illicit or recreational drugs? No MIGRATION.70217 24374 Information not available 05/17/2022 Do you or have you ever used any other forms of tobacco or nicotine? No MIGRATION.09616 49896 Information not available 05/17/2022 What is your level of alcohol consumption? None MIGRATION.88690 61135 Information not available 05/17/2022 Do you or have you ever used smokeless tobacco? Never used smokeless tobacco MIGRATION.28658 33265 Information not available 05/17/2022 Do you have transportation difficulties? No MIGRATION.98762 99853 Information not available 05/17/2022 Are you able to walk independently without assistance or assistive devices? YESASSIST uses walker d/t hip surgery MIGRATION.23214 99631 Information not available 05/17/2022 Do you have difficulty doing errands alone? No MIGRATION.84666 20890 Information not available 05/17/2022 Are you able to care for yourself independently? 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 No MIGRATION.32579 36854 Information not available 05/17/2022 Do you or have you ever used e-cigarettes or vape? Never used electronic cigarettes MIGRATION.71975 80891 Information not available 05/17/2022 What is your exercise level? Occasional MIGRATION.27813 80793 Information not available 05/17/2022 Mental Status Question Answer Note LastModified by Organizat ion Details LastModified Time Do you feel stressed (tense, restless, nervous, or anxious, or unable to sleep at night)? [id number] MIGRATION.74485740 26 Information not available 05/17/2022 Do you have difficulty concentrating, remembering or making decisions? No MIGRATION.10691587 Information not available 05/17/2022 Family History Relationship Description Onset Age of this Age Resolved Age Notes LastModified by Organization Details LastModified Time Mother Congestive heart failure 88 MIGRATION.748 [id number] Not available 05/17/2022 00:53:21 Father Carcinoma of prostate 90 MIGRATION.406 1891688 Not available 05/17/2022 00:53:21 Notes:NO ENT Medical [...] N CHRONIC PAIN SYNDROME N HYPOTHYROIDISM N CONSTIPATION N CAROTID BLOCKAGE N BACK / NECK PROBLEMS N HAVE YOU BEEN HOSPITALIZED OR SEEN IN [facility] IN THE PAST YEAR ? N [...] (COVID-19) vaccine, UNSPECIFIED 3 completed Not Available [facility] 01/04/2023 00:13:24 Influenza, high-dose, quadrivalent, PF 3 completed Not Available [facility] 01/04/2023 00:13:24 COVID-19, mRNA, LNP-S, PF, 30 mcg/0.3 mL dose 1 completed Not Available [facility] 01/04/2023 00:13:24 Influenza, split virus, quadrivalent, preservative 0 completed Not Available [facility] 01/04/2023 00:13:24 Influenza, high-dose, quadrivalent, PF 9 completed Not Available [facility] 01/04/2023 00:13:24 COVID-19, mRNA, LNP-S, PF, 30 mcg/0.3 mL dose 2 completed Not Available [facility] 01/04/2023 00:13:24 Influenza, high-dose, quadrivalent, PF 2 completed Not Available [facility] 01/04/2023 00:13:24 COVID-19, mRNA, LNP-S, PF, 30 mcg/0.3 mL dose 2 completed Not Available [facility] 01/04/2023 00:13:24 COVID-19, mRNA, LNP-S, PF, 30 mcg/0.3 mL dose 1 completed Not Available [facility] 01/04/2023 00:13:24 influenza, unspecified formulation 7 completed Not Available [facility] 01/04/2023 00:13:24 Influenza, split virus, trivalent, preservative 3 completed Not Available [facility] 01/04/2023 00:13:24 Influenza, high-dose, trivalent, PF 8 completed Not Available [facility] 01/04/2023 00:13:24 Influenza, high-dose, trivalent, PF 7 completed Not Available [facility] 01/04/2023 00:13:24 Influenza, high-dose, trivalent, PF 6 completed Not Available [facility] 01/04/2023 00:13:24 Influenza, split virus, quadrivalent, PF 5 completed Not Available [facility] 01/04/2023 00:13:24 Influenza, split virus, trivalent, preservative 4 completed Not Available [facility] 01/04/2023 00:13:24 Influenza, split virus, trivalent, PF 3 completed Not Available [facility] 01/04/2023 00:13:24 Past Encounters Encounter ID Performer Location Encounter Start Date Encounter Closed Date Diagnosis/Indication Diagnosis SNOMED-CT Code Diagnosis ICD10 Code Diagnosis IMO Codes Diagnosis Note [id number] Carla Beth MD [facility] Internal Med [place] [address] [place] [address] [place] [address] [address] 06/29/2020 00:00:00 06/29/2020 22:52:20 [id number] Carla Beth MD [facility] Internal Med [place] [address] [place] [address] [place] [address] 08/24/2020 00:00:00 08/25/2020 07:57:24 [id number] Carla Beth MD [facility] Internal Med [place] [address] [place] [address] [place] [address] 09/14/2020 00:00:00 09/20/2020 22:05:11 [id number] Carla Beth MD [facility] Internal Med [place] [address] [place] [address] [place] [address] 12/14/2020 00:00:00 12/14/2020 23:11:32 [id number] [facility] Podiatry Madelyn Watkins [address] [facility] [address] [place] [address] 01/27/2021 00:00:00 01/28/2021 08:46:08 [id number] Carla Beth MD [facility] Internal Med [place] [address] [place] [address] [place] [address] 03/08/2021 00:00:00 03/08/2021 21:27:10 [id number] Carla Beth MD [facility] Internal [facility] [place] [address] [place] [address] y , [place] [address] 05/05/2021 00:00:00 05/14/2021 14:59:48 [id number] Carla Beth MD [facility] Internal Med [facility] [address] , [place] [address] 09/01/2021 00:00:00 09/04/2021 13:13:03 [id number] Carla Beth MD [facility] Internal Med [place] [address] [place] [address] y , [place] [address] 01/03/2022 00:00:00 01/03/2022 21:30:18 [id number] Kalen Rodriguez DPM [facility] Podiatry Madelyn Watkins [address] [facility] [address] [place] [address] 05/29/2022 16:09:54 06/16/2022 14:29:03 Diabetic peripheral neuropathy [id number] E11.40 Patient educated on neuropathy , diabetes, diabetic diet, and daily foot exams. Patient is to check feet daily for new wounds, blisters, redness to prevent infection and ulceration s to the feet. Patient will return to clinic in 3 months for diabetic foot workup. Foot callus [id number] L8 4 Debrided Offloading to prevent wounds infection Continue supportive shoe gear Follow-up in 3 months Dystrophia unguium 40668 009 L60.3 Nails 1 through 10 were debrided with sharp mechanical debridemen t without incident. Nails were debrided and greater than 50% length and thickness where needed. [id number] Blake Servin MD [facility] ENT [place] [address] [address] [place] [address] 07/20/2022 14:55:17 07/20/2022 15:28:26 Chronic sinusitis [id number] J32.9 [id number] Carla Beth MD [facility] Internal [place] [address] [place] [address] y Jasmeet [place] [address] 08/29/2022 15:48:08 08/29/2022 17:43:37 Dyslipidemia 472841901 E78.5 Essential hypertension [id number] I10 Type 2 shola betes mellitus 41959230 E11.9 [id number] Carla Beth MD [facility] Internal [place] [address] [place] [address] y [place] [address] 01/02/2023 15:07:23 01/02/2023 15:50:59 Essential hypertension 75348011 I10 Type 2 shola betes mellitus without complication 903544407 E11.9 Dyslipidemia 754774452 E 78.5 [id number] Blake Servin MD [facility] ENT [place] [address] [place] [address] 11/22/2023 12:03:45 11/22/2023 13:08:21 Chronic sinusitis 41959552 J32.9 Impacted c erumen in left ear [id number] H61.22 [id number] Kalen Rodriguez DPM [facility] Podiatry [place] [address] [place] [address] 04/10/2024 15:55:17 05/16/2024 13:21:03 Pain in toe [id number] M79.676 secondary to calluses Diabetic p eripheral neuropathy 798454073 E11.40 Patient educated on neuropathy , diabetes, diabetic diet, and daily foot exams. Patient is to check feet daily for new wounds, blisters, redness to prevent infection and ulceration s to the feet. Patient will return to clinic in 3 months for diabetic foot workup. Dystrophia unguium 16535 009 L60.3 Nails 1 through 10 were debrided with sharp mechanical debridemen t without incident. Nails were debrided and greater than 50% length and thickness where needed. Callosity on toe [id number] L84 debrided without incidentOf floadingRe commend wide shoe gearMonito r for signs of infection at present seek medical attention immediatel y [id number] Kalen Rodriguez DPM [facility] Podiatry [place] [address] [place] [address] 08/25/2024 15:41:11 08/26/2024 11:06:57 Ulcer of toe due to type 2 diabetes mellitus [id number] 89311 E11.621 L97.512 L97.522 [id number] dorsal right great toedorsal left great toe and 2nd toedaily wound careoffloa ding at all times new line monitor for signs of infection at present seek medical attention immediatel yRx Silvadenef ollow-up in 3 weeks Dystrophia unguium 41509 009 L60.3 Nails 1 through 10 were debrided with sharp mechanical debridemen t without incident. Nails were debrided and greater than 50% length and thickness where needed. Diabetic p eripheral neuropathy 395475510 E11.40 Patient educated on neuropathy , diabetes, diabetic diet, and daily foot exams. Patient is to check feet daily for new wounds, blisters, redness to prevent infection and ulceration s to the feet. Patient will return to clinic in 3 months for diabetic foot workup. [id number] Kalen Rodriguez DPM [facility] Podiatry [place] [address] [place] [address] 09/15/2024 15:50:04 09/18/2024 13:13:49 Ulcer of toe due to type 2 diabetes mellitus [id number] 25755 E11.621 L97.512 L97.522 [id number] dorsal right great toedorsal left great toe and 2nd toedaily wound careoffloa ding at all times new line monitor for signs of infection at present seek medical attention immediatel yRx Silvadenef ollow-up in 3 weeks [id number] Kalen Rodriguez DPM [facility] Podiatry [place] [address] [place] [address] 10/30/2024 14:33:18 2024 11:12:18 Ulcer of toe due to type 2 diabetes mellitus [id number] 29912 E11.621 L97.522 L97.512 [id number] Healed bilateralr ecommend offloading new recommend continuing diabetic shoes and insolesfol low-up as needed Callosity on toe 20090626 01 L84 debrided without incidentOf floadingRe commend wide shoe gearMonito r for signs of infection at present seek medical attention immediatel y Dystrophia unguium 97229 009 L60.3 Nails 1 through 10 were debrided with sharp mechanical debridemen t without incident. Nails were debrided and greater than 50% length and thickness where needed. Health Concerns Section Related Observation LastModified by Organization Detai ls LastModified Time None Recorded Concern Status LastModified by Organization Details LastModified Time None Recorded Advance Directives Directive N: Payers Insurance Date Sequence Insurance Name Policy Number Policy Yee Covered Member ID Yee Member ID Guarantor Name 01/30/2025 1 [employer] (MEDICARE REPLACEMENT/A DVANTAGE - PPO) [id number] Lindsay Bonilla [id number] Lindsay Bonilla 01/30/2025 2 [place] WHEN MEDICARE OR MEDICARE REPLACEMENT PRIMARY) Lindsay Bonilla [id number] Lindsay Bonilla Notes Date Note Type Note Provider Name and Address Organization Details Recorded Time 11/22/2023 text/html This patient has a significant past medical history for anemia, diabetes, HLD, HTN, and vertigo who presents for cerumen impaction removal. She also endorses PND and nasal congestion for the last several days. She does have a history with previous sinus infections. She states that she does use loratadine daily without symptom relief. Christine Cespedes, SHIFT MGR [address] [facility], [facility] [address], [place], [address], [facility] [employer] [facility] 11/22/2023 13:07:47 04/10/2024 text/html . Patient is [...] them. Kalen Rodriguez DPM [address], [place], [address], [employer] 05/15/2024 09:10:03 08/25/2024 text/html . Patient is a 73-year-old female diabetic she presents the office with multiple wounds to the toes. Patient states she has had these wounds for about a week and a half. Patient states that she has been self treating the areas. Patient states they have been slowly improving. Patient also has been seen by her primary care doctor. Patient denies any fever, chills, nausea vomiting. Patient has thickened elongated toenails would like to have them cut as she has difficulty cutting them. Patient denies any other complaints. Kalen Rodriguez DPM [address], [place], [address], [employer] 08/25/2024 16:10:28 09/15/2024 text/html . Patient is a 73-year-old female who returns the office for follow-up on wounds to her toes. Patient slowly is healing. Patient has stable wounds she presents today with her wounds open she is wearing sandals. Patient denies any fever, chills, nausea or vomiting. I did review with the patient is important that she keep the toes clean and covered. Patient denies any other complaints. Kalen Rodriguez DPM [address], [place], [address], [employer] 09/17/2024 13:44:05 10/30/2024 text/html Patient is here for follow-up on wound to the toe. Wound is healed. Patient also has painful areas of callus she would like cut down which she has 3 areas. Patient denies any other complaints. Patient also rubbed a blister to the dorsal left great toe interphalangeal joint which is healed. Patient has significant pitting edema of the lower extremity which I have advised the patient to wear compression which she does not and she is wearing ill-fitting shoes due to the significant swelling which is causing rubbing wounds to the feet. Kalen Rodriguez DPM [address] [facility] [address], [place], [address], [place] [facility] 11/13/2024 12:32:20 OBGyn Episode No OBEpisode recorded.
[2025-03-17 16:37] VITALS: BP 127/67; PULSE 79; RESP 17; TEMP 36.7; O2SAT 100
[2025-03-17 20:13] VITALS: BP 128/73; PULSE 73; RESP 19; TEMP 36.2; O2SAT 100
[2025-03-17 22:55] VITALS: BP 133/62; PULSE 75; RESP 20; TEMP 36.6; O2SAT 99
[2025-03-18] VITALS (19 sets, daily range): BP systolic 135–169; BP diastolic 59–70; PULSE 70–84; RESP 15–23; TEMP 36.4; O2SAT 98–100
--- NOTE | 2025-03-18 01:48 | ECG_ITS ---
Test Date: 2025-03-18 02:39:08 Measurements Intervals M[place] Rate: 73 P: 29 WY: 199 QRS: 58 QRSD: 101 T: 87 QT: 402 QTc: 444 Interpretive Statements SINUS RHYTHM BORDERLINE ST-T WAVE ABNORMALITY- HIGH LATERAL LEADS BASELINE ARTIFACT- I, II, III, AVR, AVL, AVF, V1-V3 BORDERLINE ECG No previous ECG available for comparison Electronically Signed On 03-18-2025 09:00:24 VALVE STEAMER by Miguel Thomas D.O.
--- NOTE | 2025-03-18 01:50 | ED.WEAKNESS ---
HPI - Weakness General Chief complaint: Weakness Stated complaint: missed out patient xr sent by pcp mary foot Time Seen by Provider: 03/18/25 01:36 History of Present Illness HPI Narrative: Patient is a 64-year-old female who presents to the ER with complaints of weakness. She reports her symptoms have been going on for ?a couple of weeks but have worsened over the past week. Patient reports she normally walks with a walker, but recently she feels unbalanced. She endorses bilateral lower extremity edema at baseline, but reports her lower extremities have alternately given out on me. Patient endorses a history of a right knee replacement, high blood pressure, and diabetes. She denies any headaches, body aches, urinary symptoms, or fevers. Pt also endorses congestion due to my sinuses. Related Data Home Medications ?Medication ?Instructions ?Recorded ?Confirmed ?Last Taken ?Type amlodipine 5 mg tablet 5 mg PO DAILY 01/07/21 01/29/25 11/03/24 History metformin 500 mg tablet 500 mg PO BID 01/07/21 01/29/25 11/03/24 History clonidine HCl 0.1 mg tablet 0.1 mg PO BID 04/21/21 01/29/25 11/03/24 History multivit with minerals-iron 18 1 tablet PO DAILY 04/21/21 01/29/25 10/28/24 History mg-folic ac 400 mcg-vit K 25 mcg tablet (Adults Multivitamin) triamterene 37.5 1 cap PO QPM 04/21/21 01/29/25 11/23/22 History mg-hydrochlorothiazide 25 mg capsule rosuvastatin 10 mg tablet 10 mg PO DAILY 05/10/21 01/29/25 11/03/24 History Vitamin D3 1 tab-cap PO DAILY 11/17/22 01/29/25 11/23/22 History acetaminophen 650 mg 650 mg PO Q8H PRN Pain 11/17/22 01/29/25 11/23/22 History tablet,extended release aspirin 81 mg tablet 81 mg PO DAILY 11/17/22 01/29/25 10/28/24 History calcium carbonate 500 1 tablet PO PRN PRN heartburn 10/06/24 01/29/25 10/28/24 History mg-simethicone 20 mg chewable tablet naproxen sodium 220 mg capsule 220 mg PO Q8H PAIN 10/06/24 01/29/25 11/04/24 History (Aleve) silver sulfadiazine 1 % topical 1 applic topical DAILY 10/06/24 01/29/25 Unknown History cream tirzepatide 10 mg/0.5 mL 10 mg subcut WEEKLY 10/06/24 01/29/25 Unknown History subcutaneous pen injector (Srinivasuncarli) Allergies Allergy/AdvReac Type Severity Reaction Status Date / Time iohexol (From contrast - CT, AdvReac Intermediate Vomiting Verified 01/28/25 15:02 X-RAY) Review of Systems Review of Systems: All systems reviewed & are unremarkable except as noted in HPI and below PMFSH Past Medical History Medical History Spinal stenosis, lumbar region, with neurogenic claudication Hypertrophic obstructive cardiomyopathy (HOCM) Diabetes Obesity Hyperlipidemia HTN (hypertension) Surgical History Surgical History History of total right hip arthroplasty (~05/10/21) History of right knee joint replacement (~09/10/07) History of left knee replacement Family History Family History Mother Patient's mother is , Onset Age: 87 Father Patient's father is , Onset Age: 93 Family history of arthritis Sibling Patient's brother is Social History Social History Smoking status: Former smoker Alcohol intake: never Substance use: never Substance use type: does not use Lack of Transportation: No Lack of Food: Never True Current Housing: I Have Housing Concerned About Future Housing: Decline to Answer Difficulty Paying Gas/Electric Bills: Decline to Answer Difficulty Paying for Meds: Decline to Answer Currently Unemployed: Decline to Answer Education: Bachelor's Degree Difficulty w/ Childcare or Family Care: Decline to Answer Living arrangements: alone Spiritual care concerns: No Exam Narrative: GENERAL: Well appearing, obese, non-toxic, in no acute distress. HEAD: Normocephalic, atraumatic. NECK: Supple. No adenopathy, no masses. RESPIRATORY: Airway patent, respirations nonlabored. Clear to auscultation bilaterally, no rales, rhonchi, wheezing. CARDIOVASCULAR: Regular rate and rhythm without murmurs, rubs, or gallops. Peripheral pulses 2+ and equal bilaterally. Bilateral lower extremity edema. ABDOMINAL: Soft, nontender, nondistended, no hepatosplenomegaly. Normoactive BS. MUSCULOSKELETAL: Moves all extremities. Strength/ROM intact without gross deformities. SKIN: Warm, dry, normal color. No rashes. NEURO: A&O X3. Speech clear. Cranial nerves II-XII intact. No ataxic movements. PSYCHIATRIC: Appropriate mood and affect. Normal interaction. Course Vital Signs Vital signs: Vital Signs Temperature 36.7 C 03/17/25 16:37 Pulse Rate 79 03/17/25 16:37 Respiratory Rate 17 03/17/25 16:37 Blood Pressure 127/67 03/17/25 16:37 Pulse Oximetry 100 03/17/25 16:37 Oxygen Delivery Room Air 03/17/25 16:37 Temperature 36.4 C 03/18/25 01:10 Pulse Rate 82 03/18/25 07:45 Respiratory Rate 22 H 03/18/25 07:45 Blood Pressure 169/59 H 03/18/25 07:32 Pulse Oximetry 99 03/18/25 07:45 Oxygen Delivery Room Air 03/17/25 16:37 MDM MDM Narrative Medical decision making narrative: Patient is a 64-year-old female who presents to the ER with complaints of weakness. She reports her symptoms have been going on for ?a couple of weeks but have worsened over the past week. Patient reports she normally walks with a walker, but recently she feels unbalanced. She endorses bilateral lower extremity edema at baseline, but reports her lower extremities have alternately given out on me. Patient endorses a history of a right knee replacement, high blood pressure, and diabetes. She denies any headaches, body aches, urinary symptoms, or fevers. Pt also endorses congestion due to my sinuses. Pt reports her orthopedic surgery told her he was going to x-ray my whole leg. Labs Ordered: CBC, CMP, PTT, INR, COVID/flu/RSV swab, magnesium, proBNP Imaging Ordered: CT head, chest x-ray, right ankle x-ray, right knee x-ray, left ankle x-ray Results: Patient's CT head scan indicates no acute hemorrhage, hydrocephalus, or herniation. 0330- Care signed out to Dr. Hartman pending complete potassium administration. Differential Diagnosis Differential Diagnosis: Weakness, COVID, influenza, congestive heart failure, urinary tract infection, CVA Lab Data MDM Lab Attestation statement: I personally reviewed the patient's lab results. 03/18/25 03:24 03/18/25 02:52 Labs: Lab Results 03/18/25 03/18/25 Range/Units 02:52 03:24 WBC 6.5 (4.5-10.0) K/mm3 RBC 4.35 (4.2-5.4) M/mm3 Hgb 10.9 L (12.0-15.0) g/dL Hct 34.1 L (37.0-47.0) % MCV 78.4 L (80-100) fl MCH 25.1 L (26-34) pg MCHC 32.0 (32-36) g/dl RDW 15.5 H (11.5-14.5) % Plt Count 334 (150-375) k/mm3 MPV 9.5 (7.4-10.4) fl Immature Gran % (Auto) 0.5 (0-0.5) % Neut % (Auto) 63.0 (45.5-73.1) % Lymph % (Auto) 22.7 (18.3-44.2) % Saunders % (Auto) 9.8 H (2.6-8.5) % Eos % (Auto) 3.4 (0-4.4) % Baso % (Auto) 0.6 (0.2-1.2) % Lymph # (Auto) 1.48 (0.9-3.2) K/mm3 Saunders # (Auto) 0.6 (0.1-0.6) K/mm3 Eos # (Auto) 0.2 (0-0.3) K/mm3 Baso # (Auto) 0.0 (0.0-0.1) K/mm3 Abs Immat Gran (auto) 0.03 (0.00-0.031) K/mm3 Absolute Neuts (auto) 4.1 (1.3-6.7) K/mm3 Absolute Nucleated RBC 0.000 (0.0-0.012) K/mm3 Nucleated RBC % 0.0 (0.0-0.2) % PT 14.0 (11.1-14.7) Seconds INR 1.1 APTT 29.2 (22.3-36.8) Seconds Sodium 143 (137-145) mmol/L Potassium 2.7 L* (3.4-5.0) mmol/L Chloride 107 (98-107) mmol/L Carbon Dioxide 26 (22-30) mmol/L Anion Gap 10 (4-12) mmol/L BUN 20 H D (7-17) mg/dL Creatinine 0.47 L (0.7-1.0) mg/dL Estim Creat Clear Calc 105 ml/min Estimated GFR > 60 (59 - ) Glucose 120 H (65-110) mg/dL Calcium 9.7 (8.4-10.2) mg/dL Magnesium 2.2 (1.6-2.3) mg/dL Total Bilirubin 0.8 (0.2-1.3) mg/dL AST 36 (14-36) U/L ALT 29 (6-35) U/L Alkaline Phosphatase 93 (38-126) U/L NT-Pro-B Natriuret Pep 61 (19.9-100) pg/mL Total Protein 7.0 (6.3-8.2) g/dL Albumin 4.0 (3.5-5.1) g/dL Influenza A (RT-PCR) Negative (Negative) Influenza B (RT-PCR) Negative (Negative) RSV (RT-PCR) Negative (Negative) SARS-CoV-2 RNA (RT-PCR) Negative (Negative) Imaging Data Attestation: I personally reviewed and interpreted this imaging study as follows: Radiologist's impression: ITS Impressions Chest X-Ray 03/18/25 06:10 IMPRESSION: 1: NO ACUTE CARDIOPULMONARY DISEASE. Ankle X-Ray 03/18/25 06:12 Impression: 1: No acute fracture. Moderate diffuse soft tissue swelling. Knee X-Ray 03/18/25 06:14 Impression: 1: No acute bone or joint abnormality. Head CT 03/18/25 06:36 IMPRESSION: 1. No acute intracranial abnormality. Patient's CT head scan indicates no acute hemorrhage, hydrocephalus, or herniation. Discharge Plan Discharge Clinical Impression: Hypokalemia, Ankle pain, right, Ankle pain, left, History of right knee joint replacement Patient Disposition: Home Condition: Stable Instructions: Antibiotic Form, Hypokalemia (ED) Additional Instructions: Please return to the ER with any worsening symptoms. Follow-up with primary care provider as soon as possible for further evaluation. Take all medications as prescribed, including regularly scheduled medications. Patient Language: Barbadian Prescriptions: New potassium chloride [K-Tab] 20 mEq tablet extended release 20 meq PO DAILY Qty: 30 0RF No Action metformin 500 mg tablet 500 mg PO BID amlodipine 5 mg tablet 5 mg PO DAILY Mounjaro 10 mg/0.5 mL pen injector 10 mg subcut WEEKLY Patient Comments: TAKES ON THURSDAYS TAKES FOR WEIGHT LOSS silver sulfadiazine 1 % cream 1 applic topical DAILY Rx Instructions: apply a 1.5 mm thickness triamterene-hydrochlorothiazid 37.5-25 mg capsule 1 cap PO QPM clonidine HCl 0.1 mg tablet 0.1 mg PO BID Adults Multivitamin 18 mg iron-400 mcg-25 mcg Tablet 1 tablet PO DAILY rosuvastatin 10 mg tablet 10 mg PO DAILY naproxen sodium [Aleve] 220 mg capsule 220 mg PO Q8H calcium carbonate-simethicone 500-20 mg tablet,chewable 1 tablet PO PRN PRN (Reason: heartburn) prednisone 5 mg tablet 5 mg PO DAILY 21 Days Qty: 21 0RF acetaminophen 650 mg Tablet Extended Release 650 mg PO Q8H PRN (Reason: Pain) aspirin 81 mg Tablet 81 mg PO DAILY Vitamin D3 1 tab-cap PO DAILY Follow-up/Referrals: Kirit,MD Harry [Primary Care Provider] Time of Disposition: 04:45
--- NOTE | 2025-03-18 02:56 | PC.NURSE ---
This Rn attempted twice for blood and was unsuccessful. [employer] states she is going to give it a try.
[2025-03-18 03:18] LABS: Alanine Aminotransferase 29 U/L (6-35); Albumin Level 4.0 g/dL (3.5-5.1); Alkaline Phosphatase 93 U/L (38-126); Anion Gap 10 mmol/L (4-12); Aspartate Amino Transferase 36 U/L (14-36); Bilirubin,Total 0.8 mg/dL (0.2-1.3); Blood Urea Nitrogen 20 mg/dL (7-17); Calcium 9.7 mg/dL (8.4-10.2); Carbon Dioxide 26 mmol/L (22-30); Chloride 107 mmol/L (98-107); Estimated CRCL calculation 105 ml/min; Estimated Glomerular Filt Rate > 60; Glucose 120 mg/dL (65-110); Magnesium 2.2 mg/dL (1.6-2.3); Potassium 2.7 mmol/L (3.4-5.0); Sodium 143 mmol/L (137-145); Total Protein 7.0 g/dL (6.3-8.2)
[2025-03-18 03:20] LABS: NT Pro B Type Natriuretic Pept 61 pg/mL (19.9-100)
[2025-03-18 03:30] LABS: Hematocrit 34.1 % (37.0-47.0); Hemoglobin 10.9 g/dL (12.0-15.0); Immature Granulocyte Percent A 0.5 % (0-0.5); Lymphocytes Absolute Auto 1.48 K/mm3 (0.9-3.2); Mean Corpuscular HGB Conc 32.0 g/dl (32-36); Mean Corpuscular Hemoglobin 25.1 pg (26-34); Mean Corpuscular Volume 78.4 fl (80-100); Nucleated Red Blood Cells Absolute Auto 0.000 K/mm3 (0.0-0.012); Nucleated Red Blood Cells Perc 0.0 % (0.0-0.2); Platelet Count Result 334 k/mm3 (150-375); Red Blood Count 4.35 M/mm3 (4.2-5.4); White Blood Count 6.5 K/mm3 (4.5-10.0)
[2025-03-18 03:34] LABS: Influenza A QL RT-PCR Negative (Negative); Influenza B QL RT-PCR Negative (Negative); RSV RNA, RT-PCR Negative (Negative); SARS-CoV-2 RNA PCR Negative (Negative)
[2025-03-18] MEDS: POTASSIUM CHLORIDE INJ 40 MEQ in SODIUM CHLORIDE 0.9% IV 500 ML 130 MEQ IVPB (03:37)
[2025-03-18] MEDS: POTASSIUM CHLORIDE 20 MEQ PACKET (FOR LIQUID) 40 MEQ PO (03:37)
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
--- OUTSIDE RECORDS SUMMARY | 2025-03-18 03:45 | XMS_ITS | Continuity of Care Document ---
Author Organization [place] - [place], [facility] - [facility] Address [address] [place] [address] Care Team Providers Care Hand Salter Name Role Phone CARLA BETH Primary Care Provider [phone] [facility] Referring Provider DONNA MANLEY Receiving Tank Operator [employer] Assessment No assessment recorded. Plan of Treatment Reminders Order Date Submit Date Provider Last Modified By Organization Details Last Modified Time Details Appointments ANY 15 2025 02:30P M Carla eBth MD Not available Not available Not available Lab None recorded. Referral None recorded. Procedures None recorded. Surgeries None recorded. Imaging None recorded. Medication Orders Mounjaro 5 mg/0.5 mL subcutane ous pen injector [address] [place] [address] [id number], [address], [place], [id number], 01/29/2025 16:13:06 Patient TargetsNo targets recorded. Patient InstructionsNo instructions recorded. Reason for Referral None Reported. Results Created Date Observation Date Name Description Value Unit Range Abnormal Flag Note LastModifiedBy Organization Detail LastModifiedTime 12/19/1912/15/2024 XR, knee, 3 view No observ ation record ed. [address], [place], [address], 12/24/2024 13:30:03 Result Notes None recorded. Problems Name Problem SNOMED Code Status Onset Date Resolution Date Notes Provider Name and Address Organization Details Recorded Time Essential hypertension 50697908 Active 2023 Arben Forde MA null, [place] - [facility] 4 14:36:12 Type 2 diabetes mellitus 02485085 Active 2023 Arben Forde [place] null, [place] - [facility] 4 14:36:13 Hyperlipidemia 02306978 Active 2023 Carla eBth MD Attn: Terri shields,[address] [place], [address], [facility] - [facility] 4 16:56:14 Chronic rhinitis 85578151 Active 2023 Carla Beth MD Attn: Terri shields,[address] [place], [address], [facility] - [facility] 4 16:56:15 Vertigo 770755301 Active 2023 Carla Beth MD Attn: Terri shields,[address] [place], [address], [facility] - [facility] 4 16:56:16 Osteoarthritis 000711721 Active 2023 Carla Beth MD Attn: Terri shields,[address] [place], [address], [facility] - [facility] 4 16:56:19 Aortic valve regurgitation 55092084 Active 2023 Carla Beth MD Attn: Terri shields,[address] [place], [address], [facility] - [facility] 4 23:00:29 Problem Notes None recorded. Procedures Surgical History Date Name Laterality Status Provider Name and Address Organization Details Recorded Time 11/05/19 revision completed Jayne Alex [place] - [facility] 11/06/2024 12:33:15 Cholecystectomy completed Yamilet Fine [place] - [facility] 06/25/2023 14:04:09 Hernia Repair completed Yamilet Fine MA [facility] 06/25/2023 14:05:50 Knee Surgery completed Yamilet Fine [place] - [facility] 06/25/2023 14:06:23 Total hysterectomy completed Daryl Fine [place] - [facility] 06/25/2023 14:06:07 Imaging Results None [...] Not Available Not Available Not Available Vitals None Recorded Social History Question Answer Notes LastModified by Organizat ion Details LastModified Time Tobacco Smoking Status Never Smoker Yamilet Fine MA [facility], [place] - [facility] 06/25/2023 13:57:36 Do You Have An Advance [...] anxious, or unable to sleep at night)? [id number] Information not available 06/25/2023 Family History Relationship [...] Immunizations Vaccine Type Date Status Note Provider Kenneth mojica and Address Organization Details Recorded Time SARS-COV-2 [...] 30 mcg/0.3 mL 4 completed Not Available [facility] 02/26/2025 15:49:14 Influenza, adjuvanted, trivalent, PF 4 completed Not Available [facility] 02/26/2025 15:49:14 Influenza, high-dose, trivalent, PF 5 completed Zuleyma Maradiaga MA [facility], [place] [facility] 01/12/2025 14:15:48 Past Encounters Encounter ID Performer Location Encounter Start Date Encounter Closed Date Diagnosis/Indication Diagnosis SNOMED-CT Code Diagnosis ICD10 Code Diagnosis IMO Codes Diagnosis Note [id number] Carla Beth MD [facility] [employer] [facility] [place] [address] [place] [address] 12/04/2024 15:08:25 12/23/2024 15:05:53 Type 2 diabetes mellitus 04208449 E11.9 [id number] Carla Beth MD [facility] [employer] [facility] [place] [address] [place] [address] 12/11/2024 16:28:14 12/11/2024 17:31:13 Type 2 diabetes mellitus 74678650 E11.9 [id number] Carla Beth MD [facility] [employer] [facility] [place] [address] [place], [place] [address] [address] 12/18/2024 15:47:31 12/23/2024 16:24:24 Type 2 diabetes mellitus 20745127 E11.9 [id number] Carla Beth MD [facility] [employer] [facility] [place] [address] [place] [address] 12/25/2024 15:22:29 12/30/2024 08:15:04 Type 2 diabetes mellitus 25126453 E11.9 [id number] Carla Beth MD [facility] [employer] [facility] [place] [address] [place] [address] 01/01/2025 15:47:56 01/01/2025 16:33:28 Type 2 diabetes mellitus 17004023 E11.9 Health Concerns Section Related Observation LastModified by Organization Detai ls LastModified Time None Recorded Concern Status LastModified by Organization Details LastModified Time None Recorded Payers Encounter Date Sequence Insurance Name Policy Number Policy Yee Covered Member ID Yee Member ID Guarantor Name 01/01/2025 1 [employer] (MEDICARE REPLACEMENT/AD VANTAGE - PPO) Lindsay Bonilla [id number] Lindsay Bonilla 01/01/2025 2 [place] WHEN MEDICARE OR MEDICARE REPLACEMENT PRIMARY) Lindsay Bonilla [id number] Lindsay Bonilla OBGyn Episode No OBEpisode recorded.
--- OUTSIDE RECORDS SUMMARY | 2025-03-18 03:45 | XMS_ITS | Continuity of Care Document ---
Author Organization [facility], S[facility] Address [address] [place] [address] Care Team Providers Care Surveillance Camera Technician Name Role Phone CARLA BETH Primary Care Provider [phone] [facility] Referring Provider DONNA MANLEY Creative Coordinator [employer] Forensic Nurse Assessment No assessment recorded. Plan of Treatment Reminders Order Date Submit Date Provider Last Modified By Organization Details Last Modified Time Details Appointments ANY 15 2025 02:30P M Carla Beth MD Not available Not available Not available Lab None recorded. Referral None recorded. Procedures None recorded. Surgeries None recorded. Imaging None recorded. Medication Orders Mounjaro 7.5 mg/0.5 mL subcutane ous pen injector 2024 025 [id number], [address], [place], [place], [phone], 02/05/2025 17:22:17 Patient TargetsNo targets recorded. Patient InstructionsNo instructions recorded. Reason for Referral None Reported. Problems Name Problem SNOMED Code Status Onset Date Resolution Date Notes Provider Name and Address Organization Details Recorded Time Essential hypertension 17068945 Active 2023 RAHEL Escoto, [facility] [place] 4 14:36:12 Type 2 diabetes mellitus 73677679 Active 2023 RAHEL Escoto, [facility] 4 14:36:13 Hyperlipidemia 72801991 Active 2023 Carla Beth MD Attn: Terri shields,[address] [facility], [place], [address], [place] [facility] 16:56:14 Chronic rhinitis 73228128 Active 2023 Carla Beth MD Attn: Terri shields,[address] [facility], [place], [address], [place] [facility] 16:56:15 Vertigo 572863363 Active 2023 Carla Beth MD Attn: Terri shields,[address] [facility], [place], [address], [place] [facility] 16:56:16 Osteoarthritis 520048155 Active 2023 Carla Beth MD Attn: Terri shields,[address] [facility], [place], [address], [place] [facility] 16:56:19 Aortic valve regurgitation 24456692 Active 2023 Carla Beth MD Attn: Terri shields,[address] [facility], [place], [address], [place] [facility] 23:00:29 Problem Notes None recorded. Procedures Surgical History Date Name Laterality Status Provider Name and Address Organization Details Recorded Time 11/05/19 25 revision completed Jayne Alex [place] - [place] 11/06/2024 12:33:15 Cholecystectomy completed Yamilet Fine MA [place] - [place] 06/25/2023 14:04:09 Hernia Repair completed Yamilet Fine MA [place] - [facility] 06/25/2023 14:05:50 Knee Surgery completed Yamilet Fine MA [place] - [facility] 06/25/2023 14:06:23 Total hysterectomy completed Daryl Fine MA [place] - [place] 06/25/2023 14:06:07 Imaging Results None recorded. Procedure [...] 2024 active Not Available Not Available Not Tee leyva Mounjaro 12.5 mg/0.5 mL subcutaneou s pen [...] 98 % 132/50 mm[Hg] Lizette Deleon MA [place] - [place] 02/16/2025 15:00:34 Social History Question Answer Notes LastModified by Organizat ion Details LastModified Time Tobacco Smoking Status Never Smoker Yamilet Fine [place] null, [place] [facility] 06/25/2023 13:57:36 Do You Have An Advance [...] anxious, or unable to sleep at night)? [id number] Information not available 06/25/2023 Family History Relationship [...] 16:09:21 Influenza, high-dose, quadrivalent, PF 3 completed Zulyema Maradiaga [place], [place] [facility] 06/26/2024 [...] 30 mcg/0.3 mL 4 completed Not Available [employer] 02/26/2025 15:49:14 Influenza, adjuvanted, trivalent, PF 4 completed Not Available formerly [facility] 02/26/2025 15:49:14 Influenza, high-dose, trivalent, PF 5 completed Zuleyma Maradiaga MA [facility], [place] - [place] 01/12/2025 14:15:48 Past Encounters Encounter ID Performer Location Encounter Start Date Encounter Closed Date Diagnosis/Indication Diagnosis SNOMED-CT Code Diagnosis ICD10 Code Diagnosis IMO Codes Diagnosis Note [id number] Carla Beth MD [facility] [employer] [facility] [place] [address] [place] [address] 01/08/2025 15:18:37 01/20/2025 13:02:40 Type 2 diabetes mellitus 51489966 E11.9 Influenza vaccination given 7067033503 9109 Z23 [id number] Carla Beth MD [facility] [employer] [facility] [place] [address] [place] [address] 01/15/2025 15:41:05 01/15/2025 16:21:53 Type 2 diabetes mellitus 51097236 E11.9 Z79.4 [id number] Carla Beth MD [facility] [employer] [facility] [place] [address] [place] [address] 01/22/2025 15:24:41 01/22/2025 16:02:18 Type 2 diabetes mellitus 53996284 E11.9 Z79.4 [id number] Carla Beth MD [facility] [employer] [facility] [place] [address] [place] [address] 01/29/2025 15:44:27 01/29/2025 17:01:35 Obese class II 1924883655 28179 E66.812 E66.3 4406818057 BMI 37.4 Type 2 shola betes mellitus 34176267 E11.9 9814742360 Essential hypertension 13408182 I10 Hyperlipidemia 39052490 E78.5 Osteoarthritis 701860174 M19.90 Chronic rhinitis 3866321 6 J31.0 [id number] Carla Beth MD [facility] [place] [address] [place] [address] 02/05/2025 15:33:23 02/05/2025 15:44:35 Type 2 diabetes mellitus 53388567 E11.9 Health Concerns Section Related Observation LastModified by Organization Detai ls LastModified Time None Recorded Concern Status LastModified by Organization Details LastModified Time None Recorded Payers Encounter Date Sequence Insurance Name Policy Number Policy Yee Covered Member ID Yee Member ID Guarantor Name 02/05/2025 1 [employer] (MEDICARE REPLACEMENT/AD VANTAGE - PPO) Lindsay Bonilla [id number] Lindsay Bonilla 02/05/2025 2 [place] WHEN MEDICARE OR MEDICARE REPLACEMENT PRIMARY) Lindsay Bonilla [id number] Lindsay Bonilla Notes Date Note Type Note [...] vomiting Carla Beth MD Attn: [employer] [place], [address], [place] [facility] 02/16/2025 21:34:03 OBGyn Episode No OBEpisode recorded.
--- OUTSIDE RECORDS SUMMARY | 2025-03-18 03:46 | XMS_ITS | Continuity of Care Document ---
Author Organization [facility], SIF [facility] Address [address] [place] [address] Care Team Providers Care Scale Adjuster Name Role Phone CARLA BETH Primary Care Provider [phone] [facility] Referring Provider DONNA MANLEY Inspector Type [employer] Field Service Technician Poultry Assessment No assessment recorded. Plan of Treatment [...] mL subcutane ous pen injector 2024 025 [id number], [address], [place], [place], [id number], 02/19/2025 17:53:39 Patient TargetsNo targets recorded. Patient InstructionsNo instructions recorded. Reason for Referral None Reported. Problems Name Problem SNOMED Code Status Onset Date Resolution Date Notes Provider Name and Address Organization Details Recorded Time Essential hypertension 21529310 Active 2023 RAHEL Escoto, [facility] [place] 4 14:36:12 Type 2 diabetes mellitus 36265818 Active 2023 RAHEL Escoto, [facility] 4 14:36:13 Hyperlipidemia 62523736 Active 2023 Carla Beth MD Attn: Terri shields,[address] [facility], [place], [address], [place] [facility] 16:56:14 Chronic rhinitis 45533931 Active 2023 Carla Beth MD Attn: Terri shields,[address] [facility], [place], [address], [place] [facility] 16:56:15 Vertigo 095210626 Active 2023 Carla Beth MD Attn: Terri shields,[address] [facility], [place], [address], [place] [facility] 16:56:16 Osteoarthritis 690156709 Active 2023 Carla Beth MD Attn: Terri shields,[address] [facility], [place], [address], [place] [facility] 16:56:19 Aortic valve regurgitation 84431351 Active 2023 Carla Beth MD Attn: Terri shields,[address] [facility], [place], [address], [place] [facility] 23:00:29 Problem Notes None recorded. Procedures Surgical History Date Name Laterality Status Provider Name and Address Organization Details Recorded Time 11/05/19 25 revision completed Jayne Alex [place] - [place] 11/06/2024 12:33:15 Cholecystectomy completed Yamilet Fine [place] - [facility] 06/25/2023 14:04:09 Hernia Repair completed Yamilet Fine MA [place] - [facility] 06/25/2023 14:05:50 Knee Surgery completed Yamilet Fine MA [place] - [facility] 06/25/2023 14:06:23 Total hysterectomy completed Daryl Fine MA [place] - [facility] 06/25/2023 14:06:07 Imaging Results None [...] LastModified Time Tobacco Smoking Status Never Smoker RAHEL Rodriguez, [place] - [facility] 06/25/2023 13:57:36 Do You [...] anxious, or unable to sleep at night)? [id number] Information not available 06/25/2023 Family History Relationship Description Onset Age of this Age Resolved Age Notes LastModified by Organization Details LastModified Time Father Malignant neoplasm of prostate [email or web address] Not available 2023 14:09:55 Medical History Condition Response Muscle, Joint, or Bone Problems Y Skin Problems Y Other Gynecological HistoryNo gynecological history [...] 30 mcg/0.3 mL 4 completed Not Available [facility] 02/26/2025 15:49:14 Influenza, adjuvanted, trivalent, PF 4 completed Not Available [facility] 02/26/2025 15:49:14 Influenza, high-dose, trivalent, PF 5 completed Zuleyma Maradiaga MA [facility], [place] - [facility] 01/12/2025 14:15:48 Past Encounters Encounter ID Performer Location Encounter Start Date Encounter Closed Date Diagnosis/Indication Diagnosis SNOMED-CT Code Diagnosis ICD10 Code Diagnosis IMO Codes Diagnosis Note [id number] Carla Beth MD [facility] [place] [address] [place] [address] 01/22/2025 15:24:41 01/22/2025 16:02:18 Type 2 diabetes mellitus 90691758 E11.9 Z79.4 [id number] Carla Beth MD [facility] [place] [address] [place] [address] 01/29/2025 15:44:27 01/29/2025 17:01:35 Obese class II 5719305888 50941 E66.812 E66.3 5224950983 BMI 37.4 Type 2 shola betes mellitus 13903437 E11.9 8337187182 Essential hypertension 87958346 I10 Hyperlipidemia 73926715 E78.5 Osteoarthritis 810688213 M19.90 Chronic rhinitis 8676474 6 J31.0 [id number] Carla Beth MD [facility] [place] [address] [place] [address] 02/05/2025 15:33:23 02/05/2025 15:44:35 Type 2 diabetes mellitus 92073704 E11.9 [id number] Carla Beth MD [facility] [place] [address] [place] [address] 02/11/2025 13:10:37 02/11/2025 13:14:42 Type 2 diabetes mellitus 53036480 E11.9 [id number] Carla Beth MD [facility] [employer] [facility] [facility] [place] [address] [place] [address] 02/16/2025 14:50:38 02/16/2025 15:59:20 Neck pain 09530984 M54.2 [id number] Carla Beth MD [facility] [employer] [facility] [place] [address] [place] [address] 02/19/2025 15:39:05 02/20/2025 11:59:08 Type 2 diabetes mellitus 50228347 E11.9 Health Concerns Section Related Observation LastModified by Organization Detai ls LastModified Time None Recorded Concern Status LastModified by Organization Details LastModified Time None Recorded Payers Encounter Date Sequence Insurance Name Policy Number Policy Yee Covered Member ID Yee Member ID Guarantor Name 02/19/2025 1 [employer] (MEDICARE REPLACEMENT/AD VANTAGE - PPO) Lindsay Bonilla [id number] Lindsay Bonilla 02/19/2025 2 [place] WHEN MEDICARE OR MEDICARE REPLACEMENT PRIMARY) Lindsay Bonilla [id number] Lindsay Bonilla OBGyn Episode No OBEpisode recorded.
--- OUTSIDE RECORDS SUMMARY | 2025-03-18 03:46 | XMS_ITS | Continuity of Care Document ---
Author Organization [place] [facility] [place], [facility] Madelyn Watkins Address [address] [place] [address] [address] Change Roof Bolter Name Role Phone CARLA BETH Primary Care Provider [facility] Referring Provider DONNA MANLEY Cementer Hand [employer] Cuffing Machine Operator Assessment No assessment recorded. Plan of Treatment Reminders Order Date Submit Date Provider Last Modified By Organization Details Last Modified Time Details Appointments ANY 15 2025 02:30P M Carla Beth MD Not available Not available Not available Lab None recorded. Referral None recorded. Procedures None recorded. Surgeries None recorded. Imaging None recorded. Medication Orders Mounjaro 2.5 mg/0.5 mL subcutane ous pen injector 2024 025 [facility] #[id number] [address] [place] [address], [id number], 01/29/2025 16:13:01 Patient TargetsNo targets recorded. Patient InstructionsNo instructions recorded. Reason for Referral None Reported. Results Created Date Observation Date Name Description Value Unit Range Abnormal Flag Note LastModifiedBy Organization Detail LastModifiedTime 11/20/1911/19/2024 US, trish x, timi s, lower extre mity No observ ation record ed. [facility] [address], [address], 11/20/2024 09:19:37 11/27/1911/19/2024 XR, knee, 3 view No observ ation record ed. [facility] [address], [place], [address], 11/27/2024 10:02:44 12/19/19 25 12/15/2024 XR, knee, 3 view No observ ation record ed. [address], [place], [address], 12/24/2024 13:30:03 Result Notes None recorded. Problems Name Problem SNOMED Code Status Onset Date Resolution Date Notes Provider Name and Address Organization Details Recorded Time Essential hypertension 98005591 Active 2023 Arben Forde [place], [place] [facility] 4 14:36:12 Type 2 diabetes mellitus 54783377 Active 2023 Arben Forde [place], [place] [facility] 4 14:36:13 Hyperlipidemia 86298506 Active 2023 Carla Beth MD Attn: Terri shields,[address] [place], [address], [place] [facility] 4 16:56:14 Chronic rhinitis 70160943 Active 2023 Carla Beth MD Attn: Terri shields,[address] [place], [address], [place] [facility] 4 16:56:15 Vertigo 988140440 Active 2023 Carla Beth MD Attn: Terri shields,[address] [place], [address], [place] [facility] 4 16:56:16 Osteoarthritis 086261412 Active 2023 Carla Beth MD Attn: Terri shields,[address] [place], [address], [place] [facility] 4 16:56:19 Aortic valve regurgitation 12411803 Active 2023 Carla Beth MD Attn: Terri shields,[address] [place], [address], [facility] - SI 23:00:29 Problem Notes None recorded. Procedures Surgical History Date Name Laterality Status Provider Name and Address Organization Details Recorded Time 11/05/19 revision completed Jayne Alex [place] - [place] 11/06/2024 12:33:15 Cholecystectomy completed Yamilet Fine [place] - [facility] 06/25/2023 14:04:09 Hernia Repair completed Yamilet Fine MA [facility] SI 06/25/2023 14:05:50 Knee Surgery completed Yamilet Fine MA [facility] SI 06/25/2023 14:06:23 Total hysterectomy completed Daryl Fine MA [facility] 06/25/2023 14:06:07 Imaging Results None recorded. Procedure [...] anxious, or unable to sleep at night)? [id number] Information not available 06/25/2023 Family History Relationship [...] 30 mcg/0.3 mL dose 1 completed Zuleyma Mraadiaga [place], [place] [facility] 06/26/2024 16:09:21 [...] PF, 30 mcg/0.3 mL dose 2 completed RAHEL Mckeon, [place] - [facility] 06/26/2024 [...] PF 0 completed Zuleyma Maradiaga MA null, [place] - [facility] 06/26/2024 16:09:21 Influenza, split virus, trivalent, PF 3 completed Zuleyma Maradiaga MA null, [place] - [facility] 06/26/2024 16:09:21 Influenza, split virus, quadrivalent, PF 5 completed Zuleyma Maradiaga MA null, [place] - [facility] 06/26/2024 16:09:21 COVID-19, mRNA, LNP-S, PF, anisa-sucrose, 30 mcg/0.3 mL 4 completed Not Available [facility] 02/26/2025 15:49:14 Influenza, adjuvanted, trivalent, PF 4 completed Not Available [facility] 02/26/2025 15:49:14 Influenza, high-dose, trivalent, PF 5 completed Zuleyma Maradiaga MA null, [place] - [place] 01/12/2025 14:15:48 Past Encounters Encounter ID Performer Location Encounter Start Date Encounter Closed Date Diagnosis/Indication Diagnosis SNOMED-CT Code Diagnosis ICD10 Code Diagnosis IMO Codes Diagnosis Note [id number] Carla Beth MD [facility] [place] [address] [place] [address] 11/27/2024 15:23:28 11/27/2024 16:50:02 Obese class II 7423284017 04061 E66.812 E66.3 1704363506 BMI 39.3 Type 2 shola betes mellitus 33987037 E11.9 Essential hypertension 67054328 I10 Chronic rhinitis 6572720 6 J31.0 [id number] Carla Beth MD [facility] [place] [address] [place] [address] 12/04/2024 15:08:25 12/23/2024 15:05:53 Type 2 diabetes mellitus 40039873 E11.9 [id number] Carla Beth MD [facility] [place] [address] [place] [address] 12/11/2024 16:28:14 12/11/2024 17:31:13 Type 2 diabetes mellitus 45640400 E11.9 [id number] Carla Beth MD [facility] [place] [address] [place] [address] 12/18/2024 15:47:31 12/23/2024 16:24:24 Type 2 diabetes mellitus 26647953 E11.9 Health Concerns Section Related Observation LastModified by Organization Detai ls LastModified Time None Recorded Concern Status LastModified by Organization Details LastModified Time None Recorded Payers Encounter Date Sequence Insurance Name Policy Number Policy Yee Covered Member ID Yee Member ID Guarantor Name 12/18/2024 1 [employer] (MEDICARE REPLACEMENT/AD VANTAGE - PPO) Lindsay Bonilla [id number] Lindsay Bonilla 12/18/2024 2 [place]ARE OR MEDICARE REPLACEMENT PRIMARY) Lindsay Bonilla [id number] Lindsay Bonilla OBGyn Episode No OBEpisode recorded.
--- OUTSIDE RECORDS SUMMARY | 2025-03-18 03:46 | XMS_ITS | Continuity of Care Document ---
Author Organization [facility], [facility] Madelyn [place] Address [address] [place] [address] Care Team Providers Care Supervisor Paper Machine Name Role Phone CARLA BETH Primary Care Provider [facility] Referring Provider DONNA MANLEY Investor Relations Coordinator [employer] Staker Surveying Assessment No assessment recorded. Plan of Treatment [...] mL subcutane ous pen injector 2024 025 [email or web address] Not available 01/29/2025 16:13:06 Patient TargetsNo targets recorded. Patient InstructionsNo instructions recorded. Reason for Referral None Reported. Results Created Date Observation Date Name Description Value Unit Range Abnormal Flag Note LastModifiedBy Organization Detail LastModifiedTime 12/19/1912/15/2024 XR, knee, 3 view No observ ation record ed. [address], [place], [address], 12/24/2024 13:30:03 Result Notes None recorded. Problems Name Problem SNOMED Code Status Onset Date Resolution Date Notes Provider Name and Address Organization Details Recorded Time Essential hypertension 82683192 Active 2023 Arben Forde MA [facility] 14:36:12 Type 2 diabetes mellitus 26614357 Active 2023 Arben Forde [place] null, [place] [facility] 4 14:36:13 Hyperlipidemia 01430233 Active 2023 Carla Beth MD Attn: Terri shields,[address] [facility], [place], [address], [place] [facility] 4 16:56:14 Chronic rhinitis 16762860 Active 2023 Carla Beth MD Attn: Terri shields,[address] [facility], [place], [address], [place] [facility] 4 16:56:15 Vertigo 502636562 Active 2023 Carla Beth MD Attn: Terri shields,[address] [facility], [place], [address], [place] [facility] 4 16:56:16 Osteoarthritis 639262177 Active 2023 Carla Beth MD Attn: Terri shields,[address] [facility], [place], [address], [place] [facility] 4 16:56:19 Aortic valve regurgitation 87678403 Active 2023 Carla Beth MD Attn: Lizaakash shields,[address] [facility], [place], [address], [place] [facility] 23:00:29 Problem Notes None recorded. Procedures Surgical History Date Name Laterality Status Provider Name and Address Organization Details Recorded Time 11/05/19 25 revision completed Jayne Alex [place] - [facility] 11/06/2024 12:33:15 Cholecystectomy completed Yamilet Fine [place] - [facility] 06/25/2023 14:04:09 Hernia Repair completed Yamilet Fine MA [place] - [facility] 06/25/2023 14:05:50 Knee Surgery completed Yamilet Fine MA [place] - [facility] 06/25/2023 14:06:23 Total hysterectomy completed Daryl Fine MA [place] - [facility] 06/25/2023 14:06:07 Imaging Results None recorded. Procedure [...] Smoking Status Never Smoker Yamilet Fine MA [facility], [place] - [facility] 06/25/2023 13:57:36 Do You [...] anxious, or unable to sleep at night)? [id number] Information not available 06/25/2023 Family History Relationship [...] adjuvanted, trivalent, PF 4 completed Not Available [facility] 02/26/2025 15:49:14 Influenza, high-dose, trivalent, PF 5 completed Zuleyma Maradiaga MA [facility], [place] - [facility] 01/12/2025 14:15:48 Past Encounters Encounter ID Performer Location Encounter Start Date Encounter Closed Date Diagnosis/Indication Diagnosis SNOMED-CT Code Diagnosis ICD10 Code Diagnosis IMO Codes Diagnosis Note [id number] Carla Beth MD [facility] [employer] [facility] [place] [address] [place] [address] 12/11/2024 16:28:14 12/11/2024 17:31:13 Type 2 diabetes mellitus 38726155 E11.9 [id number] Carla Beth MD [facility] [employer] [facility] [place] [address] [place] [address] 12/18/2024 15:47:31 12/23/2024 16:24:24 Type 2 diabetes mellitus 43029490 E11.9 [id number] Carla Beth MD [facility] [employer] [facility] [place] [address] [place] [address] 12/25/2024 15:22:29 12/30/2024 08:15:04 Type 2 diabetes mellitus 15670580 E11.9 [id number] Carla Beth MD [facility] [employer] [facility] [place] [address] [place] [address] 01/01/2025 15:47:56 01/01/2025 16:33:28 Type 2 diabetes mellitus 79799332 E11.9 [id number] Carla Beth MD [facility] [employer] [facility] [place] [address] [place] [address] 01/08/2025 15:18:37 01/20/2025 13:02:40 Type 2 diabetes mellitus 64612847 E11.9 Influenza vaccination given 3773713277 9109 Z23 48965359 Health Concerns Section Related Observation LastModified by Organization Detai ls LastModified Time None Recorded Concern Status LastModified by Organization Details LastModified Time None Recorded Payers Encounter Date Sequence Insurance Name Policy Number Policy Yee Covered Member ID Yee Member ID Guarantor Name 01/08/2025 1 [employer] (MEDICARE REPLACEMENT/AD VANTAGE - PPO) Lindsay Bonilla [id number] Lindsay Bonilla 01/08/2025 2 [place] WHEN MEDICARE OR MEDICARE REPLACEMENT PRIMARY) Lindsay Bonilla [id number] Lindsay Bonilla OBGyn Episode No OBEpisode recorded.
--- OUTSIDE RECORDS SUMMARY | 2025-03-18 03:46 | XMS_ITS | Continuity of Care Document ---
Author Organization [place] [facility] Madelyn Watkins Address [address] [place] [address] Care Team Providers Care Metal Grader Name Role Phone CARLA BETH Primary Care Provider [phone] [facility] Referring Provider DONNA MANLEY Ecologist Technician [employer] Cash Accountant Assessment No assessment recorded. Plan of Treatment Reminders Order Date Submit Date Provider Last Modified By Organization Details Last Modified Time Details Appointments ANY 15 2025 02:30P M Carla Beth MD Not available Not available Not available Lab None recorded. Referral None recorded. Procedures None recorded. Surgeries None recorded. Imaging None recorded. Medication Orders Mounjaro 2.5 mg/0.5 mL subcutane ous pen injector [address] [place] [address] [id number], [address], [place], [id number], 01/29/2025 16:13:01 Patient TargetsNo targets recorded. Patient InstructionsNo instructions recorded. Reason for Referral None Reported. Results Created Date Observation Date Name Description Value Unit Range Abnormal Flag Note LastModifiedBy Organization Detail LastModifiedTime 11/27/1911/19/2024 XR, knee, 3 view No observ ation record ed. [facility] [address], [place], [address], 11/27/2024 10:02:44 12/19/19 25 12/15/2024 XR, knee, 3 view No observ ation record ed. [email or web address] [place] [address] [address], [place], [address], 12/24/2024 13:30:03 Result Notes None recorded. Problems Name Problem SNOMED Code Status Onset Date Resolution Date Notes Provider Name and Address Organization Details Recorded Time Essential hypertension 31210792 Active 2023 Arben Forde [place] null, [place] [facility] 4 14:36:12 Type 2 diabetes mellitus 32990334 Active 2023 Arben Forde [place], [place] [facility] 4 14:36:13 Hyperlipidemia 79253603 Active 2023 Carla Beth MD Attn: Terri shields,[address] [place], [address], [facility] - [facility] 4 16:56:14 Chronic rhinitis 29135143 Active 2023 Carla Beth MD Attn: Terri shields,[address] [place], [address], [facility] - [facility] 4 16:56:15 Vertigo 848847766 Active 2023 Carla Beth MD Attn: Terri shields,[address] [place], [address], [facility] - [facility] 4 16:56:16 Osteoarthritis 870680563 Active 2023 Carla Beth MD Attn: Terri shields,[address] [place], [address], [facility] - [facility] 4 16:56:19 Aortic valve regurgitation 73723699 Active 2023 Carla Beth MD Attn: Terri shields,[address] [place], [address], [place] [facility] 4 23:00:29 Problem Notes None recorded. Procedures Surgical History Date Name Laterality Status Provider Name and Address Organization Details Recorded Time 11/05/19 revision completed Jayne Alex [place] [facility] 11/06/2024 12:33:15 Cholecystectomy completed Yamilet Fine [place] - [facility] 06/25/2023 14:04:09 Hernia Repair completed Yamilet Fine MA [place] [facility] 06/25/2023 14:05:50 Knee Surgery completed Yamilet Fine [place] [facility] 06/25/2023 14:06:23 Total hysterectomy completed Daryl Fine MA [facility] 06/25/2023 14:06:07 Imaging Results None recorded. [...] Not Available Vitals Date Recorded Body height Provider Name an d Address Organization Details Last Updated DateTime 12/25/2024 165.1 cm Zuleyma Maradiaga [place] [facility] 12/25 15:35:21 Social History Question Answer Notes LastModified by Organizat ion Details LastModified Time Tobacco Smoking Status Never Smoker Yamilet Fine MA null, [place] [facility] 06/25/2023 13:57:36 Do You Have [...] anxious, or unable to sleep at night)? [id number] Information not available 06/25/2023 Family History Relationship [...] 30 mcg/0.3 mL 4 completed Not Available [facility] 02/26/2025 15:49:14 Influenza, adjuvanted, trivalent, PF 4 completed Not Available [facility] 02/26/2025 15:49:14 Influenza, high-dose, trivalent, PF 5 completed RAHEL Mckeon, [place] - [facility] 01/12/2025 14:15:48 Past Encounters Encounter ID Performer Location Encounter Start Date Encounter Closed Date Diagnosis/Indication Diagnosis SNOMED-CT Code Diagnosis ICD10 Code Diagnosis IMO Codes Diagnosis Note [id number] Carla Beth MD [facility] [place] [address] [place] [address] 11/27/2024 15:23:28 11/27/2024 16:50:02 Obese class II 9406485603 47857 E66.812 E66.3 1999406488 BMI 39.3 Type 2 shola betes mellitus 72759789 E11.9 Essential hypertension 65956646 I10 Chronic rhinitis 6847345 6 J31.0 [id number] Carla Beth MD [facility] [place] [address] [place] [address] 12/04/2024 15:08:25 12/23/2024 15:05:53 Type 2 diabetes mellitus 40903844 E11.9 [id number] Carla Beth MD [facility] [place] [address] [place] [address] 12/11/2024 16:28:14 12/11/2024 17:31:13 Type 2 diabetes mellitus 20646576 E11.9 [id number] Carla Beth MD [facility] [place] [address] [place] [address] 12/18/2024 15:47:31 12/23/2024 16:24:24 Type 2 diabetes mellitus 02484227 E11.9 [id number] Carla Beth MD [facility] [place] [address] [place] [address] 12/25/2024 15:22:29 12/30/2024 08:15:04 Type 2 diabetes mellitus 59964769 E11.9 Health Concerns Section Related Observation LastModified by Organization Detai ls LastModified Time None Recorded Concern Status LastModified by Organization Details LastModified Time None Recorded Payers Encounter Date Sequence Insurance Name Policy Number Policy Yee Covered Member ID Yee Member ID Guarantor Name 12/25/2024 1 [employer] (MEDICARE REPLACEMENT/AD VANTAGE - PPO) Lindsay Bonilla [id number] Lindsay Bonilla 12/25/2024 2 [place]CON[place] WHEN MEDICARE OR MEDICARE REPLACEMENT PRIMARY) Lindsay Bonilla [id number] Lindsay Bonilla OBGyn Episode No OBEpisode recorded.
--- OUTSIDE RECORDS SUMMARY | 2025-03-18 03:46 | XMS_ITS | Data Portability ---
Author Organization [facility] Lavinia Santos Address [address] [place] [address] Care Team Providers Care Floor Scraper Name Role Phone CARLA BETH Primary Care Provider [facility] Referring Provider DONNA MANLEY Record Press Supervisor QUANTUM Hr Intern Assessment Encounter Date Assessment Date Assessment LastModified by Organization Details LastModified Time 02/16/2025 02/16/2025 Neck pain mechanism suggest musculoskeletal we will add some tizanidine at night side effects discussed I anticipate that this be better in a week or so maybe even sooner [email or web address] Not available 02/16/2025 21:33:15 Plan of Treatment [...] mL subcutane ous pen injector 2024 025 [email or web address] [facility] #[id number], [address] [place] [address], [id number], 03/09/2025 15:44:49 Mounjaro 10 mg/0.5 mL subcutane ous pen injector 2024 025 [email or web address] [facility] #39659, [address] [place] [address], [id number], 02/27/2025 13:53:21 Mounjaro 7.5 mg/0.5 mL subcutane ous pen injector 2024 025 [id number], [address] [place] [address], [id number], 02/19/2025 17:53:39 tizanidin e 4 mg tablet 2024 025 [facility] #94615, [address] [place] [address], [id number], 02/16/2025 16:31:35 Mounjaro 7.5 mg/0.5 mL subcutane ous pen injector 2024 025 [email or web address] Not available 02/16/2025 10:41:18 Patient TargetsNo targets recorded. Patient InstructionsNo instructions recorded. Reason for Referral None Reported. Results Created Date Observation Date Name Description Value Unit Range Abnormal Flag Note LastModifiedBy Organization Detail LastModifiedTime 03/09/2003/10/2025 LIPID PANEL , [place] cholesterol, total 140 mg/dL <200 normal Not Available [facility] [place] [address] [place], [address], 03/10/2025 07:33:25 03/09/20 25 03/10/2025 LIPID PANEL , [place] HDL cholesterol 71 mg/dL > or = 50 normal Not Available [facility] [place] [address] [place], [address], 03/10/2025 07:33:25 03/09/20 25 03/10/2025 LIPID PANEL , [place] triglyceride s 76 mg/dL <150 normal Not Available [facility] [place] [address] [place], [address], 03/10/2025 07:33:25 03/09/20 25 03/10/2025 LIPID PANEL , [place] LDL-choleste rol 53 mg/dL _(sheeba c) normal Refer ence range : <100 Pamela able range <100 mg/dL for prima ry preve ntion ; <70 mg/dL for patie nts with CHD or diabe tic patie nts with > or = 2 CHD risk facto rs. LDL-C is now calcu lated using the Leeann n-Hop kins calcu jjalba n, which is a valid ated novel metho d provi ding ly r accur acy than the Fried haleigh equat ion in the estim ation of LDL-C . Leeann flanagan SS et al. NICOLE. 2013; 310(1 9): 2061- 2068 (http ://ed ucati on.Qu Citycelebrity. com/f aq/FA Q164) Not Available [facility] [place] [address] [place], [address], 03/10/2025 07:33:25 03/09/20 25 03/10/2025 LIPID PANEL , STAND [place] chol/HDLC ratio 2.0 (calc ) <5.0 normal Not Available [facility] [place] [address] [address], [place], [address], 03/10/2025 07:33:25 03/09/20 25 03/10/2025 LIPID PANEL , [place] non HDL cholesterol 69 mg/dL _(sheeba c) <130 normal For patie nts with diabe esperanza plus 1 major ASCVD risk facto r, treat ing to a non-H DL-C goal of <100 mg/dL (LDL- C of <70 mg/dL ) is consi bridgetted a thera peparker c optio n. Not Available [facility] [address] [place], [address], 03/10/2025 07:33:25 03/09/2003/10/2025 COMPR EHENS VANESSA METAB OLIC PANEL glucose 139 mg/dL 65-139 normal Non-f astin g refer ence inter [place] Not Available [facility] [address] [place], [address], 03/10/2025 07:33:25 03/09/20 25 03/10/2025 COMPR EHENS VANESSA METAB OLIC PANEL urea nitrogen (BUN) 10 mg/dL 7-25 normal Not Available [address], [address], 03/10/2025 07:33:25 03/09/20 25 03/10/2025 COMPR EHENS VANESSA METAB OLIC PANEL creatinine 0.46 mg/dL 0.60-1 .00 low Not Available [address], [address], 03/10/2025 07:33:25 03/09/20 25 03/10/2025 COMPR EHENS VANESSA METAB OLIC PANEL eGFR 100 mL/mi n/1.7 3m2 > or = 60 normal Not Available [address], [address], 03/10/2025 07:33:25 03/09/20 25 03/10/2025 COMPR EHENS VANESSA METAB OLIC PANEL BUN/creatini ne ratio 22 (calc ) 6-22 normal Not Available [address], [address], 03/10/2025 07:33:25 03/09/20 25 03/10/2025 COMPR EHENS VANESSA METAB OLIC PANEL sodium 143 mmol/ L 135-14 6 normal Not Available [address], [address], 03/10/2025 07:33:25 03/09/20 25 03/10/2025 COMPR EHENS VANESSA METAB OLIC PANEL potassium 3.8 mmol/ L 3.5-5. 3 normal Not Available [address], [address], 03/10/2025 07:33:25 03/09/20 25 03/10/2025 COMPR EHENS VANESSA METAB OLIC PANEL chloride 104 mmol/ L 98-110 normal Not Available [address], [address], 03/10/2025 07:33:25 03/09/20 25 03/10/2025 COMPR EHENS VANESSA METAB OLIC PANEL carbon dioxide 28 mmol/ L 20-32 normal Not Available [address], [address], 03/10/2025 07:33:25 03/09/20 25 03/10/2025 COMPR EHENS VANESSA METAB OLIC PANEL calcium 9.7 mg/dL 8.6-10 .4 normal Not Available [address], [address], 03/10/2025 07:33:25 03/09/20 25 03/10/2025 COMPR EHENS VANESSA METAB OLIC PANEL protein, total 6.8 g/dL 6.1-8. 1 normal Not Available [address], [address], 03/10/2025 07:33:25 03/09/20 25 03/10/2025 COMPR EHENS VANESSA METAB OLIC PANEL albumin 4.3 g/dL 3.6-5. 1 normal Not Available [address], [address], 03/10/2025 07:33:25 03/09/20 25 03/10/2025 COMPR EHENS VANESSA METAB OLIC PANEL globulin 2.5 g/dL_ (calc ) 1.9-3. 7 normal Not Available [address], [address], 03/10/2025 07:33:25 03/09/20 25 03/10/2025 COMPR EHENS VANESSA METAB OLIC PANEL albumin/glob ulin ratio 1.7 (calc ) 1.0-2. 5 normal Not Available [address], [address], 03/10/2025 07:33:25 03/09/20 25 03/10/2025 COMPR EHENS VANESSA METAB OLIC PANEL bilirubin, total 0.3 mg/dL 0.2-1. 2 normal Not Available [address], [address], 03/10/2025 07:33:25 03/09/20 25 03/10/2025 COMPR EHENS VANESSA METAB OLIC PANEL alkaline phosphatase 81 U/L 37-153 normal Not Available [place] [address] [place], [address], 03/10/2025 07:33:25 03/09/20 25 03/10/2025 COMPR EHENS VANESSA METAB OLIC PANEL AST 25 U/L 10-35 normal Not Available [address], [address], 03/10/2025 07:33:25 03/09/20 25 03/10/2025 COMPR EHENS VANESSA METAB OLIC PANEL ALT 20 U/L 6-29 normal Not Available [address], [address], 03/10/2025 07:33:25 03/09/20 25 03/10/2025 CBC (INCL UDES DIFF/ PLT) white blood cell count 4.9 thous and/u L 3.8-10 .8 normal Not Available [address], [address], 03/10/2025 07:33:26 03/09/20 25 03/10/2025 CBC (INCL UDES DIFF/ PLT) red blood cell count 4.64 rosa on/uL 3.80-5 .10 normal Not Available [address], [address], 03/10/2025 07:33:26 03/09/20 25 03/10/2025 CBC (INCL UDES DIFF/ PLT) hemoglobin 11.6 g/dL 11.7-1 5.5 low Not Available [address], [address], 03/10/2025 07:33:26 03/09/20 25 03/10/2025 CBC (INCL UDES DIFF/ PLT) hematocrit 36.0 % 35.9-4 6.0 normal Not Available [address], [address], 03/10/2025 07:33:26 03/09/20 25 03/10/2025 CBC (INCL UDES DIFF/ PLT) MCV 77.6 fL 81.4-1 01.7 low Not Available [address], [address], 03/10/2025 07:33:26 03/09/20 25 03/10/2025 CBC (INCL UDES DIFF/ PLT) MCH 25.0 pg 27.0-3 3.0 low Not Available [address], [address], 03/10/2025 07:33:26 03/09/20 25 03/10/2025 CBC (INCL UDES DIFF/ PLT) MCHC 32.2 g/dL 31.6-3 5.4 normal Not Available [address], [address], 03/10/2025 07:33:26 03/09/20 25 03/10/2025 CBC (INCL UDES DIFF/ PLT) RDW 14.8 % 11.0-1 5.0 normal Not Available [address], [address], 03/10/2025 07:33:26 03/09/20 25 03/10/2025 CBC (INCL UDES DIFF/ PLT) platelet count 383 thous and/u L 140-40 0 normal Not Available [address], [address], 03/10/2025 07:33:26 03/09/20 25 03/10/2025 CBC (INCL UDES DIFF/ PLT) MPV 9.7 fL 7.5-12 .5 normal Not Available [address], [address], 03/10/2025 07:33:26 03/09/20 25 03/10/2025 CBC (INCL UDES DIFF/ PLT) absolute neutrophils 3376 cells /uL 1500-7 800 normal Not Available [address], [address], 03/10/2025 07:33:26 03/09/20 25 03/10/2025 CBC (INCL UDES DIFF/ PLT) absolute lymphocytes 1117 cells /uL 850-39 00 normal Not Available [address], [address], 03/10/2025 07:33:26 03/09/20 25 03/10/2025 CBC (INCL UDES DIFF/ PLT) absolute monocytes 289 cells /uL 200-95 0 normal Not Available [address], [address], 03/10/2025 07:33:26 03/09/20 25 03/10/2025 CBC (INCL UDES DIFF/ PLT) absolute eosinophils 78 cells /uL 15-500 normal Not Available [address], [address], 03/10/2025 07:33:26 03/09/20 25 03/10/2025 CBC (INCL UDES DIFF/ PLT) absolute basophils 39 cells /uL 0-200 normal Not Available [address], [address], 03/10/2025 07:33:26 03/09/20 25 03/10/2025 CBC (INCL UDES DIFF/ PLT) neutrophils 68.9 % normal Not Available [place] [id number] [place], [address], 03/10/2025 07:33:26 03/09/2003/10/2025 CBC (INCL UDES DIFF/ PLT) lymphocytes 22.8 % normal Not Available [facility] [place] [address] [place], [address], 03/10/2025 07:33:26 03/09/20 25 03/10/2025 CBC (INCL UDES DIFF/ PLT) monocytes 5.9 % normal Not Available [facility] [place] [address] [place], [address], 03/10/2025 07:33:26 03/09/2003/10/2025 CBC (INCL UDES DIFF/ PLT) eosinophils 1.6 % normal Not Available [facility] [address], [address], 03/10/2025 07:33:26 03/09/2003/10/2025 CBC (INCL UDES DIFF/ PLT) basophils 0.8 % normal Not Available [facility] [address], [address], 03/10/2025 07:33:26 03/09/2003/10/2025 HEMOG LOBIN A1C hemoglobin A1C 6.3 %_of_ total _HGB <5.7 high For someo ne witho ut known diabe esperanza, a hemog lobin A1c value betwe en 5.7% and 6.4% is consi stent with predi abete s and shoul d be confi rmed with a follo w-up test. For someo ne with known diabe esperanza, a value <7% indic ates that their diabe esperanza is well contr olled . A1c targe ts shoul d be indiv idual ized based on durat ion of diabe esperanza, age, comor bid condi tions , and other consi derat ions. This assay resul t is consi stent with an incre ased risk of diabe esperanza. Curre ntly, no conse nsus exist s regjeanine nixon use of hemog lobin A1c for diagn osis of diabe esperanza for child marya. Not Available [facility] [address] [place], [address], 03/10/2025 07:33:27 Result Notes None recorded. Problems Name Problem SNOMED Code Status Onset Date Resolution Date Notes Provider Name and Address Organization Details Recorded Time Essential hypertension 42847507 Active 2023 Arben Forde [place] null, [place] - [facility] 4 14:36:12 Type 2 diabetes mellitus 73471803 Active 2023 Arben Forde [place], [place] [facility] 4 14:36:13 Hyperlipidemia 20956914 Active 2023 Carla Beth MD Attn: Terri shields,[address] [facility], [place], [address], [place] [facility] 4 16:56:14 Chronic rhinitis 06659186 Active 2023 Carla Beth MD Attn: Terri shields,[address] [facility], [place], [address], [place] [facility] 4 16:56:15 Vertigo 837999425 Active 2023 Carla Beth MD Attn: Terri shields,[address] [facility], [place], [address], [place] [facility] 4 16:56:16 Osteoarthritis 794000189 Active 2023 Carla Beth MD Attn: Terri shields,[address] [facility], [place], [address], [place] [facility] 4 16:56:19 Aortic valve regurgitation 92908427 Active 2023 Carla Beth MD Attn: Terri shields,[address] [facility], [place], [address], [place] [facility] 4 23:00:29 Problem Notes None recorded. Procedures Surgical History Date Name Laterality Status Provider Name and Address Organization Details Recorded Time 11/05/19 revision completed Jayne Alex [facility] 11/06/2024 12:33:15 Cholecystectomy completed Yamilet Fine MA [facility] 06/25/2023 14:04:09 Hernia Repair completed Yamilet Fine MA [facility] 06/25/2023 14:05:50 Knee Surgery completed Yamilet Fine MA [facility] 06/25/2023 14:06:23 Total hysterectomy completed Daryl Fine MA [facility] 06/25/2023 14:06:07 Imaging Results None recorded. Procedure [...] 98 % 132/50 mm[Hg] Lizette Deleon MA [place] - [facility] 02/16/2025 15:00:34 Social History Question Answer Notes LastModified by Organizat ion Details LastModified Time Tobacco Smoking Status Never Smoker RAHEL Rodriguez, [place] - [facility] 06/25/2023 13:57:36 Do You Have An [...] anxious, or unable to sleep at night)? [id number] Information not available 06/25/2023 Family History Relationship [...] 30 mcg/0.3 mL 4 completed Not Available [facility] 02/26/2025 15:49:14 Influenza, adjuvanted, trivalent, PF 4 completed Not Available [facility] 02/26/2025 15:49:14 Influenza, high-dose, trivalent, PF 5 completed Zuleyma Maradiaga [place] null, [place] [facility] 01/12/2025 14:15:48 Past Encounters Encounter ID Performer Location Encounter Start Date Encounter Closed Date Diagnosis/Indication Diagnosis SNOMED-CT Code Diagnosis ICD10 Code Diagnosis IMO Codes Diagnosis Note [id number] Carla Beth MD [facility] [employer] [address] [place] [address] 06/25/2023 13:45:05 06/25/2023 14:40:44 Essential hypertension 41404972 I10 Type 2 shola betes mellitus 11804809 E11.9 Hyperlipidemia 18233288 E78.5 Chronic rhinitis 5190213 6 J31.0 Vertigo 019452099 R42 Osteoarthritis 515604902 M19.90 [id number] Carla Beth MD [facility] [employer] [facility] [place] [address] [place] [address] 10/25/2023 15:07:13 10/25/2023 16:28:52 Type 2 diabetes mellitus 85201269 E11.9 Morbid obesity 735544241 E66.01 Aortic [place] ve regurgitation 64939346 I35.1 Hyperlipidemia 99720775 E78.5 Osteoarthritis 739147694 M19.90 Essential hypertension 21495863 I10 Chronic rhinitis 1261712 6 J31.0 [id number] Carla Beth MD [facility] [facility] [place] [address] [place] [address] 02/21/2024 15:12:53 02/21/2024 16:34:17 Essential hypertension 31977224 I10 Hyperlipidemia 21565366 E78.5 Osteoarthritis 574256358 M19.90 Type 2 shola betes mellitus 03379998 E11.9 Chronic rhinitis 3420306 6 J31.0 Obesity 535112555 E66.9 [id number] Carla Beth MD [facility] [facility] [place] [address] [place] [address] 03/10/2024 15:16:28 03/10/2024 16:24:55 Type 2 diabetes mellitus 14679972 E11.9 [id number] Carla Beth MD [facility] [employer] [facility] [place] [address] [place] [address] 03/20/2024 15:32:03 03/26/2024 08:40:05 Type 2 diabetes mellitus 46910461 E11.9 [id number] Carla Beth MD [facility] [employer] [facility] [place] [address] [place] [address] 03/27/2024 15:02:37 03/27/2024 15:35:11 [id number] Carla Beth MD [facility] [employer] [facility] [place] [address] [place] [address] 04/03/2024 15:02:57 04/03/2024 15:50:59 Type 2 diabetes mellitus 00976075 E11.9 [id number] Carla Beth MD [facility] [employer] [facility] [place] [address] [place] [address] 04/10/2024 15:13:20 04/10/2024 15:25:52 Type 2 diabetes mellitus 03485753 E11.9 [id number] Carla Beth MD [facility] [facility] [place] [address] [place] [address] 04/17/2024 15:46:06 04/17/2024 16:28:54 Type 2 diabetes mellitus 15249149 E11.9 [id number] Carla Beth MD [facility] [facility] [place] [address] [place] [address] 04/24/2024 16:53:38 04/24/2024 17:39:38 Type 2 diabetes mellitus 97964394 E11.9 [id number] Carla Beth MD [facility] [facility] [place] [address] [place] [address] 05/05/2024 15:40:31 05/05/2024 16:17:25 Type 2 diabetes mellitus 84140187 E11.9 [id number] Carla Beth MD [facility] [facility] [place] [address] [place] [address] 05/15/2024 16:43:01 05/15/2024 17:22:07 Injection given 817891388 Z98.867 [id number] Carla Beth MD [facility] [facility] [place] [address] [place] [address] 05/22/2024 16:50:28 05/22/2024 17:37:03 Type 2 diabetes mellitus 22019650 E11.9 [id number] Carla Beth MD [facility] [facility] [place] [address] [place] [address] 05/29/2024 16:55:58 05/30/2024 15:42:47 Type 2 diabetes mellitus 91706160 E11.9 [id number] Carla Beth MD [facility] [place] [address] [place] [address] 06/05/2024 17:17:40 06/17/2024 10:12:24 Type 2 diabetes mellitus 21637458 E11.9 [id number] Carla Beth MD [facility] [facility] [place] [address] [place] [address] 06/12/2024 16:55:57 06/13/2024 14:47:07 Type 2 diabetes mellitus 32213986 E11.9 [id number] Carla Beth MD [facility] [facility] [place] [address] [place] [address] 06/20/2024 15:57:01 06/23/2024 15:34:33 Type 2 diabetes mellitus 28663586 E11.9 [id number] Carla Beth MD [facility] [facility] [place] [address] [place] [address] 06/26/2024 15:38:35 06/26/2024 17:05:06 Body mass index 40+ - severely obese 312282689 Z68.41 Morbid obesity 013403452 E66.01 Type 2 shola betes mellitus 18227478 E11.9 Essential hypertension 70129159 I10 Hyperlipidemia 43777941 E78.5 Osteoarthritis 767774230 M19.90 [id number] Carla Beth MD [facility] [facility] [place] [address] [place] [address] 07/03/2024 16:05:41 07/09/2024 12:56:42 Type 2 diabetes mellitus 15951114 E11.9 [id number] Carla Beth MD [facility] [facility] [place] [address] [place] [address] 07/10/2024 16:10:20 07/10/2024 17:57:51 Type 2 diabetes mellitus 24533288 E11.9 [id number] Carla Beth MD [facility] [facility] [place] [address] [place] [address] 07/17/2024 16:23:39 07/17/2024 17:05:20 Type 2 diabetes mellitus 33478041 E11.9 [id number] Carla Beth MD [facility] [facility] [place] [address] [place] [address] 07/24/2024 13:09:11 07/24/2024 16:25:08 Type 2 diabetes mellitus 87905427 E11.9 [id number] Carla Beth MD [facility] [facility] [place] [address] [place] [address] 07/31/2024 16:25:10 07/31/2024 17:40:10 Type 2 diabetes mellitus 92182900 E11.9 Preoperative state 320[address] 002 Z01.818 762030 Body mass index 30+ - obesity 247331675 Z68.38 288020 Obese class III 45756425 5 E66.813 9394691168 Chronic rhinitis 8365930 6 J31.0 Essential hypertension 96890283 I10 Hyperlipidemia 76683828 E78.5 Osteoarthritis 097902957 M19.90 [id number] Carla Beth MD [facility] [place] [address] [place] [address] 08/07/2024 16:01:39 08/07/2024 16:19:12 Type 2 diabetes mellitus 85475544 E11.9 [id number] Carla Beth MD [facility] [place] [address] [place] [address] 08/14/2024 14:20:17 08/14/2024 17:17:50 Type 2 diabetes mellitus 11019253 E11.9 [id number] Carla Beth MD [facility] [place] [address] [place] [address] 08/21/2024 16:07:58 08/21/2024 16:26:53 Type 2 diabetes mellitus 00701185 E11.9 [id number] Carla Beth MD [facility] [place] [address] [place] [address] 08/28/2024 16:12:14 08/28/2024 16:34:17 Type 2 diabetes mellitus 09913961 E11.9 [id number] Carla Beth MD [facility] [place] [address] [place] [address] 09/05/2024 16:07:14 09/15/2024 08:07:07 Type 2 diabetes mellitus 80033481 E11.9 [id number] Carla Beth MD [facility] [facility] [place] [address] [place] [address] 09/11/2024 16:19:49 09/11/2024 17:15:30 Type 2 diabetes mellitus 84868407 E11.9 [id number] Carla Beth MD [facility] [facility] [place] [address] [place] [address] 09/18/2024 16:05:14 09/22/2024 14:25:08 Type 2 diabetes mellitus 09777188 E11.9 [id number] Carla Beth MD [facility] [facility] [place] [address] [place] [address] 09/25/2024 16:41:23 09/25/2024 17:58:50 Type 2 diabetes mellitus 72407897 E11.9 [id number] Carla Beth MD [facility] [employer] [facility] [place] [address] [place] [address] 10/02/2024 16:05:21 10/03/2024 09:05:22 Type 2 diabetes mellitus 82049587 E11.9 [id number] Carla Beth MD [facility] [employer] [facility] [place] [address] [place] [address] 10/09/2024 16:16:31 10/10/2024 12:40:09 Type 2 diabetes mellitus 45791231 E11.9 [id number] Carla Beth MD [facility] [employer] [facility] [place] [address] [place] [address] 10/16/2024 16:15:15 10/16/2024 16:48:48 Type 2 diabetes mellitus 90860036 E11.9 [id number] Carla Beth MD [facility] [employer] [facility] [place] [address] [place] [address] 11/27/2024 15:23:28 11/27/2024 16:50:02 Obese class II 6433066100 21055 E66.812 E66.3 5694343321 BMI 39.3 Type 2 shola betes mellitus 24125764 E11.9 Essential hypertension 90682183 I10 Chronic rhinitis 3457444 6 J31.0 [id number] Carla Beth MD [facility] [place] [address] [place] [address] 12/04/2024 15:08:25 12/23/2024 15:05:53 Type 2 diabetes mellitus 50417059 E11.9 [id number] Carla Beth MD [facility] [place] [address] [place] [address] 12/11/2024 16:28:14 12/11/2024 17:31:13 Type 2 diabetes mellitus 71129933 E11.9 [id number] Carla Beth MD [facility] [place] [address] [place] [address] 12/18/2024 15:47:31 12/23/2024 16:24:24 Type 2 diabetes mellitus 01363016 E11.9 [id number] Carla Beth MD [facility] [facility] [place] [address] [place] [address] 12/25/2024 15:22:29 12/30/2024 08:15:04 Type 2 diabetes mellitus 34687730 E11.9 [id number] Carla Beth MD [facility] [place] [address] [place] [address] 01/01/2025 15:47:56 01/01/2025 16:33:28 Type 2 diabetes mellitus [id number] E11.9 [id number] Carla Beth MD [facility] [place] [address] [place] [address] 01/08/2025 15:18:37 01/20/2025 13:02:40 Type 2 diabetes mellitus 31749204 E11.9 Influenza vaccination given [id number] Z23 [id number] Carla Beth MD [facility] [place] [address] [place] [address] 01/15/2025 15:41:05 01/15/2025 16:21:53 Type 2 diabetes mellitus 38902111 E11.9 Z79.4 [id number] Carla Beth MD [facility] [place] [address] [place] [address] 01/22/2025 15:24:41 01/22/2025 16:02:18 Type 2 diabetes mellitus [id number] E11.9 Z79.4 [id number] Carla Beth MD [facility] [place] [address] [place] [address] 01/29/2025 15:44:27 01/29/2025 17:01:35 Obese class II [id number] 62319 E66.812 E66.3 [id number] BMI 37.4 Type 2 shola betes mellitus 01723436 E11.9 [id number] Essential hypertension 55474082 I10 Hyperlipidemia 88582018 E78.5 Osteoarthritis 439632988 M19.90 Chronic rhinitis 8992563 6 J31.0 [id number] Carla Beth MD [facility] [place] [address] [place] [address] 02/05/2025 15:33:23 02/05/2025 15:44:35 Type 2 diabetes mellitus [id number] E11.9 [id number] Carla Beth MD [facility] [place] [address] [place] [address] 02/11/2025 13:10:37 02/11/2025 13:14:42 Type 2 diabetes mellitus 55907474 E11.9 [id number] Carla Beth MD [facility] [facility] [place] [address] [place] [address] 02/16/2025 14:50:38 02/16/2025 15:59:20 Neck pain 14236258 M54.2 [id number] Carla Beth MD [facility] [place] [address] [place] [address] 02/19/2025 15:39:05 02/20/2025 11:59:08 Type 2 diabetes mellitus 92924733 E11.9 [id number] Carla Beth MD [facility] [place] [address] [place] [address] 02/26/2025 15:48:14 02/27/2025 12:53:45 Type 2 diabetes mellitus 33793773 E11.9 [id number] Carla Beth MD [facility] Kalyn Watkins [address] [place] [address] 03/09/2025 14:32:41 03/09/2025 16:23:48 Type 2 diabetes mellitus 34858884 E11.9 Health Concerns Section Related Observation LastModified by Organization Detai ls LastModified Time None Recorded Concern Status LastModified by Organization Details LastModified Time None Recorded Advance Directives Directive N: Payers Insurance Date Sequence Insurance Name Policy Number Policy Yee Covered Member ID Yee Member ID Guarantor Name 02/16/2025 2 [place] WHEN MEDICARE OR MEDICARE REPLACEMENT PRIMARY) Lindsay Bonilla [id number] Lindsay Bonilla 03/09/2025 1 [employer] (MEDICARE REPLACEMENT/AD VANTAGE - PPO) Lindsay Bonilla [id number] Lindsay Bonilla 01/12/2025 2 [place] [employer] Lindsay Bonilla [id number] Lindsay Bonilla 01/12/2025 1 [place] Lindsay Bonilla [id number] Lindsay Bnoilla Notes Date Note Type Note Provider Name [...] vomiting Carla Beth MD Attn: [address] [place], [address], [facility] 02/16/2025 21:34:03 OBGyn Episode No OBEpisode recorded.
--- OUTSIDE RECORDS SUMMARY | 2025-03-18 03:46 | XMS_ITS | Continuity of Care Document ---
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 Plan of Treatment [...] mL subcutane ous pen injector 2024 025 [email or web address] Not available 02/16/2025 10:41:18 Patient TargetsNo targets recorded. Patient InstructionsNo instructions recorded. Reason for Referral None Reported. Problems Name Problem SNOMED Code Status Onset Date Resolution Date Notes Provider Name and Address Organization Details Recorded Time Essential hypertension 81473554 Active 2023 Arben Forde MA null, [facility] 4 14:36:12 Type 2 diabetes mellitus 48912919 Active 2023 Arben Forde [place] null, [place] - [place] 4 14:36:13 Hyperlipidemia 24523443 Active 2023 Carla Beth MD Attn: Terri shields,[address] [facility], [place], [address] , [facility] - [facility] 4 16:56:14 Chronic rhinitis 25938164 Active 2023 Carla Beth MD Attn: Terri shields,[address] [place], [address], [facility] - [facility] 4 16:56:15 Vertigo 285328800 Active 2023 Carla Beth MD Attn: Terri shields,[address] [place], [address], [facility] - [facility] 4 16:56:16 Osteoarthritis 536725841 Active 2023 Carla Beth MD Attn: Terri shields,[address] [place], [address], [facility] - [facility] 4 16:56:19 Aortic valve regurgitation 34510329 Active 2023 Carla Beth MD Attn: Terri shields,[address] [place], [address], [facility] - SI 23:00:29 Problem Notes None recorded. Procedures Surgical History Date Name Laterality Status Provider Name and Address Organization Details Recorded Time 11/05/19 revision completed Jayne Alex [place] 11/06/2024 12:33:15 Cholecystectomy completed Yamilet Fine MA [facility] 06/25/2023 14:04:09 Hernia Repair completed Yamilet Fine MA [facility] 06/25/2023 14:05:50 Knee Surgery completed Yamilet Fine MA [facility] 06/25/2023 14:06:23 Total hysterectomy completed Daryl Fine MA [facility] 06/25/2023 14:06:07 Imaging Results None recorded. Procedure [...] 98 % 132/50 mm[Hg] Lizette Deleon MA [place] - [facility] 02/16/2025 15:00:34 Social History Question Answer Notes LastModified by Organizat ion Details LastModified Time Tobacco Smoking Status Never Smoker Yamilet Fine [place] null, [place] [facility] 06/25/2023 13:57:36 Do You Have An Advance [...] anxious, or unable to sleep at night)? [id number] Information not available 06/25/2023 Family History Relationship [...] Details Recorded Time SARS-COV-2 (COVID-19) vaccine, UNSPECIFIED completed Ronda Mario LPN null, [place] - [...] 30 mcg/0.3 mL 4 completed Not Available [facility] 02/26/2025 15:49:14 Influenza, adjuvanted, trivalent, PF 4 completed Not Available [facility] 02/26/2025 15:49:14 Influenza, high-dose, trivalent, PF completed Zuleyma Maradiaga MA [facility], [place] - [place] 01/12/2025 14:15:48 Past Encounters Encounter ID Performer Location Encounter Start Date Encounter Closed Date Diagnosis/Indication Diagnosis SNOMED-CT Code Diagnosis ICD10 Code Diagnosis IMO Codes Diagnosis Note [id number] Carla Beth MD [facility] [employer] [facility] [place] [address] [place] [address] 01/15/2025 15:41:05 01/15/2025 16:21:53 Type 2 diabetes mellitus 64063840 E11.9 Z79.4 [id number] Carla Beth MD [facility] [employer] [facility] [place] [address] [place] [address] 01/22/2025 15:24:41 01/22/2025 16:02:18 Type 2 diabetes mellitus 24732203 E11.9 Z79.4 [id number] Carla Beth MD [facility] [employer] [facility] [place] [address] [place] [address] 01/29/2025 15:44:27 01/29/2025 17:01:35 Obese class II 8927554398 78257 E66.812 E66.3 8565571390 BMI 37.4 Type 2 shola betes mellitus 60542942 E11.9 7682117152 Essential hypertension 55377712 I10 Hyperlipidemia 99360440 E78.5 Osteoarthritis 405449716 M19.90 Chronic rhinitis 2850078 6 J31.0 [id number] Carla Beth MD [facility] [employer] [facility] [place] [address] [place] [address] 02/05/2025 15:33:23 02/05/2025 15:44:35 Type 2 diabetes mellitus 31668960 E11.9 [id number] Carla Beth MD [facility] [employer] [facility] [place] [address] [place] [address] 02/11/2025 13:10:37 02/11/2025 13:14:42 Type 2 diabetes mellitus 00613164 E11.9 Health Concerns Section Related Observation LastModified by Organization Detai ls LastModified Time None Recorded Concern Status LastModified by Organization Details LastModified Time None Recorded Payers Encounter Date Sequence Insurance Name Policy Number Policy Yee Covered Member ID Yee Member ID Guarantor Name 02/11/2025 1 [employer] (MEDICARE REPLACEMENT/AD VANTAGE - PPO) Lindsay Bob Bonilla [id number] Lindsay Bonilla 02/11/2025 2 [place] WHEN MEDICARE OR MEDICARE REPLACEMENT PRIMARY) Lindsay Bonilla [id number] Lindsay Bonilla Notes Date Note Type Note [...] vomiting Carla Beth MD Attn: [address] [place], [address], [facility] - [facility] 02/16/2025 21:34:03 OBGyn Episode No OBEpisode recorded.
--- OUTSIDE RECORDS SUMMARY | 2025-03-18 03:46 | XMS_ITS | Continuity of Care Document ---
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 Plan of Treatment [...] mL subcutane ous pen injector 2024 025 [email or web address] [id number], [address], [place], [place], [id number], 02/27/2025 13:53:21 Patient TargetsNo targets recorded. Patient InstructionsNo instructions recorded. Reason for Referral None Reported. Problems Name Problem SNOMED Code Status Onset Date Resolution Date Notes Provider Name and Address Organization Details Recorded Time Essential hypertension 96746248 Active 2023 RAHEL Escoto, [facility] 4 14:36:12 Type 2 diabetes mellitus 17170569 Active 2023 RAHEL Escoto, [facility] 4 14:36:13 Hyperlipidemia 81867213 Active 2023 Carla Beth MD Attn: Accountin g,[address] [facility], [place], [address], [place] - [facility] 4 16:56:14 Chronic rhinitis 40468743 Active 2023 Carla Beth MD Attn: Terri shields,[address] [facility], [place], [address], [place] - [facility] 4 16:56:15 Vertigo 001105329 Active 2023 Carla Beth MD Attn: Terri shields,[address] [facility], [place], [address], [place] - [facility] 4 16:56:16 Osteoarthritis 137158484 Active 2023 Carla Beth MD Attn: Terri shields,[address] [facility], [place], [address], [place] - [facility] 16:56:19 Aortic valve regurgitation 82776071 Active 2023 Carla Beth MD Attn: Terri shields,[address] [facility], [place], [address], [place] - [facility] 23:00:29 Problem Notes None recorded. Procedures Surgical History Date Name Laterality Status Provider Name and Address Organization Details Recorded Time 11/05/19 25 revision completed Jayne Alex [place] - [place] 11/06/2024 12:33:15 Cholecystectomy completed Yamilet Fine MA [facility] 06/25/2023 14:04:09 Hernia Repair completed Yamilet Fine MA [facility] 06/25/2023 14:05:50 Knee Surgery completed Yamilet Fine [place] 06/25/2023 14:06:23 Total hysterectomy completed Daryl Fine [place] - [place] 06/25/2023 14:06:07 Imaging Results None [...] anxious, or unable to sleep at night)? [id number] Information not available 06/25/2023 Family History Relationship [...] 30 mcg/0.3 mL dose, anisa-sucrose 2 completed uZleyma Maradiaga MA null, [place] - [facility] 06/26/2024 [...] 30 mcg/0.3 mL 4 completed Not Available [facility] 02/26/2025 15:49:14 Influenza, adjuvanted, trivalent, PF 4 completed Not Available [facility] 02/26/2025 15:49:14 Influenza, high-dose, trivalent, PF 5 completed Zuleyma Maradiaga MA [facility] 01/12/2025 14:15:48 Past Encounters Encounter ID Performer Location Encounter Start Date Encounter Closed Date Diagnosis/Indication Diagnosis SNOMED-CT Code Diagnosis ICD10 Code Diagnosis IMO Codes Diagnosis Note [id number] Carla Beth MD [facility] [employer] [facility] [facility] [place] [address] [place] [address] 01/29/2025 15:44:27 01/29/2025 17:01:35 Obese class II 9068074011 11974 E66.812 E66.3 4898317033 BMI 37.4 Type 2 shola betes mellitus 81006644 E11.9 7767275847 Essential hypertension 49432887 I10 Hyperlipidemia 67218702 E78.5 Osteoarthritis 557346015 M19.90 Chronic rhinitis 9328421 6 J31.0 [id number] Carla Beth MD [facility] [employer] [facility] [place] [address] [place] [address] 02/05/2025 15:33:23 02/05/2025 15:44:35 Type 2 diabetes mellitus 68491524 E11.9 [id number] Carla Beth MD [facility] [employer] [facility] [place] [address] [place] [address] 02/11/2025 13:10:37 02/11/2025 13:14:42 Type 2 diabetes mellitus 06091312 E11.9 [id number] Carla Beth MD [facility] [employer] [facility] [place] [address] [place] [address] 02/16/2025 14:50:38 02/16/2025 15:59:20 Neck pain 06689153 M54.2 [id number] Carla Beth MD [facility] [employer] [facility] [place] [address] [place] [address] 02/19/2025 15:39:05 02/20/2025 11:59:08 Type 2 diabetes mellitus 65028368 E11.9 [id number] Carla Beth MD [facility] [employer] [facility] [place] [address] [place] [address] 02/26/2025 15:48:14 02/27/2025 12:53:45 Type 2 diabetes mellitus 47304036 E11.9 Health Concerns Section Related Observation LastModified by Organization Detai ls LastModified Time None Recorded Concern Status LastModified by Organization Details LastModified Time None Recorded Payers Encounter Date Sequence Insurance Name Policy Number Policy Yee Covered Member ID Yee Member ID Guarantor Name 02/26/2025 1 [employer] (MEDICARE REPLACEMENT/AD VANTAGE - PPO) Lindsay Bonilla [id number] Lindsay Bonilla 02/26/2025 2 [place] WHEN MED[place]ARE OR MEDICARE REPLACEMENT PRIMARY) Lindsay Bonilla [id number] Lindsay oBnilla OBGyn Episode No OBEpisode recorded.
[2025-03-18 03:54] LABS: INR 1.1; Partial Thromboplastin Time 29.2 Seconds (22.3-36.8); Prothrombin Time 14.0 Seconds (11.1-14.7)
--- NOTE | 2025-03-18 05:38 | PC.NURSE ---
Pt states she is unable to urinate at this time. Pt states she will try again shortly. Pt refusing catheter.
--- NOTE | 2025-03-18 06:21 | PC.NURSE ---
Pt unsuccessful still with urine sample. Pt still refusing catheter.
--- NOTE | 2025-03-18 08:21 | PC.NURSE ---
Called [facility] police for a curtsy ride since pt is very familiar with office.
== END 2025-03-18 08:28 | disposition home or self-care (01) ==
LOC: ANHED 03-18 03:44
PROVIDERS: Emergency Provider Registered Nurse; PCP Internal Medicine
DX: E87.6 Hypokalemia (principal); M25.572 Pain in left ankle and joints of left foot; M25.571 Pain in right ankle and joints of right foot; Z20.822 Contact with and (suspected) exposure to COVID-19; I10 Essential (primary) hypertension; I42.1 Obstructive hypertrophic cardiomyopathy; E78.5 Hyperlipidemia, unspecified; E11.9 Type 2 diabetes mellitus without complications; Z96.653 Presence of artificial knee joint, bilateral; Z96.641 Presence of right artificial hip joint; Z87.891 Personal history of nicotine dependence; Z79.85 Long-term (current) use of injectable non-insulin antidiabetic drugs; Z79.84 Long term (current) use of oral hypoglycemic drugs; Z79.899 Other long term (current) drug therapy; Z79.82 Long term (current) use of aspirin; R94.31 Abnormal electrocardiogram [ECG] [EKG]
CPT/HCPCS: 36415; 70450; 71045; 73564; 73610; 80053; 83735; 83880; 85025; 85610; 85730; 87637; 93005; 96365; 96366; 99284; A9270; J3480; J7040